=== PATIENT | female | born 1945 | race African-American/Black ===

== ENCOUNTER 2017-10-18 22:20 | Inpatient (IN) | payer MEDICARE, MEDICAID ==
[2017-10-18] MEDS ORDERED: EPINEPHrine 1 MG/ML AMP ONE ×3 (22:49→22:57)
[2017-10-18] MEDS ORDERED: methylPREDNISolone Sod Succ/PF 125 MG/2 ML VIAL ONE (23:01)
[2017-10-18] MEDS ORDERED: Famotidine/PF 20 mg/2ml Vial ONE (23:01)
[2017-10-18] MEDS ORDERED: diphenhydrAMINE 50 MG/ML VIAL ONE (23:01)
[2017-10-18 23:35] LABS: #Eosinphils 0.6 thou/uL (0.0-0.7); #Lymphocytes 3.7 thou/uL (1.20-3.40); #Monocytes 0.8 thou/uL (0.11-0.59); #Neutrophils 4.3 thou/uL (1.40-6.50); %Basophils 0.4 % (0.0-1.0); %Eosinophils 6.6 % (0.0-10.0); %Monocytes 8.4 % (0.0-10.0); %Neutrophils 45.6 % (42.0-75.0); Hemoglobin 14.1 g/dL (12.0-16.0); Mean Corpuscular HGB CONC 31.3 g/dL (32.0-36.0); Mean Corpuscular Hemoglobin 31.8 pg (27.0-31.0); Mean Platelet Volume 7.2 fL (7.4-10.4); Platelet Count 323 thou/uL (130-400); RBC Distribution Width 11.4 % (11.5-14.5); Red Blood Cell (RBC) Count 4.44 mill/uL (4.20-5.40); White Blood Cell (WBC) Count 9.5 thou/uL (4.8-10.8)
[2017-10-18 23:36] LABS: MDiff Complete? YES; PLT Morphology Comment Appears Adequate; Platelet Clumps SLIGHT; RBC Morphology Normal
[2017-10-18 23:44] LABS: ALT (SGPT) 10 U/L (8-55); AST (SGOT) 22 U/L (5-34); Albumin 4.2 g/dL (3.4-4.8); Alkaline Phosphatase 79 U/L (40-150); Anion Gap 16 mmol/L (10-20); BUN (Urea Nitrogen) 10 mg/dL (9.8-20.1); Bilirubin, Total 0.3 mg/dL (0.2-1.2); Calc. Creatinine Clearance 0 mL/min (70-130); Calcium 10.1 mg/dL (7.8-10.44); Carbon Dioxide 25 mmol/L (23-31); Chloride 103 mmol/L (98-107); Estimated GFR-MDRD 85; Globulin 4.4 g/dL (2.4-3.5); Glucose 135 mg/dL (83-110); Potassium 4.8 mmol/L (3.5-5.1); Protein, Total 8.6 g/dL (6.0-8.3); Sodium 139 mmol/L (136-145)
--- NOTE | 2017-10-18 23:53 | RAD ---
PA AND LATERAL VIEWS OF THE CHEST: 10/18/17 HISTORY: Cough. Shortness of breath. FINDINGS/IMPRESSION: Comparison is made with the exam of 11/18/15. The heart size is borderline. The aorta is tortuous. There is mild pulmonary vascular congestion vers us interstitial infiltrates. No lobar consolidation, pneumothoraces or pleural effusions are seen. POS: [facility]
--- NOTE | 2017-10-18 23:54 | RAD ---
SOFT TISSUE NECK TWO VIEWS: 10/18/17 HISTORY: Cough, shortness of breath. FINDINGS/IMPRESSION: The airway is patent. There are degenerative changes in the cervical spine. The prevertebral soft tis sues are unremarkable. POS: [facility]
[2017-10-19] MEDS ORDERED: methylPREDNISolone Sod Succ/PF 125 MG/2 ML VIAL ONE ×2 (06:01→11:55)
--- NOTE | 2017-10-19 06:27 | HP ---
CHIEF COMPLAINT: Shortness of breath started last night and cough. HISTORY OF PRESENT ILLNESS: She is a 72-year-old woman with a history of hypertension. She came in with this above symptom in the ER and she felt like short of breath last night, then feeling her throat is not clearing up and tongue was swollen and tightness, wheezing. In the ER, she was found to have swelling of the uvula, soft palate, tongue, and lip. She was found to have angioedema. In the ER, she had epinephrine, IV steroids, IV FFP. Anesthesia was called, but her airway was patent, so they did not intubate the patient, but the patient was observed, kept in the ICU because of angioedema for close monitoring. When she came into the ER, vital signs, pulse 87, blood pressure 166/79, respiratory rate 19, temperature 98.3. PAST MEDICAL HISTORY: As mentioned, asthma, hypertension, atrial fibrillation. PAST SURGICAL HISTORY: History of . SOCIAL HISTORY: The patient denies alcohol or drug use. No smoking history. FAMILY HISTORY: Noncontributory. MEDICATIONS: Given in the ER, Solu-Medrol 125, Benadryl injection 50 mg IV push , famotidine 20 mg IV, epinephrine 0.3 intramuscular, DuoNeb 3 mL, and 1 unit FFP. REVIEW OF SYSTEMS: Constitutional: Negative for fever, malaise. EYES: No symptoms. ENT: She denies dysphagia. She does have sore throat, voice change. Cardiovascular: No chest pain, no short of breath. Respirations: She has cough and wheezing. Gastrointestinal: No nausea, no vomiting, and no abdominal pain. Skin: No rash. PHYSICAL EXAMINATION: GENERAL: When I examined her, she is an elderly woman lying in the bed, not in distress. Speech is a little bit slurred. Tongue is swollen. VITAL SIGNS: Pulse 80, blood pressure 120/80, respirations 20, temperature 98.4. HEENT: Head is atraumatic, normocephalic. Pupils are round and reactive. ENT shows severe hydrops of uvula obscuring the contour of uvula and soft palate. Tonsil fossa not visualized. Tongue is dilated. Tongue is swollen and lips are swollen. NECK: Supple, no JVD, no thyromegaly. LUNGS: Chest has normal vesicular breath sounds. No added sounds. CARDIOVASCULAR: S1, S2 audible. No S3 or S4. ABDOMEN: Soft, bowel sounds audible, no organomegaly. EXTREMITIES: No pedal edema seen at time. 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 IMAGING: Her EKG shows sinus rhythm at [address] changes. HOME MEDICATIONS: She take medications at home, amlodipine 10 mg daily, aspirin 81 daily, bisoprolol and hydrochlorothiazide 5/6.25 daily, quinapril 10 mg daily. LABORATORY DATA: Her lab shows WBC of 9.5, hemoglobin 14.1, hematocrit 45.1, platelets 322, lymphocytes 3.7. Chemistry: Sodium 139, potassium 4.8, chloride 103, carbon dioxide 25, anion gap 16, BUN 10, creatinine 0.8, glucose 135, calcium 10.1, AST 22, ALT 10, alkaline phosphatase 79. Serum total protein 8.6, albumin 4.2, globulin 4.4. Chest x-ray negative. ASSESSMENT AND PLAN: 1. Angioedema secondary to TIFFANY inhibitor use. We stopped the TIFFANY inhibitor and give Solu-Medrol 125 q.6 h., Benadryl q.6 h. Watch her closely for the airway in the ICU. 2. Hypertension. We can hold her blood pressure medication. Continue aspirin. 3. History of asthma. We will continue DuoNeb nebulizers q.4 h. 4. Deep venous thrombosis prophylaxis. Lovenox. MTDD
[2017-10-19] MEDS ORDERED: Famotidine/PF 20 mg/2ml Vial ONE (09:39)
[2017-10-19] MEDS ORDERED: Enoxaparin Sodium 40 MG/0.4 ML SYRINGE ONE (09:39)
[2017-10-19] MEDS ORDERED: Water For Inject, Bacteriostat 30 ML ONE (11:55)
--- NOTE | 2017-10-19 13:33 | PDOC.EVN ---
Event Note - Event Note Event Note: s: pt is seen today alert and oriented. No other concenrnsnoted, her Tounge swelling is down, able to breath better. O reviewed all her labs and Vitals are stable. A: Angioedema from ACEI, P continue to stop her ACIE and Address the Allergylist COntinue on Current manaegemnt with IV steroids and benedryl Plan to dischagre pt home tomorrow.
[2017-10-19 16:20] VITALS: BMI 49.9
[2017-10-19] MEDS: Enoxaparin Sodium 40 MG/0.4 ML SYRINGE SC SCH (16:26)
[2017-10-19] MEDS: methylPREDNISolone Sod Succ/PF 125 MG/2 ML VIAL IVP SCH ×2 (16:27→17:59)
[2017-10-19] MEDS: Famotidine/PF 20 mg/2ml Vial SLOW IVP SCH ×2 (16:27→20:19)
[2017-10-20] MEDS: methylPREDNISolone Sod Succ/PF 125 MG/2 ML VIAL IVP SCH ×3 (00:07→11:18)
[2017-10-20] MEDS: Enoxaparin Sodium 40 MG/0.4 ML SYRINGE SC SCH (07:58)
[2017-10-20] MEDS: Famotidine/PF 20 mg/2ml Vial SLOW IVP SCH (07:58)
[2017-10-20 08:55] VITALS: BP 154/82; TEMP 97.8
--- NOTE | 2017-10-20 14:24 | DIS ---
DATE OF ADMISSION: 10/19/2017 DATE OF DISCHARGE: 10/20/2017 ADMITTING DIAGNOSIS: Acute angioedema. DISCHARGE DIAGNOSIS: Acute angioedema secondary to TIFFANY inhibitor. SECONDARY DIAGNOSES: 1. Acute hypoxic respiratory failure. 2. Hypertension. 3. History of asthma. HISTORY OF PRESENT ILLNESS: In brief, this is a 72-year-old white female with a known history of hyp ertension who came into the hospital, she felt like short of breath since last night and feeling her throat was itching and the tongue and the lip was swollen. She was noted to have wheezing in the alex st and hypoxia and she was started on nasal cannula initially on BiPAP and then changed to nasal asad lotus. She was given IV Solu-Medrol 125 mg and she has been getting every 8 hours. Patient showed goo d improvement. She was also given IV epinephrine. Patient did not need to be intubated and she was able to breathe on room air, so she was kept in the telemetry floor for close monitoring. Patient sh owed good improvement. The following day, edema of the soft palate was gone and she was able to eat normally without any problem and she did not have any chest pain or shortness of breath. The followi ng day, the patient was started on oral prednisolone to be continued for a tapering dose for at least 9 days. The patient is instructed to avoid TIFFANY inhibitors or angiotensin receptor blockers. The mil conde is on amlodipine 10 mg and her blood pressures are well controlled. She is also on bisoprolol and hydrochlorothiazide which could be continued. The patient is discharged home in stable condition . PHYSICAL EXAMINATION: VITAL SIGNS: Blood pressures are 154/82, heart rate is 99, respiration is 18, saturation 96%. GENERAL: The patient is moderately built and moderately nourished, does not appear in acute distress . CARDIOVASCULAR: S1, S2 normal. No murmurs, rubs or gallops. LUNGS: Bilateral air entry was equal. No wheezing, no crackles. ABDOMEN: Soft, nontender, no guarding, no rebound tenderness. Bowel sounds normal. MUSCULOSKELETAL: No calf tenderness. No pedal edema. No joint tenderness, no joint swelling. SKIN: No cyanosis, no edema, no rash, no pallor. CENTRAL NERVOUS SYSTEM: Cranial nerve examination II-XII intact. No focal deficits were noted in ex tremities. HOME MEDICATIONS: 1. Amlodipine 10 mg p.o. daily. 2. Aspirin 81 mg p.o. daily. 3. Bisoprolol and hydrochlorothiazide one tablet p.o. daily. 4. Prednisolone 10 mg tablet, takes 20 mg p.o. b.i.d. for 3 days and then reduce it to 20 mg p.o. da carlitos for 3 days and then reduce it to 10 mg p.o. daily for 3 days, then can stop. DISCHARGE INSTRUCTIONS: Continue activity as tolerated. Advised to follow up with primary care phys paulette in 1 week. Advised to return to the ER if the patient develops any worsening shortness of adan th and cough and any further lip swelling. I advised the patient to avoid TIFFANY inhibitors and ARB inh ibitors. I spent 35 minutes on this patient on the day of discharge.
== END 2017-10-20 15:14 | disposition home or self-care (01) | DRG 915 ==
LOC: ERS 22:20 → ERHOLD 10-19 00:30 → T4-B 10-19 15:50
PROVIDERS: ADMIT Family Medicine; ATTEND Family Medicine
PROC: 30233K1 Transfusion of Nonautologous Frozen Plasma into Peripheral Vein, Percutaneous Approach (ICD-10-PCS; principal; 2017-10-19)
DX: T78.3XXA Angioneurotic edema, initial encounter (principal); J96.01 Acute respiratory failure with hypoxia; I10 Essential (primary) hypertension; T46.4X5A Adverse effect of angiotensin-converting-enzyme inhibitors, initial encounter; J45.909 Unspecified asthma, uncomplicated
CPT/HCPCS: 36415; 36430; 70360; 71046; 80053; 85025; 86850; 86900; 86901; 93005; 94640; 96361; 96372; 96374; 96375; 96376; A4216; J0171; J1200; J1650; J2930; J7620; P9059; S0028

== ENCOUNTER 2017-11-02 10:03 | Outpatient (CLI) | payer MEDICARE, MEDICAID ==
--- NOTE | 2017-11-02 12:42 | ULT ---
ULTRASOUND RETROPERITONEUM COMPLETE: (RENAL) Date: 11/01/17 HISTORY: Calculus of kidney in 72-year-old female. FINDINGS: Right kidney: 11 x 4.5 x 4.5 cm. Left kidney: 11.5 x 6 x 5 cm. No hydronephrosis. No moderate sized or large solid or cystic renal lesion identified. However, because of body habitus, there is limited visualization of parenchymal detail of the kidneys , especially the left kidney. There is also partial obscuring of the kidneys by shadowing from bowel gas. The two small left renal upper pole cortical probable cystic lesions demonstrate on the CT of 0 11/17/16 are not visible on this ultrasound. Pre-void urinary bladder volume is only 25 mL at the time of this study. Post-void bladder volume is 2 mL. The bladder ho appear diffusely at least mildly thickened. Uterus is enlarged by multiple fibroids. IMPRESSION: 1. No hydronephrosis. 2. Uterus enlarged by multiple leiomyomata (fibroids). 3. Apparent mural thickening of the urinary bladder. LINDA Stuart POS: [facility]
== END 2017-11-02 10:04 | disposition home or self-care (01) ==
LOC: ULT 10:03
PROVIDERS: ATTEND Urology
DX: N39.41 Urge incontinence (principal); R33.9 Retention of urine, unspecified; N28.1 Cyst of kidney, acquired; N85.2 Hypertrophy of uterus
CPT/HCPCS: 76770

== ENCOUNTER 2018-04-11 11:36 | Outpatient (CLI) | payer MEDICARE | END 2018-04-11 11:37 | disposition home or self-care (01) | LOC: BICMAMMO 11:36 | PROVIDERS: ATTEND Family Medicine | DX: Z12.31 Encounter for screening mammogram for malignant neoplasm of breast (principal) | CPT/HCPCS: 77063; 77067 ==

== ENCOUNTER 2018-06-15 09:27 | Outpatient (CLI) | payer MEDICARE, MEDICAID ==
--- NOTE | 2018-06-15 11:24 | RAD ---
CHEST PA AND LATERAL: History: 73-year-old female with history of dyspnea. Comparison: 10-19-17 FINDINGS: Heart size is within normal limits. The bronchovascular markings are slightly increased but no conflu ent pneumonia, overt edema, or pleural effusion. IMPRESSION: No acute intrathoracic disease. Atherosclerosis of the aorta with ectasia. POS: [facility]
== END 2018-06-15 09:28 | disposition home or self-care (01) ==
LOC: RAD 09:27
PROVIDERS: ATTEND Internal Medicine Critical Care Medicine
DX: R06.00 Dyspnea, unspecified (principal); I70.0 Atherosclerosis of aorta; I77.819 Aortic ectasia, unspecified site
CPT/HCPCS: 71046

== ENCOUNTER 2018-11-14 22:24 | Observation (INO) | payer MEDICARE, MEDICAID ==
[2018-11-14 23:12] LABS: #Basophils 0.1 thou/uL (0.0-0.2); #Eosinphils 0.3 thou/uL (0.0-0.7); #Lymphocytes 2.8 thou/uL (1.20-3.40); #Monocytes 0.6 thou/uL (0.11-0.59); #Neutrophils 3.9 thou/uL (1.40-6.50); %Basophils 1.2 % (0.0-1.0); %Eosinophils 3.8 % (0.0-10.0); %Monocytes 7.3 % (0.0-10.0); %Neutrophils 50.7 % (42.0-75.0); Hemoglobin 13.6 g/dL (12.0-16.0); Mean Corpuscular HGB CONC 30.2 g/dL (32.0-36.0); Mean Corpuscular Hemoglobin 31.2 pg (27.0-31.0); Mean Platelet Volume 7.4 fL (7.4-10.4); Platelet Count 281 thou/uL (130-400); RBC Distribution Width 11.8 % (11.5-14.5); Red Blood Cell (RBC) Count 4.35 mill/uL (4.20-5.40); White Blood Cell (WBC) Count 7.6 thou/uL (4.8-10.8)
--- NOTE | 2018-11-14 23:22 | RAD ---
AP VIEW CHEST: 11/14/2018 HISTORY: A 73-year-old with a history of racing heart. COMPARISON: 08/22/2016 FINDINGS: AP view chest demonstrates calcification of the aorta. Mild cardiomegaly is seen. A moderate degree of pulmonary vascular congestion is seen. No evidence of effusions, pneumonia, or pneumothorax is s een. IMPRESSION: Cardiomegaly and pulmonary vascular congestion. POS: [facility]
[2018-11-14 23:32] LABS: ALT (SGPT) Less than 7 U/L (8-55); AST (SGOT) 13 U/L (5-34); Albumin 3.8 g/dL (3.4-4.8); Alkaline Phosphatase 73 U/L (40-150); Anion Gap 14 mmol/L (10-20); BUN (Urea Nitrogen) 8 mg/dL (9.8-20.1); Bilirubin, Total 0.5 mg/dL (0.2-1.2); CK (CPK) 97 U/L (29-168); Calc. Creatinine Clearance 0 mL/min (70-130); Calcium 9.8 mg/dL (7.8-10.44); Carbon Dioxide 28 mmol/L (23-31); Chloride 100 mmol/L (98-107); Estimated GFR-MDRD Greater than 90; Globulin 3.7 g/dL (2.4-3.5); Glucose 101 mg/dL (83-110); Potassium 3.8 mmol/L (3.5-5.1); Protein, Total 7.5 g/dL (6.0-8.3); Sodium 138 mmol/L (136-145)
[2018-11-15] MEDS ORDERED: Enoxaparin Sodium 40 MG/0.4 ML SYRINGE ONE ×2 (01:17→11:19)
[2018-11-15] MEDS ORDERED: Enoxaparin Sodium 100 MG/ML SYRINGE ONE (01:17)
[2018-11-15 02:40] LABS: Troponin I Less than 0.010 ng/mL (< 0.028)
[2018-11-15 05:53] LABS: Troponin I 0.015 ng/mL (< 0.028)
[2018-11-15] MEDS ORDERED: Loratadine 10 MG TAB PO PRN (07:11)
[2018-11-15] MEDS ORDERED: Artificial Tears 18 DROP/0.9 ML EA EYE PRN (07:11)
[2018-11-15] MEDS ORDERED: Bisacodyl 5 MG TAB PO PRN (07:11)
[2018-11-15] MEDS ORDERED: Ondansetron PF 4 MG/2 ML Vial IVP PRN (07:11)
[2018-11-15] MEDS ORDERED: Bisacodyl 10 MG SUPP PR PRN (07:11)
[2018-11-15] MEDS ORDERED: Sodium Chloride 0.65% Nasal 44 ML BOT EA NARE PRN (07:11)
[2018-11-15] MEDS ORDERED: Calcium Carbonate 500 MG ChewTAB PO PRN (07:11)
[2018-11-15] MEDS ORDERED: Loperamide HCl 2 MG CAP PO PRN (07:11)
[2018-11-15] MEDS ORDERED: hydrALAZINE 20 MG/ML VIAL SLOW IVP PRN (07:11)
[2018-11-15] MEDS ORDERED: Diabetic Tussin 200 MG/10 ML UDCUP PO PRN (07:11)
[2018-11-15] MEDS ORDERED: Senokot S 8.6-50 MG TAB PO PRN (07:11)
[2018-11-15] MEDS ORDERED: Eucerin (Mineral Oil/Petrolatum,White) 30 gm Jar TOP PRN (07:11)
[2018-11-15] MEDS ORDERED: Zolpidem Tartrate 5 MG TAB PO PRN (07:11)
[2018-11-15] MEDS ORDERED: Cepastat Lozenges 1 LOZ PO PRN (07:11)
[2018-11-15] MEDS ORDERED: Ondansetron ODT 4 MG TAB PO PRN (07:11)
[2018-11-15] MEDS ORDERED: Nitroglycerin 0.4 MG TAB (25 Tab Bottle) SL PRN (07:11)
[2018-11-15 07:45] LABS: Cardiac Risk 2.7 (Less than 4.5)
[2018-11-15] MEDS ORDERED: Aspirin 325 MG TAB ONE (08:08)
[2018-11-15] MEDS ORDERED: Famotidine/PF 20 mg/2ml Vial ONE (08:08)
[2018-11-15] MEDS ORDERED: Famotidine 20 MG TAB ONE (08:09)
[2018-11-15] MEDS: Aspirin 325 MG TAB PO SCH (08:30)
[2018-11-15] MEDS: Famotidine 20 MG TAB PO SCH ×2 (08:30→20:34)
[2018-11-15] MEDS ORDERED: cloNIDine 0.1 MG TAB PO PRN (10:21)
[2018-11-15] MEDS ORDERED: Furosemide 40 MG/4 ML VIAL SLOW IVP SCH (10:45)
[2018-11-15] MEDS ORDERED: Amlodipine 10 MG TAB PO SCH (10:45)
[2018-11-15] MEDS ORDERED: Furosemide 40 MG/4 ML VIAL ONE (11:19)
[2018-11-15] MEDS ORDERED: Folic Acid 1 MG TAB ONE (11:19)
--- NOTE | 2018-11-15 11:29 | HP ---
PRIMARY CARE PHYSICIAN: Dr. Consuelo Nolasco. REASON FOR ADMISSION: Asthma exacerbation, hypoxia. HISTORY OF PRESENT ILLNESS: A 73-year-old female, who has morbid obesity as well as underlying history of hypertension, who came to emergency room for evaluation of dyspnea. The patient reports that last night when she woke up for restroom and at that time, she was experiencing wheezing and shortness of breath. She was also feeling chest tightness. She was also having associated cough. She was not able to talk in full sentence. Her shortness of breath was getting worse. She was feeling dizzy and palpitation. She denies any lower extremity edema, cough tenderness, or immobilization. She denies any hemoptysis. She denies any pleurisy. She attributes her chest pain and chest tightness related with shortness of breath. This patient in the emergency room coughing and she was having active wheezing. In the emergency room, routine blood test showed slightly elevated D-dimer, but her chest x-ray also showed pulmonary vascular congestion and cardiomegaly. Her BNP was normal. Cardiac enzymes were negative. The patient denies any exertion related chest pain, angina. She denies any recent flu-like illness or any sick exposure or recent travel. The patient attributes that she has asthma and she requires nebulization machine to use at least more than 2 days per week. She had most recently hospitalization in our hospital in October 2017 about a year ago. After that, the patient also required periodic use of steroid, which she got from her primary screener and blender. In the emergency room when she came to hospital at that time, she was relatively hypoxic and she required oxygen. She was actively wheezing. REVIEW OF SYSTEMS: CONSTITUTIONAL: Negative for weight loss or gain, ability to conduct usual activities. SKIN: Negative for rash, itching. EYES: Negative for double vision, pain. ENT/MOUTH: Negative for nose bleeding, neck stiffness, pain, tenderness. CARDIOVASCULAR: Negative for palpitations, dyspnea on exertion, orthopnea. RESPIRATORY: Negative for shortness of breath, wheezing, cough, hemoptysis, fever or night sweats. GASTROINTESTINAL: Negative for poor appetite, abdominal pain, heartburn, nausea, vomiting, constipation, or diarrhea. GENITOURINARY: Negative for urgency, frequency, dysuria, nocturia. MUSCULOSKELETAL: Negative for pain, swelling. NEUROLOGIC/PSYCHIATRIC: Negative for anxiety, depression. ALLERGY/IMMUNOLOGIC: Negative for skin rash, bleeding tendency. Please see my HPI for pertinent positives and negatives. All other review of systems reviewed and negative except as mentioned in the HPI. PAST MEDICAL HISTORY: Hypertension, atrial fibrillation, asthma, morbid obesity, and history of angioedema. PAST SURGICAL HISTORY: . PAST PSYCHIATRIC HISTORY: Reviewed and negative. SOCIAL HISTORY: The patient lives at home with family. No history of tobacco, alcohol, or illicit drug abuse. FAMILY HISTORY: No strong family history of premature coronary artery disease, stroke, or cancer. ALLERGIES: THE PATIENT IS ALLERGIC TO LISINOPRIL, CODEINE, AND ACETAMINOPHEN. CURRENT HOME MEDICATIONS: 1. Amlodipine 10 mg daily. 2. Aspirin 81 mg daily. 3. Bisoprolol with hydrochlorothiazide 5/6.25 mg daily. EMERGENCY ROOM COURSE: The patient has received DuoNeb therapy and Lovenox 1 mg/kg. PHYSICAL EXAMINATION: VITAL SIGNS: On arrival; blood pressure 168/73, pulse 102, respiratory rate 24, temperature 98.6, and saturation 89% on room air. Weight 136 kg. GENERAL: The patient is currently alert, awake, tachycardic, hypertensive, and tachypneic. HEENT: Normocephalic and atraumatic. Eyes; pupils round and reactive to light. Extraocular muscle intact. ENT; oropharynx within normal limits. Moist mucous membranes. No oral lesion. No pharyngeal erythema. No exudate. NECK: Supple. Short neck difficult to assess JVD. No thyromegaly. LUNGS: Bilateral end-expiratory wheezing heard. No rales. Air entry reduced both sides. No accessory muscles of respiration in use. CARDIAC: S1 and S2, regular. Tachycardia. Soft systolic murmur noted parasternally. No gallop. No rub. No point tenderness on chest wall examination. ABDOMEN: Obesity, limiting examination. Bowel sounds present. Nontender. Nondistended. No organomegaly. No mass. No suprapubic tenderness. BACK: Unremarkable. No CVA tenderness. EXTREMITIES: Upper extremities; passive movement of all joints are normal. Lower extremity; bilateral lower extremity edema noted. No calf tenderness. SKIN: No skin rash. HEMATOLOGIC: No lymphadenopathy. PSYCHIATRIC: Normal affect. NEUROLOGIC: Nonfocal examination. SIGNIFICANT LABORATORY DATA: EKG showing junctional rhythm. Chest x-ray showing cardiomegaly, pulmonary vascular congestion. D-dimer 2.14. CBC; WBC 7.6, hemoglobin 13.6, platelet 281. BNP 95.2. Troponin I 0.013 and CK 97. BMP; sodium 138, potassium 3.8, chloride 100, carbon dioxide 28, anion gap 14, BUN 8, creatinine 0.75, glucose 101, calcium 9.8. LFT; protein 7.5, albumin 3.8, alkaline phosphatase 73, AST 13, and ALT less than 7. ASSESSMENT AND PLAN: 1. Acute asthma exacerbation. This patient has acute onset of shortness of breath. She is actively wheezing. She has underlying history of asthma and also because of her morbid obesity, most likely she also has restrictive pulmonary defect. In our hospital system, the patient does not have any previous pulmonary function test done, but she will benefit from PFT either as an outpatient basis. She has elevated D-dimer and that is why asthma trigger will rule out thromboembolic disorder, though probability it is less likely. She has pulmonary vascular congestion on chest x-ray, but BNP is normal. We will also do echocardiography to rule out any diastolic dysfunction. At this point, we will treat her as asthma exacerbation as well as diastolic heart failure. BNP can be normal in morbidly obese people. We will do Lasix 40 mg IV daily, DuoNeb therapy q.4 hourly, Dulera 2 puffs inhalation b.i.d., and Solu-Medrol 40 mg IV q.6 hourly. We will check influenza respiratory virus panel to rule out any viral etiology as a trigger. Serial cardiac enzymes x3 will be done to rule out any cardiac etiology, but less likely. We will monitor today, and we will reassess her tomorrow. 2. Acute hypoxic respiratory failure. The patient's saturation is just slightly lower than normal at 89% on room air. She needs oxygen and that is because of problem #1 with asthma exacerbation, most likely the patient will not need any oxygen upon therapy. 3. Obstructive sleep apnea. The patient has diagnosis of obstructive sleep apnea. The patient can use her home CPAP machine if available. 4. Hypertension, not well controlled. I think because of uncontrolled asthma, we will use clonidine p.r.n. basis. We will continue with amlodipine 10 mg p.o. daily. We will also use hydralazine p.r.n. basis. 5. Morbid obesity. Dietary education given. Weight loss education given. 6. Macrocytosis without anemia. We will give her folic acid and vitamin B12 therapy. 7. Diastolic heart failure, suspected acute on chronic. We will do echocardiography, and we will continue with Lasix 40 mg IV daily. 8. Deep venous thrombosis prophylaxis. We will provide Lovenox 40 mg subcu daily. 9. Gastrointestinal prophylaxis, Pepcid 20 mg p.o. b.i.d. CODE STATUS: The patient is full code. The patient does not have any surrogate decision maker. DISPOSITION PLAN: Based on clinical course, we are expecting the patient's stay in hospital 24 to 48 hours. Plan of care discussed with the patient in detail. Job ID: [id number]
[2018-11-15 14:16] VITALS: BMI 54.8
[2018-11-15] MEDS: methylPREDNISolone Sod Succ 40 MG VIAL IVP SCH ×3 (14:27→23:37)
--- NOTE | 2018-11-15 14:44 | NM ---
NUCLEAR MEDICINE LUNG SCAN: COMPARISON: Chest x-ray done yesterday. HISTORY: Shortness of breath. FINDINGS: This examination was performed using 21.3 mCi Xenon 133 gas in the anterior and posterior projections . 6.6 mCi 99m Technetium-MAA was used. This shows a normal distribution of the radiopharmaceutical. IMPRESSION: Findings compatible with low probability of pulmonary embolus. POS: [facility]
[2018-11-15] MEDS: Mometasone/Formoterol 120 PUFF INHALER INH SCH (18:52)
[2018-11-16] MEDS: methylPREDNISolone Sod Succ 40 MG VIAL IVP SCH (05:49)
[2018-11-16] MEDS: Mometasone/Formoterol 120 PUFF INHALER INH SCH (07:10)
[2018-11-16] MEDS ORDERED: Bisoprolol Fumarate/HCTZ 5 mg/6.25 mg Tablet PO SCH (09:00)
[2018-11-16] MEDS ORDERED: Cyanocobalamin (Vitamin B-12) 1,000 MCG TAB PO SCH (09:00)
[2018-11-16] MEDS ORDERED: Enoxaparin Sodium 40 MG/0.4 ML SYRINGE SC SCH (09:00)
[2018-11-16] MEDS ORDERED: Amlodipine 10 MG TAB PO SCH (09:00)
[2018-11-16] MEDS ORDERED: Folic Acid 1 MG TAB PO SCH (09:00)
[2018-11-16] MEDS ORDERED: Furosemide 40 MG/4 ML VIAL SLOW IVP SCH (09:00)
[2018-11-16] MEDS: Aspirin 325 MG TAB PO SCH (09:26)
[2018-11-16] MEDS: Famotidine 20 MG TAB PO SCH (09:26)
--- NOTE | 2018-11-16 10:34 | PDOC.PN ---
- Subjective Encounter Start Date: 11/16/18 Encounter Start Time: 07:30 -: old records requested/rev Patient seen and examined. No new complaints. No overnight events - Objective Resuscitation Status - Order Detail: 11/15/18 07:07 Resuscitation Status Routine Resuscitation Status: FULL: Full Resuscitation MAR Reviewed: Yes Vital Signs & Weight: Vital Signs (12 hours) Temp Pulse Resp BP Pulse Ox 11/16/18 09:26 94 11/16/18 08:11 89 L 11/16/18 07:33 99 F 94 20 139/66 92 L 11/16/18 07:02 90 L 11/16/18 07:01 94 16 90 L 11/16/18 05:27 98.9 F 84 16 147/69 H 92 L 11/16/18 02:19 85 16 93 L 11/15/18 23:38 98.5 F 89 18 159/58 H 93 L Weight Weight 315 lb 4.8 oz I&O: 11/15/18 11/16/18 11/17/18 06:59 06:59 06:59 Intake Total 670 Output Total 1500 Balance -830 Result Diagrams: 11/14/18 23:04 11/14/18 23:04 EKG Reviewed by me: Yes (nsr) Phys Exam - Physical Examination Constitutional: NAD HEENT: PERRLA, moist MMs, sclera anicteric, oral pharynx no lesions Neck: no JVD, supple Respiratory: no wheezing, no rales, no rhonchi Cardiovascular: RRR, no significant murmur, no rub Gastrointestinal: soft, non-tender, no distention, positive bowel sounds Musculoskeletal: no edema, pulses present Neurological: non-focal, normal sensation, moves all 4 limbs Lymphatic: no nodes Psychiatric: normal affect, A&O x 3 Skin: no rash, normal turgor Dx/Plan (1) Asthma exacerbation Code(s): J45.901 - UNSPECIFIED ASTHMA WITH (ACUTE) EXACERBATION Status: Acute (2) Macrocytosis Code(s): D75.89 - OTHER SPECIFIED DISEASES OF BLOOD AND BLOOD-FORMING ORGANS Status: Chronic (3) Morbid obesity with BMI of 50.0-59.9, adult Code(s): E66.01 - MORBID (SEVERE) OBESITY DUE TO EXCESS CALORIES; Z68.43 - BODY MASS INDEX (BMI) 50-59.9, ADULT Status: Chronic (4) LISA on CPAP Code(s): G47.33 - OBSTRUCTIVE SLEEP APNEA (ADULT) (PEDIATRIC); Z99.89 - DEPENDENCE ON OTHER ENABLING MACHINES AND DEVICES Status: Chronic (5) Hypertension Code(s): I10 - ESSENTIAL (PRIMARY) HYPERTENSION Status: Chronic - Plan cont current plan of care * medication reviewed as below * symptomatic treatment * see discharge kingsley. Review of Systems - Review of Systems ENT: negative: Ear Pain, Ear Discharge, Nose Pain, Nose Discharge, Nose Congestion, Mouth Pain, Mouth Swelling, Throat Pain, Throat Swelling, Other Respiratory: negative: Cough, Dry, Shortness of Breath, Hemoptysis, SOB with Excertion, Pleuritic Pain, Sputum, Wheezing Cardiovascular: negative: chest pain, palpitations, orthopnea, paroxysmal nocturnal dyspnea, edema, light headedness, other Gastrointestinal: negative: Nausea, Vomiting, Abdominal Pain, Diarrhea, Constipation, Melena, Hematochezia, Other Genitourinary: negative: Dysuria, Frequency, Incontinence, Hematuria, Retention , Other Musculoskeletal: negative: Neck Pain, Shoulder Pain, Arm Pain, Back Pain, Hand Pain, Leg Pain, Foot Pain, Other - Medications/Allergies Allergies/Adverse Reactions: Allergies Allergy/AdvReac Type Severity Reaction Status Date / Time acetaminophen Allergy Verified 10/19/17 16:14 [From Tylenol-Codeine #3] codeine Allergy Verified 10/19/17 16:14 [From Tylenol-Codeine #3] lisinopril Allergy Verified 10/19/17 16:14 Medications: Current Medications Albuterol/Ipratropium (Duoneb) 3 ml NEB Q6H PRN PRN Reason: SOB &/or Wheezing Albuterol/Ipratropium (Duoneb) 3 ml NEB [id number] [facility] Last Admin: 11/16/18 07:01 Dose: 3 ml Amlodipine Besylate (Norvasc) 10 mg PO DAILY [facility] Last Admin: 11/16/18 09:26 Dose: 10 mg Artificial Tears (Tears Naturale) 2 drop EA EYE PRN PRN PRN Reason: Dry Eyes Aspirin (Aspirin) 325 mg PO DAILY [facility] Last Admin: 11/16/18 09:26 Dose: 325 mg Bisacodyl (Dulcolax) 10 mg PO DAILYPRN PRN PRN Reason: Constipation Bisacodyl (Dulcolax) 10 mg CO DAILYPRN PRN PRN Reason: Constipation Bisoprolol Fumarate/HCTZ (Ziac 5-6.25) 1 tab PO DAILY [facility] Last Admin: 11/16/18 09:26 Dose: 1 tab Calcium Carbonate (Tums) 1,000 mg PO Q4H PRN PRN Reason: Heartburn or Indigestion Clonidine (Catapres) 0.1 mg PO Q4H PRN PRN Reason: SBP GREATER THAN 160 Cyanocobalamin (Vitamin B-12) 1,000 mcg PO DAILY [facility] Last Admin: 11/16/18 09:26 Dose: 1,000 mcg Enoxaparin Sodium (Lovenox) 40 mg SC 0900 [facility] Last Admin: 11/16/18 09:27 Dose: Not Given Famotidine (Pepcid) 20 mg PO BID [facility] Last Admin: 11/16/18 09:26 Dose: 20 mg Folic Acid (Folvite) 1 mg PO DAILY [facility] Last Admin: 11/16/18 09:27 Dose: 1 mg Furosemide (Lasix) 40 mg SLOW IVP DAILY [facility] Last Admin: 11/16/18 09:27 Dose: 40 mg Guaifenesin (Robitussin Sf) 200 mg PO Q4H PRN PRN Reason: Cough Hydralazine HCl (Apresoline) 10 mg SLOW IVP Q4H PRN PRN Reason: SBP > 180 and HR < 70 Loperamide HCl (Imodium) 2 mg PO PRN PRN PRN Reason: Diarrhea/Loose Stools Loratadine (Claritin) 10 mg PO DAILYPRN PRN PRN Reason: Sinus Symptoms Methylprednisolone Sodium Succinate (Solu-Medrol) 40 mg IVP Q6HR [facility] Last Admin: 11/16/18 05:49 Dose: 40 mg Mineral Oil/White Petrolatum (Eucerin Cream) 0 gm TOP BIDPRN PRN PRN Reason: Dry Skin Mometasone Furoate/Formoterol Fumar (Dulera 200 Mcg/5 Mcg Inhaler) 2 puff INH BID-RT [facility] Last Admin: 11/16/18 07:10 Dose: 2 puff Nitroglycerin (Nitrostat) 0.4 mg SL Q5MIN PRN PRN Reason: Chest Pain Ondansetron HCl (Zofran Odt) 4 mg PO Q6H PRN PRN Reason: Nausea/Vomiting Ondansetron HCl (Zofran) 4 mg IVP Q6H PRN PRN Reason: Nausea/Vomiting Senna/Docusate Sodium (Senokot S) 2 tab PO BIDPRN PRN PRN Reason: Constipation Sodium Chloride (Ware Nasal [place] 0.65%) 0 ml EA NARE QIDPRN PRN PRN Reason: Nasal Congestion Sodium Chloride (Flush - Normal Saline) 10 ml IVF Q12HR [facility] Last Admin: 11/16/18 09:27 Dose: 10 ml Sodium Chloride (Flush - Normal Saline) 10 ml IVF PRN PRN PRN Reason: Saline Flush Throat Lozenges (Cepastat Lozenges) 1 lion PO Q2H PRN PRN Reason: Sore Throat Zolpidem Tartrate (Ambien) 5 mg PO HSPRN PRN PRN Reason: Insomnia
[2018-11-16 11:51] VITALS: BP 132/60; TEMP 98.5
--- NOTE | 2018-11-16 12:16 | DIS ---
DATE OF ADMISSION: 11/15/2018 DATE OF DISCHARGE: 11/16/2018 PRIMARY CARE PHYSICIAN: Consuelo Nolasco MD DISCHARGE DISPOSITION: Home. PRIMARY DISCHARGE DIAGNOSIS: Asthma exacerbation. SECONDARY DISCHARGE DIAGNOSES: Hypertension, morbid obesity, obstructive sleep apnea, macrocytosis, asthma. PRIMARY PROCEDURE/OPERATION: None. RADIOLOGICAL INVESTIGATION: Chest x-ray was unremarkable. Ventilation perfusion scan showed low probability of PE. Echocardiography was normal. SIGNIFICANT LABORATORY DATA: WBC 7.6, hemoglobin 13.6, MCV 103, and platelets 281. D-dimer 2.14. Sodium 138, potassium 3.8, BUN 8, creatinine 0.75. LFT normal. Cardiac enzyme negative. BNP 95, LDL 74. Respiratory virus panel negative. DISCHARGE MEDICATIONS: 1. Prednisone 20 mg b.i.d. for 7 days. 2. Ventolin inhaler two puffs q.6 hourly p.r.n. 3. Singulair 10 mg daily. 4. Dulera two puffs inhalation b.i.d. 5. Bisoprolol with hydrochlorothiazide 5/6.25 one tablet p.o. daily. 6. Aspirin 81 mg daily. 7. Amlodipine 10 mg p.o. daily. CONTRAINDICATION: None. CODE STATUS: Full code. INPATIENT FITNESS AND WELLNESS COORDINATOR: None. ALLERGIES: ACETAMINOPHEN, CODEINE, LISINOPRIL. DISCHARGE PLAN: Posthospital, the patient will follow up with primary care physician in 1 or 2 weeks. HOSPITAL COURSE: A 73-year-old female who was admitted by me yesterday. Please see my HPI for further details. The patient was having wheezing. The patient was having chest tightness, shortness of breath, and cough. She was diagnosed with asthma exacerbation. Her chest x-ray was unremarkable. She had elevated D-dimer and that is why we did V/Q scan which was showing low probability of PE. Echocardiography was unremarkable. This patient was treated with DuoNeb, Solu-Medrol, Dulera with significant improvement. This patient does not have any more wheezing today and she is able to talk in full sentence. Her oxygen saturation is also normal. The patient is seen and examined at bedside today. Please see my progress note from today for further detail. Job ID: [id number]
--- NOTE | 2018-11-19 19:51 | EKG ---
Test Reason : Blood Pressure : / mmHG Vent. Rate : 092 BPM Atrial Rate : 094 BPM P-R Int : 000 ms QRS Dur : 080 ms QT Int : 330 ms P-R-T Axes : 000 025 029 degrees QTc Int : 408 ms Accelerated Junctional rhythm Abnormal ECG Confirmed by DAVID FERRARI DO ([id number]), fashion editor MATTHEW LEON ([id number]) on 11/19/2018 7:50:50 PM Referred By: Confirmed By:DAVID FERRARI DO
== END 2018-11-16 14:43 | disposition home or self-care (01) ==
LOC: ERS 22:24 → ERHOLD 11-15 01:16 → 2SW 11-15 01:21
PROVIDERS: ADMIT Hospitalist; ATTEND Hospitalist
DX: J45.901 Unspecified asthma with (acute) exacerbation (principal); J96.01 Acute respiratory failure with hypoxia; G47.33 Obstructive sleep apnea (adult) (pediatric); D75.89 Other specified diseases of blood and blood-forming organs; I48.91 Unspecified atrial fibrillation; I11.0 Hypertensive heart disease with heart failure; I50.30 Unspecified diastolic (congestive) heart failure; E66.01 Morbid (severe) obesity due to excess calories; Z68.43 Body mass index [BMI] 50.0-59.9, adult; Z79.82 Long term (current) use of aspirin; Z79.899 Other long term (current) drug therapy; Z88.5 Allergy status to narcotic agent; Z88.8 Allergy status to other drugs, medicaments and biological substances; Z99.89 Dependence on other enabling machines and devices
CPT/HCPCS: 71045; 78582; 80053; 80061; 82550; 83880; 84484 ×3; 85025; 85379; 87633; 93005; 93306; 94640 ×6; 94760 ×2; 96372; 96374; 96375; 96376 ×2; 99285; A9540; A9558; G0378 ×2; 36415; 71275; J1650; J1940; J2920; J7620; S0028

== ENCOUNTER 2019-04-02 11:43 | Inpatient (IN) | payer MEDICARE, MEDICAID ==
--- NOTE | 2019-04-02 12:25 | RAD ---
EXAM: CHEST ONE VIEW HISTORY: Altered mental status. Fluid in lower extremities. COMPARISON: 11/14/2018 FINDINGS: Cardiac silhouette is magnified by projection but does appear mildly enlarged. Pulmonary vasculature is also borderline increase. The lungs are clear. The osseous structures are intact. Vascular calcifications are again seen in the thoracic aorta. IMPRESSION: Cardiomegaly with borderline increase in pulmonary vasculature. Correlation for mild CHF is suggested .
[2019-04-02 13:12] LABS: #Basophils 0.1 thou/uL (0.0-0.2); #Eosinphils 0.1 thou/uL (0.0-0.7); #Lymphocytes 1.8 thou/uL (1.20-3.40); #Monocytes 0.8 thou/uL (0.11-0.59); #Neutrophils 4.2 thou/uL (1.40-6.50); %Basophils 1.2 % (0.0-1.0); %Eosinophils 1.7 % (0.0-10.0); %Monocytes 10.9 % (0.0-10.0); %Neutrophils 60.1 % (42.0-75.0); Hemoglobin 12.7 g/dL (12.0-16.0); Mean Corpuscular HGB CONC 30.9 g/dL (32.0-36.0); Mean Corpuscular Hemoglobin 31.1 pg (27.0-31.0); Mean Platelet Volume 7.6 fL (7.4-10.4); Platelet Count 271 thou/uL (130-400); RBC Distribution Width 12.1 % (11.5-14.5); Red Blood Cell (RBC) Count 4.08 mill/uL (4.20-5.40)
--- NOTE | 2019-04-02 13:28 | CT ---
Exam: CT brain PROVIDED CLINICAL HISTORY: Headache COMPARISON: None FINDINGS: The ventricular system is normal in size and morphology. No evidence for intracranial hemorrhage or mass effect. The extracranial soft tissues and osseous structures demonstrate an unremarkable CT appearance. IMPRESSION: No evidence for intracranial hemorrhage or mass effect.
[2019-04-02 13:35] LABS: ALT (SGPT) 9 U/L (8-55); AST (SGOT) 20 U/L (5-34); Albumin 3.7 g/dL (3.4-4.8); Alkaline Phosphatase 68 U/L (40-150); Anion Gap 14 mmol/L (10-20); BUN (Urea Nitrogen) 6 mg/dL (9.8-20.1); Bilirubin, Total 0.7 mg/dL (0.2-1.2); CK (CPK) 187 U/L (29-168); Calc. Creatinine Clearance 0 mL/min (70-130); Calcium 9.5 mg/dL (7.8-10.44); Carbon Dioxide 30 mmol/L (23-31); Chloride 98 mmol/L (98-107); Estimated GFR-MDRD Greater than 90; Globulin 3.7 g/dL (2.4-3.5); Glucose 95 mg/dL (83-110); Potassium 4.1 mmol/L (3.5-5.1); Protein, Total 7.4 g/dL (6.0-8.3); Sodium 138 mmol/L (136-145)
[2019-04-02] MEDS ORDERED: Nitroglycerin 2% Ointment 1 INCH/1 GM Packet ONE (13:46)
[2019-04-02] MEDS ORDERED: Furosemide 100 MG/10 ML VIAL ONE (13:46)
[2019-04-02] MEDS ORDERED: Aspirin Chewable 81 MG TAB ONE (13:46)
[2019-04-02] MEDS ORDERED: Acetaminophen 325 MG TAB PO PRN (15:48)
[2019-04-02] MEDS ORDERED: Bisacodyl 5 MG TAB PO PRN (15:48)
[2019-04-02] MEDS ORDERED: Senokot S 8.6-50 MG TAB PO PRN (15:48)
[2019-04-02] MEDS ORDERED: Ondansetron PF 4 MG/2 ML Vial IVP PRN (15:48)
[2019-04-02 16:54] LABS: Troponin I 0.028 ng/mL (< 0.028)
[2019-04-02] MEDS ORDERED: PROVENTIL INHALER 6.7 G (200 INHALATIONS) INH PRN (18:00)
--- NOTE | 2019-04-02 19:12 | HP ---
PRIMARY CARE PHYSICIAN: Consuelo Nolasco MD PRIMARY CONTACT OFFICER: Dr. Hill at [facility]. PRIMARY GREEN BUILDING MATERIALS DISTRIBUTOR: Dr. Leal. CHIEF COMPLAINT: Shortness of breath on exertion, difficulty lying flat, and swelling in her legs and abdomen. HISTORY OF PRESENTING ILLNESS: Ms. Ford is a 74-year-old obese female with past medical history of obstructive sleep apnea, morbid obesity, as well as asthma, who presented to the emergency room with the above-mentioned complaint. History is mainly obtained by the patient herself, and electronic medical records have been reviewed. Case has been discussed with admitting ER physician. Ms. Ford reports that for the last few days, she has been feeling that she has retained a lot of fluid in her legs and her lower abdomen. Her daughter, who is present with her, reports that she feels that her mother's abdomen is getting really bad. She also fell about 5 days ago and according to the daughter, she has been acting different since then. There has been no chest pain, but the daughter states that the patient is not able to sleep through the night. The patient has history of sleep apnea and uses CPAP at night and also denies any difficulty with her sleep. She does just does not sleep more than 4 to 5 hours at a stretch, but when she sleeps, she is able to sleep throughout those hours. She is compliant with her CPAP. She has no chest pain, cough, fever, or chills. She is compliant with her asthma medications as well. She has no difficulty with urination and has seen Dr. Conrad in the outpatient setting for some urological findings. She was admitted to our facility in November of this year for asthma exacerbation. An echocardiogram was done on 11/15/2018, which was largely unremarkable. In the emergency room today, her chest x-ray was inconclusive as to maybe having borderline increase in pulmonary vasculature and her BNP was 131. Because of the fluid retention, it was thought that she has new-onset of acute CHF and hospitalist was called to admission. PAST MEDICAL HISTORY: 1. Asthma. 2. Morbid obesity. 3. Sleep apnea, on CPAP at home. 4. Chronic atrial fibrillation according to the EMR. 5. History of angioedema. PAST SURGICAL HISTORY: section. PAST PSYCHIATRIC HISTORY: Reviewed and negative. SOCIAL HISTORY: She lives at home with family. No history of drug, tobacco, or alcohol abuse. FAMILY HISTORY: No strong family history of premature coronary artery disease, stroke, or cancer. ALLERGIES: INCLUDE LISINOPRIL, CODEINE, AND ACETAMINOPHEN. CURRENT HOME MEDICATIONS: Not updated as yet, but she takes Dulera as well as Singulair, nebulizers, and inhalers as needed. EMERGENCY ROOM COURSE: The patient has received 80 mg of Lasix in the ER. The patient has received aspirin and nitroglycerin transdermal in the ER as well for blood pressure of 178 systolic. REVIEW OF SYSTEMS: A 14-point review of system is done. It is negative except for those mentioned in the history and physical. LABORATORY AND DIAGNOSTIC DATA: Her CBC is rather unremarkable and within normal limits. Serum chemistries within normal limit. Creatine kinase mildly elevated to 187 with troponin 0.014 with repeat troponin normal at 0.028. BNP 131. Chest x-ray by my review does not show any overt pulmonary vascular congestion. CT scan of the brain does not have any hemorrhage or mass effect. A 12-lead EKG by my review shows normal sinus rhythm without any acute ST or T-wave changes. PHYSICAL EXAMINATION: VITAL SIGNS: Blood pressure 178/68 upon presentation, saturating 92% on room air and 90% with ambulation on room air. GENERAL: No acute distress. Awake, alert, and oriented x3. HEENT: Mucous membrane is moist and pink. No oropharyngeal exudate or erythema. Head is normocephalic, atraumatic. Pupils are equal and reactive to light and accommodation. Extraocular movement intact. NECK: Supple without any lymphadenopathy, JVD, or bruit. CHEST: Evaluation does not reveal any wheezes or any specific rales, but it is difficult to auscultate because of obese body habitus. HEART: Rate and rhythm are regular without any murmurs, rubs, or gallops. ABDOMEN: Morbidly obese without any significant edema. EXTREMITIES: Showed chronic venous stasis changes and some pitting edema. NEUROLOGIC: Nonfocal. SKIN: Free of any rashes or bruises. Feels warm and dry to touch. PSYCHIATRIC: Normal affect. IMPRESSION AND PLAN: 1. Dyspnea. The patient has some fairly elevated BNP and not much of a pulmonary vascular congestion or chest x-ray with a normal echocardiogram earlier this year. Her symptoms are not suggestive of congestive heart failure at this time. I suspect that her symptoms are likely just related to fluid overload without congestive heart failure from chronic venostasis. She also has history of asthma and sleep apnea, making things worse. We will treat her with nebulizers for now and continue with Dulera and fluid removal as tolerated. We will repeat the echocardiogram in case her cardiac function has diminished dramatically over the course of last 4 months. Otherwise, she will benefit from outpatient diuretics on an as-needed basis. If her echo suggest congestive heart failure, we will consider Cardiology evaluation. The patient reports that she has seen Dr. Hill in the outpatient setting and always has been given a clean bill of health as far as her cardiac health is concerned. We will consult her transition of care specialist as well. 2. Fluid retention, likely due to morbid obesity and chronic venostasis. Lasix for now and then as needed. Rule out CHF by checking and transthoracic echocardiogram. 3. History of asthma, appears to be controlled for now. We will continue Dulera and nebulizers as needed and continue Singulair as well. 4. History of hypertension. We will restart her bisoprolol, hydrochlorothiazide, and amlodipine, that she was taking once the dose is confirmed. 5. Code status: Full code discussed with the patient. 6. Sleep apnea. We will order CPAP while in the hospital to be used at night. 7. Morbid obesity. Dietary education and weight loss education are provided. 8. Macrocytosis without anemia. 9. Deep venous thrombosis and gastrointestinal prophylaxis. 10. Disposition: Ms. Ford is currently being admitted to the hospital with fluid overload and rule out CHF causing dyspnea. Estimated length of stay at this time is at least 2 to 3 midnights. We will have OT, PT evaluate her as well. Further management will depend upon her clinical course. Job ID: [id number]
[2019-04-02 19:19] LABS: Troponin I 0.028 ng/mL (< 0.028)
[2019-04-02] MEDS: Famotidine 20 MG TAB PO SCH (21:47)
[2019-04-02] MEDS ORDERED: Famotidine 20 MG TAB ONE (21:50)
[2019-04-03] MEDS: Mometasone/Formoterol 120 PUFF INHALER INH SCH ×3 (00:13→18:55)
[2019-04-03] MEDS: Famotidine 20 MG TAB PO SCH ×3 (04:33→20:40)
[2019-04-03 05:19] LABS: Anion Gap 12 mmol/L (10-20); BUN (Urea Nitrogen) 5 mg/dL (9.8-20.1); Calc. Creatinine Clearance 0 mL/min (70-130); Calcium 8.8 mg/dL (7.8-10.44); Carbon Dioxide 36 mmol/L (23-31); Chloride 97 mmol/L (98-107); Estimated GFR-MDRD Greater than 90; Glucose 87 mg/dL (83-110); Magnesium 1.9 mg/dL (1.6-2.6); Potassium 3.8 mmol/L (3.5-5.1); Sodium 141 mmol/L (136-145)
[2019-04-03 05:24] LABS: #Eosinphils 0.1 thou/uL (0.0-0.7); #Lymphocytes 1.4 thou/uL (1.20-3.40); #Monocytes 0.8 thou/uL (0.11-0.59); #Neutrophils 4.8 thou/uL (1.40-6.50); %Basophils 0.5 % (0.0-1.0); %Eosinophils 2.1 % (0.0-10.0); %Monocytes 11.5 % (0.0-10.0); %Neutrophils 66.9 % (42.0-75.0); Hemoglobin 11.8 g/dL (12.0-16.0); Mean Corpuscular HGB CONC 29.2 g/dL (32.0-36.0); Mean Corpuscular Hemoglobin 30.3 pg (27.0-31.0); Mean Platelet Volume 7.2 fL (7.4-10.4); Platelet Count 238 thou/uL (130-400); RBC Distribution Width 12.1 % (11.5-14.5); RBC Morphology Normal; Red Blood Cell (RBC) Count 3.91 mill/uL (4.20-5.40); White Blood Cell (WBC) Count 7.1 thou/uL (4.8-10.8)
[2019-04-03] MEDS: Furosemide 40 MG/4 ML VIAL SLOW IVP SCH ×2 (05:53→15:06)
[2019-04-03] MEDS: Aspirin Chewable 81 MG TAB PO SCH (08:33)
[2019-04-03] MEDS: Montelukast Sodium 10 mg Tablet PO SCH (08:33)
[2019-04-03] MEDS: Aspirin 81 mg Enteric Coated Tablet PO SCH (08:33)
[2019-04-03] MEDS: Enoxaparin Sodium 40 MG/0.4 ML SYRINGE SC SCH (08:34)
[2019-04-03] MEDS: Amlodipine 10 MG TAB PO SCH (08:34)
[2019-04-03] MEDS: Bisoprolol Fumarate/HCTZ 5 mg/6.25 mg Tablet PO SCH (09:30)
--- NOTE | 2019-04-03 10:17 | CON ---
DATE OF CONSULTATION: HISTORY OF PRESENT ILLNESS: Wil Ford is a morbidly obese 74-year-old female, who sees Dr. Leal, presented with generalized anasarca. This morning, she says she is feeling better. She has apparently some kind of CPAP machine at home, which she uses 10 minutes on a regular basis. She denies any chest pain, chills, or sweats. She is on a monitor bed. She has severe limitation to activity. Weak, uses a walker to get around. She tells me she is not smoking or drinking at this time. PAST MEDICAL HISTORY: COPD, sleep apnea, hypertension, and morbidly obese. HOME MEDICATIONS: Include; 1. Ventolin inhaler. 2. Dulera inhaler. 3. . 4. Calcium. 5. Blood pressure medication. 6. Aspirin. 7. Amlodipine 10. ALLERGIES: LISINOPRIL AND TYLENOL. REVIEW OF SYSTEMS: Otherwise 10-point negative. PHYSICAL EXAMINATION: VITAL SIGNS: Sats are 92.5%, respiratory rate 20, temperature 98, blood pressure 129/64. EXTREMITIES: Trace edema. CHEST: Decreased breath sounds. No wheezing. CARDIAC: Normal S1 and S2. No gallops. ABDOMEN: No masses. LABORATORY DATA: Lytes are normal. White count unremarkable. H and H unremarkable. IMAGING STUDIES: Chest x-ray was otherwise remarkable for looks like cephalization, though her BNP was only 131. IMPRESSION: Acute on chronic respiratory failure, morbid obesity, diastolic dysfunction, and sleep apnea. PLAN: We will restart neb treatments as well as BiPAP, though she has not brought us from home. We will notify, Dr. Leal. Consultation note, 70 minutes, 50% direct patient care. Job ID: [id number]
--- NOTE | 2019-04-03 12:28 | PDOC.PN ---
- Subjective Encounter Start Date: 04/03/19 Encounter Start Time: 09:20 Subjective: awake, not fully oriented. Responds well to verbal questions -: no chest pain or palp - Objective MAR Reviewed: Yes Vital Signs & Weight: Vital Signs (12 hours) Temp Pulse Resp BP BP Pulse Ox 04/03/19 11:04 75 16 100 04/03/19 08:34 99 129/64 04/03/19 08:21 20 04/03/19 08:00 90 L 04/03/19 07:06 85 16 04/03/19 07:00 98.1 F 99 15 129/64 90 L 04/03/19 04:00 92 L 04/03/19 03:02 97.5 F L 102 H 20 109/59 L 95 Weight Weight 337 lb 3.2 oz I&O: 04/02/19 04/03/19 04/04/19 06:59 06:59 06:59 Intake Total 340 Balance 340 Result Diagrams: 04/03/19 04:30 04/03/19 04:30 Phys Exam - Physical Examination HEENT: PERRLA, moist MMs Neck: no JVD, supple Respiratory: no wheezing, no rales Cardiovascular: RRR, no significant murmur Gastrointestinal: soft, non-tender, positive bowel sounds Musculoskeletal: no edema, pulses present Neurological: non-focal, moves all 4 limbs Psychiatric: normal affect Dx/Plan (1) Dyspnea Code(s): R06.00 - DYSPNEA, UNSPECIFIED Status: Acute Qualifiers: Dyspnea type: dyspnea on exertion Qualified Code(s): R06.09 - Other forms of dyspnea Comment: multifactorial (2) Morbid obesity Code(s): E66.01 - MORBID (SEVERE) OBESITY DUE TO EXCESS CALORIES Status: Chronic (3) Obesity hypoventilation syndrome Code(s): E66.2 - MORBID (SEVERE) OBESITY WITH ALVEOLAR HYPOVENTILATION Status : Suspected (4) Afib Code(s): I48.91 - UNSPECIFIED ATRIAL FIBRILLATION Status: Chronic Qualifiers: Atrial fibrillation type: paroxysmal Qualified Code(s): I48.0 - Paroxysmal atrial fibrillation (5) Chronic anemia Code(s): D64.9 - ANEMIA, UNSPECIFIED Status: Chronic (6) Hypertension Code(s): I10 - ESSENTIAL (PRIMARY) HYPERTENSION Status: Chronic Qualifiers: Hypertension type: essential hypertension Qualified Code(s): I10 - Essential (primary) hypertension (7) LISA on CPAP Code(s): G47.33 - OBSTRUCTIVE SLEEP APNEA (ADULT) (PEDIATRIC); Z99.89 - DEPENDENCE ON OTHER ENABLING MACHINES AND DEVICES Status: Chronic - Plan to wear home cpap -: ABG to see for co2 retention, ?obesity hypoventilation syndrome -: continue lasix, nebs, norvasc, asp, ziac, dulera -: is in sinus rhythm now -: to ambulate as tolerated * . Review of Systems - Medications/Allergies Allergies/Adverse Reactions: Allergies Allergy/AdvReac Type Severity Reaction Status Date / Time acetaminophen Allergy Verified 10/19/17 16:14 [From Tylenol-Codeine #3] codeine Allergy Verified 10/19/17 16:14 [From Tylenol-Codeine #3] lisinopril Allergy Verified 10/19/17 16:14 Medications: Current Medications Acetaminophen (Tylenol) 650 mg PO Q4H PRN PRN Reason: Headache/Fever/Mild Pain (1-3) Albuterol Sulfate (Proventil Hfa) 2 puff INH Q6HR PRN PRN Reason: SOB &/or Wheezing Albuterol/Ipratropium (Duoneb) 3 ml NEB [id number] [facility] Last Admin: 04/03/19 11:04 Dose: 3 ml Amlodipine Besylate (Norvasc) 10 mg PO DAILY [facility] Last Admin: 04/03/19 08:34 Dose: 10 mg Aspirin (Ecotrin) 81 mg PO DAILY [facility] Last Admin: 04/03/19 08:33 Dose: 81 mg Aspirin (Aspirin Chewable) 81 mg PO DAILY [facility] Last Admin: 04/03/19 08:33 Dose: 81 mg Bisacodyl (Dulcolax) 10 mg PO DAILYPRN PRN PRN Reason: Constipation Bisoprolol Fumarate/HCTZ (Ziac 5-6.25) 1 tab PO DAILY [facility] Last Admin: 04/03/19 09:30 Dose: 1 tab Enoxaparin Sodium (Lovenox) 40 mg SC 0900 [facility] Last Admin: 04/03/19 08:34 Dose: 40 mg Famotidine (Pepcid) 20 mg PO BID [facility] Last Admin: 04/03/19 08:34 Dose: 20 mg Furosemide (Lasix) 40 mg SLOW IVP 0600,1400 [facility] Last Admin: 04/03/19 05:53 Dose: 40 mg Mometasone Furoate/Formoterol Fumar (Dulera 200 Mcg/5 Mcg Inhaler) 2 puff INH BID-RT [facility] Last Admin: 04/03/19 07:06 Dose: 2 puff Montelukast Sodium (Singulair) 10 mg PO DAILY [facility] Last Admin: 04/03/19 08:33 Dose: 10 mg Ondansetron HCl (Zofran) 4 mg IVP Q6H PRN PRN Reason: Nausea/Vomiting Senna/Docusate Sodium (Senokot S) 2 tab PO BID PRN PRN Reason: Constipation
[2019-04-03 15:02] LABS: Actual Bicarbonate (HCO3a) 43.9 mEq/L (22-28); Analyzer IN Cardio OR; Base Excess (BEa) 15.2 mEq/L (-2.0 to +3.0); Calcium, Ionized 1.15 mmol/L (1.12-1.30); Carboxyhemoglobin (COHb) 1.7 gm% (0.0-3.0); Hemoglobin (Hb) 12.5 g/dL (12.0-16.0); O2 Tension (PaO2) 70.4 mmHg (> 70.0); Potassium - ABG Lab 3.77 mmol/L (3.70-5.30); pH, Arterial 7.37 (7.35-7.45)
[2019-04-03 15:06] LABS: CO2 Tension 76.9 mmHg (35.0-45.0); Puncture Site RR
[2019-04-03 15:07] LABS: ALV-art Gradient 33.115 (0-20)
[2019-04-04] MEDS: Furosemide 40 MG/4 ML VIAL SLOW IVP SCH (05:19)
[2019-04-04 06:39] LABS: BUN (Urea Nitrogen) 7 mg/dL (9.8-20.1); Calc. Creatinine Clearance 175 mL/min (70-130); Estimated GFR-MDRD Greater than 90; Glucose 84 mg/dL (83-110)
[2019-04-04 06:48] LABS: Anion Gap 14 mmol/L (10-20); Carbon Dioxide 35 mmol/L (23-31); Chloride 93 mmol/L (98-107); Potassium 3.7 mmol/L (3.5-5.1); Sodium 138 mmol/L (136-145)
[2019-04-04] MEDS: Mometasone/Formoterol 120 PUFF INHALER INH SCH ×2 (07:57→18:43)
[2019-04-04] MEDS: Enoxaparin Sodium 40 MG/0.4 ML SYRINGE SC SCH (10:40)
[2019-04-04] MEDS: Famotidine 20 MG TAB PO SCH ×2 (10:41→21:30)
[2019-04-04] MEDS: Montelukast Sodium 10 mg Tablet PO SCH (10:41)
[2019-04-04] MEDS: Aspirin 81 mg Enteric Coated Tablet PO SCH (10:41)
[2019-04-04] MEDS: Bisoprolol Fumarate/HCTZ 5 mg/6.25 mg Tablet PO SCH (10:41)
[2019-04-04] MEDS: Amlodipine 10 MG TAB PO SCH (10:41)
[2019-04-04] MEDS: Aspirin Chewable 81 MG TAB PO SCH (10:41)
--- NOTE | 2019-04-04 11:44 | PDOC.PN ---
- Subjective Encounter Start Date: 04/04/19 Encounter Start Time: 10:45 Subjective: lethargic but responds to verbal stimuli -: counselled to amb in hallway and be out of bed - Objective MAR Reviewed: Yes Vital Signs & Weight: Vital Signs (12 hours) Temp Pulse Pulse Pulse Resp BP BP 04/04/19 10:56 81 20 04/04/19 10:41 82 04/04/19 09:42 75 82 109/53 L 122/56 L 04/04/19 08:00 98.6 F 82 18 04/04/19 04:00 99.5 F 87 18 04/03/19 23:58 99.8 F H 85 20 BP Pulse Ox Pulse Ox Pulse Ox 04/04/19 10:56 04/04/19 10:41 04/04/19 09:42 95 95 04/04/19 08:00 117/58 L 95 04/04/19 04:00 114/56 L 92 L 04/03/19 23:58 112/53 L 98 Weight Weight 326 lb 4 oz I&O: 04/03/19 04/04/19 04/05/19 06:59 06:59 06:59 Intake Total 1015 Output Total 3000 Balance -1984 Result Diagrams: 04/03/19 04:30 04/04/19 06:05 Phys Exam - Physical Examination HEENT: PERRLA, moist MMs Neck: no JVD, supple Respiratory: no wheezing, no rales Cardiovascular: RRR, no significant murmur Gastrointestinal: soft, non-tender, positive bowel sounds Musculoskeletal: no edema, pulses present Neurological: non-focal, moves all 4 limbs Dx/Plan (1) Dyspnea Code(s): R06.00 - DYSPNEA, UNSPECIFIED Status: Acute Qualifiers: Dyspnea type: dyspnea on exertion Qualified Code(s): R06.09 - Other forms of dyspnea Comment: multifactorial (2) Morbid obesity Code(s): E66.01 - MORBID (SEVERE) OBESITY DUE TO EXCESS CALORIES Status: Chronic (3) Obesity hypoventilation syndrome Code(s): E66.2 - MORBID (SEVERE) OBESITY WITH ALVEOLAR HYPOVENTILATION Status : Suspected (4) Afib Code(s): I48.91 - UNSPECIFIED ATRIAL FIBRILLATION Status: Chronic Qualifiers: Atrial fibrillation type: paroxysmal Qualified Code(s): I48.0 - Paroxysmal atrial fibrillation (5) Chronic anemia Code(s): D64.9 - ANEMIA, UNSPECIFIED Status: Chronic (6) Hypertension Code(s): I10 - ESSENTIAL (PRIMARY) HYPERTENSION Status: Chronic Qualifiers: Hypertension type: essential hypertension Qualified Code(s): I10 - Essential (primary) hypertension (7) LISA on CPAP Code(s): G47.33 - OBSTRUCTIVE SLEEP APNEA (ADULT) (PEDIATRIC); Z99.89 - DEPENDENCE ON OTHER ENABLING MACHINES AND DEVICES Status: Chronic - Plan is on asp, norvasc, ziac, dulera, nebs, will dc lasix -: will likely need bipap for lisa with hypovent syndrome/vent for outpt use -: echo shows normal ef and elevated rvsp 52 -: has life threatening obesity, is 74 yrs old -: await pulm opinion * . Review of Systems - Medications/Allergies Allergies/Adverse Reactions: Allergies Allergy/AdvReac Type Severity Reaction Status Date / Time acetaminophen Allergy Verified 10/19/17 16:14 [From Tylenol-Codeine #3] codeine Allergy Verified 10/19/17 16:14 [From Tylenol-Codeine #3] lisinopril Allergy Verified 10/19/17 16:14 Medications: Current Medications Acetaminophen (Tylenol) 650 mg PO Q4H PRN PRN Reason: Headache/Fever/Mild Pain (1-3) Albuterol Sulfate (Proventil Hfa) 2 puff INH Q6HR PRN PRN Reason: SOB &/or Wheezing Albuterol/Ipratropium (Duoneb) 3 ml NEB [id number] [facility] Last Admin: 04/04/19 10:56 Dose: 3 ml Amlodipine Besylate (Norvasc) 10 mg PO DAILY [facility] Last Admin: 04/04/19 10:41 Dose: 10 mg Aspirin (Ecotrin) 81 mg PO DAILY [facility] Last Admin: 04/04/19 10:41 Dose: 81 mg Aspirin (Aspirin Chewable) 81 mg PO DAILY [facility] Last Admin: 04/04/19 10:41 Dose: 81 mg Bisacodyl (Dulcolax) 10 mg PO DAILYPRN PRN PRN Reason: Constipation Bisoprolol Fumarate/HCTZ (Ziac 5-6.25) 1 tab PO DAILY [facility] Last Admin: 04/04/19 10:41 Dose: 1 tab Enoxaparin Sodium (Lovenox) 40 mg SC 0900 [facility] Last Admin: 04/04/19 10:40 Dose: 40 mg Famotidine (Pepcid) 20 mg PO BID [facility] Last Admin: 04/04/19 10:41 Dose: 20 mg Furosemide (Lasix) 40 mg SLOW IVP 0600,1400 [facility] Last Admin: 04/04/19 05:19 Dose: 40 mg Mometasone Furoate/Formoterol Fumar (Dulera 200 Mcg/5 Mcg Inhaler) 2 puff INH BID-RT [facility] Last Admin: 04/04/19 07:57 Dose: 2 puff Montelukast Sodium (Singulair) 10 mg PO DAILY [facility] Last Admin: 04/04/19 10:41 Dose: 10 mg Ondansetron HCl (Zofran) 4 mg IVP Q6H PRN PRN Reason: Nausea/Vomiting Senna/Docusate Sodium (Senokot S) 2 tab PO BID PRN PRN Reason: Constipation
--- NOTE | 2019-04-04 14:07 | PRG ---
DATE OF SERVICE: 04/04/2019 SUBJECTIVE: Fernando Ford's records have been reviewed. She says she is gaining weight and retaining fluid for several weeks prior to admission. She says she feels much better at this point. Intake and outputs, negative 1995. Her family says that she drinks water continuously throughout the day. I have again reminded her that she needs to cut back her water intake if her legs are starting to swell and if she is starting to retain fluid. OBJECTIVE: VITAL SIGNS: She is afebrile, heart rate 75, respiratory rate is 18, oximetry is 98% on 2 L, blood pressure 137/65. LUNGS: Clear. HEART: Regular rhythm. ABDOMEN: Soft and nontender. IMPRESSION: 1. Obesity hypoventilation syndrome. 2. Diastolic dysfunction with fluid retention associated with that. 3. Morbid obesity. 4. Pulmonary edema on admission, now clinically improved. 5. Anemia with an increased mean corpuscular volume. We will continue to follow the other physicians caring for her. Job ID: [id number]
[2019-04-05 06:31] LABS: BUN (Urea Nitrogen) 7 mg/dL (9.8-20.1); Calc. Creatinine Clearance 181 mL/min (70-130); Calcium 8.9 mg/dL (7.8-10.44); Estimated GFR-MDRD Greater than 90; Glucose 80 mg/dL (83-110)
[2019-04-05 06:40] LABS: Anion Gap 13 mmol/L (10-20); Carbon Dioxide 37 mmol/L (23-31); Chloride 92 mmol/L (98-107); Potassium 3.7 mmol/L (3.5-5.1); Sodium 138 mmol/L (136-145)
[2019-04-05] MEDS: Mometasone/Formoterol 120 PUFF INHALER INH SCH ×2 (07:30→18:10)
[2019-04-05] MEDS: Montelukast Sodium 10 mg Tablet PO SCH (09:19)
[2019-04-05] MEDS: Bisoprolol Fumarate/HCTZ 5 mg/6.25 mg Tablet PO SCH (09:19)
[2019-04-05] MEDS: Amlodipine 10 MG TAB PO SCH (09:19)
[2019-04-05] MEDS: Famotidine 20 MG TAB PO SCH ×2 (09:19→20:30)
[2019-04-05] MEDS: Enoxaparin Sodium 40 MG/0.4 ML SYRINGE SC SCH (09:19)
[2019-04-05] MEDS: Aspirin Chewable 81 MG TAB PO SCH (09:20)
--- NOTE | 2019-04-05 12:01 | PDOC.PN ---
- Subjective Encounter Start Date: 04/05/19 Encounter Start Time: 09:20 Subjective: is ambulating in hallway with rolling walker and PT -: feels better -: no chest pain or palp - Objective MAR Reviewed: Yes Vital Signs & Weight: Vital Signs (12 hours) Temp Pulse Resp BP Pulse Ox 04/05/19 10:46 74 16 92 L 04/05/19 09:19 72 04/05/19 07:56 97.8 F 72 18 127/61 95 04/05/19 07:55 94 L 04/05/19 07:33 74 16 96 04/05/19 07:30 74 16 96 04/05/19 04:00 98.7 F 76 16 129/61 96 Weight Weight 317 lb 2 oz I&O: 04/04/19 04/05/19 04/06/19 06:59 06:59 06:59 Intake Total 1015 860 Output Total 3000 1280 Balance -1985 -420 Result Diagrams: 04/03/19 04:30 04/05/19 05:33 Phys Exam - Physical Examination HEENT: PERRLA, moist MMs Neck: no JVD, supple Respiratory: no wheezing, no rales Cardiovascular: RRR, no significant murmur Gastrointestinal: soft, non-tender, positive bowel sounds Musculoskeletal: pulses present, edema present Neurological: non-focal, moves all 4 limbs Dx/Plan (1) Dyspnea Code(s): R06.00 - DYSPNEA, UNSPECIFIED Status: Acute Qualifiers: Dyspnea type: dyspnea on exertion Qualified Code(s): R06.09 - Other forms of dyspnea Comment: multifactorial (2) Morbid obesity Code(s): E66.01 - MORBID (SEVERE) OBESITY DUE TO EXCESS CALORIES Status: Chronic (3) Obesity hypoventilation syndrome Code(s): E66.2 - MORBID (SEVERE) OBESITY WITH ALVEOLAR HYPOVENTILATION Status : Suspected (4) Afib Code(s): I48.91 - UNSPECIFIED ATRIAL FIBRILLATION Status: Chronic Qualifiers: Atrial fibrillation type: paroxysmal Qualified Code(s): I48.0 - Paroxysmal atrial fibrillation (5) Chronic anemia Code(s): D64.9 - ANEMIA, UNSPECIFIED Status: Chronic (6) Hypertension Code(s): I10 - ESSENTIAL (PRIMARY) HYPERTENSION Status: Chronic Qualifiers: Hypertension type: essential hypertension Qualified Code(s): I10 - Essential (primary) hypertension (7) LISA on CPAP Code(s): G47.33 - OBSTRUCTIVE SLEEP APNEA (ADULT) (PEDIATRIC); Z99.89 - DEPENDENCE ON OTHER ENABLING MACHINES AND DEVICES Status: Chronic - Plan hemostable -: transfer pt to med floor -: cpap at night, might require bipap, await pulm adv -: continue asp, norvasc, ziac, nebs, dulera -: off lasix due to elevated hco3 * . Review of Systems - Medications/Allergies Allergies/Adverse Reactions: Allergies Allergy/AdvReac Type Severity Reaction Status Date / Time acetaminophen Allergy Verified 10/19/17 16:14 [From Tylenol-Codeine #3] codeine Allergy Verified 10/19/17 16:14 [From Tylenol-Codeine #3] lisinopril Allergy Verified 10/19/17 16:14 Medications: Current Medications Acetaminophen (Tylenol) 650 mg PO Q4H PRN PRN Reason: Headache/Fever/Mild Pain (1-3) Albuterol Sulfate (Proventil Hfa) 2 puff INH Q6HR PRN PRN Reason: SOB &/or Wheezing Albuterol/Ipratropium (Duoneb) 3 ml NEB [id number] SCH Last Admin: 04/05/19 10:46 Dose: 3 ml Amlodipine Besylate (Norvasc) 10 mg PO DAILY [facility] Last Admin: 04/05/19 09:19 Dose: 10 mg Aspirin (Aspirin Chewable) 81 mg PO DAILY [facility] Last Admin: 04/05/19 09:20 Dose: 81 mg Bisacodyl (Dulcolax) 10 mg PO DAILYPRN PRN PRN Reason: Constipation Bisoprolol Fumarate/HCTZ (Ziac 5-6.25) 1 tab PO DAILY [facility] Last Admin: 04/05/19 09:19 Dose: 1 tab Enoxaparin Sodium (Lovenox) 40 mg SC 0900 [facility] Last Admin: 04/05/19 09:19 Dose: 40 mg Famotidine (Pepcid) 20 mg PO BID [facility] Last Admin: 04/05/19 09:19 Dose: 20 mg Mometasone Furoate/Formoterol Fumar (Dulera 200 Mcg/5 Mcg Inhaler) 2 puff INH BID-RT [facility] Last Admin: 04/05/19 07:30 Dose: 2 puff Montelukast Sodium (Singulair) 10 mg PO DAILY [facility] Last Admin: 04/05/19 09:19 Dose: 10 mg Ondansetron HCl (Zofran) 4 mg IVP Q6H PRN PRN Reason: Nausea/Vomiting Senna/Docusate Sodium (Senokot S) 2 tab PO BID PRN PRN Reason: Constipation
--- NOTE | 2019-04-05 15:18 | PRG ---
DATE OF SERVICE: 04/05/2019 SUBJECTIVE: Ms. Ford had no new complaints. She was complaining about the lunch that had been delivered, but the cafeteria had already sent up another meal. OBJECTIVE: VITAL SIGNS: Heart rate 73, respiratory rate 16, oximetry 96% on 2 L, blood pressure 131/66. LUNGS: Clear today. HEART: Regular rhythm. ABDOMEN: Soft. LABORATORY DATA: Sodium 138, potassium 3.7, chloride 92, bicarb 37, BUN 7, and creatinine 0.62. IMPRESSION: 1. Obesity hypoventilation syndrome. 2. Diastolic dysfunction. 3. Life-threatening obesity. 4. Pulmonary edema on admission, now improved. 5. Anemia with an elevated mean corpuscular volume. She seems stable now, that she has been transferred to a medical bed. She would benefit from an outpatient sleep study. From what I can tell, she never has kept her recommendation for followup in our office. Job ID: [id number]
[2019-04-05] MEDS ORDERED: Fleet Enema 133 ML BOT FS SCH (15:45)
[2019-04-06] MEDS: Mometasone/Formoterol 120 PUFF INHALER INH SCH ×2 (06:38→19:07)
[2019-04-06 07:07] LABS: Anion Gap 11 mmol/L (10-20); BUN (Urea Nitrogen) 7 mg/dL (9.8-20.1); Calc. Creatinine Clearance 169 mL/min (70-130); Calcium 9.7 mg/dL (7.8-10.44); Carbon Dioxide 37 mmol/L (23-31); Chloride 93 mmol/L (98-107); Estimated GFR-MDRD Greater than 90; Glucose 82 mg/dL (83-110); Potassium 4.2 mmol/L (3.5-5.1); Sodium 137 mmol/L (136-145)
[2019-04-06] MEDS: Montelukast Sodium 10 mg Tablet PO SCH (08:33)
[2019-04-06] MEDS: Aspirin Chewable 81 MG TAB PO SCH (08:35)
[2019-04-06] MEDS: Famotidine 20 MG TAB PO SCH ×2 (08:35→19:51)
[2019-04-06] MEDS: Amlodipine 10 MG TAB PO SCH (08:43)
[2019-04-06] MEDS: Bisoprolol Fumarate/HCTZ 5 mg/6.25 mg Tablet PO SCH (08:44)
[2019-04-06] MEDS: Enoxaparin Sodium 40 MG/0.4 ML SYRINGE SC SCH (08:45)
[2019-04-06] MEDS: AcetaZOLAMIDE 250 MG TAB PO SCH ×2 (12:48→13:48)
--- NOTE | 2019-04-06 13:48 | PDOC.PN ---
- Subjective Encounter Start Date: 04/06/19 Encounter Start Time: 13:46 Ms. Ford was seen today in follow-up of acute on chronic respiratory failure. She says she feels better. She does not have any new complaints. - Objective MAR Reviewed: Yes Vital Signs & Weight: Vital Signs (12 hours) Temp Pulse Resp BP BP BP Pulse Ox 04/06/19 12:00 98.7 F 78 18 126/68 98 04/06/19 10:19 77 16 96 04/06/19 08:43 92 105/65 04/06/19 08:00 99.0 F 84 20 115/76 95 04/06/19 06:45 91 L 04/06/19 06:44 80 16 91 L 04/06/19 06:38 80 16 91 L 04/06/19 04:00 98.7 F 89 20 108/66 94 L Weight Weight 320 lb 9.6 oz I&O: 04/05/19 04/06/19 04/07/19 06:59 06:59 06:59 Intake Total 860 Output Total 1280 Balance -420 Result Diagrams: 04/03/19 04:30 04/06/19 05:46 Phys Exam - Physical Examination HEENT: PERRLA Respiratory: no wheezing, no rales, no rhonchi, clear to auscultation bilateral Cardiovascular: RRR, no significant murmur, no rub Gastrointestinal: soft, non-tender, no distention, positive bowel sounds Musculoskeletal: pulses present, edema present Dx/Plan (1) Acute and chronic respiratory failure Code(s): J96.20 - ACUTE AND CHR RESP FAILURE, UNSP W HYPOXIA OR HYPERCAPNIA Status: Acute Qualifiers: Respiratory failure complication: hypercapnia Qualified Code(s): J96.22 - Acute and chronic respiratory failure with hypercapnia (2) Chronic anemia Code(s): D64.9 - ANEMIA, UNSPECIFIED Status: Chronic (3) Morbid obesity Code(s): E66.01 - MORBID (SEVERE) OBESITY DUE TO EXCESS CALORIES Status: Chronic (4) Obesity hypoventilation syndrome Code(s): E66.2 - MORBID (SEVERE) OBESITY WITH ALVEOLAR HYPOVENTILATION Status : Suspected (5) Hypertension Code(s): I10 - ESSENTIAL (PRIMARY) HYPERTENSION Status: Chronic Qualifiers: Hypertension type: essential hypertension Qualified Code(s): I10 - Essential (primary) hypertension - Plan * Acute on chronic respiratory failure- improved- continue current treatment * Obesity Hypoventilation syndrome- continue CPAP- she tells me she uses a CPAP at home. Her last sleep study she believes was around 2012. I told her she needs another study, but she does not believe me, and says " all she needs to do is use the one she has". * HTN- blood pressure has been a little on the low side- she tells me she normally takes a half of Amlodipine at home * Will have her ambulate and see what her oxygen saturations are * Will add a few days of Diamox for the elevated CO2 level * I suspect she probably needs BiPAp if she can be convinced to do another sleep study * .
--- NOTE | 2019-04-06 16:14 | PRG ---
DATE OF SERVICE: 04/06/2019 SUBJECTIVE: Ms. Ford is afebrile. OBJECTIVE: VITAL SIGNS: Heart rates in the 80s, respiratory rate 17, oximetry is 91 to 96. LUNGS: Clear. HEART: Regular rhythm. S1 and S2 are normal. ABDOMEN: Soft and nontender. EXTREMITIES: Without edema. LABORATORY DATA: White count 7.1 on the 24th. No CBC done since the 24th. Hemoglobin 11.8. Sodium 137, potassium 4.2, chloride 93, bicarb 37, BUN 7, and creatinine 0.67. ASSESSMENT AND PLAN: I inquired about sleep apnea again. She tells me today that she does have CPAP at home and she wears it usually. I have explained to her that she needs to wear it all the time, and is here to monitor and download the compliance data. However, I again discussed her fluid restriction, whether in paying attention to her lower extremity edema and cut back on her fluids if she starts to retain fluid or gain weight. I will be happy to see her in the office in 4 to 6 weeks after discharge. Job ID: [id number]
[2019-04-07 05:40] LABS: Anion Gap 9 mmol/L (10-20); BUN (Urea Nitrogen) 7 mg/dL (9.8-20.1); Calc. Creatinine Clearance 176 mL/min (70-130); Carbon Dioxide 32 mmol/L (23-31); Chloride 99 mmol/L (98-107); Estimated GFR-MDRD Greater than 90; Glucose 85 mg/dL (83-110); Potassium 4.1 mmol/L (3.5-5.1); Sodium 136 mmol/L (136-145)
[2019-04-07] MEDS: Mometasone/Formoterol 120 PUFF INHALER INH SCH (06:31)
[2019-04-07] MEDS: Aspirin Chewable 81 MG TAB PO SCH (08:31)
[2019-04-07] MEDS: Montelukast Sodium 10 mg Tablet PO SCH (08:31)
[2019-04-07] MEDS: AcetaZOLAMIDE 250 MG TAB PO SCH (08:31)
[2019-04-07] MEDS: Famotidine 20 MG TAB PO SCH (08:31)
[2019-04-07] MEDS: Enoxaparin Sodium 40 MG/0.4 ML SYRINGE SC SCH (08:31)
[2019-04-07] MEDS ORDERED: Amlodipine 5 MG TAB PO SCH (09:00)
--- NOTE | 2019-04-07 09:42 | EKG ---
Test Reason : Blood Pressure : / mmHG Vent. Rate : 078 BPM Atrial Rate : 078 BPM P-R Int : 160 ms QRS Dur : 084 ms QT Int : 384 ms P-R-T Axes : 085 026 033 degrees QTc Int : 437 ms Sinus rhythm with Premature atrial complexes Low voltage QRS Cannot rule out Anterior infarct , age undetermined Abnormal ECG Confirmed by LIANET KWOK, FRED ([id number]), web content editor JACKIE LANCASTER ([id number]) on 04/07/2019 9:41:44 AM Referred By: Confirmed By:FRED MARTINI MD
[2019-04-07 12:03] VITALS: BP 144/62; TEMP 98.7
--- NOTE | 2019-04-07 15:42 | PDOC.PN ---
- Subjective Encounter Start Date: 04/07/19 Encounter Start Time: 15:41 Ms. Ford was seen today in fol of respiratory failure. She says she feels fine, back to her baseline. - Objective MAR Reviewed: Yes Vital Signs & Weight: Vital Signs (12 hours) Temp Pulse Resp BP BP BP Pulse Ox 04/07/19 14:27 83 16 98 04/07/19 12:00 98.7 F 86 20 144/62 H 90 L 04/07/19 10:21 88 16 90 L 04/07/19 08:32 89 101/58 L 04/07/19 08:00 99.4 F 89 22 H 101/58 L 94 L 04/07/19 06:34 95 04/07/19 06:33 80 16 95 04/07/19 06:31 80 16 95 04/07/19 04:00 99.3 F 89 18 156/72 H 93 L Weight Weight 324 lb I&O: 04/06/19 04/07/19 04/08/19 06:59 06:59 06:59 Intake Total 360 Balance 360 Result Diagrams: 04/03/19 04:30 04/07/19 04:51 Phys Exam - Physical Examination HEENT: PERRLA Respiratory: no wheezing, no rales, no rhonchi, clear to auscultation bilateral Cardiovascular: RRR, no significant murmur, no rub Gastrointestinal: soft, non-tender, no distention, positive bowel sounds Musculoskeletal: no edema, pulses present Dx/Plan (1) Acute and chronic respiratory failure Code(s): J96.20 - ACUTE AND CHR RESP FAILURE, UNSP W HYPOXIA OR HYPERCAPNIA Status: Acute Qualifiers: Respiratory failure complication: hypercapnia Qualified Code(s): J96.22 - Acute and chronic respiratory failure with hypercapnia (2) Chronic anemia Code(s): D64.9 - ANEMIA, UNSPECIFIED Status: Chronic (3) Morbid obesity Code(s): E66.01 - MORBID (SEVERE) OBESITY DUE TO EXCESS CALORIES Status: Chronic (4) Obesity hypoventilation syndrome Code(s): E66.2 - MORBID (SEVERE) OBESITY WITH ALVEOLAR HYPOVENTILATION Status : Suspected (5) Hypertension Code(s): I10 - ESSENTIAL (PRIMARY) HYPERTENSION Status: Chronic Qualifiers: Hypertension type: essential hypertension Qualified Code(s): I10 - Essential (primary) hypertension - Plan * Acute on chronic respiratory failure- improved * HTN- blood pressure is stable * LISA- will need new outpatient sleep study * Stable for discharge home..
--- NOTE | 2019-04-08 06:23 | DIS ---
DATE OF ADMISSION: 04/02/2019 DATE OF DISCHARGE: 04/07/2019 PRIMARY CARE PHYSICIAN: Consuelo Nolasco MD. DISCHARGE DISPOSITION: Home. PRIMARY DISCHARGE DIAGNOSES: 1. Acute on chronic respiratory failure with hypercapnia. 2. Obstructive sleep apnea. 3. History of asthma. 4. Hypertension. 5. Morbid obesity. The patient has a BMI of 55.6. She is 5 feet 4 inches, 324 pounds. DISCHARGE MEDICATIONS: Include; 1. Ventolin inhaler 2 puffs q.6 as needed. 2. Dulera 200/5 two puffs twice a day. 3. Amlodipine 5 mg daily. 4. Vitamin D3 one tablet daily. 5. Megestrol 40 mg daily. 6. Tums 500 mg q.i.d. as needed. 7. Ziac or bisoprolol and hydrochlorothiazide 10/6.25 one tablet daily. 8. Aspirin 81 mg a day. PROCEDURES DONE DURING THE ADMISSION: The patient had a CT scan of the brain showing no evidence of any intracranial hemorrhage or mass effect. The patient also had an echocardiogram in which the ejection fraction was estimated at 60% to 65%. There was normal diastolic function and elevated right ventricular systolic pressure at 52 mmHg. CODE STATUS: Full code. ALLERGIES: ACETAMINOPHEN, CODEINE, AND LISINOPRIL. HOSPITAL COURSE: Ms. Ford is a pleasant, 74-year-old female who was admitted to the hospital after having difficulty breathing especially when lying flat. She also noted increased swelling in her legs and abdomen. She was found to have primarily decompensation of sleep apnea. She was started on BiPAP and tolerated this well. She was able to be transitioned out of the IMCU and on to the regular floor. The patient has not followed up in quite some time in order to have an another sleep study ordered. She says her last sleep study was in 2012, it is most likely that she may require BiPAP at this time. She was initially a bit resistant to the need to get an another sleep study, but after counseling her some more, she does understand the need for repeat sleep study and possible readjustment in her settings. After she was stabilized and able to be weaned off supplemental oxygen, she was able to be discharged home and have close outpatient followup. She plans to see Dr. Nolasco on this coming Wednesday and then also Dr. Leal as she was instructed. Job ID: [id number]
== END 2019-04-07 18:13 | disposition home or self-care (01) | DRG 189 ==
LOC: ERS 11:43 → ERHOLD 15:29 → 2NO 23:46 → T4-A 04-05 17:46
PROVIDERS: ADMIT Internal Medicine; ATTEND Internal Medicine
PROC: 5A09457 Assistance with Respiratory Ventilation, 24-96 Consecutive Hours, Continuous Positive Airway Pressure (ICD-10-PCS; principal; 2019-04-02)
DX: J96.22 Acute and chronic respiratory failure with hypercapnia (principal); E66.2 Morbid (severe) obesity with alveolar hypoventilation; Z68.43 Body mass index [BMI] 50.0-59.9, adult; J45.909 Unspecified asthma, uncomplicated; I48.2 Chronic atrial fibrillation; D75.89 Other specified diseases of blood and blood-forming organs; I10 Essential (primary) hypertension; I48.0 Paroxysmal atrial fibrillation; Z99.89 Dependence on other enabling machines and devices; Z88.8 Allergy status to other drugs, medicaments and biological substances; Z88.5 Allergy status to narcotic agent
CPT/HCPCS: 36415; 70450; 71045; 80048; 80053; 82550; 82805; 83735; 83880; 84443; 84484; 85025; 93005; 93306; 94640; 94660; 94760; 96374; J1650; J1940; J2405; J7620

== ENCOUNTER 2019-05-10 10:04 | Outpatient (CLI) | payer MEDICARE, MEDICAID ==
--- NOTE | 2019-05-10 11:15 | MMO ---
Bilateral MAMMO Bilat Screen DDI+NOY. CLINICAL HISTORY: Patient is 74 years old and is seen for screening. The patient has no family history of breast cancer. The patient has no personal history of cancer. VIEWS: The views performed were: bilateral craniocaudal; bilateral craniocaudal with tomosynthesis; bilateral mediolateral oblique; and bilateral mediolateral oblique with tomosynthesis. FILMS COMPARED: The present examination has been compared to prior imaging studies performed at [facility] on 03/05/2015, 03/12/2016, 03/17/2017 and 04/11/2018. MAMMOGRAM FINDINGS: The breasts are almost entirely fat. There is a focal asymmetry seen in the upper-outer region of the left breast. In the right breast, there are no suspicious masses, calcifications or areas of architectural distortion. IMPRESSION: FOCAL ASYMMETRY IN THE LEFT BREAST REQUIRES ADDITIONAL EVALUATION. RECOMMEND DIAGNOSTIC MAMMOGRAM. ULTRASOUND MAY ALSO PROVE USEFUL AT RECALL. THE RESULTS OF THIS EXAM WERE SENT TO THE PATIENT. ACR BI-RADS Category 0 - Incomplete: Need additional imaging evaluation. [facility] will notify the patient of the need for additional imaging services. MAMMOGRAPHY NOTE: 1. A negative mammogram report should not delay a biopsy if a dominant of clinically suspicious mass is present. 2. Approximately 10% to 15% of breast cancers are not detected by mammography. 3. Adenosis and dense breasts may obscure an underlying neoplasm. Reported by: GERALD GONSALEZ MD Electonically Signed: [id number]
== END 2019-05-10 10:05 | disposition home or self-care (01) ==
LOC: BICMAMMO 10:04
PROVIDERS: ATTEND Family Medicine
DX: Z12.31 Encounter for screening mammogram for malignant neoplasm of breast (principal); N64.89 Other specified disorders of breast
CPT/HCPCS: 77063; 77067

== ENCOUNTER 2019-05-19 12:39 | Emergency (ER) | payer MEDICARE, MEDICAID ==
[2019-05-19] MEDS ORDERED: Ketorolac Tromethamine 30 MG/ML VIAL ONE (13:20)
== END 2019-05-19 13:34 | disposition home or self-care (01) ==
LOC: ERS 12:39
DX: S46.912A Strain of unspecified muscle, fascia and tendon at shoulder and upper arm level, left arm, initial encounter (principal); I10 Essential (primary) hypertension; J45.909 Unspecified asthma, uncomplicated; E66.9 Obesity, unspecified; Z79.899 Other long term (current) drug therapy; X50.9XXA Other and unspecified overexertion or strenuous movements or postures, initial encounter
CPT/HCPCS: 96372; 99283; J1885

== ENCOUNTER 2019-05-25 09:21 | Outpatient (CLI) | payer MEDICARE, MEDICAID ==
--- NOTE | 2019-05-25 09:52 | RAD ---
Exam: CHEST TWO VIEWS: History: Dyspnea COMPARISON: 06/15/2018, 04/02/2019 FINDINGS: Atherosclerosis of the aortic knob. Normal cardiac silhouette. Pulmonary vessels are prominent. Costo phrenic angles are clear. Patchy interstitial opacities may be due to edema or infiltrate. No pneumothorax or osseous abnormalities. IMPRESSION: 1. Atherosclerosis 2. Pulmonary vascular prominence. 3. Patchy interstitial opacities are presumed to be due to edema or infiltrate. Transcribed Date/Time: 05/25/2019 10:12 AM
== END 2019-05-25 09:22 | disposition home or self-care (01) ==
LOC: RAD 09:21
PROVIDERS: ATTEND Internal Medicine Critical Care Medicine
DX: R06.00 Dyspnea, unspecified (principal); I70.0 Atherosclerosis of aorta
CPT/HCPCS: 71046

== ENCOUNTER 2019-05-26 14:23 | Outpatient (CLI) | payer MEDICARE, MEDICAID ==
--- NOTE | 2019-05-26 16:03 | ULT ---
LEFT BREAST DIAGNOSTIC ULTRASOUND: 05/26/19 INDICATION: Follow-up left breast mass. FINDINGS: Within the left breast 1 o'clock position, 12 cm from the nipple there is a 6 mm lymph node correspon ding to the mammographic abnormality. IMPRESSION: BIRADS 2: Benign Finding(s) Routine annual screening mammography (for women over age 40). The patient was detailed the findings of the evaluation prior to leaving the breast center. POS: OFF
== END 2019-05-26 14:24 | disposition home or self-care (01) ==
LOC: BICMAMMO 14:23
PROVIDERS: ATTEND Family Medicine
DX: R92.2 Inconclusive mammogram (principal)

== ENCOUNTER 2019-10-29 08:48 | Inpatient (IN) | payer MEDICARE, MEDICAID ==
[2019-10-29] MEDS ORDERED: Albuterol Sulfate 2.5 mg/3 ml Neb ONE (09:11)
[2019-10-29] MEDS ORDERED: methylPREDNISolone Sod Succ/PF 125 MG/2 ML VIAL ONE (09:13)
--- NOTE | 2019-10-29 09:34 | RAD ---
EXAM: XR Chest 1 View Portable PROVIDED CLINICAL HISTORY: Dyspnea COMPARISON: 04/02/2019 FINDINGS: Cardiac silhouette appears enlarged. Prominence of the pulmonary vasculature and pulmonary interstiti um. No focal consolidation, pleural fluid or pneumothorax apparent. Atherosclerosis. IMPRESSION: Cardiomegaly and findings suggesting congestive failure. Follow-up is recommended.
[2019-10-29 09:39] LABS: #Eosinphils 0.2 thou/uL (0.0-0.7); #Lymphocytes 0.9 thou/uL (1.20-3.40); #Monocytes 0.7 thou/uL (0.11-0.59); #Neutrophils 5.6 thou/uL (1.40-6.50); %Basophils 0.5 % (0.0-1.0); %Eosinophils 2.4 % (0.0-10.0); %Lymphocytes 11.7 % (21.0-51.0); %Neutrophils 76.4 % (42.0-75.0); Hemoglobin 13.6 g/dL (12.0-16.0); Mean Corpuscular HGB CONC 29.8 g/dL (32.0-36.0); Mean Corpuscular Hemoglobin 31.1 pg (27.0-31.0); Mean Platelet Volume 8.3 fL (7.4-10.4); Platelet Count 281 thou/uL (130-400); RBC Distribution Width 11.9 % (11.5-14.5); Red Blood Cell (RBC) Count 4.39 mill/uL (4.20-5.40); White Blood Cell (WBC) Count 7.4 thou/uL (4.8-10.8)
[2019-10-29 09:40] LABS: Large Platelets SLIGHT; MDiff Complete? YES; Macrocytosis SLIGHT = 6-15 cells (100X) (0-5/hpf); Polychromasia SLIGHT = 2-3 cells (100X) (0-2/hpf)
[2019-10-29 09:41] LABS: ALT (SGPT) 8 U/L (8-55); AST (SGOT) 16 U/L (5-34); Alkaline Phosphatase 70 U/L (40-110); Anion Gap 13 mmol/L (10-20); BUN (Urea Nitrogen) 9 mg/dL (9.8-20.1); Bilirubin, Total 0.7 mg/dL (0.2-1.2); Calc. Creatinine Clearance 0 mL/min (70-130); Calcium 8.9 mg/dL (7.8-10.44); Carbon Dioxide 29 mmol/L (23-31); Chloride 100 mmol/L (98-107); Estimated GFR-MDRD Greater than 90; Globulin 3.5 g/dL (2.4-3.5); Glucose 106 mg/dL (83-110); Potassium 4.3 mmol/L (3.5-5.1); Protein, Total 7.5 g/dL (6.0-8.3); Sodium 138 mmol/L (136-145)
[2019-10-29] MEDS ORDERED: Furosemide 40 MG/4 ML VIAL ONE (09:43)
[2019-10-29] MEDS ORDERED: Nitroglycerin 2% Ointment 1 INCH/1 GM Packet ONE (09:43)
[2019-10-29] MEDS ORDERED: cefTRIAXone\\ROCEPHIN 2 GM VIAL ONE (09:59)
[2019-10-29] MEDS ORDERED: Azithromycin 500 MG VIAL ONE (09:59)
[2019-10-29] MEDS ORDERED: Sodium Chloride 0.9% 100 ML ONE (10:00)
[2019-10-29 10:47] LABS: Bilirubin Negative (Negative); Blood, Urine Negative (Negative); Clarity Clear (Clear); Glucose, Urine (Dipstick) Normal (Negative); Leukocyte Negative Leu/uL (Negative); Nitrite Negative (Negative); Protein, Urine (Dipstick) Negative (Neg-Trace); Urobilinogen Normal mg/dL (Less than 2)
[2019-10-29 11:04] LABS: Actual Bicarbonate (HCO3a) 30.4 mEq/L (22-28); Analyzer IN Cardio ER; Base Excess (BEa) 1.4 mEq/L (-2.0 to +3.0); Calcium, Ionized 1.18 mmol/L (1.12-1.30); Carboxyhemoglobin (COHb) 1.5 gm% (0.0-3.0); Hemoglobin (Hb) 14.5 g/dL (12.0-16.0); pH, Arterial 7.27 (7.35-7.45)
[2019-10-29 11:13] LABS: CO2 Tension 68.5 mmHg (35.0-45.0); O2 Tension (PaO2) 58.1 mmHg (> 70.0)
[2019-10-29 11:14] LABS: ALV-art Gradient 84.435 (0-20); Puncture Site RRA
[2019-10-29] MEDS ORDERED: Ondansetron ODT 4 MG TAB SL PRN (13:57)
[2019-10-29] MEDS ORDERED: Ondansetron PF 4 MG/2 ML Vial IVP PRN (13:57)
--- NOTE | 2019-10-29 15:55 | PDOC.HHP ---
Hospitalist HPI - History of Present Illness shortness of breath History of Present Illness: This is a 74 year old female with past medical history of hypertension, obesity , asthma, who presented with shortness of breath for the past few days. The patient states it was worst on exertion. She was not able to ambulate very far without getting short of breath but usually she is able to. She does not use her albuterol very often. She denies orthopnea, PND. She states she had some leg swelling and was taking medication to remove fluid from her legs but does not know the name of it. She reports a mild productive cough over the past few days. She denies fevers, chills, runny nose, sore throat, sick contacts, recent long distance travel. ED Course: The patient had a BP of 212/112 in the ER. Temp was 99.4. The patient had saturation of 90% on 4L nasal cannula per ER staff but was still tachypneic. ABG done showed pH 7.27, CO2 of 68 so she was placed on BIPAP. EKG showed normal sinus rhythm. Patient was noted to e diffusely wheezing, was given duoneb , solumedrol, albuterol, nitro , ceftriaxone, azithromycin and 80 mg IV lasix due to chest X ray report stating pulmonary venous congestion. The patient had normal WBC, normal troponin. She was admitted to [facility] for further eval. Hospitalist ROS - Review of Systems Constitutional: denies: fever, chills Eyes: denies: vision change ENT: denies: ear discharge Respiratory: reports: cough. denies: pleuritic pain Cardiovascular: denies: chest pain, palpitations, orthopnea, paroxysmal noc. dyspnea, light headedness Gastrointestinal: denies: nausea, vomiting, abdominal pain, diarrhea, constipation Genitourinary: denies: dysuria, frequency, incontinence Musculoskeletal: denies: neck pain, shoulder pain, arm pain Skin: denies: rash, lesions, ferny Neurological: denies: weakness, numbness, incoordination, other Hospitalist History - Past Medical History Cardiac: reports: HTN Pulmonary: reports: asthma - Past Surgical History Other Surgical History: D and C - Family History Other Family History: No heart disease in family - Social History Smoking Status: Former smoker Alcohol: reports: None Drugs: reports: none Hospitalist Results - Labs Result Diagrams: 10/29/19 09:04 10/29/19 09:04 Lab results: WBC 7.4 thou/uL (4.8-10.8) 10/29/19 09:04 Hgb 13.6 g/dL (12.0-16.0) 10/29/19 09:04 Hct 45.8 % (36.0-47.0) 10/29/19 09:04 MCV 104.0 fL (78.0-98.0) H 10/29/19 09:04 Plt Count 281 thou/uL (130-400) 10/29/19 09:04 Neutrophils % 76.4 % (42.0-75.0) H 10/29/19 09:04 ABG pH 7.27 (7.35-7.45) L 10/29/19 11:00 ABG pCO2 68.5 mmHg (35.0-45.0) H* 10/29/19 11:00 ABG pO2 58.1 mmHg (> 70.0) L* 10/29/19 11:00 Sodium 138 mmol/L (136-145) 10/29/19 09:04 Potassium 4.3 mmol/L (3.5-5.1) 10/29/19 09:04 Chloride 100 mmol/L (98-107) 10/29/19 09:04 Carbon Dioxide 29 mmol/L (23-31) 10/29/19 09:04 BUN 9 mg/dL (9.8-20.1) L 10/29/19 09:04 Creatinine 0.70 mg/dL (0.6-1.1) 10/29/19 09:04 Glucose 106 mg/dL (83-110) 10/29/19 09:04 Calcium 8.9 mg/dL (7.8-10.44) 10/29/19 09:04 Total Bilirubin 0.7 mg/dL (0.2-1.2) 10/29/19 09:04 AST 16 U/L (5-34) 10/29/19 09:04 ALT 8 U/L (8-55) 10/29/19 09:04 Alkaline Phosphatase 70 U/L (40-110) 10/29/19 09:04 Troponin I 0.025 ng/mL (< 0.028) 10/29/19 09:04 B-Natriuretic Peptide 114.1 pg/mL (0-100) H 10/29/19 09:04 Serum Total Protein 7.5 g/dL (6.0-8.3) 10/29/19 09:04 Albumin 4.0 g/dL (3.4-4.8) 10/29/19 09:04 Urine Ketones Negative mg/dL (Negative) 10/29/19 10:30 Urine Blood Negative (Negative) 10/29/19 10:30 Urine Nitrite Negative (Negative) 10/29/19 10:30 Ur Leukocyte Esterase Negative David/uL (Negative) 10/29/19 10:30 - EKG Interpretation EKG: normal sinus rhythm Hospitalist H&P A/P - Plan Plan: Chest Xray: pulmonary venous congestion, cardiomegaly This is a 74 year old female with past medical history of asthma, hypertension, LISA who presented to the ER with worsening shortness of breath, admitted for respiratory failure/asthma exacerbation #Acute hypoxic/hypercapneic respiratory failure from asthma exacerbation #LISA - PH 7.27, CO2 68, currently on BIPAP, respiratory rate of 30. Will continue for now and repeat ABG when resp rate improves - continue standing duonebs, albuterol prn. Prednisone 40 mg in am x 5 days, pulmicort bid, dulera - chest x ray showing cardiomegaly, mild pulmonary congestion. S/p 80 mg IV lasix, BNP not that high. Trend troponin x 3. Will repeat ECHO, last one showed EF 60-65% with elevated RV systolic pressure - s/p ceftriaxone and azithromycin in the ER, will continue azithromycin for now, but hold off on ceftriaxone since no evidence of pneumonia currently #Hypertension - IV hydralazine prn for SBP > 180 #GERD - will do IV famotidine Code status: full code DVT prophylaxis: lovenox
[2019-10-29] MEDS ORDERED: Albuterol Sulfate 1.25 MG/3 ML NEB NEB PRN (16:06)
[2019-10-29] MEDS ORDERED: FLU VACC TS2019-20(65YR UP)/PF 180 MCG/0.5 ML SYRINGE IM ONE (18:00)
[2019-10-29] MEDS ORDERED: Ketorolac Tromethamine 15 MG/ML VIAL IVP PRN (18:28)
[2019-10-29] MEDS: Budesonide 0.5 MG/2 ML NEB INH SCH (18:51)
[2019-10-29] MEDS: Mometasone/Formoterol 120 PUFF INHALER INH SCH (18:54)
[2019-10-29] MEDS: Famotidine/PF 20 mg/2ml Vial SLOW IVP SCH (21:47)
[2019-10-30] MEDS ORDERED: Furosemide 40 MG/4 ML VIAL SLOW IVP SCH (02:30)
[2019-10-30] MEDS: Budesonide 0.5 MG/2 ML NEB INH SCH ×2 (07:12→19:14)
[2019-10-30] MEDS: Mometasone/Formoterol 120 PUFF INHALER INH SCH ×2 (07:15→19:18)
--- NOTE | 2019-10-30 07:18 | PDOC.PULCN ---
Pulmonology Consult: HPI - Date of Consult Date: 10/30/19 Time: 06:30 - Consult Details Reason for Consult: Acute hypoxic respiratory failure - History of Present Illness HPI: SUNI TRAVIS is a 74 year-old F with dHF, asthma who came in for dyspnea. Required Bipap due to worsening respiratory status. Has severe asthma in which I am unsure compliance since patient is not able to state nor is family present in room. There was concern for heart failure on admission and so was given lasix as well .Overnight she required use of Bipap and this morning is somnolent on exam. She is not moving air well and so decision was made to intubate due to worsening respiratory acidemia on repeat ABG. Pulmonology Consult: ROS - Review of Systems ROS unobtainable: due to mental status Pulmonology Consult: H Past Medical History: Asthma, LISA, HTN - Social History Smoking Status: Never smoker Alcohol Use: pt denies any use Drug Use History: pt denies any use Living Situation: with family/parents Pulmonology Consult: Meds - Medications Medications: Current Medications Albuterol Sulfate (Albuterol Sulfate) 1.25 mg NEB Q2H PRN PRN Reason: Wheezing Last Admin: 10/29/19 18:53 Dose: 1.25 mg Albuterol/Ipratropium (Duoneb) 3 ml EZPAP Q4H PRN PRN Reason: SOB &/or Wheezing Last Admin: 10/30/19 07:11 Dose: 3 ml Aspirin (Aspirin Chewable) 81 mg PO DAILY KELSEA Budesonide (Pulmicort Neb Solution) 0.5 mg INH BID-RT KELSEA Last Admin: 10/30/19 07:12 Dose: 0.5 mg Enoxaparin Sodium (Lovenox) 40 mg SC 0900 KELSEA Famotidine (Pepcid) 20 mg SLOW IVP BID KELSEA Last Admin: 10/29/19 21:47 Dose: 20 mg Hydralazine HCl (Apresoline) 10 mg SLOW IVP Q4H PRN PRN Reason: SBP Greater Than 180 Azithromycin 250 mg/ Sodium (Chloride) 500 mls @ 250 mls/hr IVPB Q24HR KELSEA Ketorolac Tromethamine (Toradol) 15 mg IVP Q6H PRN PRN Reason: Fever > 101 Stop: 11/03/19 18:29 Mometasone Furoate/Formoterol Fumar (Dulera 200 Mcg/5 Mcg Inhaler) 2 puff INH BID-RT KELSEA Last Admin: 10/29/19 18:54 Dose: 2 puff Prednisone (Prednisone) 40 mg PO QAM-WM KELESA - Allergies Allergies/Adverse Reactions: Allergies Allergy/AdvReac Type Severity Reaction Status Date / Time acetaminophen Allergy Verified 10/19/17 16:14 [From Tylenol-Codeine #3] codeine Allergy Verified 10/19/17 16:14 [From Tylenol-Codeine #3] lisinopril Allergy Verified 10/19/17 16:14 Pulmonology Consult: PE - Physical Exam Deviation from normal: somnolent on exam Cardiovascular: RRR, no significant murmur Respiratory: decreased breath sounds, prolonged expiratory phase Gastrointestinal: soft, non-tender Musculoskeletal: edema present Neurological: non-focal, moves all 4 limbs Pulmonology Consult: Results - Labs Result Diagrams: 10/29/19 09:04 10/29/19 09:04 - ABG Interpretation ABG Results: ABG pH 7.27 (7.35-7.45) L 10/29/19 11:00 ABG pCO2 68.5 mmHg (35.0-45.0) H* 10/29/19 11:00 ABG O2 Sat Calc/Fabián 87.3 % (94.0-98.0) L 10/29/19 11:00 ABG Base Excess 1.4 mEq/L (-2.0 to +3.0) 10/29/19 11:00 - Radiology Interpretation Chest x-ray Status: image reviewed by me, report reviewed by me Additional comments: pulmonary congestion Pulmonology Consult: A/P - Problem (1) Acute and chronic respiratory failure Current Visit: No Code(s): J96.20 - ACUTE AND CHR RESP FAILURE, UNSP W HYPOXIA OR HYPERCAPNIA Status: Acute Qualifiers: Respiratory failure complication: hypercapnia Qualified Code(s): J96.22 - Acute and chronic respiratory failure with hypercapnia (2) Asthma exacerbation Current Visit: No Code(s): J45.901 - UNSPECIFIED ASTHMA WITH (ACUTE) EXACERBATION Status: Acute (3) Chronic anemia Current Visit: No Code(s): D64.9 - ANEMIA, UNSPECIFIED Status: Chronic (4) Hypertension Current Visit: No Code(s): I10 - ESSENTIAL (PRIMARY) HYPERTENSION Status: Chronic Qualifiers: Hypertension type: essential hypertension Qualified Code(s): I10 - Essential (primary) hypertension (5) Morbid obesity Current Visit: No Code(s): E66.01 - MORBID (SEVERE) OBESITY DUE TO EXCESS CALORIES Status: Chronic (6) LISA on CPAP Current Visit: No Code(s): G47.33 - OBSTRUCTIVE SLEEP APNEA (ADULT) (PEDIATRIC ); Z99.89 - DEPENDENCE ON OTHER ENABLING MACHINES AND DEVICES Status: Chronic - Time Time: 50% of the time was spent in coordination of care (as documented) at patient's floor/unit and/or counseling patient. Time with Patient: greater than 50 minutes - Plan Plan: ] 74 yo F with asthma here for acute hypoxic hypercapneic respiratory failure 2/2 asthma exacerbation. 1. Acute on chronic respiratory failure requiring non-invasive mechanical ventilation: Likely secondary to asthma exacerbation vs. new onset heart failure vs. LISA decompensation. s/p 80mg IV lasix, with good diuresing and echo pending. Continue bronchodilator and antibiotic treatment. Will increase steroid dose. Will discuss intubating due to worsening respiratory acidemia 2. Morbid obesity 3. Asthma: See above 4. HTN: Continue curremnt mgmt 5. LISA: See above
[2019-10-30 07:54] LABS: Actual Bicarbonate (HCO3a) 45.8 mEq/L (22-28); Base Excess (BEa) 11.4 mEq/L (-2.0 to +3.0); Carboxyhemoglobin (COHb) 1.3 gm% (0.0-3.0); Hemoglobin (Hb) 13.8 g/dL (12.0-16.0); O2 Tension (PaO2) 66.6 mmHg (> 70.0)
[2019-10-30 07:58] LABS: CO2 Tension 133.8 mmHg (35.0-45.0); Puncture Site RRA; pH, Arterial 7.15 (7.35-7.45)
[2019-10-30] MEDS ORDERED: predniSONE 20 MG TAB PO SCH (08:00)
[2019-10-30] MEDS ORDERED: Rocuronium Bromide 10 MG/ML (10ML VIAL) ONE ×2 (08:25→08:27)
[2019-10-30] MEDS ORDERED: CCU Electrolyte Replacement 1 EACH FS ONE (08:45)
[2019-10-30] MEDS ORDERED: Ventilator Sedation Protocol 1 EACH FS ONE (08:45)
[2019-10-30] MEDS ORDERED: Azithromycin 250 MG in Sodium Chloride 0.9% 500 ML IVPB SCH (09:00)
[2019-10-30 09:01] LABS: Base Excess (BEa) 7.5 mEq/L (-2.0 to +3.0); Calcium, Ionized 1.16 mmol/L (1.12-1.30); Carboxyhemoglobin (COHb) 1.4 gm% (0.0-3.0); Hemoglobin (Hb) 13.7 g/dL (12.0-16.0); O2 Tension (PaO2) 94.4 mmHg (> 70.0); Potassium - ABG Lab 4.42 mmol/L (3.70-5.30)
[2019-10-30] MEDS ORDERED: Potassium Phosphate 12 MMOL in Sodium Chloride 0.9% 250 ML 250 ML IV PRN (09:01)
[2019-10-30] MEDS ORDERED: Potassium Chloride 40 MEQ in Sodium Chloride 0.9% 250 ML 250 ML IVPB PRN (09:01)
[2019-10-30] MEDS ORDERED: Potassium Chloride 40 MEQ in Premix Bag 1 BAG IVPB PRN (09:01)
[2019-10-30] MEDS ORDERED: PHOS-NAK 1 PKT PACK PO PRN ×2 (09:01)
[2019-10-30] MEDS ORDERED: Potassium Phosphate 9 MMOL in Sodium Chloride 0.9% 100 ML IVPB PRN (09:01)
[2019-10-30] MEDS ORDERED: Potassium Chloride 20 MEQ TAB PO PRN (09:01)
[2019-10-30] MEDS ORDERED: Magnesium 2 GM/50 ML 2 GM in Premix Bag 1 BAG IVPB PRN (09:01)
[2019-10-30] MEDS ORDERED: Magnesium Oxide 400 MG TAB PO PRN ×2 (09:01)
[2019-10-30] MEDS ORDERED: CCU ELECTROLYTE REPLACEMENT PROTOCOL FS PRN (09:01)
[2019-10-30] MEDS ORDERED: Potassium Phosphate 15 MMOL in Sodium Chloride 0.9% 250 ML 250 ML IV PRN (09:01)
[2019-10-30 09:03] LABS: CO2 Tension 77.8 mmHg (35.0-45.0); Puncture Site RRA
[2019-10-30] MEDS ORDERED: fentaNYL Citrate/PF 2,000 MCG in Sodium Chloride 0.9% 60 ML IV SCH (09:05)
[2019-10-30] MEDS ORDERED: Fentanyl BOLUS 250 ML IVPB PRN (09:05)
[2019-10-30] MEDS ORDERED: Propofol BOLUS 1,000 MG/100 ML VIAL IV PRN (09:05)
[2019-10-30] MEDS ORDERED: DISCONTINUE PREVIOUS NARCOTIC PAIN MEDICATIONS AND BENZODIAZEPINES FS SCH (09:05)
--- NOTE | 2019-10-30 09:25 | CON ---
DATE OF CONSULTATION: 10/30/2019 This encompasses 45 minutes critical care time. HISTORY OF PRESENT ILLNESS: This is a 74-year-old, who was admitted to the IMCU yesterday on BiPAP with respiratory failure, thought related to pulmonary edema. She was kept on BiPAP overnight. She was noted to have severely worsened pCO2 this morning, was demonstrating increased lethargy. I elected to bring her down to the CCU and intubate her for worsening respiratory insufficiency. I intubated her with a GlideScope using 40 mg of etomidate for sedation. She is intubated on first attempt with a 7.5 endotracheal tube to 23 cm at the lip. PAST MEDICAL HISTORY: 1. Asthma. 2. Mild LISA by previous sleep study. 3. Hypertension. PAST SURGICAL HISTORY: D and C. FAMILY MEDICAL HISTORY: Unremarkable. SOCIAL HISTORY: Apparently, never smoker. Does not consume alcohol. Does not use illicit drugs. MEDICATIONS: Prior to admission; 1. Vitamin D3 complete tablet one daily. 2. Dulera 200/5 two puffs twice daily. 3. Megace 40 mg daily. 4. Calcium carbonate 500 mg q.i.d. 5. Bisoprolol and hydrochlorothiazide 10/6.25 one daily. 6. Aspirin 81 mg daily. 7. Amlodipine 5 mg daily. 8. Ventolin two puffs every 6 hours as needed. REVIEW OF SYSTEMS: Cannot be obtained. She is currently on mechanical ventilation. ALLERGIES: ACETAMINOPHEN, CODEINE, LISINOPRIL. PHYSICAL EXAMINATION: VITAL SIGNS: Pulse 99, blood pressure 143/97, O2 saturations 99% on mechanical ventilation, respiratory rate 14. She is now sedated on mechanical ventilation. HEENT: She has poor dentition. NECK: No adenopathy or JVD. LUNGS: She has very poor air movement with tight end expiratory wheezing. CARDIOVASCULAR: S1 and S2. Slightly tachycardic. ABDOMEN: Morbidly obese, soft, nontender. EXTREMITIES: No clubbing, cyanosis, or edema. LABORATORY DATA: ABG; pH 7.15, pCO2 of 134, PO2 of 66 prior to intubation. White blood cell count 7.4, hematocrit 45.8, and platelet count 281. Sodium 138, potassium 4.3, chloride 100, CO2 of 29, BUN 9, creatinine 0.7, and glucose 106. BNP 114. IMAGING STUDIES: Her x-ray showed really no significant findings. ASSESSMENT: Status asthmaticus with worsening respiratory failure despite treatment with steroids and nebulization treatments. PLAN: The patient was brought to the CCU and intubated orally. She will be placed on mechanical ventilation. Her blood gas will be monitored closely. I will increase her steroid dose, increase her nebulization frequency, continue the Zithromax, and use deep sedation paralytics to facilitate compliance mechanical ventilation. I would guess she would be intubated for [address] 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 I will turn over her care to him tomorrow. Job ID: [id number]
--- NOTE | 2019-10-30 09:45 | RAD ---
CHEST 1 VIEW: Date: 10/30/2019 HISTORY: Dyspnea. Intubated. COMPARISON: 10/29/2019. FINDINGS: Cardiac silhouette is magnified and enlarged. Pulmonary vasculature remains slightly engorged. Mediastinum is midline. Tip of an endotracheal catheter overlies the thoracic inlet. Nasogastric tube descends to the abdomen. No lobar consolidation or evidence of pneumothorax. monitoring and evaluation advisor leads overlie the chest. IMPRESSION: 1. Endotracheal catheter is in good radiographic position. 2. Pulmonary vascular congestion with cardiomegaly. 3. Atherosclerosis. POS: [facility]
[2019-10-30] MEDS: Sodium Chloride 0.45% 1,000 ML IV SCH ×2 (09:53→22:22)
[2019-10-30] MEDS: Enoxaparin Sodium 40 MG/0.4 ML SYRINGE SC SCH (09:56)
[2019-10-30] MEDS: Aspirin Chewable 81 MG TAB PO SCH (09:56)
[2019-10-30] MEDS: Famotidine/PF 20 mg/2ml Vial SLOW IVP SCH ×2 (09:56→20:36)
[2019-10-30] MEDS: Vecuronium 10 MG VIAL IVP PRN ×4 (10:46→22:41)
[2019-10-30] MEDS: Lorazepam 2 MG/ML VIAL SLOW IVP PRN ×3 (10:46→23:35)
[2019-10-30] MEDS: Azithromycin 250 MG in Sodium Chloride 0.9% 250 ML 250 ML IVPB SCH (11:00)
[2019-10-30] MEDS: hydrALAZINE 20 MG/ML VIAL SLOW IVP PRN (13:20)
--- NOTE | 2019-10-30 16:03 | PDOC.HOSPP ---
- Subjective Encounter Date: 10/30/19 Encounter Time: 16:01 Subjective: Overnight, patient became increasingly lethargic. BLood gas worsened to pH 7.15. She was given additional 40 mg IV lasix and was intubated this morning. Repeat ABG showed pH 7.3. - Objective Vital Signs & Weight: Vital Signs (12 hours) Temp Pulse Resp BP Pulse Ox 10/30/19 15:35 88 154/77 H 10/30/19 15:34 90 12 94 L 10/30/19 13:32 85 23 H 132/94 H 92 L 10/30/19 13:20 86 190/100 H 10/30/19 10:43 81 143/97 H 10/30/19 10:35 84 12 93 L 10/30/19 09:00 100 10/30/19 08:45 12 10/30/19 08:35 83 141/91 H 10/30/19 07:38 98.2 F 10/30/19 07:13 95 24 H 95 10/30/19 07:11 101 H 24 H 95 Weight Admit Weight 307 lb Weight 301 lb 4 oz Most Recent Monitor Data Heart Rate from ECG 85 NIBP 154/77 NIBP BP-Mean 102 Respiration from ECG 19 SpO2 100 I&O: 10/29/19 10/30/19 10/31/19 06:59 06:59 06:59 Intake Total 40 Output Total 2200 Balance -2160 Result Diagrams: 10/29/19 09:04 10/29/19 09:04 Hospitalist ROS - Review of Systems Constitutional: denies: fever, chills Respiratory: denies: cough, dry Cardiovascular: denies: chest pain, palpitations - Medication Medications: Active Medications Generic Name Dose Route Start Last Admin Trade Name Freq PRN Reason Stop Dose Admin Albuterol/Ipratropium 3 ml 10/30/19 10:00 10/30/19 15:34 Duoneb NEB 3 ml [id number] KELSEA Administration Aspirin 81 mg 10/30/19 09:00 10/30/19 09:56 Aspirin Chewable PO 81 mg DAILY KELSEA Administration Budesonide 0.5 mg 10/29/19 18:30 10/30/19 07:12 Pulmicort Neb Solution INH 0.5 mg BID-RT KELSEA Administration Enoxaparin Sodium 40 mg 10/30/19 09:00 10/30/19 09:56 Lovenox SC 40 mg 0900 KELSEA Administration Famotidine 20 mg 10/29/19 21:00 10/30/19 09:56 Pepcid SLOW IVP 20 mg BID KELSEA Administration Hydralazine HCl 10 mg 10/29/19 16:12 10/30/19 13:20 Apresoline SLOW IVP 10 mg Q4H PRN Administration SBP Greater Than 180 Sodium Chloride 1,000 mls @ 75 mls/hr 10/30/19 08:45 10/30/19 09:53 1/2 Normal Saline IV 1,000 mls .[id number] KELSEA Administration Azithromycin 250 mg/ Sodium 250 mls @ 125 mls/hr 10/30/19 11:00 10/30/19 11: 00 Chloride IVPB 250 mls 1100 KELSEA Administration Lorazepam 2 mg 10/30/19 09:05 10/30/19 13:27 Ativan SLOW IVP 11/29/19 09:05 2 mg Q1H PRN Administration Breakthrough agitation Mometasone Furoate/Formoterol Fumar 2 puff 10/29/19 18:30 10/30/19 07:15 Dulera 200 Mcg/5 Mcg Inhaler INH Not Given BID-RT KELSEA Vecuronium [place] 10 mg 10/30/19 08:45 10/30/19 13:42 Norcuron IVP 10 mg Q30MIN PRN Administration Agitation - Exam General - other findings: intubated and sedated Eye: PERRL, anicteric sclera ENT: normocephalic atraumatic, no oropharyngeal lesions, dry oral mucosa Neck: supple, symmetric, no JVD Heart: RRR, no murmur, no gallops Respiratory: rales (bilaterally) Gastrointestinal: soft Gastrointestinal - other findings: mildly distended Extremities: no cyanosis, 1+ LE edema Skin: normal turgor, no lesions, no rashes Hosp A/P - Plan Chest X ray 10/30: pulmonary vascular congestion with cardiomegaly This is a 74 year old female with past medical history of asthma, hypertension, LISA who presented to the ER with worsening shortness of breath, admitted for respiratory failure/asthma exacerbation #Acute hypoxic/hypercapneic respiratory failure from asthma exacerbation vs heart failure #LISA - patient intubated overnight. Received 80 mg IV lasix plus 40 mg this morning. Repeat chest X ray shows pulmonary vascular congestion. Will increase IV lasix to 40 mg bid - continue standing duonebs, albuterol prn. Started IV steroids q6 hours - troponin negative times three. ECHO is pending - continue IV azithromycin - pulmonology is following #Hypertension - IV hydralazine prn for SBP > 180 #GERD - continue IV famotidine
[2019-10-30] MEDS: Propofol 1,000 MG/100 ML VIAL IV PRN ×2 (16:12→22:06)
[2019-10-30 16:42] LABS: Hemoglobin 13.6 g/dL (12.0-16.0); Mean Corpuscular HGB CONC 31.3 g/dL (32.0-36.0); Mean Corpuscular Hemoglobin 33.1 pg (27.0-31.0); Mean Platelet Volume 7.6 fL (7.4-10.4); Platelet Count 215 thou/uL (130-400); RBC Distribution Width 11.8 % (11.5-14.5); White Blood Cell (WBC) Count 6.1 thou/uL (4.8-10.8)
[2019-10-30 16:56] LABS: Anion Gap 14 mmol/L (10-20); BUN (Urea Nitrogen) 13 mg/dL (9.8-20.1); Calc. Creatinine Clearance 166 mL/min (70-130); Calcium 8.7 mg/dL (7.8-10.44); Carbon Dioxide 32 mmol/L (23-31); Chloride 97 mmol/L (98-107); Estimated GFR-MDRD Greater than 90; Glucose 105 mg/dL (83-110); Potassium 4.2 mmol/L (3.5-5.1); Sodium 139 mmol/L (136-145)
[2019-10-30] MEDS: Montelukast Sodium 10 mg Tablet PER TUBE SCH (20:36)
[2019-10-30] MEDS: Diltiazem 125 MG in Sodium Chloride 0.9% 100 ML IVPB SCH (20:51)
[2019-10-31] MEDS: Propofol 1,000 MG/100 ML VIAL IV PRN ×5 (02:57→21:57)
[2019-10-31] MEDS: Lorazepam 2 MG/ML VIAL SLOW IVP PRN ×6 (03:03→18:20)
[2019-10-31] MEDS: Vecuronium 10 MG VIAL IVP PRN ×7 (04:54→21:16)
[2019-10-31] MEDS: Diltiazem 125 MG in Sodium Chloride 0.9% 100 ML IVPB SCH ×2 (05:01→23:13)
[2019-10-31 05:55] LABS: #Lymphocytes 0.7 thou/uL (1.20-3.40); #Monocytes 0.6 thou/uL (0.11-0.59); #Neutrophils 3.7 thou/uL (1.40-6.50); %Basophils 0.2 % (0.0-1.0); %Eosinophils 0.2 % (0.0-10.0); %Lymphocytes 14.5 % (21.0-51.0); %Neutrophils 73.1 % (42.0-75.0); Hemoglobin 12.6 g/dL (12.0-16.0); Mean Corpuscular HGB CONC 30.6 g/dL (32.0-36.0); Mean Corpuscular Hemoglobin 32.1 pg (27.0-31.0); Mean Platelet Volume 7.8 fL (7.4-10.4); Platelet Count 217 thou/uL (130-400); RBC Distribution Width 11.8 % (11.5-14.5); Red Blood Cell (RBC) Count 3.94 mill/uL (4.20-5.40)
[2019-10-31 06:10] LABS: Anion Gap 12 mmol/L (10-20); BUN (Urea Nitrogen) 13 mg/dL (9.8-20.1); Calc. Creatinine Clearance 168 mL/min (70-130); Calcium 8.6 mg/dL (7.8-10.44); Carbon Dioxide 34 mmol/L (23-31); Chloride 96 mmol/L (98-107); Estimated GFR-MDRD Greater than 90; Glucose 101 mg/dL (83-110); Potassium 3.6 mmol/L (3.5-5.1); Sodium 138 mmol/L (136-145)
[2019-10-31] MEDS: Budesonide 0.5 MG/2 ML NEB INH SCH ×2 (07:09→18:25)
[2019-10-31] MEDS: Mometasone/Formoterol 120 PUFF INHALER INH SCH ×2 (07:09→22:19)
[2019-10-31 07:18] LABS: Actual Bicarbonate (HCO3a) 35.9 mEq/L (22-28); Base Excess (BEa) 10.6 mEq/L (-2.0 to +3.0); CO2 Tension 50.2 mmHg (35.0-45.0); Calcium, Ionized 1.14 mmol/L (1.12-1.30); Carboxyhemoglobin (COHb) 1.4 gm% (0.0-3.0); Hemoglobin (Hb) 13.1 g/dL (12.0-16.0); O2 Tension (PaO2) 87.9 mmHg (> 70.0); pH, Arterial 7.47 (7.35-7.45)
[2019-10-31 07:28] LABS: Puncture Site RRA
[2019-10-31] MEDS ORDERED: Sterile Water 10 ML ONE ×2 (07:51→12:35)
[2019-10-31] MEDS: Famotidine/PF 20 mg/2ml Vial SLOW IVP SCH ×2 (08:21→20:14)
[2019-10-31] MEDS: Aspirin Chewable 81 MG TAB PO SCH (08:22)
[2019-10-31] MEDS: Enoxaparin Sodium 40 MG/0.4 ML SYRINGE SC SCH (08:22)
[2019-10-31] MEDS: methylPREDNISolone Sod Succ/PF 125 MG/2 ML VIAL IVP SCH ×3 (08:23→20:15)
--- NOTE | 2019-10-31 08:54 | RAD ---
PORTABLE AP CHEST XRAY: HISTORY: Pneumonia. Followup evaluation. COMPARISON: 10/30/2019. FINDINGS: Endotracheal tube and nasogastric tube remain in place. The cardiac silhouette is magnified by proje ction but does appear enlarged. Again noted is mild pulmonary vascular congestion similar to prior e xam. No consolidation or pleural fluid is identified. There has been no significant interval change when compared to the prior exam. IMPRESSION: 1. Cardiomegaly and pulmonary vascular congestion. 2. Endotracheal tube and nasogastric tube stable in position. POS: OFF
[2019-10-31] MEDS: Azithromycin 250 MG in Sodium Chloride 0.9% 250 ML 250 ML IVPB SCH (09:45)
[2019-10-31] MEDS ORDERED: Furosemide 40 MG/4 ML VIAL SLOW IVP SCH (10:00)
[2019-10-31] MEDS ORDERED: Azithromycin 250 MG in Sodium Chloride 0.9% 250 ML 250 ML IVPB SCH (13:00)
--- NOTE | 2019-10-31 13:27 | PDOC.HOSPP ---
- Subjective Encounter Date: 10/31/19 Encounter Time: 11:45 Subjective: The patient is still intubated. HR in the 120's in afib. On cardizem drip. NO weaning done today. - Objective Vital Signs & Weight: Vital Signs (12 hours) Temp Pulse Resp BP Pulse Ox 10/31/19 12:44 124 H 133/75 10/31/19 12:43 111 H 12 99 10/31/19 10:27 82 145/76 H 10/31/19 10:26 86 12 99 10/31/19 07:11 103 H 120/61 10/31/19 07:08 98 12 99 10/31/19 06:00 12 10/31/19 04:00 12 10/31/19 03:51 103 H 107/65 10/31/19 03:00 98.4 F 10/31/19 02:00 12 Weight Admit Weight 307 lb Weight 308 lb 3.3 oz Most Recent Monitor Data Heart Rate from ECG 108 NIBP 121/70 NIBP BP-Mean 87 Respiration from ECG 14 SpO2 100 I&O: 10/30/19 10/31/19 11/01/19 06:59 06:59 06:59 Intake Total 40 956 Output Total 2200 540 Balance -2160 416 Result Diagrams: 10/31/19 05:33 10/31/19 05:33 Hospitalist ROS - Review of Systems ROS unobtainable: due to endotracheal tube - Medication Medications: Active Medications Generic Name Dose Route Start Last Admin Trade Name Freq PRN Reason Stop Dose Admin Albuterol/Ipratropium 3 ml 10/30/19 10:00 10/31/19 12:43 Duoneb NEB 3 ml [id number] KELSEA Administration Aspirin 81 mg 10/30/19 09:00 10/31/19 08:22 Aspirin Chewable PO 81 mg DAILY KELSEA Administration Budesonide 0.5 mg 10/29/19 18:30 10/31/19 07:09 Pulmicort Neb Solution INH 0.5 mg BID-RT KELSEA Administration Enoxaparin Sodium 40 mg 10/30/19 09:00 10/31/19 08:22 Lovenox SC 40 mg 0900 KELSEA Administration Famotidine 40 mg 10/30/19 21:00 10/31/19 08:21 Pepcid SLOW IVP 40 mg BID KELSEA Administration Hydralazine HCl 10 mg 10/29/19 16:12 10/30/19 13:20 Apresoline SLOW IVP 10 mg Q4H PRN Administration SBP Greater Than 180 Sodium Chloride 1,000 mls @ 75 mls/hr 10/30/19 08:45 10/30/19 22:22 1/2 Normal Saline IV 1,000 mls .[id number] KELSEA Administration Azithromycin 250 mg/ Sodium 250 mls @ 125 mls/hr 10/30/19 11:00 10/31/19 09: 45 Chloride IVPB 250 mls 1100 KELSEA Administration Diltiazem HCl 125 mg/ Sodium 125 mls @ 0 mls/hr 10/30/19 21:00 10/31/19 05:01 Chloride IVPB 125 mls INF KELSEA Administration Protocol Titrate Lorazepam 2 mg 10/30/19 09:05 10/31/19 12:40 Ativan SLOW IVP 11/29/19 09:05 2 mg Q1H PRN Administration Breakthrough agitation Methylprednisolone Sodium Succinate 60 mg 10/31/19 09:00 10/31/19 08:23 Solu-Medrol IVP 60 mg 0300,0900,1500,2100 KELSEA Administration Mometasone Furoate/Formoterol Fumar 2 puff 10/29/19 18:30 10/31/19 07:09 Dulera 200 Mcg/5 Mcg Inhaler INH 2 puff BID-RT KELSEA Administration Montelukast Sodium 10 mg 10/30/19 21:00 10/30/19 20:36 Singulair PER TUBE 10 mg QPM KELSEA Administration Propofol 1,000 mg 10/30/19 09:05 10/31/19 09:44 Diprivan IV 11/29/19 09:05 1,000 mg INF PRN Administration TO ACHIEVE GOAL RASS Protocol Vecuronium [place] 10 mg 10/30/19 08:45 10/31/19 12:41 Norcuron IVP 10 mg Q30MIN PRN Administration Agitation - Exam General Appearance: NAD, awake alert General - other findings: intubated ENT: normocephalic atraumatic, no oropharyngeal lesions Heart: RRR, no murmur, no gallops, no rubs Respiratory: rales Respiratory - other findings: bilaterally Gastrointestinal: soft, non-tender, non-distended, normal bowel sounds Extremities: 1+ LE edema Skin: normal turgor, no lesions, no rashes Hosp A/P - Plan Chest X ray 10/30: pulmonary vascular congestion with cardiomegaly Chest X ray 10/31: cardiomegaly and pulmonary congestoin This is a 74 year old female with past medical history of asthma, hypertension, LISA who presented to the ER with worsening shortness of breath, admitted for respiratory failure/asthma exacerbation #Acute hypoxic/hypercapneic respiratory failure from asthma exacerbation vs heart failure vs pneumonia #LISA - patient intubated overnight. Received 80 mg IV lasix plus 40 mg this morning. Repeat chest X ray shows pulmonary vascular congestion 10/31 - will give another IV lasix [address] chest to evaluate pneumonia - continue IV azithromycin. Will add IV zosyn for possible HAP - continue standing duonebs, albuterol prn. Started IV steroids q6 hours - troponin negative times three. ECHO is pending #Hypertension - IV hydralazine prn for SBP > 180 #GERD - continue IV famotidine
[2019-10-31] MEDS: Sodium Chloride 0.45% 1,000 ML IV SCH ×2 (13:57→14:12)
[2019-10-31] MEDS: Piperacillin/Tazobactam 3.375 GM in Sodium Chloride 0.9% 100 ML IVPB SCH ×2 (14:07→20:14)
[2019-10-31] MEDS ORDERED: Digoxin 0.5 MG/2 ML AMP SLOW IVP SCH (15:00)
--- NOTE | 2019-10-31 15:37 | PRG ---
DATE OF SERVICE: 10/31/2019 SUBJECTIVE: Ms. Ford still has about a 7-second exhale time. She is sedated and paralyzed. Heart rate is fluctuating between 111 and up to intermittently with most part is just over 100. She remains in atrial fibrillation. Since she is still in atrial fibrillation, we will consult Cardiology in the morning. OBJECTIVE: VITAL SIGNS: Blood pressure 133/75, respiratory rate is per mechanical ventilation. Permissive hypercapnia is being used to some degree to facilitate ventilation, given a long exhale time. LUNGS: Remarkable for tight wheezes. HEART: Regular rhythm. ABDOMEN: Soft. EXTREMITIES: Asymmetry. She is sedated. LABORATORY DATA: PH today 7.47, pCO2 of 50, pO2 of 87. Sodium 138, potassium 3.6, chloride 96, bicarb 34, BUN 13, creatinine 0.65. LABORATORY DATA: White count 5, hemoglobin 12.6, platelets 217,000. IMPRESSION: 1. Status asthmaticus with respiratory failure. 2. Possible sleep apnea. We will continue with aggressive respiratory care. I noticed that the CT scan of her chest has been ordered. I do not feel that it is safe to take her downstairs at this point, given her prolonged expiratory phase as well as her size. _ suspicion for anything that we might find on CT that would change our current management is extremely low. CT scan will be put on hold for now. Because of her size, chest x-ray is under penetrated. Her diaphragms are sharp. She is hazy more on the right than on the left, but this also may be artifact, given her size. We will continue to follow. Critical care time is 35 minutes. Job ID: [id number] MTDD
[2019-10-31] MEDS: Morphine 2 MG/ML SYRINGE SLOW IVP PRN ×2 (16:20→18:20)
[2019-10-31] MEDS ORDERED: Acetaminophen 650 MG Suppository PR PRN (18:41)
[2019-10-31] MEDS ORDERED: Acetaminophen 650 MG/20.3 ML UDCUP PO PRN (18:43)
[2019-10-31] MEDS: Montelukast Sodium 10 mg Tablet PER TUBE SCH (20:14)
[2019-11-01] MEDS: Propofol 1,000 MG/100 ML VIAL IV PRN ×6 (01:26→21:45)
[2019-11-01] MEDS: Piperacillin/Tazobactam 3.375 GM in Sodium Chloride 0.9% 100 ML IVPB SCH ×4 (01:26→20:03)
[2019-11-01] MEDS: methylPREDNISolone Sod Succ/PF 125 MG/2 ML VIAL IVP SCH ×4 (02:12→20:04)
[2019-11-01] MEDS: Vecuronium 10 MG VIAL IVP PRN (04:17)
[2019-11-01] MEDS: Diltiazem 125 MG in Sodium Chloride 0.9% 100 ML IVPB SCH ×2 (04:53→18:30)
[2019-11-01 06:01] LABS: Anion Gap 9 mmol/L (10-20); BUN (Urea Nitrogen) 16 mg/dL (9.8-20.1); Calc. Creatinine Clearance 156 mL/min (70-130); Calcium 8.2 mg/dL (7.8-10.44); Carbon Dioxide 36 mmol/L (23-31); Chloride 96 mmol/L (98-107); Estimated GFR-MDRD Greater than 90; Glucose 176 mg/dL (83-110); Potassium 3.6 mmol/L (3.5-5.1); Sodium 137 mmol/L (136-145)
[2019-11-01 06:39] LABS: #Lymphocytes 0.4 thou/uL (1.20-3.40); #Monocytes 0.1 thou/uL (0.11-0.59); #Neutrophils 2.9 thou/uL (1.40-6.50); %Eosinophils 0.1 % (0.0-10.0); %Lymphocytes 12.5 % (21.0-51.0); %Neutrophils 83.4 % (42.0-75.0); Hemoglobin 12.7 g/dL (12.0-16.0); Hypochromia SLIGHT = 6-15 cells (100X) (0-5/hpf); MDiff Complete? YES; Mean Corpuscular HGB CONC 29.7 g/dL (32.0-36.0); Mean Platelet Volume 7.7 fL (7.4-10.4); Platelet Count 214 thou/uL (130-400); Platelet Morphology Comment Appears Adequate; RBC Distribution Width 11.7 % (11.5-14.5); Red Blood Cell (RBC) Count 4.09 mill/uL (4.20-5.40); White Blood Cell (WBC) Count 3.5 thou/uL (4.8-10.8)
[2019-11-01] MEDS: Budesonide 0.5 MG/2 ML NEB INH SCH ×2 (06:58→18:23)
[2019-11-01 07:07] LABS: Actual Bicarbonate (HCO3a) 37.1 mEq/L (22-28); CO2 Tension 55.3 mmHg (35.0-45.0); Calcium, Ionized 1.14 mmol/L (1.12-1.30); Carboxyhemoglobin (COHb) 1.2 gm% (0.0-3.0); Hemoglobin (Hb) 13.3 g/dL (12.0-16.0); O2 Tension (PaO2) 82.5 mmHg (> 70.0); Potassium - ABG Lab 3.48 mmol/L (3.70-5.30); pH, Arterial 7.45 (7.35-7.45)
[2019-11-01 07:14] LABS: ALV-art Gradient 112.185 (0-20); Puncture Site RRA
[2019-11-01] MEDS: Mometasone/Formoterol 120 PUFF INHALER INH SCH ×2 (07:31→18:23)
[2019-11-01] MEDS: Aspirin Chewable 81 MG TAB PO SCH (09:14)
[2019-11-01] MEDS: Famotidine/PF 20 mg/2ml Vial SLOW IVP SCH ×2 (09:14→20:04)
--- NOTE | 2019-11-01 09:14 | RAD ---
PORTABLE CHEST: HISTORY: Pneumonia. CCU followup. On ventilator. COMPARISON: 10/31/2019 FINDINGS: ET tube and NG tube unchanged. Mild vascular engorgement. Hazy infiltrate in the right mid and lower lung. No significant effusion. No significant interval change. POS: [facility]
[2019-11-01] MEDS: Enoxaparin Sodium 40 MG/0.4 ML SYRINGE SC SCH (09:15)
[2019-11-01] MEDS: Morphine 2 MG/ML SYRINGE SLOW IVP PRN (10:25)
[2019-11-01] MEDS: Lorazepam 2 MG/ML VIAL SLOW IVP PRN (10:25)
[2019-11-01] MEDS: Sodium Chloride 0.45% 1,000 ML IV SCH (10:55)
[2019-11-01] MEDS: Azithromycin 250 MG in Sodium Chloride 0.9% 250 ML 250 ML IVPB SCH (11:05)
--- NOTE | 2019-11-01 12:25 | PDOC.HOSPP ---
- Subjective Encounter Date: 11/01/19 Encounter Time: 10:00 Subjective: The patient is intubated. SHe is not responsive. She was still in atrial fibrilltaion on cardizem drip, was loaded with digoxin overnight. Her heart rate is better controlled in the 80's - Objective Vital Signs & Weight: Vital Signs (12 hours) Temp Pulse Resp BP Pulse Ox 11/01/19 10:36 72 154/98 H 11/01/19 10:35 77 12 99 11/01/19 08:00 99.3 F 12 11/01/19 06:58 75 134/60 11/01/19 06:54 67 12 99 11/01/19 06:00 12 11/01/19 04:06 78 135/64 11/01/19 04:00 12 11/01/19 03:00 98.4 F 11/01/19 02:00 12 11/01/19 00:37 69 138/66 Weight Admit Weight 307 lb Weight 309 lb 11.991 oz Most Recent Monitor Data Heart Rate from ECG 80 NIBP 147/79 NIBP BP-Mean 101 Respiration from ECG 23 SpO2 100 I&O: 10/31/19 11/01/19 11/02/19 06:59 06:59 06:59 Intake Total 956 3542 85 Output Total 540 3250 540 Balance 416 292 -455 Result Diagrams: 11/01/19 05:21 11/01/19 05:21 Hospitalist ROS - Review of Systems ROS unobtainable: due to endotracheal tube - Medication Medications: Active Medications Generic Name Dose Route Start Last Admin Trade Name Freq PRN Reason Stop Dose Admin Albuterol/Ipratropium 3 ml 10/30/19 10:00 11/01/19 10:35 Duoneb NEB 3 ml [id number] KELSEA Administration Aspirin 81 mg 10/30/19 09:00 11/01/19 09:14 Aspirin Chewable PO 81 mg DAILY KELSEA Administration Budesonide 0.5 mg 10/29/19 18:30 11/01/19 06:58 Pulmicort Neb Solution INH 0.5 mg BID-RT KELSEA Administration Enoxaparin Sodium 40 mg 10/30/19 09:00 11/01/19 09:15 Lovenox SC 40 mg 0900 KELSEA Administration Famotidine 40 mg 10/30/19 21:00 11/01/19 09:14 Pepcid SLOW IVP 40 mg BID KELSEA Administration Hydralazine HCl 10 mg 10/29/19 16:12 10/30/19 13:20 Apresoline SLOW IVP 10 mg Q4H PRN Administration SBP Greater Than 180 Sodium Chloride 1,000 mls @ 75 mls/hr 10/30/19 08:45 11/01/19 10:55 1/2 Normal Saline IV 1,000 mls .[id number] KELSEA Administration Diltiazem HCl 125 mg/ Sodium 125 mls @ 0 mls/hr 10/30/19 21:00 11/01/19 04:53 Chloride IVPB 125 mls INF KELSEA Administration Protocol Titrate Piperacillin Sod/Tazobactam 100 mls @ 200 mls/hr 10/31/19 14:00 11/01/19 09: 13 Sod 3.375 gm/ Sodium Chloride IVPB 100 mls 0200,0800,1400,2000 KELSEA Administration Azithromycin 250 mg/ Sodium 250 mls @ 250 mls/hr 11/01/19 11:00 11/01/19 11: 05 Chloride IVPB 250 mls 1100 KELSEA Administration Lorazepam 2 mg 10/30/19 09:05 11/01/19 10:25 Ativan SLOW IVP 11/29/19 09:05 2 mg Q1H PRN Administration Breakthrough agitation Methylprednisolone Sodium Succinate 60 mg 10/31/19 09:00 11/01/19 09:15 Solu-Medrol IVP 60 mg 0300,0900,1500,2100 KELSEA Administration Mometasone Furoate/Formoterol Fumar 2 puff 10/29/19 18:30 11/01/19 07:31 Dulera 200 Mcg/5 Mcg Inhaler INH 2 puff BID-RT KELSEA Administration Montelukast Sodium 10 mg 10/30/19 21:00 10/31/19 20:14 Singulair PER TUBE 10 mg QPM KELSEA Administration Morphine Sulfate 2 mg 10/30/19 09:05 11/01/19 10:25 Morphine SLOW IVP 11/29/19 09:05 2 mg Q1H PRN Administration BREAKTHROUGH PAIN/Agitation Propofol 1,000 mg 10/30/19 09:05 11/01/19 09:13 Diprivan IV 11/29/19 09:05 1,000 mg INF PRN Administration TO ACHIEVE GOAL RASS Protocol Vecuronium [place] 10 mg 10/30/19 08:45 11/01/19 04:17 Norcuron IVP 10 mg Q30MIN PRN Administration Agitation - Exam General Appearance: NAD General - other findings: intubated Eye: PERRL, anicteric sclera ENT: normocephalic atraumatic, no oropharyngeal lesions Neck: supple, symmetric, no JVD, no thyromegaly Heart: RRR, no murmur, no gallops, no rubs Respiratory - other findings: bilateral rales Gastrointestinal: soft, non-tender, non-distended Extremities: no cyanosis, no clubbing, 1+ LE edema, 2+ LE edema Hosp A/P - Plan Chest X ray 10/30: pulmonary vascular congestion with cardiomegaly Chest X ray 10/31: cardiomegaly and pulmonary congestoin Chest X ray 11/01: no significant effusion. Hazy infiltrate right mid lung ECHO 10/31: EF 60-65%, mild MR, mild to moderate TR, elevated RSVP at 45, mild pulmonic regurg This is a 74 year old female with past medical history of asthma, hypertension, LISA who presented to the ER with worsening shortness of breath, admitted for respiratory failure/asthma exacerbation #Acute hypoxic/hypercapneic respiratory failure from asthma exacerbation vs heart failure vs pneumonia #LISA - patient intubated overnight. Received IV lasix 40 mg initially for pulmonary edema - repeat chest X ray 11/01 showing no significant effusion, right mid lung infiltrate - continue IV zosyn and azithromycin for pneumonia. On IV steroids 60 mg IV q6 for asthma exacerbatoin - trop negative times three. ECHO shows EF 60-65%, mild to moderate TR, elevated RSVP - #Atrial fibrillation - was on cardizem drip and continued to be in afib. Loaded with digoxin overnight, rate controlled - cardiology consult is pending #Hypertension - IV hydralazine prn for SBP > 180 #GERD - continue IV famotidine Dispo: ventilator weaning per critical care Code status: full code
[2019-11-01] MEDS ORDERED: Digoxin 0.5 MG/2 ML AMP SLOW IVP SCH (15:30)
--- NOTE | 2019-11-01 19:34 | PRG ---
DATE OF SERVICE: 11/01/2019 SUBJECTIVE: Ms. Ford'wilma exhale time is much shorter. OBJECTIVE: VITAL SIGNS: Heart rate is 80, blood pressure is 137/66, respiratory rate is in the 20s. Intake and output are positive 292. LUNGS: Remarkable for end-expiratory wheezes. HEART: Regular rhythm. S1, S2 are normal. ABDOMEN: Soft and nontender. EXTREMITIES: Without clubbing, cyanosis, or edema. NEURO: Not assessable because she is sedated. LABORATORY DATA: White count 3.5, hemoglobin 12.7, platelets 214. Electrolytes are unremarkable. Bicarb 36, BUN 16, creatinine 0.7. PH 7.45, pCO2 of 55, and pO2 of 82. IMPRESSION: 1. Status asthmaticus with respiratory failure. 2. Obesity. 3. ? obesity hypoventilation. PLAN: Slow weaning. She appears to be improving. She had an 8-second exhale time 2 days ago. She has clearly dramatically improved. We will continue supportive care. Hopefully, 1 to 2 days, we can consider weaning and extubation. CRITICAL CARE TIME: 30 minutes. Job ID: [id number] MTDD
[2019-11-01] MEDS: Enoxaparin Sodium 100 MG/ML SYRINGE SC SCH (20:03)
[2019-11-01] MEDS: Montelukast Sodium 10 mg Tablet PER TUBE SCH (20:05)
[2019-11-02] MEDS: Propofol 1,000 MG/100 ML VIAL IV PRN ×6 (01:14→22:05)
[2019-11-02] MEDS: Sodium Chloride 0.45% 1,000 ML IV SCH ×3 (01:14→15:00)
[2019-11-02] MEDS: Piperacillin/Tazobactam 3.375 GM in Sodium Chloride 0.9% 100 ML IVPB SCH ×4 (01:15→20:15)
[2019-11-02] MEDS ORDERED: Propofol 1,000 MG/100 ML VIAL IV ONE (01:41)
[2019-11-02] MEDS: methylPREDNISolone Sod Succ/PF 125 MG/2 ML VIAL IVP SCH ×4 (03:17→20:17)
[2019-11-02 06:31] LABS: #Lymphocytes 0.5 thou/uL (1.20-3.40); #Monocytes 0.3 thou/uL (0.11-0.59); #Neutrophils 3.9 thou/uL (1.40-6.50); %Eosinophils 0.2 % (0.0-10.0); %Lymphocytes 9.8 % (21.0-51.0); %Monocytes 5.5 % (0.0-10.0); %Neutrophils 84.5 % (42.0-75.0); Hemoglobin 13.8 g/dL (12.0-16.0); Mean Corpuscular HGB CONC 30.8 g/dL (32.0-36.0); Mean Corpuscular Hemoglobin 32.2 pg (27.0-31.0); Mean Platelet Volume 7.8 fL (7.4-10.4); Platelet Count 213 thou/uL (130-400); RBC Distribution Width 11.7 % (11.5-14.5); Red Blood Cell (RBC) Count 4.28 mill/uL (4.20-5.40); White Blood Cell (WBC) Count 4.7 thou/uL (4.8-10.8)
[2019-11-02 07:05] LABS: Anion Gap 10 mmol/L (10-20); BUN (Urea Nitrogen) 15 mg/dL (9.8-20.1); Calc. Creatinine Clearance 172 mL/min (70-130); Calcium 8.3 mg/dL (7.8-10.44); Carbon Dioxide 37 mmol/L (23-31); Chloride 97 mmol/L (98-107); Estimated GFR-MDRD Greater than 90; Glucose 161 mg/dL (83-110); Potassium 3.7 mmol/L (3.5-5.1); Sodium 140 mmol/L (136-145)
[2019-11-02] MEDS: Mometasone/Formoterol 120 PUFF INHALER INH SCH ×2 (07:24→18:29)
[2019-11-02] MEDS: Budesonide 0.5 MG/2 ML NEB INH SCH ×2 (07:24→18:30)
[2019-11-02 07:40] LABS: Actual Bicarbonate (HCO3a) 38.4 mEq/L (22-28); Base Excess (BEa) 11.9 mEq/L (-2.0 to +3.0); CO2 Tension 56.9 mmHg (35.0-45.0); Calcium, Ionized 1.16 mmol/L (1.12-1.30); Carboxyhemoglobin (COHb) 0.7 gm% (0.0-3.0); Hemoglobin (Hb) 14.2 g/dL (12.0-16.0); O2 Tension (PaO2) 69.6 mmHg (> 70.0); Potassium - ABG Lab 3.67 mmol/L (3.70-5.30); pH, Arterial 7.45 (7.35-7.45)
[2019-11-02 07:42] LABS: ALV-art Gradient 123.085 (0-20); Puncture Site LRA
--- NOTE | 2019-11-02 07:54 | CON ---
DATE OF CONSULTATION: 11/01/2019 REASON FOR CONSULTATION: Atrial fibrillation. HISTORY OF PRESENT ILLNESS: Ms. Ford is a 74-year-old woman with respiratory failure and also developed atrial fibrillation. The patient is intubated and ventilated, unable to give me any history. Therefore, the history comes from the chart and also a granddaughter is at the bedside. The granddaughter says as far as she knows, the patient has not had heart problems. The patient has had reactive airway disease. The patient is currently intubated and ventilated and sedated. MEDICATIONS: 1. She is on intravenous Cardizem. 2. She received a dose of intravenous digoxin. 3. She is on low-dose enoxaparin. 4. She did receive a dose of digoxin 0.5 mg IV yesterday. REVIEW OF SYSTEMS: Not obtainable. FAMILY HISTORY: Not obtainable, intubated on the ventilator. PHYSICAL EXAMINATION: GENERAL: On examination, this is a 74-year-old woman with morbid obesity, 5 feet 4 inches, 309 pounds, BMI is over 50. She is intubated and sedated. VITAL SIGNS: Blood pressure 136/73, pulse 72 and irregular. LUNGS: Some expiratory wheezing. CARDIAC: Irregularly irregular. ABDOMEN: Obese, nontender. EXTREMITIES: No clubbing or cyanosis. There is no significant edema. SKIN: Warm and dry. EKG reveals atrial fibrillation with controlled rate. PERTINENT LABORATORY DATA: Hemoglobin is 12.7, creatinine is 0.7. BNP is 114. Chest x-ray on the , which is today, revealed mild vascular engorgement, hazy infiltrate in the right mid lower lung. ASSESSMENT: 1. Respiratory failure. 2. Morbid obesity. 3. Atrial fibrillation, new onset. She is in sinus rhythm on admission. PLAN: 1. I am going to continue intravenous Cardizem. 2. We will continue intravenous diltiazem at a low dose. 3. Increase anticoagulation. We will follow with you. Job ID: [id number]
[2019-11-02] MEDS ORDERED: Furosemide 40 MG/4 ML VIAL SLOW IVP SCH (08:15)
[2019-11-02] MEDS ORDERED: Potassium Chloride 20 MEQ TAB PO SCH (08:15)
[2019-11-02] MEDS: Aspirin Chewable 81 MG TAB PO SCH (08:25)
[2019-11-02] MEDS: Famotidine/PF 20 mg/2ml Vial SLOW IVP SCH ×2 (08:26→20:17)
[2019-11-02] MEDS: Enoxaparin Sodium 100 MG/ML SYRINGE SC SCH ×2 (08:26→20:17)
[2019-11-02] MEDS: Digoxin 0.5 MG/2 ML AMP SLOW IVP SCH (08:26)
--- NOTE | 2019-11-02 08:40 | RAD ---
PORTABLE CHEST: HISTORY: Pneumonia and CCU followup. COMPARISON: 11/01/2019. FINDINGS/IMPRESSION: ET tube and NG Tube are unchanged. Mild cardiomegaly again noted. There is vascular congestion. Green zy alveolar opacity overlies both lungs which could represent edema or infiltrate. Small effusions a re not excluded. No significant change from yesterday. POS: [facility]
--- NOTE | 2019-11-02 09:16 | PRG ---
DATE OF SERVICE: 11/02/2019 SUBJECTIVE: Ms. Ford remains intubated and sedated. OBJECTIVE: VITAL SIGNS: Her blood pressure 150/70 and pulse is 70 and it is irregular. LUNGS: Clear. CARDIAC: Irregularly irregular. ABDOMEN: Obese and nontender. EXTREMITIES: Reduced edema. ASSESSMENT: 1. Atrial fibrillation, persistent. 2. Respiratory failure. 3. Hypertension. PLAN: 1. Give her a dose of Lasix and potassium. 2. She is on diltiazem and Cardizem. 3. She is on Lovenox. Job ID: [id number]
[2019-11-02] MEDS: Azithromycin 250 MG in Sodium Chloride 0.9% 250 ML 250 ML IVPB SCH (11:34)
[2019-11-02] MEDS: hydrALAZINE 20 MG/ML VIAL SLOW IVP PRN (13:37)
--- NOTE | 2019-11-02 18:22 | PDOC.HOSPP ---
- Subjective Encounter Date: 11/02/19 Encounter Time: 14:00 Subjective: The patient is still intubated. She had chest X ray showing pulmonary congestion again. IV lasix given this am, patient had 3000 urine output. She is back on cardizem drip, heart rate 115. - Objective Vital Signs & Weight: Vital Signs (12 hours) Temp Pulse Pulse Pulse Resp BP BP 11/02/19 16:00 98.4 F 12 11/02/19 15:39 84 11/02/19 14:00 12 11/02/19 13:37 64 11/02/19 12:55 64 11/02/19 11:58 12 11/02/19 11:05 77 79 154/69 H 121/69 11/02/19 11:00 98.6 F 11/02/19 10:49 69 11/02/19 10:00 12 11/02/19 08:26 74 11/02/19 08:00 12 11/02/19 07:43 74 11/02/19 07:00 98.7 F Pulse Ox Pulse Ox Pulse Ox 11/02/19 16:00 11/02/19 15:39 11/02/19 14:00 11/02/19 13:37 11/02/19 12:55 11/02/19 11:58 11/02/19 11:05 92 L 91 L 11/02/19 11:00 11/02/19 10:49 11/02/19 10:00 11/02/19 08:26 11/02/19 08:00 100 11/02/19 07:43 11/02/19 07:00 Weight Admit Weight 307 lb Weight 315 lb 11.231 oz Most Recent Monitor Data Heart Rate from ECG 94 NIBP 136/68 NIBP BP-Mean 90 Respiration from ECG 27 SpO2 93 I&O: 11/01/19 11/02/19 11/03/19 06:59 06:59 06:59 Intake Total 3542 4112 80 Output Total 3250 2380 4470 Balance 292 4595 -9190 Result Diagrams: 11/02/19 06:20 11/02/19 06:20 Hospitalist ROS - Review of Systems ROS unobtainable: due to endotracheal tube - Medication Medications: Active Medications Generic Name Dose Route Start Last Admin Trade Name Freq PRN Reason Stop Dose Admin Albuterol/Ipratropium 3 ml 10/30/19 10:00 11/02/19 15:38 Duoneb NEB 3 ml [id number] KELSEA Administration Aspirin 81 mg 10/30/19 09:00 11/02/19 08:25 Aspirin Chewable PO 81 mg DAILY KELSEA Administration Budesonide 0.5 mg 10/29/19 18:30 11/02/19 07:24 Pulmicort Neb Solution INH 0.5 mg BID-RT KELSEA Administration Digoxin 0.125 mg 11/02/19 09:00 11/02/19 08:26 Lanoxin SLOW IVP 0.125 mg DAILY KELSEA Administration Enoxaparin Sodium 100 mg 11/01/19 21:00 11/02/19 08:26 Lovenox SC 100 mg 0900,2100 KELSEA Administration Famotidine 40 mg 10/30/19 21:00 11/02/19 08:26 Pepcid SLOW IVP 40 mg BID KELSEA Administration Hydralazine HCl 10 mg 10/29/19 16:12 11/02/19 13:37 Apresoline SLOW IVP 10 mg Q4H PRN Administration SBP Greater Than 180 Sodium Chloride 1,000 mls @ 75 mls/hr 10/30/19 08:45 11/02/19 15:00 1/2 Normal Saline IV Not Given .[id number] KELSEA Piperacillin Sod/Tazobactam 100 mls @ 200 mls/hr 10/31/19 14:00 11/02/19 13: 37 Sod 3.375 gm/ Sodium Chloride IVPB 100 mls 0200,0800,1400,2000 KELSEA Administration Azithromycin 250 mg/ Sodium 250 mls @ 250 mls/hr 11/01/19 11:00 11/02/19 11: 34 Chloride IVPB 250 mls 1100 KELSEA Administration Lorazepam 2 mg 10/30/19 09:05 11/01/19 10:25 Ativan SLOW IVP 11/29/19 09:05 2 mg Q1H PRN Administration Breakthrough agitation Methylprednisolone Sodium Succinate 60 mg 10/31/19 09:00 11/02/19 14:18 Solu-Medrol IVP 60 mg 0300,0900,1500,2100 KELSEA Administration Mometasone Furoate/Formoterol Fumar 2 puff 10/29/19 18:30 11/02/19 07:24 Dulera 200 Mcg/5 Mcg Inhaler INH 2 puff BID-RT KELSEA Administration Montelukast Sodium 10 mg 10/30/19 21:00 11/01/19 20:05 Singulair PER TUBE 10 mg QPM KELSEA Administration Morphine Sulfate 2 mg 10/30/19 09:05 11/01/19 10:25 Morphine SLOW IVP 11/29/19 09:05 2 mg Q1H PRN Administration BREAKTHROUGH PAIN/Agitation Propofol 1,000 mg 10/30/19 09:05 11/02/19 17:00 Diprivan IV 11/29/19 09:05 1,000 mg INF PRN Administration TO ACHIEVE GOAL RASS Protocol Vecuronium [place] 10 mg 10/30/19 08:45 11/01/19 04:17 Norcuron IVP 10 mg Q30MIN PRN Administration Agitation - Exam General Appearance: NAD General - other findings: intubated, sedated Eye: anicteric sclera ENT: normocephalic atraumatic, no oropharyngeal lesions Neck: no JVD Heart: RRR, no murmur, no gallops, no rubs Respiratory: rales Gastrointestinal: soft, non-tender, non-distended, normal bowel sounds Extremities: no cyanosis, no clubbing, no edema Skin: normal turgor, no lesions, no rashes Neurological: cranial nerve grossly intact Hosp A/P - Plan Chest X ray 10/30: pulmonary vascular congestion with cardiomegaly Chest X ray 10/31: cardiomegaly and pulmonary congestoin Chest X ray 11/01: no significant effusion. Hazy infiltrate right mid lung ECHO 10/31: EF 60-65%, mild MR, mild to moderate TR, elevated RSVP at 45, mild pulmonic regurg This is a 74 year old female with past medical history of asthma, hypertension, LISA who presented to the ER with worsening shortness of breath, admitted for respiratory failure/asthma exacerbation #Acute hypoxic/hypercapneic respiratory failure from asthma exacerbation vs heart failure vs pneumonia #LISA - patient intubated. Received IV lasix 40 mg initially, repeat chest X ray showing no significant effusion, right mid lung infiltrate. Repeat chest X ray 11/02 showing pulmonary venous congestion - continue IV zosyn and azithromycin for pneumonia. On IV steroids 60 mg IV q6 for asthma exacerbation. Given additional IV lasix today. Repeat x ray tomorrow - trop negative times three. ECHO shows EF 60-65%, mild to moderate TR, elevated RSVP #Atrial fibrillation - was on cardizem drip and continued to be in afib. Loaded with digoxin overnight, now on IV daily - cardiology consult is following. - ECHO shows EF 60-65, mild to moderate TR #Hypertension - IV hydralazine prn for SBP > 180 #GERD - continue IV famotidine Dispo: ventilator weaning per critical care Code status: full code
[2019-11-02] MEDS: Montelukast Sodium 10 mg Tablet PER TUBE SCH (20:18)
--- NOTE | 2019-11-02 21:21 | PRG ---
DATE OF SERVICE: 11/02/2019 SUBJECTIVE: Ms. Ford looks better, expiratory time shorter. PHYSICAL EXAMINATION: VITAL SIGNS: She is afebrile, respiratory rate is 20, oximetry is in the low 90s, blood pressure 164/71, heart rate is 100. LUNGS: Remarkable for distant wheezes. HEART: Regular rhythm, S1 and S2 distant. ABDOMEN: Soft and nontender. EXTREMITIES: Without asymmetry. NEURO: She is sedated for ventilation for neuro exam. LABORATORY DATA: White count 4.7, hemoglobin 13.7, platelets 213. Sodium 140, potassium 3.7, chloride 97, bicarb 37, BUN 15, and creatinine 0.65. Blood gas; pH of 7.45, CO2 56, PO2 69. Chest x-ray shows hazy bilaterally. I suspect this is a small effusions. IMPRESSION: Respiratory failure secondary to status asthmaticus, is dramatically improved. We will slowly begin the weaning process. She does have left ventricular hypertrophy and diastolic dysfunction. This may account for pleural effusion. She has also been in a positive fluid balance every day except today. We will continue to follow. I met with family, updated them and answered all their questions. CRITICAL CARE TIME: 30 minutes. Job ID: [id number]
[2019-11-03] MEDS: Propofol 1,000 MG/100 ML VIAL IV PRN ×6 (02:00→21:04)
[2019-11-03] MEDS: Piperacillin/Tazobactam 3.375 GM in Sodium Chloride 0.9% 100 ML IVPB SCH ×4 (02:00→20:08)
[2019-11-03] MEDS: Diltiazem 125 MG in Sodium Chloride 0.9% 100 ML IVPB SCH ×2 (02:03→16:01)
[2019-11-03] MEDS: methylPREDNISolone Sod Succ/PF 125 MG/2 ML VIAL IVP SCH ×4 (03:38→20:31)
[2019-11-03 04:18] LABS: #Lymphocytes 0.5 thou/uL (1.20-3.40); #Monocytes 0.3 thou/uL (0.11-0.59); #Neutrophils 3.8 thou/uL (1.40-6.50); %Basophils 0.1 % (0.0-1.0); %Eosinophils 0.1 % (0.0-10.0); %Lymphocytes 11.4 % (21.0-51.0); %Neutrophils 81.4 % (42.0-75.0); Hemoglobin 13.4 g/dL (12.0-16.0); Mean Corpuscular HGB CONC 30.5 g/dL (32.0-36.0); Mean Corpuscular Hemoglobin 31.6 pg (27.0-31.0); Platelet Count 204 thou/uL (130-400); RBC Distribution Width 11.7 % (11.5-14.5); Red Blood Cell (RBC) Count 4.22 mill/uL (4.20-5.40); White Blood Cell (WBC) Count 4.7 thou/uL (4.8-10.8)
[2019-11-03 04:43] LABS: BUN (Urea Nitrogen) 20 mg/dL (9.8-20.1); Calc. Creatinine Clearance 169 mL/min (70-130); Calcium 8.2 mg/dL (7.8-10.44); Estimated GFR-MDRD Greater than 90; Glucose 165 mg/dL (83-110)
[2019-11-03 04:52] LABS: Anion Gap 11 mmol/L (10-20); Carbon Dioxide 38 mmol/L (23-31); Chloride 97 mmol/L (98-107); Potassium 3.8 mmol/L (3.5-5.1); Sodium 142 mmol/L (136-145)
[2019-11-03] MEDS: Budesonide 0.5 MG/2 ML NEB INH SCH ×2 (07:23→18:28)
[2019-11-03] MEDS: Mometasone/Formoterol 120 PUFF INHALER INH SCH ×2 (07:23→18:28)
[2019-11-03] MEDS: Sodium Chloride 0.45% 1,000 ML IV SCH (07:29)
[2019-11-03 08:02] LABS: Actual Bicarbonate (HCO3a) 37.5 mEq/L (22-28); Base Excess (BEa) 10.2 mEq/L (-2.0 to +3.0); Calcium, Ionized 1.16 mmol/L (1.12-1.30); Carboxyhemoglobin (COHb) 0.8 gm% (0.0-3.0); Hemoglobin (Hb) 14.7 g/dL (12.0-16.0); O2 Tension (PaO2) 66.4 mmHg (> 70.0)
[2019-11-03 08:09] LABS: CO2 Tension 61.7 mmHg (35.0-45.0); Puncture Site LRA
[2019-11-03 08:10] LABS: ALV-art Gradient 120.285 (0-20)
[2019-11-03] MEDS: Digoxin 0.5 MG/2 ML AMP SLOW IVP SCH (08:44)
[2019-11-03] MEDS: Enoxaparin Sodium 100 MG/ML SYRINGE SC SCH ×2 (08:44→20:31)
[2019-11-03] MEDS: Aspirin Chewable 81 MG TAB PO SCH (08:44)
[2019-11-03] MEDS: Famotidine/PF 20 mg/2ml Vial SLOW IVP SCH ×2 (08:44→20:31)
--- NOTE | 2019-11-03 09:13 | RAD ---
CHEST 1 VIEW: HISTORY: Followup pneumonia. COMPARISON: 11/02/2019. FINDINGS: Life support tubes in place. Bilateral vascular congestion. Poor inspiration. Scattered interstiti al and alveolar opacity changes bilaterally. Appearance is slightly improved from 11/02. POS: [facility]
[2019-11-03] MEDS ORDERED: Sodium Chloride 0.45% 1,000 ML IV SCH (09:44)
--- NOTE | 2019-11-03 10:02 | PRG ---
DATE OF SERVICE: 11/03/2019 SUBJECTIVE: Ms. Ford is clinically improving. She is still sedated for ventilation. Ventilatory support was turned down again today. OBJECTIVE: VITAL SIGNS: Heart rate in the 70s, respiratory rates in the teens, oximetry is in mid 90s, blood pressure 145/81. Intake and outputs -1615. LUNGS: Remarkable only for end-expiratory wheezes. HEART: Regular rhythm. ABDOMEN: Soft. Her expiratory phase is probably back to normal. She still has bibasilar infiltrative changes. Her echocardiogram did not show decreased ejection fraction, but did show evidence of diastolic dysfunction. LABORATORY DATA: White count 4.7, hemoglobin 13.4, platelets 204,000. Sodium 142, potassium 3.8, chloride 97, bicarb 38, BUN 20, creatinine 0.66. Blood gas; pH of 7.4, CO2 of 61, PO2 66. Ventilatory rate was turned down to 8 today. We will continue to make slow decrease in ventilatory support. Once her blood pressure and kidney function tolerates, she probably needs to be kept in a neutral or negative fluid balance. Now that her asthma is improved, her obesity will definitely slow down our ability to wean her from mechanical ventilation. Her daughter was at the bedside yesterday and tell me she absolutely refuses to wear CPAP for sleep apnea. When we do get to a point where we can extubate her, she will likely need to go straight to CPAP or BiPAP. CRITICAL CARE TIME: 30 minutes. Job ID: [id number]
[2019-11-03] MEDS: Azithromycin 250 MG in Sodium Chloride 0.9% 250 ML 250 ML IVPB SCH (10:29)
--- NOTE | 2019-11-03 14:03 | PRG ---
DATE OF SERVICE: 11/03/2019 SUBJECTIVE: Ms. Ford remains intubated and sedated. REVIEW OF SYSTEMS: Not obtainable. OBJECTIVE: VITAL SIGNS: Her blood pressure is 117/66, pulse is 80 to 100, it is atrial fibrillation. LUNGS: Clear. CARDIAC: Irregularly irregular. ABDOMEN: Soft and nontender. EXTREMITIES: There is no edema. ASSESSMENT: 1. Atrial fibrillation, persistent. 2. Respiratory failure. PLAN: 1. She is on low-dose intravenous digoxin. 2. She is on intravenous Cardizem. 3. She is on enoxaparin. PLAN: Continue current medical regimen. Dr. Cesar is available this weekend if needed. For now this strategy, we rate control and anticoagulation. Job ID: [id number]
[2019-11-03] MEDS ORDERED: Furosemide 40 MG/4 ML VIAL SLOW IVP SCH (16:00)
--- NOTE | 2019-11-03 16:02 | PDOC.HOSPP ---
- Subjective Encounter Date: 11/03/19 Encounter Time: 16:00 Subjective: The patient is still intubated and sedated. RR decreased to 8 on ventilator. Still on cardizem drip and digoxin She had BM today. Tube feeds are in place. - Objective Vital Signs & Weight: Vital Signs (12 hours) Temp Pulse Pulse Pulse Resp BP BP 11/03/19 15:39 93 154/58 H 11/03/19 14:00 20 11/03/19 13:35 97 83 128/65 11/03/19 13:03 91 11/03/19 12:00 98.4 F 21 H 11/03/19 11:01 84 11/03/19 10:00 15 11/03/19 08:44 77 11/03/19 08:00 15 11/03/19 07:24 77 11/03/19 07:00 98.7 F 11/03/19 06:00 12 BP Pulse Ox Pulse Ox Pulse Ox 11/03/19 15:39 11/03/19 14:00 11/03/19 13:35 140/65 95 95 11/03/19 13:03 11/03/19 12:00 11/03/19 11:01 11/03/19 10:00 11/03/19 08:44 11/03/19 08:00 95 11/03/19 07:24 11/03/19 07:00 11/03/19 06:00 Weight Admit Weight 307 lb Weight 316 lb 2.286 oz Most Recent Monitor Data Heart Rate from ECG 96 NIBP 163/95 NIBP BP-Mean 117 Respiration from ECG 33 SpO2 90 I&O: 11/02/19 11/03/19 11/04/19 06:59 06:59 06:59 Intake Total 4112 3445 100 Output Total 2380 5060 385 Balance 1732 -1615 -285 Result Diagrams: 11/03/19 03:30 11/03/19 03:30 Hospitalist ROS - Review of Systems ROS unobtainable: due to endotracheal tube - Medication Medications: Active Medications Generic Name Dose Route Start Last Admin Trade Name Freq PRN Reason Stop Dose Admin Albuterol/Ipratropium 3 ml 10/30/19 10:00 11/03/19 15:38 Duoneb NEB 3 ml [id number] KELSEA Administration Aspirin 81 mg 10/30/19 09:00 11/03/19 08:44 Aspirin Chewable PO 81 mg DAILY KELSEA Administration Budesonide 0.5 mg 10/29/19 18:30 11/03/19 07:23 Pulmicort Neb Solution INH 0.5 mg BID-RT KELSEA Administration Digoxin 0.125 mg 11/02/19 09:00 11/03/19 08:44 Lanoxin SLOW IVP 0.125 mg DAILY KELSEA Administration Enoxaparin Sodium 100 mg 11/01/19 21:00 11/03/19 08:44 Lovenox SC 100 mg 0900,2100 KELSEA Administration Famotidine 40 mg 10/30/19 21:00 11/03/19 08:44 Pepcid SLOW IVP 40 mg BID KELSEA Administration Hydralazine HCl 10 mg 10/29/19 16:12 11/02/19 13:37 Apresoline SLOW IVP 10 mg Q4H PRN Administration SBP Greater Than 180 Piperacillin Sod/Tazobactam 100 mls @ 200 mls/hr 10/31/19 14:00 11/03/19 13: 49 Sod 3.375 gm/ Sodium Chloride IVPB 100 mls 0200,0800,1400,2000 KELSEA Administration Azithromycin 250 mg/ Sodium 250 mls @ 250 mls/hr 11/01/19 11:00 11/03/19 10: 29 Chloride IVPB 250 mls 1100 KELSEA Administration Diltiazem HCl 125 mg/ Sodium 125 mls @ 8 mls/hr 11/02/19 08:13 11/03/19 02:03 Chloride IVPB 125 mls INF KELSEA Administration Protocol Lorazepam 2 mg 10/30/19 09:05 11/01/19 10:25 Ativan SLOW IVP 11/29/19 09:05 2 mg Q1H PRN Administration Breakthrough agitation Methylprednisolone Sodium Succinate 60 mg 10/31/19 09:00 11/03/19 13:49 Solu-Medrol IVP 60 mg 0300,0900,1500,2100 KELSEA Administration Mometasone Furoate/Formoterol Fumar 2 puff 10/29/19 18:30 11/03/19 07:23 Dulera 200 Mcg/5 Mcg Inhaler INH 2 puff BID-RT KELSEA Administration Montelukast Sodium 10 mg 10/30/19 21:00 11/02/19 20:18 Singulair PER TUBE 10 mg QPM KELSEA Administration Morphine Sulfate 2 mg 10/30/19 09:05 11/01/19 10:25 Morphine SLOW IVP 11/29/19 09:05 2 mg Q1H PRN Administration BREAKTHROUGH PAIN/Agitation Propofol 1,000 mg 10/30/19 09:05 11/03/19 13:49 Diprivan IV 11/29/19 09:05 1,000 mg INF PRN Administration TO ACHIEVE GOAL RASS Protocol Vecuronium [place] 10 mg 10/30/19 08:45 11/01/19 04:17 Norcuron IVP 10 mg Q30MIN PRN Administration Agitation - Exam General Appearance: NAD, awake alert General - other findings: winces to sternal rub. Eye: PERRL, anicteric sclera ENT: normocephalic atraumatic, no oropharyngeal lesions Neck: no JVD Heart: RRR, no murmur, no gallops, no rubs Respiratory - other findings: bilateral crackles Gastrointestinal: soft, non-tender, non-distended Extremities: no edema Hosp A/P - Plan Chest X ray 10/30: pulmonary vascular congestion with cardiomegaly Chest X ray 10/31: cardiomegaly and pulmonary congestoin Chest X ray 11/01: no significant effusion. Hazy infiltrate right mid lung Chest Xray 11/02: pulmonary edema Chest Xray 11/03: pulm congestion ECHO 10/31: EF 60-65%, mild MR, mild to moderate TR, elevated RSVP at 45, mild pulmonic regurg This is a 74 year old female with past medical history of asthma, hypertension, LISA who presented to the ER with worsening shortness of breath, admitted for respiratory failure/asthma exacerbation #Acute hypoxic/hypercapneic respiratory failure from asthma exacerbation vs heart failure vs pneumonia #LISA - patient intubated. Received IV lasix 40 mg initially, repeat chest X ray showing no significant effusion, right mid lung infiltrate. Started IV zosyn 10/31 and azithromycin 11/01. Repeat chest X ray 11/02 showing pulmonary venous congestion, got additional 40 mg IV lasix. - X ray 11/03 showing pulmonary edema, will give 40 mg IV lasix. Switch to 20 mg IV lasix tomorrow - On IV steroids 60 mg IV q6 for asthma exacerbation. Ventilator setting weaned to RR 8 - trop negative times three. ECHO shows EF 60-65%, mild to moderate TR, elevated RSVP #Atrial fibrillation - on cardizem drip and IV digoxin - cardiology consult is following. - ECHO shows EF 60-65, mild to moderate TR #Hypertension - IV hydralazine prn for SBP > 180 #GERD - continue IV famotidine Dispo: ventilator weaning per critical care Code status: full code
[2019-11-03] MEDS: Montelukast Sodium 10 mg Tablet PER TUBE SCH (20:31)
[2019-11-04] MEDS: Piperacillin/Tazobactam 3.375 GM in Sodium Chloride 0.9% 100 ML IVPB SCH ×4 (02:15→19:39)
[2019-11-04] MEDS: Propofol 1,000 MG/100 ML VIAL IV PRN ×2 (02:15→05:43)
[2019-11-04] MEDS: methylPREDNISolone Sod Succ/PF 125 MG/2 ML VIAL IVP SCH ×4 (03:16→20:29)
[2019-11-04 05:10] LABS: BUN (Urea Nitrogen) 24 mg/dL (9.8-20.1); Calc. Creatinine Clearance 160 mL/min (70-130); Calcium 8.7 mg/dL (7.8-10.44); Estimated GFR-MDRD Greater than 90; Glucose 165 mg/dL (83-110)
[2019-11-04 05:19] LABS: Anion Gap 15 mmol/L (10-20); Carbon Dioxide 38 mmol/L (23-31); Chloride 94 mmol/L (98-107); Potassium 3.4 mmol/L (3.5-5.1); Sodium 144 mmol/L (136-145)
[2019-11-04] MEDS: Diltiazem 125 MG in Sodium Chloride 0.9% 100 ML IVPB SCH ×2 (05:22→19:43)
[2019-11-04 05:34] LABS: Band 4 % (5-11); Elliptocytes SLIGHT = 2-5 cells (100X) (0-1/hpf); Hemoglobin 14.7 g/dL (12.0-16.0); Lymphocytes 10 % (21-51); MDiff Complete? YES; Macrocytosis SLIGHT = 6-15 cells (100X) (0-5/hpf); Mean Corpuscular HGB CONC 30.9 g/dL (32.0-36.0); Mean Corpuscular Hemoglobin 32.2 pg (27.0-31.0); Mean Platelet Volume 8.6 fL (7.4-10.4); Monocytes 9 % (0-10); Neutrophil 77 % (42-75); Platelet Count 213 thou/uL (130-400); Platelet Morphology Comment Appears Adequate; RBC Distribution Width 11.7 % (11.5-14.5); Red Blood Cell (RBC) Count 4.57 mill/uL (4.20-5.40); White Blood Cell (WBC) Count 5.7 thou/uL (4.8-10.8)
[2019-11-04] MEDS: Budesonide 0.5 MG/2 ML NEB INH SCH ×2 (07:00→19:33)
[2019-11-04] MEDS: Mometasone/Formoterol 120 PUFF INHALER INH SCH ×2 (07:00→19:39)
[2019-11-04 07:07] LABS: Base Excess (BEa) 15.1 mEq/L (-2.0 to +3.0); CO2 Tension 54.3 mmHg (35.0-45.0); Calcium, Ionized 1.14 mmol/L (1.12-1.30); Carboxyhemoglobin (COHb) 0.9 gm% (0.0-3.0); Hemoglobin (Hb) 14.6 g/dL (12.0-16.0); O2 Tension (PaO2) 76.6 mmHg (> 70.0); Potassium - ABG Lab 4.06 mmol/L (3.70-5.30)
[2019-11-04 07:09] LABS: Puncture Site LRA
[2019-11-04 07:10] LABS: ALV-art Gradient 119.335 (0-20)
--- NOTE | 2019-11-04 08:05 | RAD ---
EXAM: Single view of the chest HISTORY: Ventilated patient with respiratory failure COMPARISON: 11/03/2019 FINDINGS: Single view of the chest shows an enlarged but stable cardiomediastinal silhouette. The li naga and tubes are unchanged in position. There is no evidence of consolidation, mass, or pleural effusion. The bones are unremarkable. IMPRESSION: Stable exam
[2019-11-04] MEDS ORDERED: Furosemide 20 MG/2 ML VIAL SLOW IVP SCH (09:00)
--- NOTE | 2019-11-04 09:17 | PRG ---
DATE OF SERVICE: 11/04/2019 TIME SPENT: This is 35 minutes of critical care time. SUBJECTIVE: The patient remains intubated on mechanical ventilation. She is deeply sedated and I cannot get her to follow commands. OBJECTIVE: VITAL SIGNS: Temperature is 99.4 with a T-max of 100.3, pulse is 97, and blood pressure 166/105. A 24-hour intake 3092, output 3155. HEENT: Unremarkable. NECK: No adenopathy or JVD. LUNGS: Poor air movement without active wheezing. CARDIAC: S1 and S2. Regular. ABDOMEN: Soft, obese, nontender, and nondistended. EXTREMITIES: No edema. LABORATORY DATA: ABG; pH of 7.5, pCO2 of 54, pO2 of 76, that is on SIMV rate 8, tidal volume 450, PEEP 5, pressure support 14, and FiO2 of 37%. White blood cell count 5.7, hematocrit 47.6, and platelet count 213. Sodium 144, potassium 3.4, chloride 94, CO2 of 38, BUN 24, creatinine 0.7, and glucose 165. IMAGING DATA: Chest x-ray shows no acute changes except for perhaps more prominent infiltrate on the right side. ASSESSMENT: 1. Acute respiratory failure, requiring mechanical ventilation. 2. Status asthmaticus, improved. 3. Morbid obesity. 4. Atrial fibrillation, persistent, currently on Cardizem drip. PLAN: 1. I will see if we can get the nurse to lessen her sedation to see if we can make some progress toward weaning the patient. 2. She will continue the azithromycin and piperacillin. 3. Change nebs to every 4 hours. 4. Discontinue paralytics. 5. The patient is being anticoagulated because of atrial fibrillation. 6. She began to develop a contraction alkalosis, so I will change her furosemide to Diamox. Job ID: [id number]
[2019-11-04] MEDS: Aspirin Chewable 81 MG TAB PO SCH (09:29)
[2019-11-04] MEDS: Digoxin 0.5 MG/2 ML AMP SLOW IVP SCH (09:29)
[2019-11-04] MEDS: Potassium Chloride 20 MEQ TAB PO SCH (09:29)
[2019-11-04] MEDS: Famotidine/PF 20 mg/2ml Vial SLOW IVP SCH ×2 (09:30→20:31)
[2019-11-04] MEDS: Enoxaparin Sodium 100 MG/ML SYRINGE SC SCH ×2 (09:31→20:31)
--- NOTE | 2019-11-04 12:37 | PDOC.HOSPP ---
- Subjective Encounter Date: 11/04/19 Encounter Time: 12:35 Subjective: Ms. Ford was seen today in follow-up of respiratory failure. She is currently intubated. The sedation has been reduced. She does not follow commands for me. - Objective Vital Signs & Weight: Vital Signs (12 hours) Temp Pulse Resp BP Pulse Ox 11/04/19 11:08 75 146/76 H 11/04/19 09:29 88 11/04/19 07:08 88 11/04/19 06:00 14 11/04/19 04:00 99.4 F 16 11/04/19 03:03 136 H 15 95 11/04/19 02:00 18 Weight Admit Weight 307 lb Weight 312 lb 2.793 oz Most Recent Monitor Data Heart Rate from ECG 97 NIBP 166/105 NIBP BP-Mean 125 Respiration from ECG 14 SpO2 95 I&O: 11/03/19 11/04/19 11/05/19 06:59 06:59 06:59 Intake Total 3445 3092 Output Total 5093 3294 Balance -1615 -63 Result Diagrams: 11/04/19 03:40 11/04/19 03:40 Hospitalist ROS - Medication Medications: Active Medications Generic Name Dose Route Start Last Admin Trade Name Freq PRN Reason Stop Dose Admin Albuterol/Ipratropium 3 ml 11/04/19 10:30 11/04/19 11:08 Duoneb NEB 3 ml [id number] KELSEA Administration Aspirin 81 mg 10/30/19 09:00 11/04/19 09:29 Aspirin Chewable PO 81 mg DAILY KELSEA Administration Budesonide 0.5 mg 10/29/19 18:30 11/04/19 07:00 Pulmicort Neb Solution INH 0.5 mg BID-RT KELSEA Administration Digoxin 0.125 mg 11/02/19 09:00 11/04/19 09:29 Lanoxin SLOW IVP 0.125 mg DAILY KELSEA Administration Enoxaparin Sodium 100 mg 11/01/19 21:00 11/04/19 09:31 Lovenox SC 100 mg 09,2099 KELSEA Administration Famotidine 40 mg 10/30/19 21:00 11/04/19 09:30 Pepcid SLOW IVP 40 mg BID KELSEA Administration Hydralazine HCl 10 mg 10/29/19 16:12 11/02/19 13:37 Apresoline SLOW IVP 10 mg Q4H PRN Administration SBP Greater Than 180 Piperacillin Sod/Tazobactam 100 mls @ 200 mls/hr 10/31/19 14:00 11/04/19 09: 27 Sod 3.375 gm/ Sodium Chloride IVPB 100 mls 0200,0800,1400,2000 KELSEA Administration Azithromycin 250 mg/ Sodium 250 mls @ 250 mls/hr 11/01/19 11:00 11/03/19 10: 29 Chloride IVPB 250 mls 1100 KELSEA Administration Diltiazem HCl 125 mg/ Sodium 125 mls @ 8 mls/hr 11/02/19 08:13 11/04/19 05:22 Chloride IVPB 125 mls INF KELSEA Administration Protocol Lorazepam 2 mg 10/30/19 09:05 11/01/19 10:25 Ativan SLOW IVP 11/29/19 09:05 2 mg Q1H PRN Administration Breakthrough agitation Methylprednisolone Sodium Succinate 60 mg 10/31/19 09:00 11/04/19 09:31 Solu-Medrol IVP 60 mg 0300,0900,1500,2100 KELSEA Administration Mometasone Furoate/Formoterol Fumar 2 puff 10/29/19 18:30 11/04/19 07:00 Dulera 200 Mcg/5 Mcg Inhaler INH 2 puff BID-RT KELSEA Administration Montelukast Sodium 10 mg 10/30/19 21:00 11/03/19 20:31 Singulair PER TUBE 10 mg QPM KELSEA Administration Morphine Sulfate 2 mg 10/30/19 09:05 11/01/19 10:25 Morphine SLOW IVP 11/29/19 09:05 2 mg Q1H PRN Administration BREAKTHROUGH PAIN/Agitation Potassium Chloride 40 meq 10/30/19 09:01 11/04/19 05:43 Klor-Con PER TUBE 40 meq ASDIR PRN Administration FOR SERUM K+ 2.5-3.5 Potassium Chloride 20 meq 11/04/19 08:00 11/04/19 09:29 K-Dur PO 20 meq QAM-WM KELSEA Administration Propofol 1,000 mg 10/30/19 09:05 11/04/19 05:43 Diprivan IV 11/29/19 09:05 1,000 mg INF PRN Administration TO ACHIEVE GOAL RASS Protocol - Exam Eye: PERRL Heart: RRR, no murmur, no gallops, no rubs, normal peripheral pulses Respiratory: CTAB (+ coarse breath sounds bilaterally) Gastrointestinal: soft, non-tender, normal bowel sounds Extremities: no cyanosis Hosp A/P (1) Acute and chronic respiratory failure Code(s): J96.20 - ACUTE AND CHR RESP FAILURE, UNSP W HYPOXIA OR HYPERCAPNIA Status: Acute Qualifiers: Respiratory failure complication: hypercapnia Qualified Code(s): J96.22 - Acute and chronic respiratory failure with hypercapnia (2) Asthma exacerbation Code(s): J45.901 - UNSPECIFIED ASTHMA WITH (ACUTE) EXACERBATION Status: Acute (3) Afib Code(s): I48.91 - UNSPECIFIED ATRIAL FIBRILLATION Status: Chronic Qualifiers: Atrial fibrillation type: paroxysmal Qualified Code(s): I48.0 - Paroxysmal atrial fibrillation (4) Hypertension Code(s): I10 - ESSENTIAL (PRIMARY) HYPERTENSION Status: Chronic Qualifiers: Hypertension type: essential hypertension Qualified Code(s): I10 - Essential (primary) hypertension (5) Morbid obesity with BMI of 50.0-59.9, adult Code(s): E66.01 - MORBID (SEVERE) OBESITY DUE TO EXCESS CALORIES; Z68.43 - BODY MASS INDEX (BMI) 50.0-59.9, ADULT Status: Chronic - Plan * Acute on chronic respiratory failure due to asthma exacerbation * Continue to wean the ventilator as tolerated * Continue Duonebs, Antibiotics, and steroids * Will add Florastor * Atrial fibrillation- her heart rate is controlled on the Cardizem drip * Continue Lovenox for CVA Prevention *
[2019-11-04] MEDS: Azithromycin 250 MG in Sodium Chloride 0.9% 250 ML 250 ML IVPB SCH (14:28)
[2019-11-04] MEDS: Montelukast Sodium 10 mg Tablet PER TUBE SCH (20:30)
[2019-11-04] MEDS: acetaZOLAMIDE Sodium 500 mg Vial IVP SCH (20:30)
[2019-11-05] MEDS: Piperacillin/Tazobactam 3.375 GM in Sodium Chloride 0.9% 100 ML IVPB SCH ×4 (03:21→20:20)
[2019-11-05] MEDS: methylPREDNISolone Sod Succ/PF 125 MG/2 ML VIAL IVP SCH ×2 (03:22→08:40)
[2019-11-05 04:44] LABS: Band 5 % (5-11); Crenated RBC SLIGHT = 1-5 cells (100X) (None Seen); Hemoglobin 13.4 g/dL (12.0-16.0); Hypochromia SLIGHT = 6-15 cells (100X) (0-5/hpf); Lymphocytes 13 % (21-51); MDiff Complete? YES; Macrocytosis SLIGHT = 6-15 cells (100X) (0-5/hpf); Mean Corpuscular HGB CONC 31.4 g/dL (32.0-36.0); Mean Corpuscular Hemoglobin 32.8 pg (27.0-31.0); Mean Platelet Volume 8.2 fL (7.4-10.4); Monocytes 6 % (0-10); Neutrophil 76 % (42-75); Platelet Count 202 thou/uL (130-400); Platelet Morphology Comment Appears Adequate; RBC Distribution Width 11.6 % (11.5-14.5); Red Blood Cell (RBC) Count 4.08 mill/uL (4.20-5.40); White Blood Cell (WBC) Count 5.9 thou/uL (4.8-10.8)
[2019-11-05 04:52] LABS: Anion Gap 13 mmol/L (10-20); BUN (Urea Nitrogen) 27 mg/dL (9.8-20.1); Calc. Creatinine Clearance 151 mL/min (70-130); Calcium 8.2 mg/dL (7.8-10.44); Carbon Dioxide 33 mmol/L (23-31); Chloride 99 mmol/L (98-107); Estimated GFR-MDRD Greater than 90; Glucose 190 mg/dL (83-110); Potassium 4.1 mmol/L (3.5-5.1); Sodium 141 mmol/L (136-145)
[2019-11-05] MEDS: Budesonide 0.5 MG/2 ML NEB INH SCH ×2 (07:11→19:07)
[2019-11-05] MEDS: Mometasone/Formoterol 120 PUFF INHALER INH SCH ×2 (07:18→19:07)
[2019-11-05 07:20] LABS: Actual Bicarbonate (HCO3a) 38.6 mEq/L (22-28); Base Excess (BEa) 12.9 mEq/L (-2.0 to +3.0); CO2 Tension 52.8 mmHg (35.0-45.0); Calcium, Ionized 1.17 mmol/L (1.12-1.30); Carboxyhemoglobin (COHb) 1.1 gm% (0.0-3.0); Hemoglobin (Hb) 14.6 g/dL (12.0-16.0); O2 Tension (PaO2) 67.5 mmHg (> 70.0); Potassium - ABG Lab 3.33 mmol/L (3.70-5.30); pH, Arterial 7.48 (7.35-7.45)
[2019-11-05 07:21] LABS: Puncture Site RRA
--- NOTE | 2019-11-05 07:57 | RAD ---
EXAM: Single view of the chest HISTORY: Pneumonia COMPARISON: 11/04/2019 FINDINGS: Single view of the chest shows an enlarged but stable cardiomediastinal silhouette. The en dotracheal tube and NG tube are unchanged in position. There is no evidence of consolidation, mass, or pleural effusion. Degenerative changes are seen in the spine. IMPRESSION: Stable exam
[2019-11-05] MEDS: Enoxaparin Sodium 100 MG/ML SYRINGE SC SCH ×2 (08:39→20:19)
[2019-11-05] MEDS: acetaZOLAMIDE Sodium 500 mg Vial IVP SCH ×2 (08:39→20:19)
[2019-11-05] MEDS: Potassium Chloride 20 MEQ TAB PO SCH (08:39)
[2019-11-05] MEDS: Aspirin Chewable 81 MG TAB PO SCH (08:40)
[2019-11-05] MEDS: Famotidine/PF 20 mg/2ml Vial SLOW IVP SCH ×2 (08:40→20:20)
[2019-11-05] MEDS: Digoxin 0.5 MG/2 ML AMP SLOW IVP SCH (08:40)
[2019-11-05] MEDS: Saccharomyces boulardii 250 MG CAP PER TUBE SCH (08:41)
--- NOTE | 2019-11-05 08:49 | PDOC.HOSPP ---
- Subjective Encounter Date: 11/05/19 Encounter Time: 08:47 Subjective: Ms. Ford was seen today in follow-up of respiratory failure with hypoxemia. She is a bit more alert, she will open her eyes, but does not follow commands. - Objective Vital Signs & Weight: Vital Signs (12 hours) Temp Pulse Resp BP 11/05/19 08:40 83 11/05/19 07:16 83 11/05/19 06:00 21 H 11/05/19 04:00 99.9 F H 17 11/05/19 03:51 69 11/05/19 02:00 17 11/05/19 00:00 100.4 F H 16 11/04/19 23:30 83 134/53 L 11/04/19 22:00 15 Weight Admit Weight 307 lb Weight 308 lb 3.3 oz Most Recent Monitor Data Heart Rate from ECG 75 NIBP 137/65 NIBP BP-Mean 89 Respiration from ECG 18 SpO2 94 I&O: 11/04/19 11/05/19 11/06/19 06:59 06:59 06:59 Intake Total 3092 1247 Output Total 3151 2205 Balance -63 -958 Result Diagrams: 11/05/19 04:20 11/05/19 03:30 Hospitalist ROS - Medication Medications: Active Medications Generic Name Dose Route Start Last Admin Trade Name Kamq PRN Reason Stop Dose Admin Acetazolamide Sodium 250 mg 11/04/19 21:00 11/05/19 08:39 Diamox IVP 250 mg BID KELSEA Administration Albuterol/Ipratropium 3 ml 11/04/19 10:30 11/05/19 07:11 Duoneb NEB 3 ml [id number] KELSEA Administration Aspirin 81 mg 10/30/19 09:00 11/05/19 08:40 Aspirin Chewable PO 81 mg DAILY KELSEA Administration Budesonide 0.5 mg 10/29/19 18:30 11/05/19 07:11 Pulmicort Neb Solution INH 0.5 mg BID-RT KELSEA Administration Digoxin 0.125 mg 11/02/19 09:00 11/05/19 08:40 Lanoxin SLOW IVP 0.125 mg DAILY KELSEA Administration Enoxaparin Sodium 100 mg 11/01/19 21:00 11/05/19 08:39 Lovenox SC 100 mg 09,2099 KELSEA Administration Famotidine 40 mg 10/30/19 21:00 11/05/19 08:40 Pepcid SLOW IVP 40 mg BID KELSEA Administration Hydralazine HCl 10 mg 10/29/19 16:12 11/02/19 13:37 Apresoline SLOW IVP 10 mg Q4H PRN Administration SBP Greater Than 180 Piperacillin Sod/Tazobactam 100 mls @ 200 mls/hr 10/31/19 14:00 11/05/19 08: 35 Sod 3.375 gm/ Sodium Chloride IVPB 100 mls 0200,0800,1400,2000 KELSEA Administration Azithromycin 250 mg/ Sodium 250 mls @ 250 mls/hr 11/01/19 11:00 11/04/19 14: 28 Chloride IVPB 250 mls 1100 KELSEA Administration Diltiazem HCl 125 mg/ Sodium 125 mls @ 8 mls/hr 11/02/19 08:13 11/04/19 19:43 Chloride IVPB 125 mls INF KELSEA Administration Protocol Lorazepam 2 mg 10/30/19 09:05 11/01/19 10:25 Ativan SLOW IVP 11/29/19 09:05 2 mg Q1H PRN Administration Breakthrough agitation Methylprednisolone Sodium Succinate 60 mg 10/31/19 09:00 11/05/19 08:40 Solu-Medrol IVP 60 mg 0300,0900,1500,2100 KELSEA Administration Mometasone Furoate/Formoterol Fumar 2 puff 10/29/19 18:30 11/05/19 07:18 Dulera 200 Mcg/5 Mcg Inhaler INH 2 puff BID-RT KELSEA Administration Montelukast Sodium 10 mg 10/30/19 21:00 11/04/19 20:30 Singulair PER TUBE 10 mg QPM KELSEA Administration Morphine Sulfate 2 mg 10/30/19 09:05 11/01/19 10:25 Morphine SLOW IVP 11/29/19 09:05 2 mg Q1H PRN Administration BREAKTHROUGH PAIN/Agitation Potassium Chloride 40 meq 10/30/19 09:01 11/04/19 05:43 Klor-Con PER TUBE 40 meq ASDIR PRN Administration FOR SERUM K+ 2.5-3.5 Potassium Chloride 20 meq 11/04/19 08:00 11/05/19 08:39 K-Dur PO 20 meq QAM-WM KELSEA Administration Propofol 1,000 mg 10/30/19 09:05 11/04/19 05:43 Diprivan IV 11/29/19 09:05 1,000 mg INF PRN Administration TO ACHIEVE GOAL RASS Protocol Saccharomyces Beckadii 250 mg 11/05/19 09:00 11/05/19 08:41 Florastor PER TUBE 250 mg DAILY KELSEA Administration - Exam Eye: PERRL Heart: RRR, no murmur, normal peripheral pulses, murmur present, II/IV Respiratory: CTAB (with the exception of coarse breath sounds and some scattered wheezing) Gastrointestinal: soft, non-tender, non-distended, normal bowel sounds, no palpable masses, no hepatomegaly Extremities: no cyanosis, no clubbing, 1+ LE edema (trace pedal edema in both lower extremities) Hosp A/P (1) Acute and chronic respiratory failure Code(s): J96.20 - ACUTE AND CHR RESP FAILURE, UNSP W HYPOXIA OR HYPERCAPNIA Status: Acute Qualifiers: Respiratory failure complication: hypercapnia Qualified Code(s): J96.22 - Acute and chronic respiratory failure with hypercapnia (2) Asthma exacerbation Code(s): J45.901 - UNSPECIFIED ASTHMA WITH (ACUTE) EXACERBATION Status: Acute (3) Afib Code(s): I48.91 - UNSPECIFIED ATRIAL FIBRILLATION Status: Chronic Qualifiers: Atrial fibrillation type: paroxysmal Qualified Code(s): I48.0 - Paroxysmal atrial fibrillation (4) Hypertension Code(s): I10 - ESSENTIAL (PRIMARY) HYPERTENSION Status: Chronic Qualifiers: Hypertension type: essential hypertension Qualified Code(s): I10 - Essential (primary) hypertension (5) Morbid obesity with BMI of 50.0-59.9, adult Code(s): E66.01 - MORBID (SEVERE) OBESITY DUE TO EXCESS CALORIES; Z68.43 - BODY MASS INDEX (BMI) 50.0-59.9, ADULT Status: Chronic - Plan * Acute on chronic respiratory failure due to asthma exacerbation * Continue slow wean of the ventilator as tolerated * Continue Duonebs, Antibiotics, and steroids * Atrial fibrillation- heart rate is controlled * Continue Lovenox for CVA Prevention
[2019-11-05] MEDS ORDERED: methylPREDNISolone Sod Succ/PF 125 MG/2 ML VIAL IVP SCH (10:34)
[2019-11-05] MEDS ORDERED: Famotidine/PF 20 mg/2ml Vial SLOW IVP SCH ×2 (10:34→10:45)
[2019-11-05] MEDS ORDERED: methylPREDNISolone Sod Succ 40 MG VIAL IVP SCH (10:45)
--- NOTE | 2019-11-05 11:18 | PRG ---
DATE OF SERVICE: 11/05/2019 30 minutes of critical time. SUBJECTIVE: The patient remains intubated on mechanical ventilation. There have been no changes in her condition. Sedation was taken off yesterday and left off. She will open her eyes. 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 OBJECTIVE: VITAL SIGNS: Temperature is 98.8, pulse 91, blood pressure 123/64, O2 saturation 94%. HEENT: Unremarkable. NECK: No JVD. LUNGS: Fairly clear without wheezing. CARDIAC: S1, S2. Regular. ABDOMEN: Soft. EXTREMITIES: No edema. LABORATORY DATA: Sodium 141, potassium 4.1, BUN 27, creatinine 0.7, bicarb 33 down from 38. PH 7.48, pCO2 of 52, pO2 of 67, SIMV rate 8, tidal volume 450, PEEP 5, pressure support 14, and FiO2 of 24%. White blood cell count 5.9, hematocrit 42.7, and platelet count 202. Chest x-ray shows no acute changes. ASSESSMENT: 1. Acute respiratory failure requiring mechanical ventilation. 2. Status asthmaticus, improved. 3. Morbid obesity. 4. Atrial fibrillation. 5. Critical illness myopathy. PLAN: We will try to leave the sedation off indefinitely. I have decreased her steroid dose. She is no longer on paralytics. She is continuing antibiotics. Azithromycin can probably be stopped tomorrow. She is on diltiazem for rate control of her atrial fibrillation. She is on acetazolamide for diuretic purposes and to correct contraction alkalosis. Job ID: [id number]
[2019-11-05] MEDS: Azithromycin 250 MG in Sodium Chloride 0.9% 250 ML 250 ML IVPB SCH (11:49)
[2019-11-05] MEDS: methylPREDNISolone Sod Succ 40 MG VIAL IVP SCH ×2 (15:08→20:20)
[2019-11-05] MEDS: Montelukast Sodium 10 mg Tablet PER TUBE SCH (20:20)
[2019-11-06] MEDS: Piperacillin/Tazobactam 3.375 GM in Sodium Chloride 0.9% 100 ML IVPB SCH ×5 (01:13→20:10)
[2019-11-06] MEDS: methylPREDNISolone Sod Succ 40 MG VIAL IVP SCH ×5 (04:05→20:12)
[2019-11-06 04:59] LABS: Anion Gap 10 mmol/L (10-20); BUN (Urea Nitrogen) 27 mg/dL (9.8-20.1); Calc. Creatinine Clearance 158 mL/min (70-130); Calcium 8.7 mg/dL (7.8-10.44); Carbon Dioxide 33 mmol/L (23-31); Chloride 100 mmol/L (98-107); Estimated GFR-MDRD Greater than 90; Glucose 181 mg/dL (83-110); Potassium 3.7 mmol/L (3.5-5.1); Sodium 139 mmol/L (136-145)
[2019-11-06 05:02] LABS: Band 1 % (5-11); Lymphocytes 17 % (21-51); MDiff Complete? YES; Mean Corpuscular HGB CONC 30.1 g/dL (32.0-36.0); Mean Corpuscular Hemoglobin 31.2 pg (27.0-31.0); Mean Platelet Volume 8.8 fL (7.4-10.4); Monocytes 9 % (0-10); Neutrophil 73 % (42-75); Platelet Count 209 thou/uL (130-400); Platelet Morphology Comment Appears Adequate; RBC Distribution Width 11.5 % (11.5-14.5); Red Blood Cell (RBC) Count 4.48 mill/uL (4.20-5.40); White Blood Cell (WBC) Count 8.1 thou/uL (4.8-10.8)
[2019-11-06] MEDS: Budesonide 0.5 MG/2 ML NEB INH SCH ×2 (06:59→18:25)
[2019-11-06] MEDS: Mometasone/Formoterol 120 PUFF INHALER INH SCH ×2 (06:59→18:27)
[2019-11-06 07:37] LABS: Actual Bicarbonate (HCO3a) 27.9 mEq/L (22-28); Base Excess (BEa) 3.6 mEq/L (-2.0 to +3.0); pH, Arterial 7.45 (7.35-7.45)
[2019-11-06 07:38] LABS: Analyzer IN Cardio OR; Calcium, Ionized 1.22 mmol/L (1.12-1.30); Carboxyhemoglobin (COHb) 18.8 gm% (0.0-3.0); Hemoglobin (Hb) 13.9 g/dL (12.0-16.0); Potassium - ABG Lab 3.48 mmol/L (3.70-5.30); Puncture Site RRA
[2019-11-06] MEDS: Potassium Chloride 20 MEQ TAB PO SCH ×2 (08:00→11:08)
--- NOTE | 2019-11-06 08:41 | RAD ---
EXAM: Single view of the chest HISTORY: Pneumonia. Ventilated patient with respiratory failure COMPARISON: 11/05/2019 FINDINGS: Single view of the chest shows a normal sized cardiomediastinal silhouette. The lines and tubes are unchanged in position. Multifocal airspace opacities are seen scattered throughout the lungs which are greater in the right lower lobe. The bones are unremarkable. IMPRESSION: Multifocal pneumonia
[2019-11-06] MEDS: Digoxin 0.5 MG/2 ML AMP SLOW IVP SCH ×2 (09:00→11:09)
[2019-11-06] MEDS: Enoxaparin Sodium 100 MG/ML SYRINGE SC SCH ×3 (09:00→20:11)
[2019-11-06] MEDS: Aspirin Chewable 81 MG TAB PO SCH ×2 (09:00→11:08)
[2019-11-06] MEDS: Saccharomyces boulardii 250 MG CAP PER TUBE SCH ×2 (09:00→11:07)
[2019-11-06] MEDS: Famotidine/PF 20 mg/2ml Vial SLOW IVP SCH ×3 (09:00→20:11)
[2019-11-06] MEDS: acetaZOLAMIDE Sodium 500 mg Vial IVP SCH ×3 (09:00→20:10)
[2019-11-06] MEDS: Azithromycin 250 MG in Sodium Chloride 0.9% 250 ML 250 ML IVPB SCH ×2 (11:00→13:04)
--- NOTE | 2019-11-06 12:24 | PDOC.HOSPP ---
- Subjective Encounter Date: 11/06/19 Encounter Time: 12:23 Subjective: Ms. Ford was seen today in follow-up of Asthma exacerbation and respiratory failure. She is intubated, but will respond, and squeeze your hand. - Objective Vital Signs & Weight: Vital Signs (12 hours) Temp Pulse Resp BP Pulse Ox 11/06/19 11:09 96 11/06/19 10:21 76 133/58 L 11/06/19 10:20 74 14 96 11/06/19 09:00 76 11/06/19 06:59 88 124/51 L 11/06/19 06:57 79 19 96 11/06/19 06:00 18 11/06/19 04:00 99.3 F 15 11/06/19 03:00 99.3 F 11/06/19 02:57 76 11/06/19 02:00 17 Weight Admit Weight 307 lb Weight 307 lb 12.245 oz Most Recent Monitor Data Heart Rate from ECG 81 NIBP 121/61 NIBP BP-Mean 81 Respiration from ECG 16 SpO2 95 I&O: 11/05/19 11/06/19 11/07/19 06:59 06:59 06:59 Intake Total 1247 1573 Output Total 2205 1625 Balance -958 -52 Result Diagrams: 11/06/19 04:00 11/06/19 04:00 Hospitalist ROS - Medication Medications: Active Medications Generic Name Dose Route Start Last Admin Trade Name Freq PRN Reason Stop Dose Admin Acetazolamide Sodium 250 mg 11/04/19 21:00 11/06/19 11:09 Diamox IVP 250 mg BID KELSEA Administration Albuterol/Ipratropium 3 ml 11/04/19 10:30 11/06/19 10:20 Duoneb NEB 3 ml [id number] KELSEA Administration Aspirin 81 mg 10/30/19 09:00 11/06/19 11:08 Aspirin Chewable PO 81 mg DAILY KELSEA Administration Budesonide 0.5 mg 10/29/19 18:30 11/06/19 06:59 Pulmicort Neb Solution INH 0.5 mg BID-RT KELSEA Administration Digoxin 0.125 mg 11/02/19 09:00 11/06/19 11:09 Lanoxin SLOW IVP 0.125 mg DAILY KELSEA Administration Enoxaparin Sodium 100 mg 11/01/19 21:00 11/06/19 11:20 Lovenox SC 100 mg 0900,2100 KELSEA Administration Famotidine 20 mg 11/05/19 21:00 11/06/19 11:08 Pepcid SLOW IVP 20 mg BID KELSEA Administration Hydralazine HCl 10 mg 10/29/19 16:12 11/02/19 13:37 Apresoline SLOW IVP 10 mg Q4H PRN Administration SBP Greater Than 180 Piperacillin Sod/Tazobactam 100 mls @ 200 mls/hr 10/31/19 14:00 11/06/19 11: 00 Sod 3.375 gm/ Sodium Chloride IVPB 100 mls 0200,0800,1400,2000 KELSEA Administration Azithromycin 250 mg/ Sodium 250 mls @ 250 mls/hr 11/01/19 11:00 11/05/19 11: 49 Chloride IVPB 250 mls 1100 KELSEA Administration Diltiazem HCl 125 mg/ Sodium 125 mls @ 8 mls/hr 11/02/19 08:13 11/04/19 19:43 Chloride IVPB 125 mls INF KELSEA Administration Protocol Lorazepam 2 mg 10/30/19 09:05 11/01/19 10:25 Ativan SLOW IVP 11/29/19 09:05 2 mg Q1H PRN Administration Breakthrough agitation Methylprednisolone Sodium Succinate 20 mg 11/05/19 15:00 11/06/19 11:24 Solu-Medrol IVP 20 mg 0300,0900,1500,2100 KELSEA Administration Mometasone Furoate/Formoterol Fumar 2 puff 10/29/19 18:30 11/06/19 06:59 Dulera 200 Mcg/5 Mcg Inhaler INH 2 puff BID-RT KELSEA Administration Montelukast Sodium 10 mg 10/30/19 21:00 11/05/19 20:20 Singulair PER TUBE 10 mg QPM KELSEA Administration Morphine Sulfate 2 mg 10/30/19 09:05 11/01/19 10:25 Morphine SLOW IVP 11/29/19 09:05 2 mg Q1H PRN Administration BREAKTHROUGH PAIN/Agitation Potassium Chloride 40 meq 10/30/19 09:01 11/04/19 05:43 Klor-Con PER TUBE 40 meq ASDIR PRN Administration FOR SERUM K+ 2.5-3.5 Potassium Chloride 20 meq 11/04/19 08:00 11/06/19 11:08 K-Dur PO 20 meq QAM-WM KELSEA Administration Propofol 1,000 mg 10/30/19 09:05 11/04/19 05:43 Diprivan IV 11/29/19 09:05 1,000 mg INF PRN Administration TO ACHIEVE GOAL RASS Protocol Saccharomyces Beckadii 250 mg 11/05/19 09:00 11/06/19 11:07 Florastor PER TUBE 250 mg DAILY KELSEA Administration Sodium Chloride 10 ml 11/05/19 21:00 11/06/19 09:00 Flush - Normal Saline IVF Not Given Q12HR KELSEA - Exam Eye: PERRL Heart: no murmur, no gallops, no rubs, irregular Respiratory: CTAB, no wheezes, no rales, no ronchi, normal chest expansion, no tachypnea, normal percussion Gastrointestinal: soft, non-tender, non-distended, normal bowel sounds, no palpable masses, no hepatomegaly, no splenomegaly Extremities: no cyanosis, no clubbing, no edema Hosp A/P (1) Acute and chronic respiratory failure Code(s): J96.20 - ACUTE AND CHR RESP FAILURE, UNSP W HYPOXIA OR HYPERCAPNIA Status: Acute Qualifiers: Respiratory failure complication: hypercapnia Qualified Code(s): J96.22 - Acute and chronic respiratory failure with hypercapnia (2) Asthma exacerbation Code(s): J45.901 - UNSPECIFIED ASTHMA WITH (ACUTE) EXACERBATION Status: Acute (3) Afib Code(s): I48.91 - UNSPECIFIED ATRIAL FIBRILLATION Status: Chronic Qualifiers: Atrial fibrillation type: paroxysmal Qualified Code(s): I48.0 - Paroxysmal atrial fibrillation (4) Hypertension Code(s): I10 - ESSENTIAL (PRIMARY) HYPERTENSION Status: Chronic Qualifiers: Hypertension type: essential hypertension Qualified Code(s): I10 - Essential (primary) hypertension (5) Morbid obesity with BMI of 50.0-59.9, adult Code(s): E66.01 - MORBID (SEVERE) OBESITY DUE TO EXCESS CALORIES; Z68.43 - BODY MASS INDEX (BMI) 50.0-59.9, ADULT Status: Chronic - Plan * Acute on chronic respiratory failure due to asthma exacerbation * Continue slow wean of the ventilator as tolerated- discussed with Dr. Leal- She will need a tracheostomy * Continue Duonebs, Antibiotics, and steroids * Atrial fibrillation- heart rate is controlled * Continue Lovenox for CVA Prevention
--- NOTE | 2019-11-06 15:31 | PRG ---
DATE OF SERVICE: 11/06/2019 SUBJECTIVE: Ms. Ford is weak. She is not sedated. She will arouse and weakly follow commands. OBJECTIVE: VITAL SIGNS: Heart rate 80, blood pressure 120/60, respiratory rate in the 20s, oximetry is in the high 90s. LUNGS: Clear anteriorly. HEART: Regular rhythm. ABDOMEN: Soft. LABORATORY DATA: White count 8.1, hemoglobin 14.0, platelets 209,000. Sodium 139, potassium 3.7, chloride 100, bicarb 33, BUN 27, creatinine 0.69. PH 7.45, pCO2 of 41, pO2 of 86. IMPRESSION: 1. Respiratory failure. 2. Critical illness myopathy. 3. Obesity. 4. Severe status asthmaticus as for the most part, resolved. I do not feel she will successfully wean without a tracheostomy unless there is a dramatic improvement in her strength, which I doubt there will be given her pre-existing deconditioning. I have recommended a tracheostomy. I do not feel she needs a percutaneous endoscopic gastrostomy. I have consulted General Surgery. Job ID: [id number]
--- NOTE | 2019-11-06 18:35 | EKG ---
Test Reason : STAT Blood Pressure : / mmHG Vent. Rate : 144 BPM Atrial Rate : 163 BPM P-R Int : 000 ms QRS Dur : 084 ms QT Int : 258 ms P-R-T Axes : 000 075 -58 degrees QTc Int : 399 ms Atrial fibrillation with rapid ventricular response Nonspecific ST and T wave abnormality Abnormal ECG When compared with ECG of 29-OCT-2019 09:02, (Unconfirmed) Atrial fibrillation has replaced Sinus rhythm Vent. rate has increased BY [address] now depressed in Inferior leads T wave inversion now evident in Inferior leads Nonspecific T wave abnormality now evident in Lateral leads Confirmed by DR. Shawna PARKINSON MD ([id number]) on 11/06/2019 6:34:55 PM Referred By: LEXUS Confirmed By:DR. Shawna PARKINSON MD
[2019-11-06] MEDS: Montelukast Sodium 10 mg Tablet PER TUBE SCH (20:11)
[2019-11-06] MEDS: Diltiazem 125 MG in Sodium Chloride 0.9% 100 ML IVPB SCH (20:31)
--- NOTE | 2019-11-06 20:55 | CON ---
DATE OF CONSULTATION: HISTORY OF PRESENT ILLNESS: Wil Ford is a 74-year-old black female, respiratory failure, on a ventilator, morbidly obese, 5 feet 4 inches, 307 pounds, 53 BMI. I have been asked to see her regarding placement of tracheostomy. She had been seen by Dr. Bonilla. Admitted by the hospitalist. HOME MEDICATIONS: Include; 1. Vitamin D3. 2. Dulera. 3. Megestrol acetate. 4. Calcium. 5. Tums. 6. Bisoprolol. 7. Aspirin. 8. Amlodipine. 9. Ventolin inhaler. PAST MEDICAL HISTORY: The patient has a history of asthma, hypertension. PAST SURGICAL HISTORY: Noncontributory. SOCIAL HISTORY: Tobacco use in the past. Alcohol, none per record. PHYSICAL EXAMINATION: GENERAL: The patient is on the ventilator. She is sedated, 5 feet 4 inches, 307 pounds, more than 50 BMI, heart rate 80, blood pressure 128/60, respiratory rate 15. HEAD, EARS, EYES, NOSE AND THROAT: Unremarkable. LUNGS: Clear to auscultation. CARDIAC: Regular rate and rhythm without murmur or gallop. ABDOMEN: Soft, nontender, obese. No scars. ASSESSMENT: Respiratory failure. PLAN: Placement of tracheostomy in the morning. Hold tube feedings after midnight tonight. Job ID: [id number]
[2019-11-07] MEDS: methylPREDNISolone Sod Succ 40 MG VIAL IVP SCH ×4 (03:18→20:15)
[2019-11-07] MEDS: Piperacillin/Tazobactam 3.375 GM in Sodium Chloride 0.9% 100 ML IVPB SCH ×4 (03:18→20:14)
[2019-11-07] MEDS ORDERED: Fentanyl 100 MCG/2 ML VIAL ONE (06:38)
[2019-11-07] MEDS ORDERED: Midazolam HCl 2 mg/2 ml Vial ONE (06:38)
[2019-11-07] MEDS ORDERED: Ketamine 50 MG/ML (10ML VIAL) ONE ×2 (06:39)
[2019-11-07] MEDS ORDERED: Lidocaine 1% w/Epinephrine 1:100K 20 ML VIAL ONE (06:41)
[2019-11-07] MEDS ORDERED: Bupivacaine PF 0.5% 30 ML VIAL ONE (06:41)
[2019-11-07 07:43] LABS: Hemoglobin 13.9 g/dL (12.0-16.0); Mean Corpuscular HGB CONC 31.1 g/dL (32.0-36.0); Mean Corpuscular Hemoglobin 32.1 pg (27.0-31.0); Mean Platelet Volume 8.6 fL (7.4-10.4); Platelet Count 205 thou/uL (130-400); RBC Distribution Width 11.4 % (11.5-14.5); Red Blood Cell (RBC) Count 4.33 mill/uL (4.20-5.40); White Blood Cell (WBC) Count 8.3 thou/uL (4.8-10.8)
[2019-11-07 07:54] LABS: Anion Gap 11 mmol/L (10-20); BUN (Urea Nitrogen) 25 mg/dL (9.8-20.1); Calc. Creatinine Clearance 169 mL/min (70-130); Calcium 8.5 mg/dL (7.8-10.44); Carbon Dioxide 28 mmol/L (23-31); Chloride 103 mmol/L (98-107); Estimated GFR-MDRD Greater than 90; Glucose 171 mg/dL (83-110); Potassium 3.7 mmol/L (3.5-5.1); Sodium 138 mmol/L (136-145)
--- NOTE | 2019-11-07 08:00 | RAD ---
Chest AP view INDICATION: Intubation COMPARISON: November 06, 2019 FINDINGS: Lungs:There is some improvement in the central edema pattern when compared to the prior exam Cardiac silhouette:Cardiomegaly persists. Pulmonary vasculature:Moderate pulmonary vascular congestion is present, slightly less pronounced kiera n on the prior exam Pleural spaces:Small bilateral pleural effusions persist. No pneumothorax is demonstrated. Upper abdomen:No abnormality seen. Osseous structures: No acute osseous abnormality. Additional findings:ET tube and gastric catheter unchanged. IMPRESSION: Improvement in the perihilar opacities and pulmonary vascular engorgement suggests improv ing CHF or volume overload.
[2019-11-07 08:12] LABS: Lymphocytes 11 % (21-51); MDiff Complete? YES; Monocytes 9 % (0-10); Neutrophil 80 % (42-75); RBC Morphology Normal
[2019-11-07] MEDS: Budesonide 0.5 MG/2 ML NEB INH SCH ×2 (08:14→18:24)
[2019-11-07] MEDS: Mometasone/Formoterol 120 PUFF INHALER INH SCH ×2 (09:06→18:59)
[2019-11-07] MEDS: Potassium Chloride 20 MEQ TAB PO SCH (09:06)
[2019-11-07] MEDS: Aspirin Chewable 81 MG TAB PO SCH (09:07)
[2019-11-07] MEDS: Saccharomyces boulardii 250 MG CAP PER TUBE SCH (09:08)
[2019-11-07] MEDS: Enoxaparin Sodium 100 MG/ML SYRINGE SC SCH ×2 (09:18→20:57)
[2019-11-07] MEDS: Digoxin 0.5 MG/2 ML AMP SLOW IVP SCH (09:23)
[2019-11-07] MEDS: acetaZOLAMIDE Sodium 500 mg Vial IVP SCH ×2 (09:23→20:15)
[2019-11-07] MEDS: Famotidine/PF 20 mg/2ml Vial SLOW IVP SCH ×2 (09:25→20:14)
--- NOTE | 2019-11-07 09:33 | OP ---
DATE OF PROCEDURE: 11/07/2019 PREOPERATIVE DIAGNOSES: 1. Respiratory failure. 2. Asthma. 3. Morbid obesity. POSTOPERATIVE DIAGNOSES: 1. Respiratory failure. 2. Asthma. 3. Morbid obesity. PROCEDURE PERFORMED: #8 Shiley low-pressure cuffed tracheostomy. ANESTHESIA: General, local with 0.5% Marcaine 30 mL and 1% Xylocaine with epinephrine 20 mL. DESCRIPTION OF PROCEDURE: The patient was taken to the operating room, where under general anesthesia, neck and chest prepared with ChloraPrep and draped in routine fashion. Local anesthetic was infiltrated in the skin and subcutaneous tissue about the operative site. Incision made above the manubrium, carried down to skin and platysma, identifying the strap muscles, reflecting laterally, dividing the isthmus of the thyroid with the cautery, placing strap sutures of 3-0 Prolene on either side of the trachea below the cricoid, and below the cricoid, anterior window of the trachea excised over 3 cartilaginous rings using an 11 blade and Blank scissors. Good hemostasis noted. Endotracheal tube removed. The #8 Shiley low-pressure cuffed placed under direct visualization of the trachea, cuff inflated, connected to the ventilator. Incisions closed with 3-0 Prolene on either side of the cuff and tracheostomy appliance secured to the neck with 3-0 Prolene sutures. Sterile dressings applied. The patient tolerated the procedure well. Job ID: [id number]
[2019-11-07] MEDS: Propofol 1,000 MG/100 ML VIAL IV PRN (09:39)
--- NOTE | 2019-11-07 10:09 | PDOC.HOSPP ---
- Subjective Encounter Date: 11/07/19 Encounter Time: 10:09 Subjective: Ms. Ford was seen today in follow-up of asthma exacerbation. She had a tracheostomy today, and DHT has been placed. - Objective Vital Signs & Weight: Vital Signs (12 hours) Temp Pulse Resp BP Pulse Ox 11/07/19 09:23 75 11/07/19 09:00 98.2 F 11/07/19 08:15 75 125/68 11/07/19 08:14 76 19 98 11/07/19 08:00 98.2 F 18 11/07/19 07:00 98.7 F 11/07/19 06:00 19 11/07/19 04:00 98.4 F 15 11/07/19 02:12 76 11/07/19 02:11 76 19 97 11/07/19 02:00 20 11/07/19 00:00 19 11/06/19 22:54 79 11/06/19 22:53 80 17 95 Weight Admit Weight 307 lb Weight 306 lb 7.08 oz Most Recent Monitor Data Heart Rate from ECG 80 NIBP 179/96 NIBP BP-Mean 123 Respiration from ECG 17 SpO2 97 I&O: 11/06/19 11/07/19 11/08/19 06:59 06:59 06:59 Intake Total 1573 1822.2 Output Total 1625 1616 45 Balance -52 206.2 -45 Result Diagrams: 11/07/19 06:53 11/07/19 06:53 Hospitalist ROS - Medication Medications: Active Medications Generic Name Dose Route Start Last Admin Trade Name Freq PRN Reason Stop Dose Admin Acetazolamide Sodium 250 mg 11/04/19 21:00 11/07/19 09:23 Diamox IVP 250 mg BID KELSEA Administration Albuterol/Ipratropium 3 ml 11/04/19 10:30 11/07/19 08:14 Duoneb NEB 3 ml [id number] KELSEA Administration Aspirin 81 mg 10/30/19 09:00 11/07/19 09:07 Aspirin Chewable PO Not Given DAILY KELSEA Budesonide 0.5 mg 10/29/19 18:30 11/07/19 08:14 Pulmicort Neb Solution INH 0.5 mg BID-RT KELSEA Administration Digoxin 0.125 mg 11/02/19 09:00 11/07/19 09:23 Lanoxin SLOW IVP 0.125 mg DAILY KELSEA Administration Enoxaparin Sodium 100 mg 11/01/19 21:00 11/07/19 09:18 Lovenox SC 100 mg 0900,2100 KELSEA Administration Famotidine 20 mg 11/05/19 21:00 11/07/19 09:25 Pepcid SLOW IVP 20 mg BID KELSEA Administration Hydralazine HCl 10 mg 10/29/19 16:12 11/02/19 13:37 Apresoline SLOW IVP 10 mg Q4H PRN Administration SBP Greater Than 180 Piperacillin Sod/Tazobactam 100 mls @ 200 mls/hr 10/31/19 14:00 11/07/19 09: 19 Sod 3.375 gm/ Sodium Chloride IVPB 100 mls 0200,0800,1400,2000 KELSEA Administration Azithromycin 250 mg/ Sodium 250 mls @ 250 mls/hr 11/01/19 11:00 11/06/19 13: 04 Chloride IVPB 250 mls 1100 KELSEA Administration Diltiazem HCl 125 mg/ Sodium 125 mls @ 8 mls/hr 11/02/19 08:13 11/06/19 20:31 Chloride IVPB 125 mls INF KELSEA Administration Protocol Lorazepam 2 mg 10/30/19 09:05 11/01/19 10:25 Ativan SLOW IVP 11/29/19 09:05 2 mg Q1H PRN Administration Breakthrough agitation Methylprednisolone Sodium Succinate 20 mg 11/05/19 15:00 11/07/19 09:19 Solu-Medrol IVP 20 mg 0300,0900,1500,2100 KELSEA Administration Mometasone Furoate/Formoterol Fumar 2 puff 10/29/19 18:30 11/07/19 09:06 Dulera 200 Mcg/5 Mcg Inhaler INH Not Given BID-RT KELSEA Montelukast Sodium 10 mg 10/30/19 21:00 11/06/19 20:11 Singulair PER TUBE 10 mg QPM KELSEA Administration Morphine Sulfate 2 mg 10/30/19 09:05 11/01/19 10:25 Morphine SLOW IVP 11/29/19 09:05 2 mg Q1H PRN Administration BREAKTHROUGH PAIN/Agitation Potassium Chloride 40 meq 10/30/19 09:01 11/04/19 05:43 Klor-Con PER TUBE 40 meq ASDIR PRN Administration FOR SERUM K+ 2.5-3.5 Potassium Chloride 20 meq 11/04/19 08:00 11/07/19 09:06 K-Dur PO Not Given QAM-WM KELSEA Propofol 1,000 mg 10/30/19 09:05 11/07/19 09:39 Diprivan IV 11/29/19 09:05 1,000 mg INF PRN Administration TO ACHIEVE GOAL RASS Protocol Saccharomyces Boulardii 250 mg 11/05/19 09:00 11/07/19 09:08 Florastor PER TUBE Not Given DAILY KELSEA Sodium Chloride 10 ml 11/05/19 21:00 11/07/19 09:25 Flush - Normal Saline IVF 10 ml Q12HR KELSEA Administration - Exam Eye: PERRL Heart: RRR, no murmur, no gallops, no rubs, normal peripheral pulses Respiratory: CTAB (with the exception of a faint wheeze bilaterally) Gastrointestinal: soft, non-tender, non-distended, normal bowel sounds Extremities: no cyanosis, no clubbing, 1+ LE edema Hosp A/P (1) Acute and chronic respiratory failure Code(s): J96.20 - ACUTE AND CHR RESP FAILURE, UNSP W HYPOXIA OR HYPERCAPNIA Status: Acute Qualifiers: Respiratory failure complication: hypercapnia Qualified Code(s): J96.22 - Acute and chronic respiratory failure with hypercapnia (2) Asthma exacerbation Code(s): J45.901 - UNSPECIFIED ASTHMA WITH (ACUTE) EXACERBATION Status: Acute (3) Afib Code(s): I48.91 - UNSPECIFIED ATRIAL FIBRILLATION Status: Chronic Qualifiers: Atrial fibrillation type: paroxysmal Qualified Code(s): I48.0 - Paroxysmal atrial fibrillation (4) Hypertension Code(s): I10 - ESSENTIAL (PRIMARY) HYPERTENSION Status: Chronic Qualifiers: Hypertension type: essential hypertension Qualified Code(s): I10 - Essential (primary) hypertension (5) Morbid obesity with BMI of 50.0-59.9, adult Code(s): E66.01 - MORBID (SEVERE) OBESITY DUE TO EXCESS CALORIES; Z68.43 - BODY MASS INDEX (BMI) 50.0-59.9, ADULT Status: Chronic - Plan * Acute on chronic respiratory failure due to asthma exacerbation- she is s/p tracheostomy placement * Continue slow wean from ventilator * Continue Duonebs, Antibiotics, and steroids * Atrial fibrillation- heart rate is stable * Continue Lovenox for CVA Prevention
[2019-11-07] MEDS: Azithromycin 250 MG in Sodium Chloride 0.9% 250 ML 250 ML IVPB SCH (10:24)
[2019-11-07] MEDS: Metoclopramide HCl 10 MG/2 ML VIAL IVP SCH ×2 (11:02→16:36)
--- NOTE | 2019-11-07 11:22 | PRG ---
DATE OF SERVICE: 11/07/2019 SUBJECTIVE: Ms. Ford remains intubated and sedated. OBJECTIVE: VITAL SIGNS: Her heart rate is controlled, it is in the 80s, it is atrial fibrillation. LUNGS: Clear. CARDIAC: Irregularly irregular. ABDOMEN: Soft, nontender. EXTREMITIES: No edema. ASSESSMENT: Atrial fibrillation, persistent; rate control; anticoagulated. PLAN: Continue current for now. Ultimately, consider cardioversion once her respiratory status is improved. For now, rate control and anticoagulation will be the goal. Job ID: [id number]
--- NOTE | 2019-11-07 11:34 | RAD ---
KAREY: Date: 11/07/2019 COMPARISON: None. HISTORY: Dobbhoff tube placement. FINDINGS: There is a Dobbhoff tube present, distal tip curling in the mid abdomen, the tip directed slightly ce phalad and to the left. The tubing is likely curling within the gastric body. IMPRESSION: Dobbhoff tube as above. POS: [facility]
[2019-11-07] MEDS ORDERED: Dexamethasone 20 MG/5 ML VIAL ONE (12:03)
[2019-11-07] MEDS ORDERED: Ondansetron PF 4 MG/2 ML Vial ONE (12:03)
[2019-11-07] MEDS ORDERED: PROPOFOL 200 MG/20 ML VIAL ONE (12:03)
[2019-11-07] MEDS ORDERED: Rocuronium Bromide 10 MG/ML (10ML VIAL) ONE (12:03)
[2019-11-07] MEDS: Morphine 2 MG/ML SYRINGE SLOW IVP PRN ×2 (13:17→20:44)
[2019-11-07] MEDS: hydrALAZINE 20 MG/ML VIAL SLOW IVP PRN ×2 (13:18→20:43)
--- NOTE | 2019-11-07 16:34 | RAD ---
EXAM: Single view of the abdomen HISTORY: Dobbhoff placement COMPARISON: 11/07/2019 FINDINGS: Single view of the abdomen shows a nonspecific, nonobstructive bowel gas pattern. A Dobbhof f tube is again seen curled in the stomach. The bones are unremarkable. IMPRESSION: Dobbhoff tube located in the stomach.
[2019-11-07] MEDS: Diltiazem 125 MG in Sodium Chloride 0.9% 100 ML IVPB SCH (16:36)
--- NOTE | 2019-11-07 17:43 | PRG ---
DATE OF SERVICE: 11/07/2019 SUBJECTIVE: Ms. Ford is stable. She is in no distress. OBJECTIVE: VITAL SIGNS: She is afebrile. Respiratory rates in the teens, blood pressure 163/80, heart rate in the 90s. GENERAL: She is slow to awaken from anesthesia today, but will awaken and weakly move to commands. LUNGS: Clear. HEART: Regular rhythm. ABDOMEN: Soft. EXTREMITIES: Without asymmetry. LABORATORY DATA: White count 8.3, hemoglobin 13.9, platelets 205. Sodium 138, potassium 3.7, chloride 103, bicarb 28, BUN 25, creatinine 0.64. IMPRESSION: Respiratory failure, triggered by status asthmaticus, slowly improving. Hopefully, we will have her on a trach collar tomorrow, now that she has tracheostomy. The biggest factor that she is facing now is her weakness. Job ID: [id number]
[2019-11-07] MEDS: Montelukast Sodium 10 mg Tablet PER TUBE SCH (20:19)
[2019-11-08] MEDS: Piperacillin/Tazobactam 3.375 GM in Sodium Chloride 0.9% 100 ML IVPB SCH ×4 (01:05→20:24)
[2019-11-08] MEDS: Metoclopramide HCl 10 MG/2 ML VIAL IVP SCH ×3 (01:08→18:24)
[2019-11-08] MEDS: hydrALAZINE 20 MG/ML VIAL SLOW IVP PRN (01:48)
[2019-11-08] MEDS: methylPREDNISolone Sod Succ 40 MG VIAL IVP SCH ×4 (02:42→20:25)
[2019-11-08 05:03] LABS: #Lymphocytes 0.8 thou/uL (1.20-3.40); #Neutrophils 8.7 thou/uL (1.40-6.50); %Basophils 0.2 % (0.0-1.0); %Eosinophils 0.2 % (0.0-10.0); %Lymphocytes 7.8 % (21.0-51.0); %Monocytes 9.5 % (0.0-10.0); %Neutrophils 82.4 % (42.0-75.0); Hemoglobin 14.2 g/dL (12.0-16.0); Mean Corpuscular HGB CONC 30.8 g/dL (32.0-36.0); Mean Corpuscular Hemoglobin 31.8 pg (27.0-31.0); Mean Platelet Volume 8.9 fL (7.4-10.4); Platelet Count 200 thou/uL (130-400); RBC Distribution Width 11.6 % (11.5-14.5); Red Blood Cell (RBC) Count 4.45 mill/uL (4.20-5.40); White Blood Cell (WBC) Count 10.5 thou/uL (4.8-10.8)
[2019-11-08 05:27] LABS: Anion Gap 11 mmol/L (10-20); BUN (Urea Nitrogen) 23 mg/dL (9.8-20.1); Calc. Creatinine Clearance 159 mL/min (70-130); Calcium 8.6 mg/dL (7.8-10.44); Carbon Dioxide 29 mmol/L (23-31); Chloride 105 mmol/L (98-107); Estimated GFR-MDRD Greater than 90; Glucose 166 mg/dL (83-110); Sodium 141 mmol/L (136-145)
[2019-11-08] MEDS: Budesonide 0.5 MG/2 ML NEB INH SCH ×2 (06:50→18:16)
[2019-11-08] MEDS: Mometasone/Formoterol 120 PUFF INHALER INH SCH ×2 (06:50→18:17)
[2019-11-08 06:52] LABS: Base Excess (BEa) 1.9 mEq/L (-2.0 to +3.0); CO2 Tension 44.1 mmHg (35.0-45.0); Calcium, Ionized 1.21 mmol/L (1.12-1.30); Hemoglobin (Hb) 14.4 g/dL (12.0-16.0); Potassium - ABG Lab 3.84 mmol/L (3.70-5.30); pH, Arterial 7.41 (7.35-7.45)
[2019-11-08 07:28] LABS: ALV-art Gradient 132.685 (0-20); Puncture Site RRA
--- NOTE | 2019-11-08 08:20 | RAD ---
CHEST 1 VIEW: INDICATION: Daily CCU examination. COMPARISON: Prior exam dated 11/07/2019. FINDINGS: Since the comparison examination there has been interval placement of a tracheostomy tube and Dobbhof f feeding tube. Cardiomegaly, pulmonary vascular congestion, and central edema pattern persist. IMPRESSION: 1. Interval placement of tracheostomy tube and Dobbhoff feeding tube. 2. Persistent cardiomegaly, pulmonary vascular congestion, and central edema. POS: [facility]
--- NOTE | 2019-11-08 08:49 | RAD ---
EXAM: Single view of the abdomen HISTORY: Dobbhoff tube placement COMPARISON: 11/07/2019 FINDINGS: Single view of the abdomen shows a nonspecific, nonobstructive bowel gas pattern. No suspi cious calcifications are seen. A Dobbhoff tube is again seen in the stomach. IMPRESSION: Dobbhoff tube located in the stomach.
[2019-11-08] MEDS: Potassium Chloride 20 MEQ TAB PO SCH (09:14)
[2019-11-08] MEDS: acetaZOLAMIDE Sodium 500 mg Vial IVP SCH ×2 (09:15→20:25)
[2019-11-08] MEDS: Digoxin 0.5 MG/2 ML AMP SLOW IVP SCH (09:15)
[2019-11-08] MEDS: Aspirin Chewable 81 MG TAB PO SCH (09:15)
[2019-11-08] MEDS: Famotidine/PF 20 mg/2ml Vial SLOW IVP SCH ×2 (09:24→20:25)
[2019-11-08] MEDS: Saccharomyces boulardii 250 MG CAP PER TUBE SCH (09:27)
[2019-11-08] MEDS: Enoxaparin Sodium 100 MG/ML SYRINGE SC SCH ×2 (09:33→20:25)
--- NOTE | 2019-11-08 09:58 | PRG ---
DATE OF SERVICE: 11/08/2019 SUBJECTIVE: Ms. Ford is extubated. She is much more awake. No chest pain or pressure. OBJECTIVE: VITAL SIGNS: Her blood pressure 150/60, pulse is 80 to 100s and it is sinus with frequent PACs and some episodes of SVT. ABDOMEN: Obese and nontender. EXTREMITIES: No edema. ASSESSMENT: 1. Atrial fibrillation, now it is paroxysmal. 2. Respiratory failure, improving. PLAN: She is still on intravenous diltiazem and digoxin along with anticoagulant. Job ID: [id number]
[2019-11-08] MEDS: Azithromycin 250 MG in Sodium Chloride 0.9% 250 ML 250 ML IVPB SCH (11:49)
--- NOTE | 2019-11-08 12:00 | PDOC.HOSPP ---
- Subjective Encounter Date: 11/08/19 Encounter Time: 11:58 Subjective: Ms. Ford was seen today in follow-up of asthma exacerbation. She is sitting up in a Neuro-chair. She is more alert and responsive. - Objective Vital Signs & Weight: Vital Signs (12 hours) Temp Pulse Resp BP Pulse Ox 11/08/19 10:31 92 24 H 97 11/08/19 09:15 84 11/08/19 08:00 97 11/08/19 07:30 96 11/08/19 07:00 97.9 F 11/08/19 06:45 84 107/79 11/08/19 06:41 84 14 99 11/08/19 06:00 15 11/08/19 04:00 98.4 F 14 11/08/19 02:00 12 11/08/19 01:49 76 11/08/19 01:48 76 180/104 H 11/08/19 01:47 75 13 99 11/08/19 00:00 98.3 F 11 L Weight Admit Weight 307 lb Weight 306 lb 3.553 oz Most Recent Monitor Data Heart Rate from ECG 83 NIBP 158/70 NIBP BP-Mean 99 Respiration from ECG 20 SpO2 97 I&O: 11/07/19 11/08/19 11/09/19 06:59 06:59 06:59 Intake Total 1822.2 1026.9 100 Output Total 1616 1095 185 Balance 206.2 -68.1 -85 Result Diagrams: 11/08/19 04:00 11/08/19 03:30 Hospitalist ROS - Medication Medications: Active Medications Generic Name Dose Route Start Last Admin Trade Name Jaya PRN Reason Stop Dose Admin Acetazolamide Sodium 250 mg 11/04/19 21:00 11/08/19 09:15 Diamox IVP 250 mg BID KELSEA Administration Albuterol/Ipratropium 3 ml 11/04/19 10:30 11/08/19 10:31 Duoneb NEB 3 ml [id number] KELSEA Administration Aspirin 81 mg 10/30/19 09:00 11/08/19 09:15 Aspirin Chewable PO Not Given DAILY KELSEA Budesonide 0.5 mg 10/29/19 18:30 11/08/19 06:50 Pulmicort Neb Solution INH 0.5 mg BID-RT KELSEA Administration Digoxin 0.125 mg 11/02/19 09:00 11/08/19 09:15 Lanoxin SLOW IVP 0.125 mg DAILY KELSEA Administration Enoxaparin Sodium 100 mg 11/01/19 21:00 11/08/19 09:33 Lovenox SC 100 mg 0900,2100 KELSEA Administration Famotidine 20 mg 11/05/19 21:00 11/08/19 09:24 Pepcid SLOW IVP 20 mg BID KELSEA Administration Hydralazine HCl 10 mg 10/29/19 16:12 11/08/19 01:48 Apresoline SLOW IVP 10 mg Q4H PRN Administration SBP Greater Than 180 Piperacillin Sod/Tazobactam 100 mls @ 200 mls/hr 10/31/19 14:00 11/08/19 09: 13 Sod 3.375 gm/ Sodium Chloride IVPB 100 mls 0200,0800,1400,2000 KELSEA Administration Azithromycin 250 mg/ Sodium 250 mls @ 250 mls/hr 11/01/19 11:00 11/08/19 11: 49 Chloride IVPB 250 mls 1100 KELSEA Administration Diltiazem HCl 125 mg/ Sodium 125 mls @ 8 mls/hr 11/02/19 08:13 11/07/19 16:36 Chloride IVPB 125 mls INF KELSEA Administration Protocol Lorazepam 2 mg 10/30/19 09:05 11/01/19 10:25 Ativan SLOW IVP 11/29/19 09:05 2 mg Q1H PRN Administration Breakthrough agitation Methylprednisolone Sodium Succinate 20 mg 11/05/19 15:00 11/08/19 09:24 Solu-Medrol IVP 20 mg 0300,0900,1500,2100 KELSEA Administration Metoclopramide HCl 10 mg 11/07/19 10:00 11/08/19 11:30 Reglan IVP 10 mg 0200,1000,1800 KELSEA Administration Mometasone Furoate/Formoterol Fumar 2 puff 10/29/19 18:30 11/08/19 06:50 Dulera 200 Mcg/5 Mcg Inhaler INH 2 puff BID-RT KELSEA Administration Montelukast Sodium 10 mg 10/30/19 21:00 11/07/19 20:19 Singulair PER TUBE Not Given QPM [facility] Morphine Sulfate 2 mg 10/30/19 09:05 11/07/19 20:44 Morphine SLOW IVP 11/29/19 09:05 2 mg Q1H PRN Administration BREAKTHROUGH PAIN/Agitation Potassium Chloride 40 meq 10/30/19 09:01 11/04/19 05:43 Klor-Con PER TUBE 40 meq ASDIR PRN Administration FOR SERUM K+ 2.5-3.5 Potassium Chloride 20 meq 11/04/19 08:00 11/08/19 09:14 K-Dur PO Not Given QAM-WM KELSEA Propofol 1,000 mg 10/30/19 09:05 11/07/19 09:39 Diprivan IV 11/29/19 09:05 1,000 mg INF PRN Administration TO ACHIEVE GOAL RASS Protocol Saccharomyces Boulardii 250 mg 11/05/19 09:00 11/08/19 09:27 Florastor PER TUBE Not Given DAILY KELSEA Sodium Chloride 10 ml 11/05/19 21:00 11/08/19 09:27 Flush - Normal Saline IVF 10 ml Q12HR KELSEA Administration - Exam Eye: PERRL Respiratory: CTAB (+ coarse breath sounds, no wheezing) Gastrointestinal: soft, non-tender, non-distended, normal bowel sounds, no palpable masses Extremities: 1+ LE edema Hosp A/P (1) Acute and chronic respiratory failure Code(s): J96.20 - ACUTE AND CHR RESP FAILURE, UNSP W HYPOXIA OR HYPERCAPNIA Status: Acute Qualifiers: Respiratory failure complication: hypercapnia Qualified Code(s): J96.22 - Acute and chronic respiratory failure with hypercapnia (2) Asthma exacerbation Code(s): J45.901 - UNSPECIFIED ASTHMA WITH (ACUTE) EXACERBATION Status: Acute (3) Afib Code(s): I48.91 - UNSPECIFIED ATRIAL FIBRILLATION Status: Chronic Qualifiers: Atrial fibrillation type: paroxysmal Qualified Code(s): I48.0 - Paroxysmal atrial fibrillation (4) Hypertension Code(s): I10 - ESSENTIAL (PRIMARY) HYPERTENSION Status: Chronic Qualifiers: Hypertension type: essential hypertension Qualified Code(s): I10 - Essential (primary) hypertension (5) Morbid obesity with BMI of 50.0-59.9, adult Code(s): E66.01 - MORBID (SEVERE) OBESITY DUE TO EXCESS CALORIES; Z68.43 - BODY MASS INDEX (BMI) 50.0-59.9, ADULT Status: Chronic - Plan * Acute on chronic respiratory failure due to asthma exacerbation- she is s/p tracheostomy placement * She continues to wean from the ventilator * Continue Duonebs, Antibiotics, and steroids * Atrial fibrillation- heart rate is stable on the cardizem drip * Continue Lovenox for CVA Prevention * 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
--- NOTE | 2019-11-08 18:18 | PRG ---
DATE OF SERVICE: 11/08/2019 Wil Ford is doing well. Her tracheostomy is stable. There is no bleeding complication. She has been weaned from the ventilator. At this point, I will see her as needed. Please call if I can be of any other assistance. Job ID: [id number]
[2019-11-08] MEDS ORDERED: Pancrelipase DR 12000 1 CAP FS PRN (19:21)
[2019-11-08] MEDS ORDERED: Sodium Bicarbonate Tab 325 MG TAB PER TUBE PRN (19:21)
--- NOTE | 2019-11-08 20:03 | PRG ---
DATE OF SERVICE: 11/08/2019 SUBJECTIVE: Wil Ford remains weak. She can barely lift her arms off the bed. She will awaken and nod. She nods that she is comfortable. She is on trach collar today. OBJECTIVE: VITAL SIGNS: Heart rate is in the 90 and blood pressure 169/73, respiratory rate is in the 20s. LUNGS: Clear. HEART: Regular rhythm. ABDOMEN: Soft. EXTREMITIES: Without asymmetry or edema. LABORATORY DATA: White count 10.5, hemoglobin 14.2, and platelets 200,000. Electrolytes are normal. BUN 23, creatinine 0.6. IMPRESSION: Respiratory failure secondary to severe status asthmaticus. Doing well post-tracheostomy. Hopefully, she will gradually improve to a point where she can swallow. She has a Dobbhoff tube in now. Next week we may need to consider evaluation for long-term acute care hospital as discussed this with the daughter. Job ID: [id number]
[2019-11-08] MEDS: Montelukast Sodium 10 mg Tablet PER TUBE SCH (20:26)
[2019-11-08] MEDS: Morphine 2 MG/ML SYRINGE SLOW IVP PRN (23:38)
[2019-11-09] MEDS: Piperacillin/Tazobactam 3.375 GM in Sodium Chloride 0.9% 100 ML IVPB SCH ×4 (01:00→20:28)
[2019-11-09] MEDS: Metoclopramide HCl 10 MG/2 ML VIAL IVP SCH ×3 (01:00→17:40)
[2019-11-09] MEDS: methylPREDNISolone Sod Succ 40 MG VIAL IVP SCH ×3 (03:09→15:00)
[2019-11-09] MEDS: Diltiazem 125 MG in Sodium Chloride 0.9% 100 ML IVPB SCH (03:09)
[2019-11-09 05:36] LABS: Anion Gap 9 mmol/L (10-20); BUN (Urea Nitrogen) 20 mg/dL (9.8-20.1); Calc. Creatinine Clearance 155 mL/min (70-130); Calcium 8.7 mg/dL (7.8-10.44); Carbon Dioxide 28 mmol/L (23-31); Chloride 109 mmol/L (98-107); Estimated GFR-MDRD Greater than 90; Glucose 140 mg/dL (83-110); Sodium 142 mmol/L (136-145)
[2019-11-09 05:47] LABS: Hemoglobin 14.2 g/dL (12.0-16.0); Lymphocytes 2 % (21-51); MDiff Complete? YES; Macrocytosis SLIGHT = 6-15 cells (100X) (0-5/hpf); Mean Corpuscular HGB CONC 31.3 g/dL (32.0-36.0); Mean Corpuscular Hemoglobin 32.8 pg (27.0-31.0); Mean Platelet Volume 8.6 fL (7.4-10.4); Monocytes 6 % (0-10); Neutrophil 92 % (42-75); Platelet Count 198 thou/uL (130-400); Platelet Morphology Comment Appears Adequate; RBC Distribution Width 11.7 % (11.5-14.5); Red Blood Cell (RBC) Count 4.34 mill/uL (4.20-5.40); White Blood Cell (WBC) Count 12.2 thou/uL (4.8-10.8)
[2019-11-09] MEDS: Budesonide 0.5 MG/2 ML NEB INH SCH ×2 (07:20→19:07)
[2019-11-09] MEDS: Mometasone/Formoterol 120 PUFF INHALER INH SCH ×2 (07:50→19:17)
[2019-11-09] MEDS: Famotidine/PF 20 mg/2ml Vial SLOW IVP SCH (07:56)
[2019-11-09] MEDS: Potassium Chloride 20 MEQ TAB PO SCH (07:56)
[2019-11-09] MEDS: Saccharomyces boulardii 250 MG CAP PER TUBE SCH (07:57)
[2019-11-09] MEDS: Aspirin Chewable 81 MG TAB PO SCH (07:57)
--- NOTE | 2019-11-09 08:36 | RAD ---
Chest AP view INDICATION: Intubation COMPARISON: November 08, 2019 FINDINGS: Lungs:The lungs are clear Cardiac silhouette:There is moderate cardiomegaly and pulmonary vascular congestion Pulmonary vasculature: Worsening moderate pulmonary vascular congestion Pleural spaces:Small bilateral pleural effusions Upper abdomen:Dobbhoff feeding tube is unchanged. Osseous structures: No acute osseous abnormality. Additional findings:Tracheostomy tube is stable. IMPRESSION: Worsening mild CHF
[2019-11-09] MEDS: acetaZOLAMIDE Sodium 500 mg Vial IVP SCH ×2 (09:15→20:29)
[2019-11-09] MEDS: Enoxaparin Sodium 100 MG/ML SYRINGE SC SCH (09:15)
[2019-11-09] MEDS: Digoxin 0.5 MG/2 ML AMP SLOW IVP SCH (09:49)
--- NOTE | 2019-11-09 12:04 | PDOC.HOSPP ---
- Subjective Encounter Date: 11/09/19 Encounter Time: 12:02 Subjective: Ms. Ford was seen today in follow-up of Asthma exacerbation. She is stable on trach collar. No new complaints. - Objective Vital Signs & Weight: Vital Signs (12 hours) Temp Pulse Resp Pulse Ox 11/09/19 11:19 72 16 95 11/09/19 09:49 75 11/09/19 08:00 98.2 F 11/09/19 07:20 71 16 96 11/09/19 06:00 14 11/09/19 04:00 99.4 F 16 11/09/19 02:00 16 11/09/19 01:52 72 11/09/19 01:51 77 14 94 L 11/09/19 00:24 14 Weight Admit Weight 307 lb Weight 304 lb 7.334 oz Most Recent Monitor Data Heart Rate from ECG 82 NIBP 162/82 NIBP BP-Mean 108 Respiration from ECG 17 SpO2 95 I&O: 11/08/19 11/09/19 11/10/19 06:59 06:59 06:59 Intake Total 1026.9 1038.3 Output Total 1095 1210 250 Balance -68.1 -171.7 -250 Result Diagrams: 11/09/19 04:56 11/09/19 04:56 Hospitalist ROS - Medication Medications: Active Medications Generic Name Dose Route Start Last Admin Trade Name Freq PRN Reason Stop Dose Admin Acetazolamide Sodium 250 mg 11/04/19 21:00 11/09/19 09:15 Diamox IVP 250 mg BID KELSEA Administration Albuterol/Ipratropium 3 ml 11/04/19 10:30 11/09/19 11:19 Duoneb NEB 3 ml [id number] KLESEA Administration Lipase/Protease/Amylase 1 cap 11/08/19 19:21 11/08/19 19:50 Rachele Jiménez [id number] FS 1 cap .PER PROTOCOL PRN Administration TUBE OCCLUSION PROTOCOL Aspirin 81 mg 10/30/19 09:00 11/09/19 07:57 Aspirin Chewable PO Not Given DAILY KELSEA Budesonide 0.5 mg 10/29/19 18:30 11/09/19 07:20 Pulmicort Neb Solution INH 0.5 mg BID-RT KELSEA Administration Digoxin 0.125 mg 11/02/19 09:00 11/09/19 09:49 Lanoxin SLOW IVP 0.125 mg DAILY KELSEA Administration Enoxaparin Sodium 100 mg 11/01/19 21:00 11/09/19 09:15 Lovenox SC 100 mg 0900,2100 KELSEA Administration Hydralazine HCl 10 mg 10/29/19 16:12 11/08/19 01:48 Apresoline SLOW IVP 10 mg Q4H PRN Administration SBP Greater Than 180 Piperacillin Sod/Tazobactam 100 mls @ 200 mls/hr 10/31/19 14:00 11/09/19 07: 53 Sod 3.375 gm/ Sodium Chloride IVPB 100 mls 0200,0800,1400,2000 KELSEA Administration Diltiazem HCl 125 mg/ Sodium 125 mls @ 8 mls/hr 11/02/19 08:13 11/09/19 03:09 Chloride IVPB 125 mls INF KELSEA Administration Protocol Methylprednisolone Sodium Succinate 20 mg 11/05/19 15:00 11/09/19 07:54 Solu-Medrol IVP 20 mg 0300,0900,1500,2100 KELSEA Administration Metoclopramide HCl 10 mg 11/07/19 10:00 11/09/19 09:52 Reglan IVP 10 mg 0200,1000,1800 KELSEA Administration Mometasone Furoate/Formoterol Fumar 2 puff 10/29/19 18:30 11/09/19 07:50 Dulera 200 Mcg/5 Mcg Inhaler INH 2 puff BID-RT KELSEA Administration Montelukast Sodium 10 mg 10/30/19 21:00 11/08/19 20:26 Singulair PER TUBE Not Given QPM KELSEA Potassium Chloride 40 meq 10/30/19 09:01 11/04/19 05:43 Klor-Con PER TUBE 40 meq ASDIR PRN Administration FOR SERUM K+ 2.5-3.5 Potassium Chloride 20 meq 11/04/19 08:00 11/09/19 07:56 K-Dur PO Not Given QAM-WM [facility] Propofol 1,000 mg 10/30/19 09:05 11/07/19 09:39 Diprivan IV 11/29/19 09:05 1,000 mg INF PRN Administration TO ACHIEVE GOAL RASS Protocol Saccharomyces Boulardii 250 mg 11/05/19 09:00 11/09/19 07:57 Florastor PER TUBE Not Given DAILY KELSEA Sodium Bicarbonate 650 mg 11/08/19 19:21 11/08/19 19:50 Bicarbonate, Sodium PER TUBE 650 mg .PER PROTOCOL PRN Administration ENTERAL TUBE OCCLUSION Sodium Chloride 10 ml 11/05/19 21:00 11/09/19 07:57 Flush - Normal Saline IVF 10 ml Q12HR KELSEA Administration - Exam Eye: PERRL Heart: RRR, no murmur, no gallops, no rubs, normal peripheral pulses Respiratory: CTAB (+ coarse breath sounds, an occasional wheeze) Gastrointestinal: soft, non-tender, non-distended, normal bowel sounds, no hepatomegaly, no splenomegaly Hosp A/P (1) Acute and chronic respiratory failure Code(s): J96.20 - ACUTE AND CHR RESP FAILURE, UNSP W HYPOXIA OR HYPERCAPNIA Status: Acute Qualifiers: Respiratory failure complication: hypercapnia Qualified Code(s): J96.22 - Acute and chronic respiratory failure with hypercapnia (2) Asthma exacerbation Code(s): J45.901 - UNSPECIFIED ASTHMA WITH (ACUTE) EXACERBATION Status: Acute (3) Afib Code(s): I48.91 - UNSPECIFIED ATRIAL FIBRILLATION Status: Chronic Qualifiers: Atrial fibrillation type: paroxysmal Qualified Code(s): I48.0 - Paroxysmal atrial fibrillation (4) Hypertension Code(s): I10 - ESSENTIAL (PRIMARY) HYPERTENSION Status: Chronic Qualifiers: Hypertension type: essential hypertension Qualified Code(s): I10 - Essential (primary) hypertension (5) Morbid obesity with BMI of 50.0-59.9, adult Code(s): E66.01 - MORBID (SEVERE) OBESITY DUE TO EXCESS CALORIES; Z68.43 - BODY MASS INDEX (BMI) 50.0-59.9, ADULT Status: Chronic - Plan * Acute on chronic respiratory failure due to asthma exacerbation- she is s/p tracheostomy placement * Continue to wean off the ventilator as per PCCM * Continue Duonebs, Antibiotics, and steroids * Atrial fibrillation- heart rate is stable * Continue Lovenox for CVA Prevention * Severe muscle deconditioning- continue PT/OT
[2019-11-09] MEDS: hydrALAZINE 20 MG/ML VIAL SLOW IVP PRN ×2 (13:51→22:22)
[2019-11-09] MEDS ORDERED: Bacteriostatic Water 30 ML VIAL FS PRN (16:23)
--- NOTE | 2019-11-09 16:29 | PRG ---
DATE OF SERVICE: 11/09/2019 SUBJECTIVE: Ms. Ford is afebrile. She is awake and follows commands. She is weak, but her strength is a tiny bit better than yesterday. OBJECTIVE: VITAL SIGNS: Heart rate is in 80s, respiratory rates in the teens to low 20s, oximetry is 99% on trach collar. Blood pressures been elevated in the 180 to 190 range today. LUNGS: Clear. HEART: Regular rhythm. ABDOMEN: Soft. EXTREMITIES: Without asymmetry. LABORATORY DATA: White count 12.2, hemoglobin 14.2, platelets 198. Electrolytes are unremarkable. IMPRESSION: 1. Status asthmaticus. For the most part, resolved. 2. Status post mechanical ventilation for severe asthma, now with tracheostomy on a trach collar. 3. Hypertension. This needs better control. This trend continues. We will cut her steroids back to q.12 hours. We will continue to keep her in the ICU. Perhaps next week, she might be a candidate to go to a long-term care facility. I met with family today and answered all their questions. ADDENDUM: Ms. Ford has had significant bleeding around her tracheostomy, so I have recommended we cut her Lovenox to just prophylactic dose Lovenox in the morning. Job ID: [id number]
[2019-11-09] MEDS: Famotidine 20 MG TAB PER TUBE SCH (20:02)
[2019-11-09] MEDS: Montelukast Sodium 10 mg Tablet PER TUBE SCH (20:03)
[2019-11-10] MEDS: Piperacillin/Tazobactam 3.375 GM in Sodium Chloride 0.9% 100 ML IVPB SCH ×4 (02:28→20:51)
[2019-11-10] MEDS: Metoclopramide HCl 10 MG/2 ML VIAL IVP SCH ×3 (02:29→18:57)
[2019-11-10] MEDS: methylPREDNISolone Sod Succ 40 MG VIAL IVP SCH ×2 (02:29→14:40)
[2019-11-10 04:58] LABS: Anion Gap 10 mmol/L (10-20); BUN (Urea Nitrogen) 20 mg/dL (9.8-20.1); Calc. Creatinine Clearance 161 mL/min (70-130); Calcium 8.6 mg/dL (7.8-10.44); Carbon Dioxide 29 mmol/L (23-31); Chloride 111 mmol/L (98-107); Estimated GFR-MDRD Greater than 90; Glucose 141 mg/dL (83-110); Potassium 3.7 mmol/L (3.5-5.1); Sodium 146 mmol/L (136-145)
[2019-11-10 05:04] LABS: Band 2 % (5-11); Hemoglobin 13.3 g/dL (12.0-16.0); Lymphocytes 5 % (21-51); MDiff Complete? YES; Mean Corpuscular HGB CONC 30.3 g/dL (32.0-36.0); Mean Corpuscular Hemoglobin 31.5 pg (27.0-31.0); Mean Platelet Volume 8.8 fL (7.4-10.4); Monocytes 9 % (0-10); Neutrophil 84 % (42-75); Platelet Count 189 thou/uL (130-400); RBC Distribution Width 11.6 % (11.5-14.5); Red Blood Cell (RBC) Count 4.23 mill/uL (4.20-5.40)
[2019-11-10] MEDS: Diltiazem 125 MG in Sodium Chloride 0.9% 100 ML IVPB SCH (06:41)
[2019-11-10] MEDS: Budesonide 0.5 MG/2 ML NEB INH SCH ×2 (07:13→19:02)
[2019-11-10] MEDS: Mometasone/Formoterol 120 PUFF INHALER INH SCH ×2 (07:13→19:03)
[2019-11-10] MEDS: acetaZOLAMIDE Sodium 500 mg Vial IVP SCH ×2 (07:23→20:51)
[2019-11-10] MEDS: Digoxin 0.5 MG/2 ML AMP SLOW IVP SCH (07:27)
[2019-11-10] MEDS: Potassium Chloride 20 MEQ TAB PO SCH (07:31)
[2019-11-10] MEDS: Saccharomyces boulardii 250 MG CAP PER TUBE SCH (07:32)
[2019-11-10] MEDS: Aspirin Chewable 81 MG TAB PO SCH (07:32)
[2019-11-10] MEDS: Famotidine 20 MG TAB PER TUBE SCH ×2 (07:32→20:54)
--- NOTE | 2019-11-10 07:50 | RAD ---
Portable frontal chest radiograph: 11/10/2019 COMPARISON: 11/09/2019 HISTORY: Ventilated patient FINDINGS: Stable tracheostomy tube. Interval removal of Dobbhoff feeding tube. Nonspecific persistent streaky perihilar opacity on the right. Stable prominence of the cardiac silhouette. Dense opacity in the left base suggests nonspecific left lower lobe consolidation/collapse and or soft tissue atten uation associated with body habitus and cardiac prominence. IMPRESSION: Stable chest radiograph aside from interval removal of Dobbhoff tube.
[2019-11-10] MEDS ORDERED: Enoxaparin Sodium 40 MG/0.4 ML SYRINGE SC SCH ×3 (09:00→10:00)
[2019-11-10] MEDS ORDERED: Carvedilol 6.25 MG TAB PO SCH ×2 (09:20→10:00)
--- NOTE | 2019-11-10 09:53 | PRG ---
DATE OF SERVICE: 11/10/2019 SUBJECTIVE: Ms. Ford is sitting up in the neuro chair. She is resting. No chest pain or pressure. OBJECTIVE: VITAL SIGNS: Her blood pressure is 180/80 and pulse 90. LUNGS: Clear. CARDIAC: Normal S1 and normal S2 with frequent premature atrial contractions. ABDOMEN: Soft and nontender. EXTREMITIES: There is no edema. ASSESSMENT: 1. Atrial fibrillation, now resolved sinus with frequent PACs. 2. Normal renal function. Her potassium is slightly low at 3.7. 3. Hypertension. PLAN: 1. We will give carvedilol. 2. Continue anticoagulation. At this point, probably change to Eliquis. She does not appear that she is likely to go to the operating room for any procedures. ADDENDUM: I was informed by the nurse this morning that Ms. Ford has actually been coughing up some blood. Therefore, we have to reduce the anticoagulation. The Eliquis will be canceled. Put her back on Lovenox 40 mg. Job ID: [id number]
--- NOTE | 2019-11-10 11:44 | PRG ---
DATE OF SERVICE: 11/10/2019 SUBJECTIVE: Ms. Ford is still weak. She is not having respiratory distress. She is clearing her secretions adequately. OBJECTIVE: VITAL SIGNS: Heart rate in the 80s oximetry is 98, respiratory rate 21, blood pressure is 174/67, earlier 157/70 at 11. LUNGS: Clear. HEART: Regular rhythm. ABDOMEN: Soft. IMPRESSION: 1. Status asthmaticus leading to intubation. 2. 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 3. Life-threatening obesity. 4. History of sleep apnea with history of not wearing her CPAP. PLAN: Continue supportive care. LTAC evaluation next week. Job ID: [id number]
--- NOTE | 2019-11-10 12:42 | PDOC.HOSPP ---
- Subjective Encounter Date: 11/10/19 Encounter Time: 12:39 Subjective: Ms. Ford was seen today in follow-up of respiratory failure due to Asthma. She is sitting up in a Neuro-chair. She is more responsive. She was able to be on T-collar the entire night. - Objective Vital Signs & Weight: Vital Signs (12 hours) Temp Pulse Resp BP Pulse Ox 11/10/19 11:33 186/62 H 11/10/19 11:00 98.6 F 11/10/19 10:27 86 21 H 98 11/10/19 07:27 94 11/10/19 07:11 94 24 H 98 11/10/19 07:00 99.0 F 11/10/19 04:00 98.2 F 11/10/19 02:31 99 20 100 11/10/19 01:00 98 F Weight Admit Weight 307 lb Weight 305 lb 12.498 oz Most Recent Monitor Data Heart Rate from ECG 104 NIBP 177/72 NIBP BP-Mean 107 Respiration from ECG 22 SpO2 98 I&O: 11/09/19 11/10/19 11/11/19 06:59 06:59 06:59 Intake Total 1038.3 738.9 Output Total 1210 1590 425 Balance -171.7 -851.1 -425 Result Diagrams: 11/10/19 04:10 11/10/19 04:10 Hospitalist ROS - Medication Medications: Active Medications Generic Name Dose Route Start Last Admin Trade Name Freq PRN Reason Stop Dose Admin Acetazolamide Sodium 250 mg 11/04/19 21:00 11/10/19 07:23 Diamox IVP 250 mg BID KELSEA Administration Albuterol/Ipratropium 3 ml 11/04/19 10:30 11/10/19 10:27 Duoneb NEB 3 ml [id number] KELSEA Administration Lipase/Protease/Amylase 1 cap 11/08/19 19:21 11/08/19 19:50 Rachele Jiménez [id number] FS 1 cap .PER PROTOCOL PRN Administration TUBE OCCLUSION PROTOCOL Aspirin 81 mg 10/30/19 09:00 11/10/19 07:32 Aspirin Chewable PO Not Given DAILY KELSEA Budesonide 0.5 mg 10/29/19 18:30 11/10/19 07:13 Pulmicort Neb Solution INH 0.5 mg BID-RT KELSEA Administration Digoxin 0.125 mg 11/02/19 09:00 11/10/19 07:27 Lanoxin SLOW IVP 0.125 mg DAILY KELSEA Administration Famotidine 20 mg 11/09/19 21:00 11/10/19 07:32 Pepcid PER TUBE Not Given BID KELSEA Hydralazine HCl 10 mg 10/29/19 16:12 11/09/19 22:22 Apresoline SLOW IVP 10 mg Q4H PRN Administration SBP Greater Than 180 Piperacillin Sod/Tazobactam 100 mls @ 200 mls/hr 10/31/19 14:00 11/10/19 07: 27 Sod 3.375 gm/ Sodium Chloride IVPB 100 mls 0200,0800,1400,2000 KELSEA Administration Methylprednisolone Sodium Succinate 20 mg 11/10/19 03:00 11/10/19 02:29 Solu-Medrol IVP 20 mg 0300,1500 KELSEA Administration Metoclopramide HCl 10 mg 11/07/19 10:00 11/10/19 11:32 Reglan IVP 10 mg 0200,1000,1800 KELSEA Administration Mometasone Furoate/Formoterol Fumar 2 puff 10/29/19 18:30 11/10/19 07:13 Dulera 200 Mcg/5 Mcg Inhaler INH 2 puff BID-RT KELSEA Administration Montelukast Sodium 10 mg 10/30/19 21:00 11/09/19 20:03 Singulair PER TUBE Not Given QPM KELSEA Potassium Chloride 40 meq 10/30/19 09:01 11/04/19 05:43 Klor-Con PER TUBE 40 meq ASDIR PRN Administration FOR SERUM K+ 2.5-3.5 Potassium Chloride 20 meq 11/04/19 08:00 11/10/19 07:31 K-Dur PO Not Given QAM-WM [facility] Propofol 1,000 mg 10/30/19 09:05 11/07/19 09:39 Diprivan IV 11/29/19 09:05 1,000 mg INF PRN Administration TO ACHIEVE GOAL RASS Protocol Saccharomyces Boulardii 250 mg 11/05/19 09:00 11/10/19 07:32 Florastor PER TUBE Not Given DAILY [facility] Sodium Bicarbonate 650 mg 11/08/19 19:21 11/08/19 19:50 Bicarbonate, Sodium PER TUBE 650 mg .PER PROTOCOL PRN Administration ENTERAL TUBE OCCLUSION Sodium Chloride 10 ml 11/05/19 21:00 11/10/19 07:27 Flush - Normal Saline IVF 10 ml Q12HR KELSEA Administration - Exam Eye: PERRL Heart: RRR, no murmur, no gallops, no rubs, normal peripheral pulses Respiratory: CTAB Gastrointestinal: soft, non-tender, non-distended, normal bowel sounds, no palpable masses, no hepatomegaly Extremities: no cyanosis Hosp A/P (1) Acute and chronic respiratory failure Code(s): J96.20 - ACUTE AND CHR RESP FAILURE, UNSP W HYPOXIA OR HYPERCAPNIA Status: Acute Qualifiers: Respiratory failure complication: hypercapnia Qualified Code(s): J96.22 - Acute and chronic respiratory failure with hypercapnia (2) Asthma exacerbation Code(s): J45.901 - UNSPECIFIED ASTHMA WITH (ACUTE) EXACERBATION Status: Acute (3) Afib Code(s): I48.91 - UNSPECIFIED ATRIAL FIBRILLATION Status: Chronic Qualifiers: Atrial fibrillation type: paroxysmal Qualified Code(s): I48.0 - Paroxysmal atrial fibrillation (4) Hypertension Code(s): I10 - ESSENTIAL (PRIMARY) HYPERTENSION Status: Chronic Qualifiers: Hypertension type: essential hypertension Qualified Code(s): I10 - Essential (primary) hypertension (5) Morbid obesity with BMI of 50.0-59.9, adult Code(s): E66.01 - MORBID (SEVERE) OBESITY DUE TO EXCESS CALORIES; Z68.43 - BODY MASS INDEX (BMI) 50.0-59.9, ADULT Status: Chronic - Plan * Acute on chronic respiratory failure due to asthma exacerbation- she is s/p tracheostomy placement * She is weaning from the vent * Continue Duonebs, Antibiotics, and steroids * Atrial fibrillation- heart rate is stable - on Cardizem * replace Dubhoff for nutritional support * Lovenox was decreased due to bleeding around the trach * Severe muscle deconditioning- continue PT/OT
[2019-11-10] MEDS: Carvedilol 6.25 MG TAB PO SCH (18:57)
[2019-11-10] MEDS: Montelukast Sodium 10 mg Tablet PER TUBE SCH (20:54)
[2019-11-10] MEDS ORDERED: Apixaban 5 MG TAB PO SCH (21:00)
[2019-11-11] MEDS: Metoclopramide HCl 10 MG/2 ML VIAL IVP SCH ×3 (02:42→18:39)
[2019-11-11] MEDS: methylPREDNISolone Sod Succ 40 MG VIAL IVP SCH (02:45)
[2019-11-11] MEDS: Diltiazem 125 MG in Sodium Chloride 0.9% 100 ML IVPB SCH (03:27)
[2019-11-11 04:48] LABS: Anion Gap 12 mmol/L (10-20); BUN (Urea Nitrogen) 19 mg/dL (9.8-20.1); Calc. Creatinine Clearance 190 mL/min (70-130); Calcium 8.5 mg/dL (7.8-10.44); Carbon Dioxide 26 mmol/L (23-31); Chloride 113 mmol/L (98-107); Estimated GFR-MDRD Greater than 90; Glucose 119 mg/dL (83-110); Potassium 3.6 mmol/L (3.5-5.1); Sodium 147 mmol/L (136-145)
[2019-11-11 06:14] LABS: Band 2 % (5-11); Hemoglobin 12.8 g/dL (12.0-16.0); Lymphocytes 10 % (21-51); MDiff Complete? YES; Macrocytosis SLIGHT = 6-15 cells (100X) (0-5/hpf); Mean Corpuscular HGB CONC 31.2 g/dL (32.0-36.0); Mean Corpuscular Hemoglobin 32.4 pg (27.0-31.0); Monocytes 9 % (0-10); Neutrophil 79 % (42-75); Platelet Count 187 thou/uL (130-400); Platelet Morphology Comment Appears Adequate; RBC Distribution Width 11.9 % (11.5-14.5); Red Blood Cell (RBC) Count 3.94 mill/uL (4.20-5.40); White Blood Cell (WBC) Count 10.9 thou/uL (4.8-10.8)
[2019-11-11] MEDS: Budesonide 0.5 MG/2 ML NEB INH SCH ×2 (07:12→18:53)
[2019-11-11] MEDS: Mometasone/Formoterol 120 PUFF INHALER INH SCH (07:17)
[2019-11-11] MEDS ORDERED: Piperacillin/Tazobactam 3.375 GM in Sodium Chloride 0.9% 100 ML IVPB SCH (08:00)
[2019-11-11] MEDS: Enoxaparin Sodium 40 MG/0.4 ML SYRINGE SC SCH (08:28)
[2019-11-11] MEDS: acetaZOLAMIDE Sodium 500 mg Vial IVP SCH (08:28)
[2019-11-11] MEDS: Digoxin 0.5 MG/2 ML AMP SLOW IVP SCH (08:29)
[2019-11-11] MEDS: Aspirin Chewable 81 MG TAB PO SCH (08:30)
[2019-11-11] MEDS: Famotidine 20 MG TAB PER TUBE SCH ×2 (08:30→21:33)
[2019-11-11] MEDS: Potassium Chloride 20 MEQ TAB PO SCH (08:30)
[2019-11-11] MEDS: Carvedilol 6.25 MG TAB PO SCH ×2 (08:30→18:39)
[2019-11-11] MEDS: Saccharomyces boulardii 250 MG CAP PER TUBE SCH (08:30)
--- NOTE | 2019-11-11 08:37 | RAD ---
PORTABLE CHEST ONE VIEW: HISTORY: Pneumonia. Followup. COMPARISON: 11/10/2019 FINDINGS: Cardiomegaly with bilateral vascular congestion and increased interstitial and alveolar opacity abebe es bilaterally with more density in the left lower lobe, evidence for some left lower lobe pneumonia and possible atelectasis with some left pleural effusion. Tracheostomy tube in place. IMPRESSION: Stable chest, unchanged from prior study, probably slightly worse than on 11/08/2019. Continue short-term followup. POS: TASHI
--- NOTE | 2019-11-11 11:50 | PRG ---
DATE OF SERVICE: 11/11/2019 SERVICE: Pulmonary Medicine. INTERVAL HISTORY: The patient is doing okay from a respiratory standpoint. She is breathing comfortably on T-collar. She is up in the neuro chair. She remains extraordinarily weak. Outside of that, there has been no interval change to her condition. PHYSICAL EXAMINATION: VITAL SIGNS: Afebrile, pulse 87, blood pressure 179/68, respirations 19, saturation 100%, currently on T-collar with 5 L bleed in. HEENT: Normocephalic and atraumatic. Sclerae white. Conjunctivae pink. Oral mucosa is moist without lesions. LUNGS: Excellent air entry. No prolonged expiratory phase is present. No dependent crackles are noted. HEART: Normal rate. Regular. ABDOMEN: Soft, nontender, and nondistended. Bowel sounds are positive. MUSCULOSKELETAL: No cyanosis or clubbing. There is trace pitting in the bilateral lower extremities, though there is evidence of significant reduction in leg swelling. : Dias catheter in place. LABORATORY DATA: WBC downtrending to 10.9, hemoglobin 12.8, and platelets 187,000. Neutrophil count is downtrending. PH 7.41, pCO2 of 44, pO2 of 76. Sodium 147 and gently up trending. Basic metabolic profile is otherwise unremarkable. Urinalysis is negative. Influenza A and B are unremarkable. IMAGING: Chest x-ray demonstrates cardiomegaly with bilateral vascular congestion. This is stable compared to prior. Interstitial edema is present. Tracheostomy tube remains in good position. The right hemidiaphragm is elevated relative to the left. ASSESSMENT: 1. Acute hypoxic respiratory failure. 2. Status asthmaticus, resolving. 3. Obstructive sleep apnea, status post tracheostomy. 4. Critical care weakness/myopathy. DISCUSSION AND PLAN: The patient is getting a little salty. We will introduce D5 water at 75 mL/h. Hopefully, she will continue to auto diurese through time. Urine output has been fantastic. She pulled her Dobbhoff feeding tube out. If we can place a PEG tube shortly, I think it would be reasonable to not replace that device for the time being. We will continue our mobilization efforts, but at this point, she is put together in a way that she is likely stable for transition to an LTAC facility at the beginning of next week. Case Management consultation is underway. Job ID: [id number]
[2019-11-11] MEDS: Dextrose 5% in Water 1,000 ML IV SCH (12:23)
[2019-11-11] MEDS ORDERED: Labetalol HCl 100 MG/20 ML VIAL ONE (15:40)
[2019-11-11] MEDS ORDERED: Labetalol HCl 100 MG/20 ML VIAL IVPB PRN (15:45)
--- NOTE | 2019-11-11 20:35 | PDOC.HOSPP ---
- Subjective Encounter Date: 11/11/19 Encounter Time: 16:00 Subjective: The patient is doing better. She is on trach collar. Has difficulty answering questions but nods her head yes occasionally. She does have a cough - Objective Vital Signs & Weight: Vital Signs (12 hours) Temp Pulse Resp BP Pulse Ox 11/11/19 18:53 99 11/11/19 18:52 99 11/11/19 18:39 192/69 H 11/11/19 15:47 80 192/69 H 11/11/19 12:52 80 27 H 95 11/11/19 12:00 98.9 F Weight Admit Weight 307 lb Weight 301 lb 9.478 oz Most Recent Monitor Data Heart Rate from ECG 77 NIBP 137/57 NIBP BP-Mean 83 Respiration from ECG 22 SpO2 100 I&O: 11/10/19 11/11/19 11/12/19 06:59 06:59 06:59 Intake Total 738.9 663.8 830 Output Total 1590 1465 640 Balance -851.1 -801.2 190 Result Diagrams: 11/11/19 03:40 11/11/19 03:40 Hospitalist ROS - Review of Systems Constitutional: denies: fever, chills Cardiovascular: denies: chest pain - Medication Medications: Active Medications Generic Name Dose Route Start Last Admin Trade Name Freq PRN Reason Stop Dose Admin Albuterol/Ipratropium 3 ml 11/11/19 13:00 11/11/19 18:52 Duoneb NEB 3 ml [id number] KELSEA Administration Lipase/Protease/Amylase 1 cap 11/08/19 19:21 11/08/19 19:50 Rachele Jiménez [id number] FS 1 cap .PER PROTOCOL PRN Administration TUBE OCCLUSION PROTOCOL Aspirin 81 mg 10/30/19 09:00 11/11/19 08:30 Aspirin Chewable PO Not Given DAILY KELSEA Budesonide 0.5 mg 10/29/19 18:30 11/11/19 18:53 Pulmicort Neb Solution INH 0.5 mg BID-RT KELSEA Administration Carvedilol 12.5 mg 11/10/19 17:00 11/11/19 18:39 Coreg PO Not Given BID-WM KELSEA Digoxin 0.125 mg 11/02/19 09:00 11/11/19 08:29 Lanoxin SLOW IVP 0.125 mg DAILY KELSEA Administration Enoxaparin Sodium 40 mg 11/11/19 09:00 11/11/19 08:28 Lovenox SC 40 mg 0900 KELSEA Administration Famotidine 20 mg 11/09/19 21:00 11/11/19 08:30 Pepcid PER TUBE Not Given BID KELSEA Hydralazine HCl 10 mg 10/29/19 16:12 11/09/19 22:22 Apresoline SLOW IVP 10 mg Q4H PRN Administration SBP Greater Than 180 Diltiazem HCl 125 mg/ Sodium 125 mls @ 4 mls/hr 11/10/19 09:21 11/11/19 03:27 Chloride IVPB 125 mls INF KELSEA Administration Protocol Dextrose/Water 1,000 mls @ 75 mls/hr 11/11/19 11:30 11/11/19 12:23 D5w IV 1,000 mls .[id number] KELSEA Administration Labetalol HCl 20 mg 11/11/19 15:45 11/11/19 15:47 Normodyne IVPB 20 mg Q30MIN PRN Administration SBP>180 Metoclopramide HCl 10 mg 11/07/19 10:00 11/11/19 18:39 Reglan IVP Not Given 0200,1000,1800 KELSEA Montelukast Sodium 10 mg 10/30/19 21:00 11/10/19 20:54 Singulair PER TUBE Not Given QPM KELSEA Potassium Chloride 40 meq 10/30/19 09:01 11/04/19 05:43 Klor-Con PER TUBE 40 meq ASDIR PRN Administration FOR SERUM K+ 2.5-3.5 Potassium Chloride 20 meq 11/04/19 08:00 11/11/19 08:30 K-Dur PO Not Given QAM-WM [facility] Saccharomyces Boulardii 250 mg 11/05/19 09:00 11/11/19 08:30 Florastor PER TUBE Not Given DAILY KELSEA Sodium Bicarbonate 650 mg 11/08/19 19:21 11/08/19 19:50 Bicarbonate, Sodium PER TUBE 650 mg .PER PROTOCOL PRN Administration ENTERAL TUBE OCCLUSION Sodium Chloride 10 ml 11/05/19 21:00 11/11/19 08:31 Flush - Normal Saline IVF 10 ml Q12HR KELSEA Administration Sterile Water 1 ml 11/09/19 16:23 11/11/19 02:45 Bacteriostatic Water FS 1 ml PRN PRN Administration RECONSTITUTION - Exam General Appearance: NAD, awake alert Eye: PERRL, anicteric sclera ENT: normocephalic atraumatic, no oropharyngeal lesions Neck: supple, symmetric, no JVD, no thyromegaly Heart: RRR, no murmur, no gallops, no rubs Respiratory: CTAB, no wheezes, no rales, no ronchi Gastrointestinal: soft, non-tender, non-distended, normal bowel sounds Extremities: no edema Hosp A/P - Plan Chest X ray 10/30: pulmonary vascular congestion with cardiomegaly Chest X ray 10/31: cardiomegaly and pulmonary congestoin Chest X ray 11/01: no significant effusion. Hazy infiltrate right mid lung Chest Xray 11/02: pulmonary edema Chest Xray 11/03: pulm congestion Chest x ray 11/11: cardiomegaly with bilateral vascular congestion. LLL pneumonia. ECHO 10/31: EF 60-65%, mild MR, mild to moderate TR, elevated RSVP at 45, mild pulmonic regurg This is a 74 year old female with past medical history of asthma, hypertension, LISA who presented to the ER with worsening shortness of breath, admitted for respiratory failure/asthma exacerbation #Acute hypoxic/hypercapneic respiratory failure from asthma exacerbation vs heart failure vs pneumonia #LISA - patient was intubated and due to prolonged intubation eventually underwent trach placement - she received IV lasix for pulmonary edema, then diamox IV bid from 11/04 to 11/11. Chest X ray today showing pulmonary edema vs LLL pneumonia - s/p zosyn 10/31 to 11/10 - on IV steroids from 11/05 to 11/10 - continue pulmicort and mometasone/formeterol - pulm following - trop negative times three. ECHO shows EF 60-65%, mild to moderate TR, elevated RSVP Acute encephalopathy - improving, likely ICU delirium Hypernatremia - was started on D5W - will eventually need PEG #Atrial fibrillation - on cardizem drip and IV digoxin - cardiology consult is following. - ECHO shows EF 60-65, mild to moderate TR #Hypertension - IV hydralazine prn for SBP > 180 #GERD - continue IV famotidine Dispo: ventilator weaning per critical care Code status: full code
[2019-11-11] MEDS: Montelukast Sodium 10 mg Tablet PER TUBE SCH (21:33)
[2019-11-12] MEDS: Diltiazem 125 MG in Sodium Chloride 0.9% 100 ML IVPB SCH (00:45)
[2019-11-12] MEDS: Dextrose 5% in Water 1,000 ML IV SCH ×3 (00:45→14:46)
[2019-11-12] MEDS: Metoclopramide HCl 10 MG/2 ML VIAL IVP SCH ×3 (01:47→17:30)
[2019-11-12 05:10] LABS: Phosphorus 2.1 mg/dL (2.3-4.7)
[2019-11-12 05:12] LABS: Anion Gap 8 mmol/L (10-20); BUN (Urea Nitrogen) 15 mg/dL (9.8-20.1); Calc. Creatinine Clearance 197 mL/min (70-130); Calcium 8.2 mg/dL (7.8-10.44); Carbon Dioxide 29 mmol/L (23-31); Chloride 110 mmol/L (98-107); Estimated GFR-MDRD Greater than 90; Glucose 125 mg/dL (83-110); Magnesium 2.2 mg/dL (1.6-2.6); Potassium 3.4 mmol/L (3.5-5.1); Sodium 144 mmol/L (136-145)
[2019-11-12] MEDS: Budesonide 0.5 MG/2 ML NEB INH SCH ×2 (06:27→18:31)
[2019-11-12] MEDS: Saccharomyces boulardii 250 MG CAP PER TUBE SCH (08:16)
[2019-11-12] MEDS: Potassium Chloride 20 MEQ TAB PO SCH (08:17)
[2019-11-12] MEDS: Carvedilol 6.25 MG TAB PO SCH ×2 (08:17→15:02)
[2019-11-12] MEDS: Aspirin Chewable 81 MG TAB PO SCH (08:17)
[2019-11-12] MEDS: Digoxin 0.5 MG/2 ML AMP SLOW IVP SCH (08:18)
[2019-11-12] MEDS: Enoxaparin Sodium 40 MG/0.4 ML SYRINGE SC SCH (08:18)
[2019-11-12] MEDS: Famotidine 20 MG TAB PER TUBE SCH ×2 (08:19→20:04)
[2019-11-12] MEDS ORDERED: Potassium Chloride 40 MEQ in Sodium Chloride 0.9% 250 ML 250 ML IVPB SCH (14:45)
[2019-11-12] MEDS ORDERED: Potassium Phosphate 30 MMOL in Sodium Chloride 0.9% 250 ML 250 ML IVPB SCH (14:45)
[2019-11-12] MEDS ORDERED: Potassium Chloride 40 MEQ in Premix Bag 1 BAG IVPB SCH (14:45)
--- NOTE | 2019-11-12 14:52 | PRG ---
DATE OF SERVICE: 11/12/2019 SERVICE: Pulmonary Medicine. INTERVAL HISTORY: The patient is doing really well from respiratory standpoint. Breathing comfortably. There has been no complaints of chest discomfort, nausea, or vomiting. Oxygen requirements are improving. She is responding very nicely to the Lasix. PHYSICAL EXAMINATION: VITAL SIGNS: Afebrile, pulse 98, blood pressure 158/62, respirations 25, saturations 100%, currently on T-collar with 26% FiO2. GENERAL: The patient is awake and alert, in no apparent distress. LUNGS: Decent air entry. No prolonged expiratory phase or wheezing is appreciated. Dependent crackles are improving. HEART: Normal rate, regular. ABDOMEN: Soft, nontender, nondistended. Bowel sounds are positive. MUSCULOSKELETAL: No cyanosis or clubbing. There is persistent 1 to 2+ edema at the sacrum, but the lower extremity edema has improved. LABORATORY DATA: Sodium 144 and downtrending, potassium 3.4. Basic metabolic profile is otherwise unremarkable. Phosphorus 2.1. Magnesium 2.2. Urinalysis is negative. Influenza A and B are negative. ASSESSMENT: 1. Acute hypoxic respiratory failure, improving. 2. Status asthmaticus, resolving. 3. Obstructive sleep apnea, status post tracheostomy. 4. Critical Care weakness/myopathy. DISCUSSION AND PLAN: We will continue our free water. I will continue to diurese through time. Potassium and phosphorus will be replaced today. She will be in line for PEG tube shortly. Once the PEG tube is in place, she will be a good candidate for transition to an LTAC facility. We will continue working on her strengthening and conditioning. Job ID: [id number]
--- NOTE | 2019-11-12 18:08 | PDOC.HOSPP ---
- Subjective Encounter Date: 11/12/19 Encounter Time: 17:00 Subjective: The patieint is sitting up. She is having abundant secretions from her trach. IV fluids decreased. She is not able to talk much. NG tube removed, plan for PEG placement this week Unable to be weaned off cardizem drip since NPO. Heart rate around 103. Currently at 5/hour - Objective Vital Signs & Weight: Vital Signs (12 hours) Temp Pulse Resp BP Pulse Ox 11/12/19 15:51 98.7 F 11/12/19 15:02 192/69 H 11/12/19 12:44 96 26 H 100 11/12/19 12:00 98.8 F 11/12/19 08:18 83 11/12/19 08:17 192/69 H 11/12/19 07:18 98 11/12/19 07:00 98.9 F 11/12/19 06:27 83 20 100 Weight Admit Weight 307 lb Weight 298 lb 4.8 oz Most Recent Monitor Data Heart Rate from ECG 88 NIBP 137/52 NIBP BP-Mean 80 Respiration from ECG 25 SpO2 99 I&O: 11/11/19 11/12/19 11/13/19 06:59 06:59 06:59 Intake Total 663.8 1710 1033 Output Total 1465 1400 1965 Balance -801.2 310 -932 Result Diagrams: 11/11/19 03:40 11/12/19 04:10 Hospitalist ROS - Medication Medications: Active Medications Generic Name Dose Route Start Last Admin Trade Name Freq PRN Reason Stop Dose Admin Albuterol/Ipratropium 3 ml 11/11/19 13:00 11/12/19 12:44 Duoneb NEB 3 ml [id number] KELSEA Administration Lipase/Protease/Amylase 1 cap 11/08/19 19:21 11/08/19 19:50 Rachele Jiménez [id number] FS 1 cap .PER PROTOCOL PRN Administration TUBE OCCLUSION PROTOCOL Aspirin 81 mg 10/30/19 09:00 11/12/19 08:17 Aspirin Chewable PO Not Given DAILY KELSEA Budesonide 0.5 mg 10/29/19 18:30 11/12/19 06:27 Pulmicort Neb Solution INH 0.5 mg BID-RT KELSEA Administration Carvedilol 12.5 mg 11/10/19 17:00 11/12/19 15:02 Coreg PO Not Given BID-WM KELSEA Digoxin 0.125 mg 11/02/19 09:00 11/12/19 08:18 Lanoxin SLOW IVP 0.125 mg DAILY KELSEA Administration Enoxaparin Sodium 40 mg 11/11/19 09:00 11/12/19 08:18 Lovenox SC Not Given 0900 KELSEA Famotidine 20 mg 11/09/19 21:00 11/12/19 08:19 Pepcid PER TUBE Not Given BID KELSEA Hydralazine HCl 10 mg 10/29/19 16:12 11/09/19 22:22 Apresoline SLOW IVP 10 mg Q4H PRN Administration SBP Greater Than 180 Diltiazem HCl 125 mg/ Sodium 125 mls @ 4 mls/hr 11/10/19 09:21 11/12/19 00:45 Chloride IVPB 125 mls INF KELSEA Administration Protocol Dextrose/Water 1,000 mls @ 50 mls/hr 11/12/19 14:33 11/12/19 14:46 D5w IV 1,000 mls .Q20H KELSEA Administration Labetalol HCl 20 mg 11/11/19 15:45 11/11/19 15:47 Normodyne IVPB 20 mg Q30MIN PRN Administration SBP>180 Metoclopramide HCl 10 mg 11/07/19 10:00 11/12/19 17:30 Reglan IVP 10 mg 0200,1000,1800 KELSEA Administration Montelukast Sodium 10 mg 10/30/19 21:00 11/11/19 21:33 Singulair PER TUBE Not Given QPM KELSEA Potassium Chloride 40 meq 10/30/19 09:01 11/04/19 05:43 Klor-Con PER TUBE 40 meq ASDIR PRN Administration FOR SERUM K+ 2.5-3.5 Potassium Chloride 20 meq 11/04/19 08:00 11/12/19 08:17 K-Dur PO Not Given QAM-WM [facility] Saccharomyces Boulardii 250 mg 11/05/19 09:00 11/12/19 08:16 Florastor PER TUBE 250 mg DAILY KELSEA Administration Sodium Bicarbonate 650 mg 11/08/19 19:21 11/08/19 19:50 Bicarbonate, Sodium PER TUBE 650 mg .PER PROTOCOL PRN Administration ENTERAL TUBE OCCLUSION Sodium Chloride 10 ml 11/05/19 21:00 11/12/19 08:19 Flush - Normal Saline IVF 10 ml Q12HR KELSEA Administration Sterile Water 1 ml 11/09/19 16:23 11/11/19 02:45 Bacteriostatic Water FS 1 ml PRN PRN Administration RECONSTITUTION Hosp A/P - Plan Chest X ray 10/30: pulmonary vascular congestion with cardiomegaly Chest X ray 10/31: cardiomegaly and pulmonary congestoin Chest X ray 11/01: no significant effusion. Hazy infiltrate right mid lung Chest Xray 11/02: pulmonary edema Chest Xray 11/03: pulm congestion Chest x ray 11/11: cardiomegaly with bilateral vascular congestion. LLL pneumonia. ECHO 10/31: EF 60-65%, mild MR, mild to moderate TR, elevated RSVP at 45, mild pulmonic regurg This is a 74 year old female with past medical history of asthma, hypertension, LISA who presented to the ER with worsening shortness of breath, admitted for respiratory failure/asthma exacerbation #Acute hypoxic/hypercapneic respiratory failure from asthma exacerbation vs heart failure vs pneumonia #LISA #Malnutrition - patient was intubated and due to prolonged intubation eventually underwent trach placement - she received IV lasix for pulmonary edema, then diamox IV bid from 11/04 to 11/11. Chest X ray today showing pulmonary edema vs LLL pneumonia - s/p zosyn 10/31 to 11/10 - on IV steroids from 11/05 to 11/10 - continue pulmicort and mometasone/formeterol - NG tube removed. Patient needs consult for PEG placement - trop negative times three. ECHO shows EF 60-65%, mild to moderate TR, elevated RSVP #Atrial fibrillation - on cardizem drip and IV digoxin. Unable to weaned off since patient can't take po - cardiology consult is following. - ECHO shows EF 60-65, mild to moderate TR Acute encephalopathy - improving, likely ICU delirium Hypernatremia - resolved - continue D5W Hypokalemia - potassium 3.4, will replace #Hypertension - IV hydralazine prn for SBP > 180 #GERD - continue IV famotidine Dispo: ventilator weaning per critical care Code status: full code
[2019-11-12] MEDS: Montelukast Sodium 10 mg Tablet PER TUBE SCH (20:04)
[2019-11-13] MEDS: Metoclopramide HCl 10 MG/2 ML VIAL IVP SCH ×3 (02:18→18:05)
[2019-11-13] MEDS: Diltiazem 125 MG in Sodium Chloride 0.9% 100 ML IVPB SCH (03:44)
[2019-11-13 04:38] LABS: Phosphorus 2.1 mg/dL (2.3-4.7)
[2019-11-13 04:42] LABS: Anion Gap 11 mmol/L (10-20); BUN (Urea Nitrogen) 9 mg/dL (9.8-20.1); Calc. Creatinine Clearance 203 mL/min (70-130); Calcium 8.6 mg/dL (7.8-10.44); Carbon Dioxide 26 mmol/L (23-31); Chloride 106 mmol/L (98-107); Estimated GFR-MDRD Greater than 90; Glucose 103 mg/dL (83-110); Potassium 3.9 mmol/L (3.5-5.1); Sodium 139 mmol/L (136-145)
[2019-11-13] MEDS: Budesonide 0.5 MG/2 ML NEB INH SCH ×2 (06:52→19:41)
[2019-11-13] MEDS: Potassium Chloride 20 MEQ TAB PO SCH (08:23)
[2019-11-13] MEDS: Carvedilol 6.25 MG TAB PO SCH ×2 (08:23→17:00)
[2019-11-13] MEDS: Saccharomyces boulardii 250 MG CAP PER TUBE SCH (08:24)
[2019-11-13] MEDS: Famotidine 20 MG TAB PER TUBE SCH ×2 (08:24→20:57)
[2019-11-13] MEDS: Aspirin Chewable 81 MG TAB PO SCH (08:24)
[2019-11-13] MEDS: Digoxin 0.5 MG/2 ML AMP SLOW IVP SCH (08:37)
[2019-11-13] MEDS: Enoxaparin Sodium 40 MG/0.4 ML SYRINGE SC SCH (08:37)
[2019-11-13] MEDS: Dextrose 5% in Water 1,000 ML IV SCH (10:56)
--- NOTE | 2019-11-13 16:13 | PRG ---
DATE OF SERVICE: 11/13/2019 SUBJECTIVE: Wil Ford is stable. Unfortunately, she is just not awake enough consistently to reliably swallow or even re-evaluate it. Attempts at placing an NG tube were unsuccessful. No one has been able to place a Dobbhoff. She is tentatively on the schedule for PEG placement tomorrow. She is sitting up in a chair in no distress. OBJECTIVE: VITAL SIGNS: Have been stable. LUNGS: Clear. HEART: Regular rhythm. ABDOMEN: Soft. LABORATORY DATA: White count on Wednesday was normal at 10.9, hemoglobin is 12.8, platelets 187. Electrolytes today are normal. BUN 9, creatinine 0.5. IMPRESSION: 1. Status asthmaticus leading to respiratory failure, intubation, and eventually a trach. 2. Obesity. 3. Critical illness myopathy. 4. Atrial fibrillation back in sinus rhythm. 5. History of hypertension. 6. Hemoptysis via tracheostomy incision, so she is on prophylactic dose anticoagulants to a full dose for now. Job ID: [id number]
--- NOTE | 2019-11-13 17:55 | PDOC.HOSPP ---
- Subjective Encounter Date: 11/13/19 Encounter Time: 16:00 Subjective: THe patient is doing okay today. She has no complaints. She is actually smiling today. She has difficulty speaking. - Objective Vital Signs & Weight: Vital Signs (12 hours) Temp Pulse Pulse Pulse Resp BP BP 11/13/19 15:00 98.7 F 11/13/19 12:09 94 24 H 11/13/19 11:00 98.6 F 11/13/19 10:30 108 H 104 H 176/97 H 11/13/19 08:37 98 11/13/19 08:23 192/69 H 11/13/19 08:00 11/13/19 07:00 98.7 F 11/13/19 06:52 98 28 H 11/13/19 06:51 98 28 H BP Pulse Ox Pulse Ox Pulse Ox 11/13/19 15:00 11/13/19 12:09 99 11/13/19 11:00 11/13/19 10:30 157/73 H 100 100 11/13/19 08:37 11/13/19 08:23 11/13/19 08:00 98 11/13/19 07:00 11/13/19 06:52 100 11/13/19 06:51 100 Weight Admit Weight 307 lb Weight 296 lb 14.4 oz Most Recent Monitor Data Heart Rate from ECG 90 NIBP 148/67 NIBP BP-Mean 94 Respiration from ECG 25 SpO2 100 I&O: 11/12/19 11/13/19 11/14/19 06:59 06:59 06:59 Intake Total 1710 1741.8 Output Total 1400 3440 1300 Balance 310 -1698.2 -1300 Result Diagrams: 11/11/19 03:40 11/13/19 04:02 Hospitalist ROS - Medication Medications: Active Medications Generic Name Dose Route Start Last Admin Trade Name Freq PRN Reason Stop Dose Admin Albuterol/Ipratropium 3 ml 11/11/19 13:00 11/13/19 12:09 Duoneb NEB 3 ml [id number] KELSEA Administration Lipase/Protease/Amylase 1 cap 11/08/19 19:21 11/08/19 19:50 Cremigel Jiménez [id number] FS 1 cap .PER PROTOCOL PRN Administration TUBE OCCLUSION PROTOCOL Aspirin 81 mg 10/30/19 09:00 11/13/19 08:24 Aspirin Chewable PO Not Given DAILY KELSEA Budesonide 0.5 mg 10/29/19 18:30 11/13/19 06:52 Pulmicort Neb Solution INH 0.5 mg BID-RT KELSEA Administration Carvedilol 12.5 mg 11/10/19 17:00 11/13/19 08:23 Coreg PO Not Given BID-WM [facility] Digoxin 0.125 mg 11/02/19 09:00 11/13/19 08:37 Lanoxin SLOW IVP 0.125 mg DAILY KELSEA Administration Enoxaparin Sodium 40 mg 11/11/19 09:00 11/13/19 08:37 Lovenox SC 40 mg 0900 KELSEA Administration Famotidine 20 mg 11/09/19 21:00 11/13/19 08:24 Pepcid PER TUBE Not Given BID [facility] Hydralazine HCl 10 mg 10/29/19 16:12 11/09/19 22:22 Apresoline SLOW IVP 10 mg Q4H PRN Administration SBP Greater Than 180 Diltiazem HCl 125 mg/ Sodium 125 mls @ 4 mls/hr 11/10/19 09:21 11/13/19 03:44 Chloride IVPB 125 mls INF KELSEA Administration Protocol Dextrose/Water 1,000 mls @ 50 mls/hr 11/12/19 14:33 11/13/19 10:56 D5w IV Not Given .Q20H [facility] Labetalol HCl 20 mg 11/11/19 15:45 11/11/19 15:47 Normodyne IVPB 20 mg Q30MIN PRN Administration SBP>180 Metoclopramide HCl 10 mg 11/07/19 10:00 11/13/19 10:56 Reglan IVP Not Given 0200,1000,1800 [facility] Montelukast Sodium 10 mg 10/30/19 21:00 11/12/19 20:04 Singulair PER TUBE Not Given QPM [facility] Potassium Chloride 40 meq 10/30/19 09:01 11/04/19 05:43 Klor-Con PER TUBE 40 meq ASDIR PRN Administration FOR SERUM K+ 2.5-3.5 Potassium Chloride 20 meq 11/04/19 08:00 11/13/19 08:23 K-Dur PO Not Given QAM-WM [facility] Saccharomyces Boulardii 250 mg 11/05/19 09:00 11/13/19 08:24 Florastor PER TUBE Not Given DAILY KELSEA Sodium Bicarbonate 650 mg 11/08/19 19:21 11/08/19 19:50 Bicarbonate, Sodium PER TUBE 650 mg .PER PROTOCOL PRN Administration ENTERAL TUBE OCCLUSION Sodium Chloride 10 ml 11/05/19 21:00 11/13/19 08:37 Flush - Normal Saline IVF 10 ml Q12HR KELSEA Administration Sterile Water 1 ml 11/09/19 16:23 11/11/19 02:45 Bacteriostatic Water FS 1 ml PRN PRN Administration RECONSTITUTION - Exam General Appearance: NAD, awake alert Eye: PERRL, anicteric sclera ENT: normocephalic atraumatic, no oropharyngeal lesions Neck: supple, symmetric, no JVD Neck - other findings: trach in place with some bleeding noted Heart: RRR, no murmur, no gallops, no rubs Respiratory: CTAB, no wheezes, no rales, no ronchi Respiratory - other findings: mild rales Gastrointestinal: soft, non-tender, non-distended, normal bowel sounds Extremities: no cyanosis, no clubbing, no edema Skin: normal turgor, no lesions, no rashes Hosp A/P - Plan Chest X ray 10/30: pulmonary vascular congestion with cardiomegaly Chest X ray 10/31: cardiomegaly and pulmonary congestoin Chest X ray 11/01: no significant effusion. Hazy infiltrate right mid lung Chest Xray 11/02: pulmonary edema Chest Xray 11/03: pulm congestion Chest x ray 11/11: cardiomegaly with bilateral vascular congestion. LLL pneumonia. ECHO 10/31: EF 60-65%, mild MR, mild to moderate TR, elevated RSVP at 45, mild pulmonic regurg This is a 74 year old female with past medical history of asthma, hypertension, LISA who presented to the ER with worsening shortness of breath, admitted for respiratory failure/asthma exacerbation #Acute hypoxic/hypercapneic respiratory failure from asthma exacerbation vs heart failure vs pneumonia #LISA #Malnutrition - patient was intubated and due to prolonged intubation eventually underwent trach placement - she received IV lasix for pulmonary edema, then diamox IV bid from 11/04 to 11/11. Trop negative times three. ECHO shows EF 60-65%, mild to moderate TR, elevated RSVP - Chest X ray 11/11 showed LLL pneumonia. SHe is s/p zosyn 10/31 to 11/10 - on IV steroids from 11/05 to 11/10 - continue pulmicort and mometasone/formeterol - consult placed for PEG tube for tomorrow #Atrial fibrillation - on cardizem drip and IV digoxin. Unable to weaned off since patient can't take po - cardiology is following. - ECHO shows EF 60-65, mild to moderate TR Acute encephalopathy - resolving Hypernatremia - resolved #Hypertension - IV hydralazine prn for SBP > 180 #GERD - continue IV famotidine Dispo: possible PEG placement tomorrow Code status: full code
[2019-11-13] MEDS: Montelukast Sodium 10 mg Tablet PER TUBE SCH (20:57)
[2019-11-14] MEDS: Metoclopramide HCl 10 MG/2 ML VIAL IVP SCH ×3 (02:37→18:25)
[2019-11-14 04:29] LABS: Hemoglobin 13.1 g/dL (12.0-16.0); Mean Corpuscular HGB CONC 31.3 g/dL (32.0-36.0); Mean Corpuscular Hemoglobin 31.8 pg (27.0-31.0); Mean Platelet Volume 8.4 fL (7.4-10.4); Platelet Count 147 thou/uL (130-400); RBC Distribution Width 11.5 % (11.5-14.5); Red Blood Cell (RBC) Count 4.12 mill/uL (4.20-5.40); White Blood Cell (WBC) Count 9.6 thou/uL (4.8-10.8)
[2019-11-14 04:53] LABS: Anion Gap 11 mmol/L (10-20); BUN (Urea Nitrogen) 7 mg/dL (9.8-20.1); Calc. Creatinine Clearance 206 mL/min (70-130); Calcium 8.5 mg/dL (7.8-10.44); Carbon Dioxide 30 mmol/L (23-31); Chloride 101 mmol/L (98-107); Estimated GFR-MDRD Greater than 90; Glucose 103 mg/dL (83-110); Potassium 3.9 mmol/L (3.5-5.1); Sodium 138 mmol/L (136-145)
[2019-11-14 04:54] LABS: Phosphorus 2.3 mg/dL (2.3-4.7)
[2019-11-14] MEDS: Diltiazem 125 MG in Sodium Chloride 0.9% 100 ML IVPB SCH (06:29)
[2019-11-14] MEDS: Budesonide 0.5 MG/2 ML NEB INH SCH ×2 (07:37→19:07)
--- NOTE | 2019-11-14 09:20 | PRG ---
DATE OF SERVICE: 11/14/2019 SUBJECTIVE: Ms. Ford is doing well. Still in the ICU, A10. I have been asked to see regarding her failed swallow study. She needs a PEG tube. Family is agreeable. Consent signed. OBJECTIVE: VITAL SIGNS: Temperature 99 degrees, blood pressure 136/59. LABORATORY DATA: White count 9, hemoglobin 13. ASSESSMENT: Dysphagia, unable to swallow. PLAN: PEG tube, status post tracheostomy. Job ID: [id number]
[2019-11-14] MEDS: Digoxin 0.5 MG/2 ML AMP SLOW IVP SCH (09:31)
[2019-11-14] MEDS ORDERED: PROPOFOL 200 MG/20 ML VIAL ONE (13:37)
[2019-11-14] MEDS ORDERED: Fentanyl 100 MCG/2 ML VIAL ONE (14:02)
[2019-11-14] MEDS ORDERED: Midazolam HCl 2 mg/2 ml Vial ONE (14:02)
[2019-11-14] MEDS ORDERED: PROPOFOL 20 ML ONE (14:02)
[2019-11-14] MEDS ORDERED: CEFAZOLIN 2 GM in Premix Bag 1 BAG IVPB SCH (14:30)
[2019-11-14] MEDS: Carvedilol 6.25 MG TAB PO SCH ×2 (15:31→21:57)
[2019-11-14] MEDS: Saccharomyces boulardii 250 MG CAP PER TUBE SCH (15:34)
[2019-11-14] MEDS: Potassium Chloride 20 MEQ TAB PO SCH (15:34)
[2019-11-14] MEDS: Aspirin Chewable 81 MG TAB PO SCH (15:35)
[2019-11-14] MEDS: Famotidine 20 MG TAB PER TUBE SCH ×2 (15:35→21:56)
[2019-11-14] MEDS: Enoxaparin Sodium 40 MG/0.4 ML SYRINGE SC SCH (15:35)
[2019-11-14] MEDS: Dextrose 5% in Water 1,000 ML IV SCH (15:37)
--- NOTE | 2019-11-14 18:09 | PDOC.HOSPP ---
- Subjective Encounter Date: 11/14/19 Encounter Time: 15:00 Subjective: The patient is s/p PEG today. She has difficulty voicing her complaints. Has minor blood being suctioned out of her trach. - Objective Vital Signs & Weight: Vital Signs (12 hours) Temp Pulse Resp BP Pulse Ox 11/14/19 15:31 169/87 H 11/14/19 15:30 100 18 99 11/14/19 13:00 98.7 F 11/14/19 09:31 80 11/14/19 08:00 99.0 F 100 11/14/19 07:37 99 11/14/19 07:35 107 H 17 99 Weight Admit Weight 307 lb Weight 195 lb 1.6 oz Most Recent Monitor Data Heart Rate from ECG 70 NIBP 146/73 NIBP BP-Mean 97 Respiration from ECG 22 SpO2 98 I&O: 11/13/19 11/14/19 11/15/19 06:59 06:59 06:59 Intake Total 1741.8 1286.5 Output Total 3440 2015 575 [facility]1698.2 -728.5 -575 Result Diagrams: 11/14/19 04:10 11/14/19 04:10 Hospitalist ROS - Review of Systems Constitutional: denies: fever, chills Respiratory: denies: dry, pleuritic pain - Medication Medications: Active Medications Generic Name Dose Route Start Last Admin Trade Name Freq PRN Reason Stop Dose Admin Albuterol/Ipratropium 3 ml 11/11/19 13:00 11/14/19 15:30 Duoneb NEB 3 ml [id number] KELSEA Administration Lipase/Protease/Amylase 1 cap 11/08/19 19:21 11/08/19 19:50 Rachele Jiménez [id number] FS 1 cap .PER PROTOCOL PRN Administration TUBE OCCLUSION PROTOCOL Aspirin 81 mg 10/30/19 09:00 11/14/19 15:35 Aspirin Chewable PO 81 mg DAILY KELSEA Administration Budesonide 0.5 mg 10/29/19 18:30 11/14/19 07:37 Pulmicort Neb Solution INH 0.5 mg BID-RT KELSEA Administration Carvedilol 12.5 mg 11/10/19 17:00 11/14/19 15:31 Coreg PO 12.5 mg BID-WM KELSEA Administration Digoxin 0.125 mg 11/02/19 09:00 11/14/19 09:31 Lanoxin SLOW IVP 0.125 mg DAILY KELSEA Administration Enoxaparin Sodium 40 mg 11/11/19 09:00 11/14/19 15:35 Lovenox SC Not Given 0900 KELSEA Famotidine 20 mg 11/09/19 21:00 11/14/19 15:35 Pepcid PER TUBE Not Given BID KELSEA Hydralazine HCl 10 mg 10/29/19 16:12 11/09/19 22:22 Apresoline SLOW IVP 10 mg Q4H PRN Administration SBP Greater Than 180 Diltiazem HCl 125 mg/ Sodium 125 mls @ 4 mls/hr 11/10/19 09:21 11/14/19 06:29 Chloride IVPB 125 mls INF KELSEA Administration Protocol Dextrose/Water 1,000 mls @ 50 mls/hr 11/12/19 14:33 11/14/19 15:37 D5w IV 1,000 mls .Q20H KELSEA Administration Labetalol HCl 20 mg 11/11/19 15:45 11/11/19 15:47 Normodyne IVPB 20 mg Q30MIN PRN Administration SBP>180 Metoclopramide HCl 10 mg 11/07/19 10:00 11/14/19 10:00 Reglan IVP 10 mg 0200,1000,1800 KELSEA Administration Montelukast Sodium 10 mg 10/30/19 21:00 11/13/19 20:57 Singulair PER TUBE Not Given QPM KELSEA Potassium Chloride 40 meq 10/30/19 09:01 11/04/19 05:43 Klor-Con PER TUBE 40 meq ASDIR PRN Administration FOR SERUM K+ 2.5-3.5 Potassium Chloride 20 meq 11/04/19 08:00 11/14/19 15:34 K-Dur PO 20 meq QAM-WM KELSEA Administration Saccharomyces Boulardii 250 mg 11/05/19 09:00 11/14/19 15:34 Florastor PER TUBE 250 mg DAILY KELSEA Administration Sodium Bicarbonate 650 mg 11/08/19 19:21 11/08/19 19:50 Bicarbonate, Sodium PER TUBE 650 mg .PER PROTOCOL PRN Administration ENTERAL TUBE OCCLUSION Sodium Chloride 10 ml 11/05/19 21:00 11/13/19 20:58 Flush - Normal Saline IVF Not Given Q12HR KELSEA Sterile Water 1 ml 11/09/19 16:23 11/11/19 02:45 Bacteriostatic Water FS 1 ml PRN PRN Administration RECONSTITUTION - Exam General Appearance: NAD, awake alert Eye: PERRL, anicteric sclera ENT: normocephalic atraumatic, no oropharyngeal lesions Neck: supple, symmetric, no JVD, no thyromegaly Heart: RRR, no murmur, no gallops, no rubs Respiratory: CTAB, no wheezes, no rales, no ronchi Gastrointestinal: soft, non-tender, non-distended, normal bowel sounds Extremities: no cyanosis, no clubbing, no edema, 1+ LE edema Skin: normal turgor, no lesions, no rashes Neurological: cranial nerve grossly intact, normal sensation to touch, no focal deficits, no new deficit Musculoskeletal: normal tone, normal strength, no muscle wasting Psychiatric: normal affect, normal behavior, A&O x 3 Hosp A/P - Plan Chest X ray 10/30: pulmonary vascular congestion with cardiomegaly Chest X ray 10/31: cardiomegaly and pulmonary congestoin Chest X ray 11/01: no significant effusion. Hazy infiltrate right mid lung Chest Xray 11/02: pulmonary edema Chest Xray 11/03: pulm congestion Chest x ray 11/11: cardiomegaly with bilateral vascular congestion. LLL pneumonia. ECHO 10/31: EF 60-65%, mild MR, mild to moderate TR, elevated RSVP at 45, mild pulmonic regurg This is a 74 year old female with past medical history of asthma, hypertension, LISA who presented to the ER with worsening shortness of breath, admitted for respiratory failure/asthma exacerbation #Acute hypoxic/hypercapneic respiratory failure from asthma exacerbation vs heart failure vs pneumonia #LISA #Malnutrition - patient was intubated and due to prolonged intubation eventually underwent trach placement - she received IV lasix for pulmonary edema, then diamox IV bid from 11/04 to 11/11. Trop negative times three. ECHO shows EF 60-65%, mild to moderate TR, elevated RSVP - Chest X ray 11/11 showed LLL pneumonia. SHe received zosyn 10/31 to 11/10 - s/p IV steroids from 11/05 to 11/10 - continue pulmicort and mometasone/formeterol -PEG placed today, will start tube feeds tonight #Atrial fibrillation - on cardizem drip and IV digoxin. Can transition to po when start tube feeds - ECHO shows EF 60-65, mild to moderate TR #Hypertension - IV hydralazine prn for SBP > 180 #GERD - continue IV famotidine Dispo: will place case management consult for SNF Code status: full code
--- NOTE | 2019-11-14 20:21 | PRG ---
DATE OF SERVICE: 11/14/2019 SUBJECTIVE: Ms. Ford is clinically unchanged. She is stable off mechanical ventilation. She is so weak she cannot hit the call button. OBJECTIVE: VITAL SIGNS: Heart rate is in the 70s, blood pressure 159/79, respiratory rate 20. NECK: She still has some oozing around her trach site. LUNGS: Clear. HEART: Regular rhythm. ABDOMEN: Soft. LABORATORY DATA: White count 9.6, hemoglobin 13.1, platelets 147. Electrolytes are normal. BUN 7, creatinine 0.51. IMPRESSION: 1. Status asthmaticus. 2. Sleep apnea. 3. Obesity. 4. Status post trach. 5. Inability to swallow because of her weakness. She is tentatively on schedule for percutaneous endoscopic gastrostomy. PLAN: Next step would be evaluation for long-term acute care. Job ID: [id number]
[2019-11-14] MEDS: Montelukast Sodium 10 mg Tablet PER TUBE SCH (21:57)
[2019-11-15] MEDS: Dextrose 5% in Water 1,000 ML IV SCH ×2 (02:16→23:30)
[2019-11-15] MEDS: Metoclopramide HCl 10 MG/2 ML VIAL IVP SCH ×3 (02:16→16:46)
[2019-11-15 05:28] LABS: Anion Gap 10 mmol/L (10-20); BUN (Urea Nitrogen) 7 mg/dL (9.8-20.1); Calc. Creatinine Clearance 138 mL/min (70-130); Calcium 8.3 mg/dL (7.8-10.44); Carbon Dioxide 28 mmol/L (23-31); Chloride 100 mmol/L (98-107); Estimated GFR-MDRD Greater than 90; Glucose 106 mg/dL (83-110); Potassium 3.8 mmol/L (3.5-5.1); Sodium 134 mmol/L (136-145)
[2019-11-15 05:32] LABS: Phosphorus 1.6 mg/dL (2.3-4.7)
[2019-11-15] MEDS: Budesonide 0.5 MG/2 ML NEB INH SCH ×2 (06:57→18:42)
[2019-11-15] MEDS: Enoxaparin Sodium 40 MG/0.4 ML SYRINGE SC SCH (08:26)
[2019-11-15] MEDS: Saccharomyces boulardii 250 MG CAP PER TUBE SCH (08:27)
[2019-11-15] MEDS: Famotidine 20 MG TAB PER TUBE SCH ×2 (08:27→19:37)
[2019-11-15] MEDS: Potassium Chloride 20 MEQ TAB PO SCH (08:27)
[2019-11-15] MEDS: Digoxin 0.5 MG/2 ML AMP SLOW IVP SCH (08:28)
[2019-11-15] MEDS: Carvedilol 6.25 MG TAB PO SCH ×2 (08:28→16:46)
[2019-11-15] MEDS: Aspirin Chewable 81 MG TAB PO SCH (08:28)
--- NOTE | 2019-11-15 09:46 | OP ---
DATE OF PROCEDURE: 11/14/2019 PREOPERATIVE DIAGNOSES: 1. Morbid obesity. 2. Respiratory failure. 3. Dysphagia. 4. Poor nutrition. POSTOPERATIVE DIAGNOSES: 1. Morbid obesity. 2. Respiratory failure. 3. Dysphagia. 4. Poor nutrition. PROCEDURE: Percutaneous endoscopic gastrostomy tube. ANESTHESIA: IV sedation, local 1% Xylocaine with epinephrine. PROCEDURE: With the patient at the bedside in the room in ICU. Once under sedation, endoscope was placed per os under direct visualization. Using air insufflation, passed through the esophagus, stomach insufflated, noting a good indentation in the left subxiphoid and the area was prepared with ChloraPrep, anesthetized with local anesthetic. A stab incision was made and Trocar catheter introduced percutaneously, visualized endoscopically within the gastric lumen. Wire introduced, grasped with a snare which had been placed through the endoscope. Once the wire was grasped, endoscope and wire were removed, the wire brought out through the mouth, connected to the feeding device. Feeding device was then lubricated and pulled back down the mouth, esophagus, and stomach fixating against the abdominal wall with a fixation device after placing sterile antibiotic ointment. Mastisol, bumper, and silk tape applied, tailored to length and a feeding tube apparatus applied. Patient tolerated the procedure well. Job ID: [id number]
--- NOTE | 2019-11-15 11:04 | OP ---
DATE OF PROCEDURE: 11/14/2019 PREOPERATIVE DIAGNOSES: Respiratory failure, status post tracheostomy, morbid obesity, dysphagia, unable to pass a swallow study. POSTOPERATIVE DIAGNOSES: Respiratory failure, status post tracheostomy, morbid obesity, dysphagia, unable to pass a swallow study. PROCEDURE PERFORMED: Percutaneous endoscopic gastrostomy tube. ANESTHESIA: Intravenous sedation and local with 1% Xylocaine with epinephrine local. DESCRIPTION OF PROCEDURE: With the patient at bedside in the ICU under IV sedation, endoscope was placed per os under direct visualization, passed out the esophagus and stomach insufflated with air, and abdomen was prepared with ChloraPrep and local anesthetic was infiltrated in the skin and subcutaneous tissue. Stab incision was made in the left subxiphoid and trocar catheter was introduced percutaneously, visualized endoscopically within the gastric lumen, grasping the wire introduced through this trocar using a snare to grasp it and endoscope and snare and wire brought out of the mouth and wire connected to the feeding tube, which was lubricated and brought back down the esophagus and snugged against the gastric mucosa, fixated the abdominal wall with a fixation device and too tired in length and connected to the feeding device. The patient tolerated the procedure well. Job ID: [id number]
--- NOTE | 2019-11-15 12:24 | PRG ---
DATE OF SERVICE: 11/15/2019 SUBJECTIVE: Wil Ford starting to stand with physical therapy surprisingly. She has no complaints today. OBJECTIVE: VITAL SIGNS: She is afebrile, heart rate in the 60s, blood pressure 131/59, respiratory rate in the 20s, oximetry is in the high 80s to low 90s on her trach collar. LUNGS: Clear. HEART: Regular rhythm. ABDOMEN: Soft. EXTREMITIES: Without asymmetry. LABORATORY DATA: Sodium 134, potassium 3.8, chloride 100, bicarb 28, BUN 17, and creatinine 0.5. IMPRESSION: 1. Acute respiratory failure secondary to status asthmaticus. 2. Status asthmaticus. 3. Sleep apnea. 4. Obesity. 5. Critical illness myopathy. 6. Status post PEG placement. We are unable to tube feed her as we could not get a tube in. She appears to be stable. Long-term acute care is probably the next step. Family consents to this. Job ID: [id number]
--- NOTE | 2019-11-15 17:21 | PDOC.HOSPP ---
- Subjective Encounter Date: 11/15/19 Encounter Time: 09:00 Subjective: The patient got her PEG tube yesterday. There is plan to start bolus tube feeding today. She wants to get out of bed and sit on the edge of the bed Plan to wean off cardizem drip today. Digoxin was held per nurse due to low heart rate - Objective Vital Signs & Weight: Vital Signs (12 hours) Temp Pulse Pulse Pulse Resp BP BP 11/15/19 16:46 146/76 H 11/15/19 13:48 11/15/19 13:45 66 24 H 11/15/19 12:56 98.3 F 11/15/19 10:45 77 66 135/67 11/15/19 08:28 67 146/76 H 11/15/19 07:19 11/15/19 07:00 98.8 F 11/15/19 06:57 11/15/19 06:56 67 21 H BP Pulse Ox Pulse Ox Pulse Ox 11/15/19 16:46 11/15/19 13:48 96 11/15/19 13:45 96 11/15/19 12:56 11/15/19 10:45 110/52 L 95 100 11/15/19 08:28 11/15/19 07:19 100 11/15/19 07:00 11/15/19 06:57 99 11/15/19 06:56 99 Weight Admit Weight 307 lb Weight 289 lb 0.416 oz Most Recent Monitor Data Heart Rate from ECG 73 NIBP 147/69 NIBP BP-Mean 95 Respiration from ECG 24 SpO2 94 I&O: 11/14/19 11/15/19 11/16/19 06:59 06:59 06:59 Intake Total 1286.5 1323.3 660 Output Total 2014 990 2300 Balance -728.5 398.3 -1640 Result Diagrams: 11/14/19 04:10 11/15/19 04:49 Hospitalist ROS - Medication Medications: Active Medications Generic Name Dose Route Start Last Admin Trade Name Freq PRN Reason Stop Dose Admin Albuterol/Ipratropium 3 ml 11/11/19 13:00 11/15/19 13:45 Duoneb NEB 3 ml [id number] KELSEA Administration Lipase/Protease/Amylase 1 cap 11/08/19 19:21 11/08/19 19:50 Cremigel Jiménez [id number] FS 1 cap .PER PROTOCOL PRN Administration TUBE OCCLUSION PROTOCOL Aspirin 81 mg 10/30/19 09:00 11/15/19 08:28 Aspirin Chewable PO 81 mg DAILY KELSEA Administration Budesonide 0.5 mg 10/29/19 18:30 11/15/19 06:57 Pulmicort Neb Solution INH 0.5 mg BID-RT KELSEA Administration Carvedilol 12.5 mg 11/10/19 17:00 11/15/19 16:46 Coreg PO 12.5 mg BID-WM KELSEA Administration Digoxin 0.125 mg 11/02/19 09:00 11/15/19 08:28 Lanoxin SLOW IVP Not Given DAILY KELSEA Enoxaparin Sodium 40 mg 11/11/19 09:00 11/15/19 08:26 Lovenox SC 40 mg 0900 KELSEA Administration Famotidine 20 mg 11/09/19 21:00 11/15/19 08:27 Pepcid PER TUBE 20 mg BID KELSEA Administration Hydralazine HCl 10 mg 10/29/19 16:12 11/09/19 22:22 Apresoline SLOW IVP 10 mg Q4H PRN Administration SBP Greater Than 180 Diltiazem HCl 125 mg/ Sodium 125 mls @ 4 mls/hr 11/10/19 09:21 11/14/19 06:29 Chloride IVPB 125 mls INF KELSEA Administration Protocol Dextrose/Water 1,000 mls @ 50 mls/hr 11/12/19 14:33 11/15/19 02:16 D5w IV 1,000 mls .Q20H KELSEA Administration Labetalol HCl 20 mg 11/11/19 15:45 11/11/19 15:47 Normodyne IVPB 20 mg Q30MIN PRN Administration SBP>180 Metoclopramide HCl 10 mg 11/07/19 10:00 11/15/19 16:46 Reglan IVP 10 mg 0200,1000,1800 KELSEA Administration Miscellaneous Medication 1 pkt 10/30/19 09:01 11/15/19 05:47 Phos-Nak PO 1 pkt TIDPRN PRN Administration FOR PHOS LEVEL 1.0 - 1.8 Montelukast Sodium 10 mg 10/30/19 21:00 11/14/19 21:57 Singulair PER TUBE 10 mg QPM KELSEA Administration Potassium Chloride 40 meq 10/30/19 09:01 11/04/19 05:43 Klor-Con PER TUBE 40 meq ASDIR PRN Administration FOR SERUM K+ 2.5-3.5 Potassium Chloride 20 meq 11/04/19 08:00 11/15/19 08:27 K-Dur PO 20 meq QAM-WM KELSEA Administration Saccharomyces Boulardii 250 mg 11/05/19 09:00 11/15/19 08:27 Florastor PER TUBE 250 mg DAILY KELSEA Administration Sodium Bicarbonate 650 mg 11/08/19 19:21 11/08/19 19:50 Bicarbonate, Sodium PER TUBE 650 mg .PER PROTOCOL PRN Administration ENTERAL TUBE OCCLUSION Sodium Chloride 10 ml 11/05/19 21:00 11/15/19 08:28 Flush - Normal Saline IVF 10 ml Q12HR KELSEA Administration Sterile Water 1 ml 11/09/19 16:23 11/11/19 02:45 Bacteriostatic Water FS 1 ml PRN PRN Administration RECONSTITUTION - Exam General Appearance: NAD, awake alert Eye: PERRL, anicteric sclera ENT: normocephalic atraumatic, no oropharyngeal lesions Neck: supple, no JVD Heart: RRR, no murmur, no gallops, no rubs Respiratory: CTAB, no wheezes, no rales, no ronchi Gastrointestinal: soft Gastrointestinal - other findings: PEG tube in place Extremities: no cyanosis, no clubbing, no edema Skin: normal turgor, no lesions, no rashes Neurological: cranial nerve grossly intact, normal sensation to touch, no focal deficits, no new deficit Musculoskeletal: normal tone, normal strength, no muscle wasting Psychiatric: normal affect, normal behavior, A&O x 3, oriented to person Hosp A/P - Plan Chest X ray 10/30: pulmonary vascular congestion with cardiomegaly Chest X ray 10/31: cardiomegaly and pulmonary congestoin Chest X ray 11/01: no significant effusion. Hazy infiltrate right mid lung Chest Xray 11/02: pulmonary edema Chest Xray 11/03: pulm congestion Chest x ray 11/11: cardiomegaly with bilateral vascular congestion. LLL pneumonia. ECHO 10/31: EF 60-65%, mild MR, mild to moderate TR, elevated RSVP at 45, mild pulmonic regurg This is a 74 year old female with past medical history of asthma, hypertension, LISA who presented to the ER with worsening shortness of breath, admitted for respiratory failure/asthma exacerbation #Acute hypoxic/hypercapneic respiratory failure from asthma exacerbation vs heart failure vs pneumonia #LISA #Malnutrition - patient was intubated and due to prolonged intubation eventually underwent trach placement - she received IV lasix for pulmonary edema, then diamox IV bid from 11/04 to 11/11. Trop negative times three. ECHO shows EF 60-65%, mild to moderate TR, elevated RSVP - Chest X ray 11/11 showed LLL pneumonia. SHe received zosyn 10/31 to 11/10 - s/p IV steroids from 11/05 to 11/10 - continue pulmicort and mometasone/formeterol -start tube feeds tonight per dietary recommendations #Atrial fibrillation - on cardizem drip and IV digoxin. Try to wean off cardizem drip. Transition to oral digoxin. Continue coreg - ECHO shows EF 60-65, mild to moderate TR #Hypertension - IV hydralazine prn for SBP > 180 #GERD - continue IV famotidine Dispo: will place case management consult for SNF Code status: full code
[2019-11-15] MEDS: Montelukast Sodium 10 mg Tablet PER TUBE SCH (19:38)
--- NOTE | 2019-11-15 19:45 | PRG ---
DATE OF SERVICE: 11/15/2019 Wil Ford is doing well today. She is tolerating tube feeds. Abdomen is soft and nontender. She responds my voice and nods appropriately. Heart rate is 75, respiratory rate 14, blood pressure 136/67. The patient is doing well after PEG tube placement. Continue bolus feedings for 2 weeks until the PEG tube site matures. Then can switch to continuous feedings. If necessary, we would protect the tube from dislodgement with bolus tube feedings and abdominal binder. At this point, I will see as needed. Please call if necessary. Job ID: [id number]
[2019-11-16] MEDS: Metoclopramide HCl 10 MG/2 ML VIAL IVP SCH ×3 (02:59→16:54)
[2019-11-16 05:15] LABS: Anion Gap 10 mmol/L (10-20); BUN (Urea Nitrogen) 7 mg/dL (9.8-20.1); Calc. Creatinine Clearance 204 mL/min (70-130); Calcium 8.5 mg/dL (7.8-10.44); Carbon Dioxide 30 mmol/L (23-31); Chloride 102 mmol/L (98-107); Estimated GFR-MDRD Greater than 90; Glucose 143 mg/dL (83-110); Potassium 3.7 mmol/L (3.5-5.1); Sodium 138 mmol/L (136-145)
[2019-11-16 07:33] LABS: Phosphorus 2.9 mg/dL (2.3-4.7)
[2019-11-16] MEDS: Budesonide 0.5 MG/2 ML NEB INH SCH ×2 (07:40→19:01)
[2019-11-16] MEDS: Saccharomyces boulardii 250 MG CAP PER TUBE SCH (09:15)
[2019-11-16] MEDS: Enoxaparin Sodium 40 MG/0.4 ML SYRINGE SC SCH (09:15)
[2019-11-16] MEDS: Famotidine 20 MG TAB PER TUBE SCH ×2 (09:15→20:31)
[2019-11-16] MEDS: Potassium Chloride 20 MEQ TAB PO SCH (09:15)
[2019-11-16] MEDS: Carvedilol 6.25 MG TAB PO SCH ×2 (09:16→16:54)
[2019-11-16] MEDS: Aspirin Chewable 81 MG TAB PO SCH (09:16)
[2019-11-16] MEDS: Digoxin 0.125 MG TAB PO SCH (09:16)
--- NOTE | 2019-11-16 14:48 | PRG ---
DATE OF SERVICE: 11/16/2019 SUBJECTIVE: Wil Ford is in no distress. Her strength is starting to improve rapidly. OBJECTIVE: VITAL SIGNS: Heart rate is in the 70s, respiratory rate is in the 20s, oximetry is 99, and blood pressure 101/62. LUNGS: Clear. HEART: Regular rhythm. ABDOMEN: Soft. LABORATORY DATA: White count 9.6, hemoglobin 13.1, and platelets 147. Sodium 138, potassium 3.7, chloride 102, bicarb 30, BUN 7, and creatinine 0.5. IMPRESSION: 1. Asthma exacerbation. 2. Critical illness myopathy. 3. Trach. 4. Percutaneous endoscopic gastrostomy. 5. Obesity. 6. Deconditioning. PLAN: I met with family and answered all their questions. They are happy she is making progress. Job ID: [id number]
--- NOTE | 2019-11-16 16:29 | PDOC.HOSPP ---
- Subjective Encounter Date: 11/16/19 Encounter Time: 12:00 Subjective: The patient is laying in bed, appears to have some discomfort near PEG tube, but no other complaints. She denies shortness of breath or cough. She reports being very fatigued. She hasn't gotten out of bed yet. - Objective Vital Signs & Weight: Vital Signs (12 hours) Temp Pulse Resp BP Pulse Ox 11/16/19 13:22 71 22 H 99 11/16/19 12:00 99 F 11/16/19 09:16 74 105/51 L 11/16/19 08:00 99.1 F 93 L 11/16/19 07:39 88 22 H 96 11/16/19 05:26 99.4 F Weight Admit Weight 307 lb Weight 281 lb 12.012 oz Most Recent Monitor Data Heart Rate from ECG 63 NIBP 100/47 NIBP BP-Mean 64 Respiration from ECG 24 SpO2 95 I&O: 11/15/19 11/16/19 11/17/19 06:59 06:59 06:59 Intake Total 1323.3 1969 240 Output Total 925 3325 Balance 398.3 -1356 240 Result Diagrams: 11/14/19 04:10 11/16/19 04:30 Hospitalist ROS - Medication Medications: Active Medications Generic Name Dose Route Start Last Admin Trade Name Freq PRN Reason Stop Dose Admin Albuterol/Ipratropium 3 ml 11/11/19 13:00 11/16/19 13:22 Duoneb NEB 3 ml [id number] KELSEA Administration Lipase/Protease/Amylase 1 cap 11/08/19 19:21 11/08/19 19:50 Rachele Jiménez [id number] FS 1 cap .PER PROTOCOL PRN Administration TUBE OCCLUSION PROTOCOL Aspirin 81 mg 10/30/19 09:00 11/16/19 09:16 Aspirin Chewable PO 81 mg DAILY KELSEA Administration Budesonide 0.5 mg 10/29/19 18:30 11/16/19 07:40 Pulmicort Neb Solution INH 0.5 mg BID-RT KELSEA Administration Carvedilol 12.5 mg 11/10/19 17:00 11/16/19 09:16 Coreg PO 12.5 mg BID-WM KELSEA Administration Digoxin 0.125 mg 11/16/19 09:00 11/16/19 09:16 Lanoxin PO 0.125 mg DAILY KELSEA Administration Enoxaparin Sodium 40 mg 11/11/19 09:00 11/16/19 09:15 Lovenox SC 40 mg 0900 KELSEA Administration Famotidine 20 mg 11/09/19 21:00 11/16/19 09:15 Pepcid PER TUBE 20 mg BID KELSEA Administration Hydralazine HCl 10 mg 10/29/19 16:12 11/09/19 22:22 Apresoline SLOW IVP 10 mg Q4H PRN Administration SBP Greater Than 180 Diltiazem HCl 125 mg/ Sodium 125 mls @ 4 mls/hr 11/10/19 09:21 11/14/19 06:29 Chloride IVPB 125 mls INF KELSEA Administration Protocol Dextrose/Water 1,000 mls @ 50 mls/hr 11/12/19 14:33 11/15/19 23:30 D5w IV 1,000 mls .Q20H KELSEA Administration Labetalol HCl 20 mg 11/11/19 15:45 11/11/19 15:47 Normodyne IVPB 20 mg Q30MIN PRN Administration SBP>180 Metoclopramide HCl 10 mg 11/07/19 10:00 11/16/19 09:16 Reglan IVP 10 mg 0200,1000,1800 KELSEA Administration Miscellaneous Medication 1 pkt 10/30/19 09:01 11/15/19 05:47 Phos-Nak PO 1 pkt TIDPRN PRN Administration FOR PHOS LEVEL 1.0 - 1.8 Montelukast Sodium 10 mg 10/30/19 21:00 11/15/19 19:38 Singulair PER TUBE 10 mg QPM KELSEA Administration Potassium Chloride 40 meq 10/30/19 09:01 11/04/19 05:43 Klor-Con PER TUBE 40 meq ASDIR PRN Administration FOR SERUM K+ 2.5-3.5 Potassium Chloride 20 meq 11/04/19 08:00 11/16/19 09:15 K-Dur PO 20 meq QAM-WM KELSEA Administration Saccharomyces Boulardii 250 mg 11/05/19 09:00 11/16/19 09:15 Florastor PER TUBE 250 mg DAILY KELSEA Administration Sodium Bicarbonate 650 mg 11/08/19 19:21 11/08/19 19:50 Bicarbonate, Sodium PER TUBE 650 mg .PER PROTOCOL PRN Administration ENTERAL TUBE OCCLUSION Sodium Chloride 10 ml 11/05/19 21:00 11/16/19 09:16 Flush - Normal Saline IVF 10 ml Q12HR KELSEA Administration Sterile Water 1 ml 11/09/19 16:23 11/11/19 02:45 Bacteriostatic Water FS 1 ml PRN PRN Administration RECONSTITUTION - Exam General Appearance: NAD, awake alert Eye: PERRL, anicteric sclera ENT: normocephalic atraumatic, no oropharyngeal lesions Neck: supple, symmetric, no JVD Heart: RRR, no murmur, no gallops, no rubs Respiratory: CTAB, no wheezes, no rales, no ronchi Gastrointestinal: soft, non-tender, non-distended, normal bowel sounds Extremities: no cyanosis, no clubbing, no edema Skin: normal turgor, no lesions, no rashes Neurological: cranial nerve grossly intact, normal sensation to touch, no focal deficits, no new deficit Musculoskeletal: normal tone, normal strength, no muscle wasting Psychiatric: normal affect, normal behavior, A&O x 3, oriented to person Hosp A/P - Plan Chest X ray 10/30: pulmonary vascular congestion with cardiomegaly Chest X ray 10/31: cardiomegaly and pulmonary congestoin Chest X ray 11/01: no significant effusion. Hazy infiltrate right mid lung Chest Xray 11/02: pulmonary edema Chest Xray 11/03: pulm congestion Chest x ray 11/11: cardiomegaly with bilateral vascular congestion. LLL pneumonia. ECHO 10/31: EF 60-65%, mild MR, mild to moderate TR, elevated RSVP at 45, mild pulmonic regurg This is a 74 year old female with past medical history of asthma, hypertension, LISA who presented to the ER with worsening shortness of breath, admitted for respiratory failure/asthma exacerbation #Acute hypoxic/hypercapneic respiratory failure from asthma exacerbation vs heart failure vs pneumonia - s/p trach placement #LISA - patient was intubated and due to prolonged intubation eventually underwent trach placement - she received IV lasix for pulmonary edema, then diamox IV bid from 11/04 to 11/11. Trop negative times three. ECHO shows EF 60-65%, mild to moderate TR, elevated RSVP - Chest X ray 11/11 showed LLL pneumonia. SHe received zosyn 10/31 to 11/10 - s/p IV steroids from 11/05 to 11/10 - continue pulmicort and mometasone/formeterol - she will need to go to rehab, and needs SNF placement - she is working on getting out of bed and getting into the chair #Malnutrition -start tube feeds #Atrial fibrillation - weaned off cardizem drip - continue oral digoxin and coreg - ECHO shows EF 60-65, mild to moderate TR #Hypertension - IV hydralazine prn for SBP > 180 #GERD - continue IV famotidine Dispo: could probably transfer to telemetry Code status: full code
[2019-11-16] MEDS: Dextrose 5% in Water 1,000 ML IV SCH (20:08)
[2019-11-16] MEDS: Montelukast Sodium 10 mg Tablet PER TUBE SCH (20:31)
[2019-11-17] MEDS: Metoclopramide HCl 10 MG/2 ML VIAL IVP SCH ×3 (02:55→19:17)
[2019-11-17 03:50] LABS: Hemoglobin 12.2 g/dL (12.0-16.0); Mean Corpuscular HGB CONC 31.3 g/dL (32.0-36.0); Mean Corpuscular Hemoglobin 31.9 pg (27.0-31.0); Mean Platelet Volume 9.4 fL (7.4-10.4); Platelet Count 113 thou/uL (130-400); RBC Distribution Width 11.6 % (11.5-14.5); Red Blood Cell (RBC) Count 3.84 mill/uL (4.20-5.40); White Blood Cell (WBC) Count 11.3 thou/uL (4.8-10.8)
[2019-11-17 04:04] LABS: Phosphorus 3.1 mg/dL (2.3-4.7)
[2019-11-17] MEDS: Budesonide 0.5 MG/2 ML NEB INH SCH ×2 (07:30→19:15)
--- NOTE | 2019-11-17 08:43 | PRG ---
DATE OF SERVICE: 11/17/2019 SUBJECTIVE: Ms. Frod is resting comfortably. Her heart rate in the 90s with atrial fibrillation. OBJECTIVE: VITAL SIGNS: Blood pressure 108/51, pulse as mentioned. LUNGS: Few expiratory wheezing. CARDIAC: Irregularly irregular. ABDOMEN: Obese, nontender. EXTREMITIES: No edema. ASSESSMENT: 1. Atrial fibrillation, paroxysmal, now appears to be persistent, rate controlled. 2. Status post tracheostomy and PEG tube. PLAN: 1. She is on oral digoxin. 2. She is on oral carvedilol. 3. Previously when we tried to anticoagulate her, she coughed up some pink frothy sputum, therefore, we will slowly increase anticoagulation to Lovenox 40 q.12. 4. When she goes home, we should have her on full anticoagulation for stroke prevention. One of my partners will be available this weekend if needed. Job ID: [id number]
[2019-11-17] MEDS: Carvedilol 6.25 MG TAB PO SCH ×2 (09:53→15:49)
[2019-11-17] MEDS: Digoxin 0.125 MG TAB PO SCH (09:53)
[2019-11-17] MEDS: Enoxaparin Sodium 40 MG/0.4 ML SYRINGE SC SCH ×2 (09:53→20:20)
[2019-11-17] MEDS: Potassium Chloride 20 MEQ TAB PO SCH (09:53)
[2019-11-17] MEDS: Aspirin Chewable 81 MG TAB PO SCH (09:53)
[2019-11-17] MEDS: Saccharomyces boulardii 250 MG CAP PER TUBE SCH (09:54)
[2019-11-17] MEDS: Famotidine 20 MG TAB PER TUBE SCH ×2 (09:54→20:20)
--- NOTE | 2019-11-17 11:06 | PRG ---
DATE OF SERVICE: 11/17/2019 SUBJECTIVE: Wil Ford is doing well. She has no complaints. She tells me she stood yesterday. OBJECTIVE: VITAL SIGNS: She is afebrile. Heart rate is in the 90s and blood pressure 105/51. LUNGS: Clear. HEART: Regular rhythm. ABDOMEN: Soft. EXTREMITIES: Unchanged. LABORATORY DATA: White count 11.3, hemoglobin 12.2, platelets 113. Electrolytes are normal. BUN 7 and creatinine 0.5. IMPRESSION: 1. Respiratory failure associated with severe asthma exacerbation. 2. Obesity. 3. Deconditioning. 4. Sleep apnea. 5. Status post tracheostomy. 6. Status post percutaneous endoscopic gastrostomy. 7. Atrial fibrillation with controlled rate at this time. 8. History this admission of having to hold full-dose anticoagulation because bleeding around tracheostomy site. I agree with Dr. Trevino reasonable to slowly increase anticoagulation. Job ID: [id number]
[2019-11-17] MEDS: Dextrose 5% in Water 1,000 ML IV SCH (15:48)
--- NOTE | 2019-11-17 18:27 | PDOC.HOSPP ---
- Subjective Encounter Date: 11/17/19 Encounter Time: 18:25 Subjective: The patient is doing okay with no abdominal pain. She is tolerating her tube feeds. The patient did have a heart rate in the 130's this morning that showed aflutter and afib. This spontaneously resolved with HR in the 70s' She was denied at LTAC yesterday, needs peer to peer evaluation - Objective Vital Signs & Weight: Vital Signs (12 hours) Temp Pulse Resp BP Pulse Ox 11/17/19 15:49 105/51 L 11/17/19 15:45 99.6 F 11/17/19 13:03 82 29 H 97 11/17/19 11:49 98.9 F 11/17/19 09:53 95 105/51 L 11/17/19 08:00 100 11/17/19 07:33 98.8 F 11/17/19 07:32 100 11/17/19 07:30 95 26 H 100 11/17/19 07:29 95 26 H 100 11/17/19 07:00 99.0 F Weight Admit Weight 307 lb Weight 296 lb 8 oz Most Recent Monitor Data Heart Rate from ECG 84 NIBP 95/52 NIBP BP-Mean 66 Respiration from ECG 28 SpO2 100 I&O: 11/16/19 11/17/19 11/18/19 06:59 06:59 06:59 Intake Total 1969 1930 Output Total 3325 920 Balance -1356 1010 Result Diagrams: 11/17/19 03:25 11/16/19 04:30 Hospitalist ROS - Medication Medications: Active Medications Generic Name Dose Route Start Last Admin Trade Name Kamq PRN Reason Stop Dose Admin Albuterol/Ipratropium 3 ml 11/11/19 13:00 11/17/19 13:03 Duoneb NEB 3 ml [id number] KELSEA Administration Lipase/Protease/Amylase 1 cap 11/08/19 19:21 11/08/19 19:50 Rachele Jiménez [id number] FS 1 cap .PER PROTOCOL PRN Administration TUBE OCCLUSION PROTOCOL Aspirin 81 mg 10/30/19 09:00 11/17/19 09:53 Aspirin Chewable PO 81 mg DAILY KELSEA Administration Budesonide 0.5 mg 10/29/19 18:30 11/17/19 07:30 Pulmicort Neb Solution INH 0.5 mg BID-RT KELSEA Administration Carvedilol 12.5 mg 11/10/19 17:00 11/17/19 15:49 Coreg PO Not Given BID-WM KELSEA Digoxin 0.125 mg 11/16/19 09:00 11/17/19 09:53 Lanoxin PO 0.125 mg DAILY KELSEA Administration Enoxaparin Sodium 40 mg 11/17/19 09:00 11/17/19 09:53 Lovenox SC 40 mg 0900,2100 KELSEA Administration Famotidine 20 mg 11/09/19 21:00 11/17/19 09:54 Pepcid PER TUBE 20 mg BID KELSEA Administration Hydralazine HCl 10 mg 10/29/19 16:12 11/09/19 22:22 Apresoline SLOW IVP 10 mg Q4H PRN Administration SBP Greater Than 180 Diltiazem HCl 125 mg/ Sodium 125 mls @ 4 mls/hr 11/10/19 09:21 11/14/19 06:29 Chloride IVPB 125 mls INF KELSEA Administration Protocol Dextrose/Water 1,000 mls @ 50 mls/hr 11/12/19 14:33 11/17/19 15:48 D5w IV 1,000 mls .Q20H KELSEA Administration Labetalol HCl 20 mg 11/11/19 15:45 11/11/19 15:47 Normodyne IVPB 20 mg Q30MIN PRN Administration SBP>180 Metoclopramide HCl 10 mg 11/07/19 10:00 11/17/19 09:54 Reglan IVP 10 mg 0200,1000,1800 KELSEA Administration Miscellaneous Medication 1 pkt 10/30/19 09:01 11/15/19 05:47 Phos-Nak PO 1 pkt TIDPRN PRN Administration FOR PHOS LEVEL 1.0 - 1.8 Montelukast Sodium 10 mg 10/30/19 21:00 11/16/19 20:31 Singulair PER TUBE 10 mg QPM KELSEA Administration Potassium Chloride 40 meq 10/30/19 09:01 11/04/19 05:43 Klor-Con PER TUBE 40 meq ASDIR PRN Administration FOR SERUM K+ 2.5-3.5 Potassium Chloride 20 meq 11/04/19 08:00 11/17/19 09:53 K-Dur PO 20 meq QAM-WM KELSEA Administration Saccharomyces Boulardii 250 mg 11/05/19 09:00 11/17/19 09:54 Florastor PER TUBE 250 mg DAILY KELSEA Administration Sodium Bicarbonate 650 mg 11/08/19 19:21 11/08/19 19:50 Bicarbonate, Sodium PER TUBE 650 mg .PER PROTOCOL PRN Administration ENTERAL TUBE OCCLUSION Sodium Chloride 10 ml 11/05/19 21:00 11/17/19 09:54 Flush - Normal Saline IVF 10 ml Q12HR KELSEA Administration Sodium Chloride 10 ml 11/05/19 10:38 11/17/19 02:56 Flush - Normal Saline IVF 10 ml PRN PRN Administration Saline Flush Sterile Water 1 ml 11/09/19 16:23 11/11/19 02:45 Bacteriostatic Water FS 1 ml PRN PRN Administration RECONSTITUTION - Exam General Appearance: NAD, awake alert Eye: PERRL, anicteric sclera ENT: normocephalic atraumatic, no oropharyngeal lesions Neck: supple, symmetric, no JVD, no thyromegaly Heart: RRR, no murmur, no gallops, no rubs Respiratory: CTAB, no wheezes, no rales, no ronchi Gastrointestinal: soft, non-tender, non-distended, normal bowel sounds Extremities: no cyanosis, no clubbing, no edema Hosp A/P - Plan Chest X ray 10/30: pulmonary vascular congestion with cardiomegaly Chest X ray 10/31: cardiomegaly and pulmonary congestoin Chest X ray 11/01: no significant effusion. Hazy infiltrate right mid lung Chest Xray 11/02: pulmonary edema Chest Xray 11/03: pulm congestion Chest x ray 11/11: cardiomegaly with bilateral vascular congestion. LLL pneumonia. ECHO 10/31: EF 60-65%, mild MR, mild to moderate TR, elevated RSVP at 45, mild pulmonic regurg This is a 74 year old female with past medical history of asthma, hypertension, LISA who presented to the ER with worsening shortness of breath, admitted for respiratory failure/asthma exacerbation #Acute hypoxic/hypercapneic respiratory failure from asthma exacerbation vs heart failure vs pneumonia - s/p trach placement #LISA - patient was intubated and due to prolonged intubation eventually underwent trach placement - she received IV lasix for pulmonary edema, then diamox IV bid from 11/04 to 11/11. Trop negative times three. ECHO shows EF 60-65%, mild to moderate TR, elevated RSVP - Chest X ray 11/11 showed LLL pneumonia. SHe received zosyn 10/31 to 11/10 - s/p IV steroids from 11/05 to 11/10 - continue pulmicort and mometasone/formeterol - awaiting on rehab placement, currently declined. Needs peer to peer evaluation #Malnutrition -started tube feeds #Atrial fibrillation/Atrial flutter - continue oral digoxin and coreg. Resume cardizem drip if reoccurs - ECHO shows EF 60-65, mild to moderate TR #Hypertension - IV hydralazine prn for SBP > 180 #GERD - continue IV famotidine Dispo: could probably transfer to telemetry Code status: full code
[2019-11-17] MEDS: Montelukast Sodium 10 mg Tablet PER TUBE SCH (20:19)
[2019-11-18] MEDS: Acetaminophen 325 MG TAB PO PRN ×2 (01:49→18:06)
[2019-11-18] MEDS: Metoclopramide HCl 10 MG/2 ML VIAL IVP SCH ×3 (01:49→17:55)
[2019-11-18 03:15] LABS: Hemoglobin 11.9 g/dL (12.0-16.0); Mean Corpuscular HGB CONC 31.9 g/dL (32.0-36.0); Mean Corpuscular Hemoglobin 32.4 pg (27.0-31.0); Mean Platelet Volume 8.3 fL (7.4-10.4); Platelet Count 110 thou/uL (130-400); RBC Distribution Width 11.8 % (11.5-14.5); Red Blood Cell (RBC) Count 3.68 mill/uL (4.20-5.40); White Blood Cell (WBC) Count 16.6 thou/uL (4.8-10.8)
[2019-11-18 03:37] LABS: ALT (SGPT) 26 U/L (8-55); AST (SGOT) 10 U/L (5-34); Albumin 2.2 g/dL (3.4-4.8); Alkaline Phosphatase 66 U/L (40-110); Anion Gap 9 mmol/L (10-20); BUN (Urea Nitrogen) 8 mg/dL (9.8-20.1); Bilirubin, Total 0.8 mg/dL (0.2-1.2); Calc. Creatinine Clearance 191 mL/min (70-130); Calcium 7.9 mg/dL (7.8-10.44); Carbon Dioxide 27 mmol/L (23-31); Chloride 99 mmol/L (98-107); Estimated GFR-MDRD Greater than 90; Globulin 2.9 g/dL (2.4-3.5); Glucose 148 mg/dL (83-110); Potassium 4.1 mmol/L (3.5-5.1); Protein, Total 5.1 g/dL (6.0-8.3); Sodium 131 mmol/L (136-145)
[2019-11-18] MEDS: Budesonide 0.5 MG/2 ML NEB INH SCH ×2 (07:57→19:42)
[2019-11-18] MEDS: Potassium Chloride 20 MEQ TAB PO SCH (09:31)
[2019-11-18] MEDS: Enoxaparin Sodium 40 MG/0.4 ML SYRINGE SC SCH ×2 (09:31→21:19)
[2019-11-18] MEDS: Saccharomyces boulardii 250 MG CAP PER TUBE SCH (09:31)
[2019-11-18] MEDS: Aspirin Chewable 81 MG TAB PO SCH (09:31)
[2019-11-18] MEDS: Carvedilol 6.25 MG TAB PO SCH ×2 (09:31→17:54)
[2019-11-18] MEDS: Famotidine 20 MG TAB PER TUBE SCH ×2 (09:32→21:19)
[2019-11-18] MEDS: Digoxin 0.125 MG TAB PO SCH (09:32)
--- NOTE | 2019-11-18 11:39 | PRG ---
DATE OF SERVICE: 11/18/2019 SUBJECTIVE: She is having difficulty with her secretions. They are being suctioned, though it appears to be relatively clear. OBJECTIVE: VITAL SIGNS: Pulse is 80, respirations 18, blood pressure 130/80, and she is afebrile. CHEST: Rhonchi. CARDIAC: Normal S1 and S2. No gallops. ABDOMEN: Soft. LABORATORY DATA: Shows white count of 16,000, H and H of 11 and 37, and platelet count is low. Otherwise, lytes are normal. IMPRESSION: 1. Respiratory failure. 2. Tracheostomy. 3. Severe deconditioning. 4. Morbid obesity. PLAN: Continue aggressive treatment, neb treatments, Pulmicort, Singulair. We will follow. Job ID: [id number]
--- NOTE | 2019-11-18 14:07 | PDOC.HOSPP ---
- Subjective Encounter Date: 11/18/19 Subjective: Doing ok, but has rash covering her body. Requesting some repositioning, but difficult to understand exactly what she is wanting right now. Asked nurse to assess. - Objective Vital Signs & Weight: Vital Signs (12 hours) Temp Pulse Pulse Pulse Resp BP BP 11/18/19 11:53 99.6 F 11/18/19 11:26 84 82 104/60 11/18/19 09:32 104 H 11/18/19 09:31 113/54 L 11/18/19 08:00 11/18/19 07:57 11/18/19 07:56 104 H 23 H 11/18/19 07:37 99.2 F 11/18/19 03:58 99.0 F BP Pulse Ox Pulse Ox Pulse Ox 11/18/19 11:53 11/18/19 11:26 96/51 L 95 94 L 11/18/19 09:32 11/18/19 09:31 11/18/19 08:00 98 11/18/19 07:57 95 11/18/19 07:56 94 L 11/18/19 07:37 11/18/19 03:58 Weight Admit Weight 307 lb Weight 298 lb 2 oz Most Recent Monitor Data Heart Rate from ECG 80 NIBP 102/47 NIBP BP-Mean 65 Respiration from ECG 33 SpO2 95 I&O: 11/17/19 11/18/19 11/19/19 06:59 06:59 06:59 Intake Total 1930 2951 297 Output Total 920 850 Balance 1010 2101 297 Result Diagrams: 11/18/19 03:03 11/18/19 03:03 Hospitalist ROS - Medication Medications: Active Medications Generic Name Dose Route Start Last Admin Trade Name Freq PRN Reason Stop Dose Admin Acetaminophen 650 mg 11/17/19 23:59 11/18/19 01:49 Tylenol PO 650 mg Q6H PRN Administration Headache/Fever/MILD Pain 1-3 Albuterol/Ipratropium 3 ml 11/11/19 13:00 11/18/19 07:56 Duoneb NEB 3 ml [id number] KESLEA Administration Lipase/Protease/Amylase 1 cap 11/08/19 19:21 11/08/19 19:50 Cremigel Jiménez [id number] FS 1 cap .PER PROTOCOL PRN Administration TUBE OCCLUSION PROTOCOL Aspirin 81 mg 10/30/19 09:00 11/18/19 09:31 Aspirin Chewable PO 81 mg DAILY KELSEA Administration Budesonide 0.5 mg 10/29/19 18:30 11/18/19 07:57 Pulmicort Neb Solution INH 0.5 mg BID-RT KELSEA Administration Carvedilol 12.5 mg 11/10/19 17:00 11/18/19 09:31 Coreg PO 12.5 mg BID-WM KELSEA Administration Digoxin 0.125 mg 11/16/19 09:00 11/18/19 09:32 Lanoxin PO 0.125 mg DAILY KELSEA Administration Enoxaparin Sodium 40 mg 11/17/19 09:00 11/18/19 09:31 Lovenox SC 40 mg 0900,2100 KELSEA Administration Famotidine 20 mg 11/09/19 21:00 11/18/19 09:32 Pepcid PER TUBE 20 mg BID KELSEA Administration Hydralazine HCl 10 mg 10/29/19 16:12 11/09/19 22:22 Apresoline SLOW IVP 10 mg Q4H PRN Administration SBP Greater Than 180 Dextrose/Water 1,000 mls @ 50 mls/hr 11/12/19 14:33 11/17/19 15:48 D5w IV 1,000 mls .Q20H KELSEA Administration Labetalol HCl 20 mg 11/11/19 15:45 11/11/19 15:47 Normodyne IVPB 20 mg Q30MIN PRN Administration SBP>180 Metoclopramide HCl 10 mg 11/07/19 10:00 11/18/19 09:32 Reglan IVP 10 mg 0200,1000,1800 KELSEA Administration Miscellaneous Medication 1 pkt 10/30/19 09:01 11/15/19 05:47 Phos-Nak PO 1 pkt TIDPRN PRN Administration FOR PHOS LEVEL 1.0 - 1.8 Montelukast Sodium 10 mg 10/30/19 21:00 11/17/19 20:19 Singulair PER TUBE 10 mg QPM KELSEA Administration Potassium Chloride 40 meq 10/30/19 09:01 11/04/19 05:43 Klor-Con PER TUBE 40 meq ASDIR PRN Administration FOR SERUM K+ 2.5-3.5 Potassium Chloride 20 meq 11/04/19 08:00 11/18/19 09:31 K-Dur PO 20 meq QAM-WM KELSEA Administration Saccharomyces Beckadii 250 mg 11/05/19 09:00 11/18/19 09:31 Florastor PER TUBE 250 mg DAILY KELSEA Administration Sodium Bicarbonate 650 mg 11/08/19 19:21 11/08/19 19:50 Bicarbonate, Sodium PER TUBE 650 mg .PER PROTOCOL PRN Administration ENTERAL TUBE OCCLUSION Sodium Chloride 10 ml 11/05/19 21:00 11/18/19 09:32 Flush - Normal Saline IVF 10 ml Q12HR KELSEA Administration Sodium Chloride 10 ml 11/05/19 10:38 11/17/19 02:56 Flush - Normal Saline IVF 10 ml PRN PRN Administration Saline Flush Sterile Water 1 ml 11/09/19 16:23 11/11/19 02:45 Bacteriostatic Water FS 1 ml PRN PRN Administration RECONSTITUTION - Exam General Appearance: NAD, awake alert General - other findings: Obese. Trach, rectal tube. Heart: RRR, no murmur, no gallops, no rubs, normal peripheral pulses Respiratory: CTAB, no wheezes, no ronchi, normal chest expansion, no tachypnea, normal percussion, rales (Upper airway rales.) Gastrointestinal: soft, non-tender, non-distended, normal bowel sounds, no palpable masses, no hepatomegaly, no splenomegaly, no bruit Extremities: no cyanosis, no clubbing, no edema Skin - other findings: Scattered erythematous patches. Musculoskeletal: generalized weakness Psychiatric: normal affect Hosp A/P (1) Acute and chronic respiratory failure Code(s): J96.20 - ACUTE AND CHR RESP FAILURE, UNSP W HYPOXIA OR HYPERCAPNIA Status: Acute Qualifiers: Respiratory failure complication: hypercapnia Qualified Code(s): J96.22 - Acute and chronic respiratory failure with hypercapnia (2) Asthma exacerbation Code(s): J45.901 - UNSPECIFIED ASTHMA WITH (ACUTE) EXACERBATION Status: Acute (3) Afib Code(s): I48.91 - UNSPECIFIED ATRIAL FIBRILLATION Status: Chronic Qualifiers: Atrial fibrillation type: paroxysmal Qualified Code(s): I48.0 - Paroxysmal atrial fibrillation (4) Chronic anemia Code(s): D64.9 - ANEMIA, UNSPECIFIED Status: Chronic (5) Hypertension Code(s): I10 - ESSENTIAL (PRIMARY) HYPERTENSION Status: Chronic Qualifiers: Hypertension type: essential hypertension Qualified Code(s): I10 - Essential (primary) hypertension (6) Morbid obesity with BMI of 50.0-59.9, adult Code(s): E66.01 - MORBID (SEVERE) OBESITY DUE TO EXCESS CALORIES; Z68.43 - BODY MASS INDEX (BMI) 50.0-59.9, ADULT Status: Chronic (7) Obesity hypoventilation syndrome Code(s): E66.2 - MORBID (SEVERE) OBESITY WITH ALVEOLAR HYPOVENTILATION Status : Suspected (8) Allergic reaction caused by a drug Code(s): T78.40XA - ALLERGY, UNSPECIFIED, INITIAL ENCOUNTER Status: Acute (9) Pneumonia Code(s): J18.9 - PNEUMONIA, UNSPECIFIED ORGANISM Status: Acute (10) GERD (gastroesophageal reflux disease) Code(s): K21.9 - GASTRO-ESOPHAGEAL REFLUX DISEASE WITHOUT ESOPHAGITIS Status: Acute (11) LISA (obstructive sleep apnea) Code(s): G47.33 - OBSTRUCTIVE SLEEP APNEA (ADULT) (PEDIATRIC) Status: Acute (12) Acute metabolic encephalopathy Code(s): G93.41 - METABOLIC ENCEPHALOPATHY Status: Acute - Plan Acute on chronic resp failure. Required trach. Very debilitated now. Declined by swing bed. Off abx. Start benadryl for the drug eruption. Lower dose anticoagulation due to concerns for bleeding around trach site. Will need to increase to full dose at DC or soon if not DC'd. Afib with occasional runs with tachycardia.
[2019-11-18] MEDS: Dextrose 5% in Water 1,000 ML IV SCH (16:34)
[2019-11-18] MEDS: Montelukast Sodium 10 mg Tablet PER TUBE SCH (21:19)
[2019-11-18] MEDS: diphenhydrAMINE 25 MG CAP PO PRN (21:19)
[2019-11-19] MEDS: Metoclopramide HCl 10 MG/2 ML VIAL IVP SCH ×3 (02:32→17:54)
[2019-11-19 05:33] LABS: Phosphorus 2.6 mg/dL (2.3-4.7)
[2019-11-19] MEDS: Budesonide 0.5 MG/2 ML NEB INH SCH ×2 (06:51→18:23)
[2019-11-19] MEDS: diphenhydrAMINE 25 MG CAP PO PRN ×2 (08:09→16:26)
[2019-11-19] MEDS: Famotidine 20 MG TAB PER TUBE SCH ×2 (08:10→20:06)
[2019-11-19] MEDS: Potassium Chloride 20 MEQ TAB PO SCH (08:10)
[2019-11-19] MEDS: Carvedilol 6.25 MG TAB PO SCH ×2 (08:10→16:26)
[2019-11-19] MEDS: Digoxin 0.125 MG TAB PO SCH (08:10)
[2019-11-19] MEDS: Aspirin Chewable 81 MG TAB PO SCH (08:10)
[2019-11-19] MEDS: Saccharomyces boulardii 250 MG CAP PER TUBE SCH (08:10)
[2019-11-19] MEDS: Enoxaparin Sodium 40 MG/0.4 ML SYRINGE SC SCH ×2 (08:11→20:06)
[2019-11-19] MEDS: Dextrose 5% in Water 1,000 ML IV SCH (08:12)
[2019-11-19 09:08] LABS: #Basophils 0.1 thou/uL (0.0-0.2); #Eosinphils 0.3 thou/uL (0.0-0.7); #Monocytes 0.7 thou/uL (0.11-0.59); #Neutrophils 11.9 thou/uL (1.40-6.50); %Basophils 0.5 % (0.0-1.0); %Eosinophils 1.9 % (0.0-10.0); %Lymphocytes 7.1 % (21.0-51.0); %Monocytes 5.1 % (0.0-10.0); %Neutrophils 85.4 % (42.0-75.0); Hemoglobin 12.5 g/dL (12.0-16.0); Mean Corpuscular HGB CONC 31.2 g/dL (32.0-36.0); Mean Corpuscular Hemoglobin 32.4 pg (27.0-31.0); Mean Platelet Volume 8.6 fL (7.4-10.4); Platelet Count 130 thou/uL (130-400); RBC Distribution Width 12.2 % (11.5-14.5); Red Blood Cell (RBC) Count 3.85 mill/uL (4.20-5.40)
[2019-11-19 09:29] LABS: Anion Gap 12 mmol/L (10-20); BUN (Urea Nitrogen) 7 mg/dL (9.8-20.1); Calc. Creatinine Clearance 205 mL/min (70-130); Carbon Dioxide 27 mmol/L (23-31); Chloride 95 mmol/L (98-107); Estimated GFR-MDRD Greater than 90; Glucose 106 mg/dL (83-110); Potassium 4.8 mmol/L (3.5-5.1); Sodium 129 mmol/L (136-145)
--- NOTE | 2019-11-19 10:16 | RAD ---
EXAM: XR Chest 1 View Portable PROVIDED CLINICAL HISTORY: Fever COMPARISON: 11/11/2019 FINDINGS: Cardiac silhouette remains enlarged. Tracheostomy appliance is again seen in similar position. Promin ence of the pulmonary vasculature and pulmonary interstitium. The left lower lung zone is not well evaluated on the basis of body habitus and cardiomegaly. No definite evidence for lobar consolidation , large effusion or pneumothorax. IMPRESSION: Cardiomegaly and prominence of the pulmonary vasculature.
[2019-11-19 13:03] LABS: Bacteria/HPF 4+ HPF (None Seen); Bilirubin Negative (Negative); Blood, Urine 3+ (Negative); Clarity Extra Turbid (Clear); Glucose, Urine (Dipstick) Normal (Negative); Leukocyte 500 Leu/uL (Negative); Nitrite Negative (Negative); Protein, Urine (Dipstick) 300 mg/dL (Neg-Trace); Squamous Epithelial Greater than 50 HPF (0-3); Transitional Epithelial 0-3 HPF (None Seen); Urobilinogen Normal mg/dL (Less than 2); WBC/HPF Greater than 50 HPF (0-3); Yeast-Budding 3+ HPF (None Seen)
--- NOTE | 2019-11-19 13:59 | PRG ---
DATE OF SERVICE: 11/19/2019 SUBJECTIVE: A 74-year-old female, trach in place. OBJECTIVE: VITAL SIGNS: Temperature 98, pulse 76, respirations 20, saturations 92 on a trach collar, and blood pressure 150/56. GENERAL: Remains encephalopathic. CHEST: Anterior rhonchi. CARDIAC: Normal S1 and S2. No gallops. ABDOMEN: Massive. LABORATORY DATA: White count 14,000. Lytes are normal. X-ray ordered shows a trach in place. I do not see any obvious infiltrates. ASSESSMENT AND PLAN: Morbid obesity, trach, LISA, atrial fibrillation, severe deconditioning, and encephalopathy. At this stage, continue supportive care and neb treatments. Eventually placement. Job ID: [id number]
[2019-11-19] MEDS ORDERED: cefTRIAXone\\ROCEPHIN 1 GM in Sodium Chloride 0.9% 100 ML IVPB SCH (14:00)
[2019-11-19] MEDS ORDERED: Furosemide 20 MG/2 ML VIAL SLOW IVP SCH (14:15)
--- NOTE | 2019-11-19 14:18 | PDOC.HOSPP ---
- Subjective Encounter Date: 11/19/19 Encounter Time: 14:16 Subjective: No problems voiced. Does not verbalize much. - Objective Vital Signs & Weight: Vital Signs (12 hours) Temp Pulse Resp BP Pulse Ox 11/19/19 12:30 76 20 11/19/19 12:00 98.7 F 84 19 115/56 L 92 L 11/19/19 08:10 72 11/19/19 08:00 92 L 11/19/19 06:51 72 20 11/19/19 03:50 99.3 F 89 18 130/62 97 Weight Admit Weight 307 lb Weight 296 lb 3.2 oz Most Recent Monitor Data Heart Rate from ECG 92 NIBP 121/88 NIBP BP-Mean 99 Respiration from ECG 34 SpO2 95 I&O: 11/18/19 11/19/19 11/20/19 06:59 06:59 06:59 Intake Total 2951 2822 594 Output Total 850 600 Balance 2101 2222 594 Result Diagrams: 11/19/19 08:56 11/19/19 08:56 Hospitalist ROS - Medication Medications: Active Medications Generic Name Dose Route Start Last Admin Trade Name Freq PRN Reason Stop Dose Admin Acetaminophen 650 mg 11/17/19 23:59 11/18/19 18:06 Tylenol PO 650 mg Q6H PRN Administration Headache/Fever/MILD Pain 1-3 Albuterol/Ipratropium 3 ml 11/11/19 13:00 11/19/19 12:30 Duoneb NEB 3 ml [id number] KELSEA Administration Lipase/Protease/Amylase 1 cap 11/08/19 19:21 11/08/19 19:50 Rachele Jiménez [id number] FS 1 cap .PER PROTOCOL PRN Administration TUBE OCCLUSION PROTOCOL Aspirin 81 mg 10/30/19 09:00 11/19/19 08:10 Aspirin Chewable PO 81 mg DAILY KELSEA Administration Budesonide 0.5 mg 10/29/19 18:30 11/19/19 06:51 Pulmicort Neb Solution INH 0.5 mg BID-RT KELSEA Administration Carvedilol 12.5 mg 11/10/19 17:00 11/19/19 08:10 Coreg PO 12.5 mg BID-WM KELSEA Administration Digoxin 0.125 mg 11/16/19 09:00 11/19/19 08:10 Lanoxin PO 0.125 mg DAILY KELSEA Administration Diphenhydramine HCl 25 mg 11/18/19 14:12 11/19/19 08:09 Benadryl PO 25 mg Q6H PRN Administration Itching & Insomnia Enoxaparin Sodium 40 mg 11/17/19 09:00 11/19/19 08:11 Lovenox SC 40 mg 0900,2100 KELSEA Administration Famotidine 20 mg 11/09/19 21:00 11/19/19 08:10 Pepcid PER TUBE 20 mg BID KELSEA Administration Hydralazine HCl 10 mg 10/29/19 16:12 11/09/19 22:22 Apresoline SLOW IVP 10 mg Q4H PRN Administration SBP Greater Than 180 Dextrose/Water 1,000 mls @ 50 mls/hr 11/12/19 14:33 11/19/19 08:12 D5w IV 1,000 mls .Q20H KELSEA Administration Labetalol HCl 20 mg 11/11/19 15:45 11/11/19 15:47 Normodyne IVPB 20 mg Q30MIN PRN Administration SBP>180 Metoclopramide HCl 10 mg 11/07/19 10:00 11/19/19 09:34 Reglan IVP 10 mg 0200,1000,1800 KELSEA Administration Miscellaneous Medication 1 pkt 10/30/19 09:01 11/15/19 05:47 Phos-Nak PO 1 pkt TIDPRN PRN Administration FOR PHOS LEVEL 1.0 - 1.8 Montelukast Sodium 10 mg 10/30/19 21:00 11/18/19 21:19 Singulair PER TUBE 10 mg QPM KELSEA Administration Potassium Chloride 40 meq 10/30/19 09:01 11/04/19 05:43 Klor-Con PER TUBE 40 meq ASDIR PRN Administration FOR SERUM K+ 2.5-3.5 Potassium Chloride 20 meq 11/04/19 08:00 11/19/19 08:10 K-Dur PO 20 meq QAM-WM KELSEA Administration Saccharomyces Boulardii 250 mg 11/05/19 09:00 11/19/19 08:10 Florastor PER TUBE 250 mg DAILY KELSEA Administration Sodium Bicarbonate 650 mg 11/08/19 19:21 11/08/19 19:50 Bicarbonate, Sodium PER TUBE 650 mg .PER PROTOCOL PRN Administration ENTERAL TUBE OCCLUSION Sodium Chloride 10 ml 11/05/19 21:00 11/19/19 08:11 Flush - Normal Saline IVF Not Given Q12HR KELSEA Sodium Chloride 10 ml 11/05/19 10:38 11/17/19 02:56 Flush - Normal Saline IVF 10 ml PRN PRN Administration Saline Flush Sterile Water 1 ml 11/09/19 16:23 11/11/19 02:45 Bacteriostatic Water FS 1 ml PRN PRN Administration RECONSTITUTION - Exam General Appearance: NAD, awake alert Neck - other findings: Trach Heart: RRR, no murmur, no gallops, no rubs, normal peripheral pulses Respiratory: CTAB, no wheezes, no rales, no ronchi, normal chest expansion, no tachypnea, normal percussion Gastrointestinal: soft, non-tender, non-distended, normal bowel sounds, no palpable masses, no hepatomegaly, no splenomegaly, no bruit Gastrointestinal - other findings: PEG Extremities: no cyanosis, no clubbing, no edema Psychiatric: somnolent Hosp A/P (1) Acute and chronic respiratory failure Code(s): J96.20 - ACUTE AND CHR RESP FAILURE, UNSP W HYPOXIA OR HYPERCAPNIA Status: Acute Qualifiers: Respiratory failure complication: hypercapnia Qualified Code(s): J96.22 - Acute and chronic respiratory failure with hypercapnia (2) Asthma exacerbation Code(s): J45.901 - UNSPECIFIED ASTHMA WITH (ACUTE) EXACERBATION Status: Acute (3) Afib Code(s): I48.91 - UNSPECIFIED ATRIAL FIBRILLATION Status: Chronic Qualifiers: Atrial fibrillation type: paroxysmal Qualified Code(s): I48.0 - Paroxysmal atrial fibrillation (4) Chronic anemia Code(s): D64.9 - ANEMIA, UNSPECIFIED Status: Chronic (5) Hypertension Code(s): I10 - ESSENTIAL (PRIMARY) HYPERTENSION Status: Chronic Qualifiers: Hypertension type: essential hypertension Qualified Code(s): I10 - Essential (primary) hypertension (6) Morbid obesity with BMI of 50.0-59.9, adult Code(s): E66.01 - MORBID (SEVERE) OBESITY DUE TO EXCESS CALORIES; Z68.43 - BODY MASS INDEX (BMI) 50.0-59.9, ADULT Status: Chronic (7) Obesity hypoventilation syndrome Code(s): E66.2 - MORBID (SEVERE) OBESITY WITH ALVEOLAR HYPOVENTILATION Status : Suspected (8) Allergic reaction caused by a drug Code(s): T78.40XA - ALLERGY, UNSPECIFIED, INITIAL ENCOUNTER Status: Acute (9) Pneumonia Code(s): J18.9 - PNEUMONIA, UNSPECIFIED ORGANISM Status: Acute (10) GERD (gastroesophageal reflux disease) Code(s): K21.9 - GASTRO-ESOPHAGEAL REFLUX DISEASE WITHOUT ESOPHAGITIS Status: Acute (11) LISA (obstructive sleep apnea) Code(s): G47.33 - OBSTRUCTIVE SLEEP APNEA (ADULT) (PEDIATRIC) Status: Acute (12) Acute metabolic encephalopathy Code(s): G93.41 - METABOLIC ENCEPHALOPATHY Status: Acute (13) UTI (urinary tract infection) Status: Acute (14) Diastolic CHF, acute on chronic Code(s): I50.33 - ACUTE ON CHRONIC DIASTOLIC (CONGESTIVE) HEART FAILURE Status : Acute - Plan Acute on chronic resp failure. Required trach. Very debilitated now. Declined by swing bed. Off abx. Start benadryl for the drug eruption. Suspect Ancef as the culprit. Lower dose anticoagulation due to concerns for bleeding around trach site. Will need to increase to full dose at DC or soon if not DC'd. Afib with occasional runs with tachycardia. Febrile. CXR with some pulm edema, no infiltrated. UA consistent with UTI. Started Levaquin. Has skin breakdown on the buttocks. Loose stools from the PEG feeds. Rectal tube to protect the skin of the buttock. Small dose of Lasix for diastolic failure. Purewick.
[2019-11-19] MEDS: Montelukast Sodium 10 mg Tablet PER TUBE SCH (20:06)
[2019-11-20] MEDS: Metoclopramide HCl 10 MG/2 ML VIAL IVP SCH ×3 (01:56→17:14)
[2019-11-20] MEDS: Dextrose 5% in Water 1,000 ML IV SCH ×2 (02:46→21:04)
[2019-11-20 05:18] LABS: Anion Gap 13 mmol/L (10-20); BUN (Urea Nitrogen) 8 mg/dL (9.8-20.1); Calc. Creatinine Clearance 189 mL/min (70-130); Calcium 8.2 mg/dL (7.8-10.44); Carbon Dioxide 28 mmol/L (23-31); Chloride 92 mmol/L (98-107); Estimated GFR-MDRD Greater than 90; Glucose 95 mg/dL (83-110); Phosphorus 2.2 mg/dL (2.3-4.7); Potassium 4.6 mmol/L (3.5-5.1); Sodium 128 mmol/L (136-145)
[2019-11-20 05:20] LABS: Band 18 % (5-11); Eosinophils 3 % (0-10); Hemoglobin 11.4 g/dL (12.0-16.0); Hypochromia SLIGHT = 6-15 cells (100X) (0-5/hpf); Lymphocytes 11 % (21-51); MDiff Complete? YES; Macrocytosis SLIGHT = 6-15 cells (100X) (0-5/hpf); Mean Corpuscular HGB CONC 31.5 g/dL (32.0-36.0); Mean Corpuscular Hemoglobin 32.2 pg (27.0-31.0); Mean Platelet Volume 8.7 fL (7.4-10.4); Monocytes 5 % (0-10); Neutrophil 63 % (42-75); Platelet Count 147 thou/uL (130-400); Platelet Morphology Comment Appears Adequate; RBC Distribution Width 12.1 % (11.5-14.5); Red Blood Cell (RBC) Count 3.55 mill/uL (4.20-5.40); White Blood Cell (WBC) Count 11.3 thou/uL (4.8-10.8)
[2019-11-20] MEDS: Budesonide 0.5 MG/2 ML NEB INH SCH ×2 (06:55→18:39)
[2019-11-20] MEDS: Enoxaparin Sodium 40 MG/0.4 ML SYRINGE SC SCH (09:20)
[2019-11-20] MEDS: Saccharomyces boulardii 250 MG CAP PER TUBE SCH (09:21)
[2019-11-20] MEDS: Aspirin Chewable 81 MG TAB PO SCH (09:21)
[2019-11-20] MEDS: Digoxin 0.125 MG TAB PO SCH (09:21)
[2019-11-20] MEDS: Potassium Chloride 20 MEQ TAB PO SCH (09:21)
[2019-11-20] MEDS: Carvedilol 6.25 MG TAB PO SCH ×2 (09:21→17:14)
[2019-11-20] MEDS: Famotidine 20 MG TAB PER TUBE SCH ×2 (09:21→20:59)
--- NOTE | 2019-11-20 09:58 | PRG ---
DATE OF SERVICE: 11/20/2019 SUBJECTIVE: Ms. Ford is alert and awake. OBJECTIVE: VITAL SIGNS: Her blood pressure 116/55, pulse 80, temperature is recorded as 101.6. LUNGS: Clear. CARDIAC: Normal S1, normal S2. ABDOMEN: Obese, nontender. EXTREMITIES: There is no edema. ASSESSMENT: 1. Paroxysmal atrial fibrillation and flutter. 2. Respiratory failure, improved. 3. Fever. 4. Previously had blood tinged sputum, but that is resolved now. PLAN: 1. Increase enoxaparin. 2. If she tolerates this well, change to Eliquis tomorrow. 3. Until we see a clear indication for aspirin, we change her over to Eliquis, we will stop the aspirin. Job ID: [id number]
--- NOTE | 2019-11-20 17:07 | PDOC.HOSPP ---
- Subjective Encounter Date: 11/20/19 Subjective: Doing ok. Says her rash does not itch. Denies needs and reports she is comfortable. - Objective Vital Signs & Weight: Vital Signs (12 hours) Temp Pulse Pulse Pulse Resp BP BP 11/20/19 12:00 98.7 F 75 18 11/20/19 11:26 79 79 108/52 L 108/57 L 11/20/19 09:15 98.5 F 79 19 11/20/19 08:00 11/20/19 06:55 80 16 BP Pulse Ox 11/20/19 12:00 108/52 L 98 11/20/19 11:26 11/20/19 09:15 122/58 L 97 11/20/19 08:00 98 11/20/19 06:55 Weight Admit Weight 307 lb Weight 300 lb Most Recent Monitor Data Heart Rate from ECG 92 NIBP 121/88 NIBP BP-Mean 99 Respiration from ECG 34 SpO2 95 I&O: 11/19/19 11/20/19 11/21/19 06:59 06:59 06:59 Intake Total 2822 3744 540 Output Total 600 1500 Balance 2222 2244 540 Result Diagrams: 11/20/19 04:32 11/20/19 04:32 Hospitalist ROS - Medication Medications: Active Medications Generic Name Dose Route Start Last Admin Trade Name Freq PRN Reason Stop Dose Admin Acetaminophen 650 mg 11/17/19 23:59 11/18/19 18:06 Tylenol PO 650 mg Q6H PRN Administration Headache/Fever/MILD Pain 1-3 Albuterol/Ipratropium 3 ml 11/11/19 13:00 11/20/19 13:15 Duoneb NEB 3 ml [id number] KELSEA Administration Lipase/Protease/Amylase 1 cap 11/08/19 19:21 11/08/19 19:50 Rachele Jiménez [id number] FS 1 cap .PER PROTOCOL PRN Administration TUBE OCCLUSION PROTOCOL Aspirin 81 mg 10/30/19 09:00 11/20/19 09:21 Aspirin Chewable PO 81 mg DAILY KELSEA Administration Budesonide 0.5 mg 10/29/19 18:30 11/20/19 06:55 Pulmicort Neb Solution INH 0.5 mg BID-RT KELSEA Administration Carvedilol 12.5 mg 11/10/19 17:00 02/10/20 09:21 Coreg PO 12.5 mg BID-WM KELSEA Administration Digoxin 0.125 mg 11/16/19 09:00 11/20/19 09:21 Lanoxin PO 0.125 mg DAILY KELSEA Administration Diphenhydramine HCl 25 mg 11/18/19 14:12 11/19/19 16:26 Benadryl PO 25 mg Q6H PRN Administration Itching & Insomnia Famotidine 20 mg 11/09/19 21:00 11/20/19 09:21 Pepcid PER TUBE 20 mg BID KELSEA Administration Hydralazine HCl 10 mg 10/29/19 16:12 11/09/19 22:22 Apresoline SLOW IVP 10 mg Q4H PRN Administration SBP Greater Than 180 Dextrose/Water 1,000 mls @ 50 mls/hr 11/12/19 14:33 11/20/19 02:46 D5w IV 1,000 mls .Q20H KELSEA Administration Levofloxacin 500 mg/ Device 100 mls @ 100 mls/hr 11/19/19 15:00 11/20/19 15: 09 IVPB 100 mls 1500 KELSEA Administration Labetalol HCl 20 mg 11/11/19 15:45 11/11/19 15:47 Normodyne IVPB 20 mg Q30MIN PRN Administration SBP>180 Metoclopramide HCl 10 mg 11/07/19 10:00 11/20/19 11:56 Reglan IVP 10 mg 0200,1000,1800 KELSEA Administration Montelukast Sodium 10 mg 10/30/19 21:00 11/19/19 20:06 Singulair PER TUBE 10 mg QPM KELSEA Administration Potassium Chloride 20 meq 11/04/19 08:00 11/20/19 09:21 K-Dur PO 20 meq QAM-WM KELSEA Administration Saccharomyces Boulardii 250 mg 11/05/19 09:00 11/20/19 09:21 Florastor PER TUBE 250 mg DAILY KELSEA Administration Sodium Bicarbonate 650 mg 11/08/19 19:21 11/08/19 19:50 Bicarbonate, Sodium PER TUBE 650 mg .PER PROTOCOL PRN Administration ENTERAL TUBE OCCLUSION Sodium Chloride 10 ml 11/05/19 21:00 11/20/19 09:22 Flush - Normal Saline IVF Not Given Q12HR KELSEA Sodium Chloride 10 ml 11/05/19 10:38 02/07/20 02:56 Flush - Normal Saline IVF 10 ml PRN PRN Administration Saline Flush Sterile Water 1 ml 11/09/19 16:23 11/11/19 02:45 Bacteriostatic Water FS 1 ml PRN PRN Administration RECONSTITUTION - Exam General Appearance: NAD, awake alert General - other findings: Morbidly obese. Neck - other findings: Trach. Heart: RRR, no murmur, no gallops, no rubs, normal peripheral pulses Respiratory: CTAB, no wheezes, no rales, no ronchi, normal chest expansion, no tachypnea, normal percussion Gastrointestinal: soft, non-tender, non-distended, normal bowel sounds, no palpable masses, no hepatomegaly, no splenomegaly, no bruit Gastrointestinal - other findings: PEG Extremities: no cyanosis, no clubbing, no edema Skin: normal turgor Skin - other findings: Diffuse raised macules over entire trunk. Skin breakdown of buttocks. Musculoskeletal: normal tone Psychiatric: normal affect, normal behavior, A&O x 3 Hosp A/P (1) Acute and chronic respiratory failure Code(s): J96.20 - ACUTE AND CHR RESP FAILURE, UNSP W HYPOXIA OR HYPERCAPNIA Status: Acute Qualifiers: Respiratory failure complication: hypercapnia Qualified Code(s): J96.22 - Acute and chronic respiratory failure with hypercapnia (2) Asthma exacerbation Code(s): J45.901 - UNSPECIFIED ASTHMA WITH (ACUTE) EXACERBATION Status: Acute (3) Afib Code(s): I48.91 - UNSPECIFIED ATRIAL FIBRILLATION Status: Chronic Qualifiers: Atrial fibrillation type: paroxysmal Qualified Code(s): I48.0 - Paroxysmal atrial fibrillation (4) Chronic anemia Code(s): D64.9 - ANEMIA, UNSPECIFIED Status: Chronic (5) Hypertension Code(s): I10 - ESSENTIAL (PRIMARY) HYPERTENSION Status: Chronic Qualifiers: Hypertension type: essential hypertension Qualified Code(s): I10 - Essential (primary) hypertension (6) Morbid obesity with BMI of 50.0-59.9, adult Code(s): E66.01 - MORBID (SEVERE) OBESITY DUE TO EXCESS CALORIES; Z68.43 - BODY MASS INDEX (BMI) 50.0-59.9, ADULT Status: Chronic (7) Obesity hypoventilation syndrome Code(s): E66.2 - MORBID (SEVERE) OBESITY WITH ALVEOLAR HYPOVENTILATION Status : Suspected (8) Allergic reaction caused by a drug Code(s): T78.40XA - ALLERGY, UNSPECIFIED, INITIAL ENCOUNTER Status: Acute (9) Pneumonia Code(s): J18.9 - PNEUMONIA, UNSPECIFIED ORGANISM Status: Acute (10) GERD (gastroesophageal reflux disease) Code(s): K21.9 - GASTRO-ESOPHAGEAL REFLUX DISEASE WITHOUT ESOPHAGITIS Status: Acute (11) LISA (obstructive sleep apnea) Code(s): G47.33 - OBSTRUCTIVE SLEEP APNEA (ADULT) (PEDIATRIC) Status: Acute (12) Acute metabolic encephalopathy Code(s): G93.41 - METABOLIC ENCEPHALOPATHY Status: Acute (13) UTI (urinary tract infection) Status: Acute (14) Diastolic CHF, acute on chronic Code(s): I50.33 - ACUTE ON CHRONIC DIASTOLIC (CONGESTIVE) HEART FAILURE Status : Acute - Plan Acute on chronic resp failure. Required trach. Very debilitated now. Declined by swing bed. Off abx. Start benadryl for the drug eruption. Suspect Ancef as the culprit. Lower dose anticoagulation due to concerns for bleeding around trach site. Lovenox increased to full dose today. May switch to eliquis if tolerates. Afib with occasional runs with tachycardia. Febrile. CXR with some pulm edema, no infiltrated. UA consistent with UTI. Started Levaquin. May just be from the drug eruption. Has skin breakdown on the buttocks. Loose stools from the PEG feeds. Rectal tube to protect the skin of the buttock. Small dose of Lasix for diastolic failure. Purewick. Dias if necessary to protect buttocks. Denied by [facility] for LTACH.
--- NOTE | 2019-11-20 18:12 | CON ---
DATE OF CONSULTATION: 11/20/2019 REASON FOR CONSULTATION: Fever. HISTORY OF PRESENT ILLNESS: A 74-year-old patient admitted on October 29, with a history of hypertension, obesity hypoventilation syndrome/COPD, who presented to the emergency room with worsening dyspnea, inability to ambulate because of this symptom, some orthopnea and leg swelling. On arrival to the emergency room, her BP was 200/112, temperature 99.4, O2 saturations were 90%. She had respiratory acidosis with a pCO2 of 68, and she was placed on BiPAP and given a broad-spectrum antimicrobial coverage, initial imaging study demonstrated cardiomegaly and findings consistent with congestive heart failure. Pulmonary consultation was obtained the following day and the impression was acute on chronic respiratory failure, requiring noninvasive mechanical ventilation, obesity. The patient was continued on steroids, antimicrobials, diuresis, bronchodilator, and noninvasive ventilation. She failed the conservative approach and had to be intubated. The cultures were not remarkable and the followup chest x-rays demonstrated just evidence of congestion and cardiomegaly. The patient's BNP was 114, and creatinine 0.55. She had a tracheostomy tube placed and a percutaneous endoscopic gastrostomy tube as well. In terms of medications, she has received inhalers, Creon, aspirin, Pulmicort, Lanoxin, Coreg, Lovenox, Pepcid, Diflucan, Normodyne, Reglan, Singulair. She has developed this diffuse erythroderma throughout the body skin with some exfoliation for the past few days associated with temperature elevation. The medication list in addition to the ones referred to above included azithromycin, methylprednisolone, she received a few doses of cephalosporin with Rocephin and cefazolin, but those have been discontinued quite a while ago. Currently, Ms. Ford is awake. She understands the questions, but has a hard time in replying verbally. She has monosyllabic replies. I could not really understand her answers. She did follow commands with some difficulty. She has a rectal tube and the Dias catheter has been removed. She is incontinent now with a Wick catheter. PAST MEDICAL HISTORY: Obesity hypoventilation syndrome, hypertension, COPD, reportedly had a heart valve replacement, it is not clear which one. She has had D and C. SOCIAL HISTORY: Never smoker, no other drug use. FAMILY HISTORY: Noncontributory. ALLERGIES: LISINOPRIL, PENICILLIN WITH A RASH, TYLENOL. CURRENT MEDICATIONS: 1. DuoNeb. 2. Creon. 3. Aspirin. 4. Pulmicort. 5. Coreg. 6. Lanoxin. 7. Benadryl. 8. Lovenox. 9. Pepcid. 10. Diflucan. 11. Apresoline. 12. Normodyne. 13. Levofloxacin. 14. Reglan. 15. Singulair. 16. Florastor. PHYSICAL EXAMINATION: VITAL SIGNS: She has had intermittent temperature elevation since the . The most recent temperature elevation was 101.6 earlier today. Peripheral IV access and no Dias catheter. No lymphadenopathy patient has diffuse erythroderma with exfoliation encompassing pretty much the entire body skin. HEENT: Ocular movements are conjugate, sclerae appears normal. Conjunctivae normal. Oral cavity with no evidence of inflammatory process or ulceration. NECK: Supple. No jugular vein distention or carotid bruits. LUNGS: Symmetric. Clear breath sounds. HEART: S1 and S2, regular rate. No S3 or S4. ABDOMEN: Soft, not distended or tender. No ascites. No bladder distention. EXTREMITIES: No joint inflammatory activity. She is able to move extremities, is diffusely weak. LABORATORY DATA: White cell count is 11.3, hemoglobin 11.4, platelets 147 with 18% bands, creatinine 0.56, sodium 128. Liver profile normal from 2 days ago. Albumin 2.2. Last blood gas with pH 7.4, pCO2 of 44, PO2 of 76. ASSESSMENT: 1. Obesity hypoventilation syndrome. 2. Dyspnea, admission with respiratory failure with hypercapnic/hypoxic insufficiency. 3. Diffuse erythroderma with exfoliation, but no evidence of oral mucosal involvement at this point in time or ocular involvement. 4. Fever. 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 Other possibilities would include respiratory, intraabdominal compartment or urinary tract infection but that appears to be less likely. She has a midline catheter, so I do not think there is evidence to suggest of IV access infection. We will discontinue levofloxacin and other drugs that might be considered include any of the active medications that she is receiving at this time, Normodyne, Apresoline, Diflucan, and Pepcid can be associated with hypersensitivity reactions. The antimicrobials that were administered seem to have been discontinued quite a while ago except for levofloxacin. I do not think she needs any more antimicrobial therapy at this point in time. If there is progression of the exfoliation with development of mucosal involvement, then more severe manifestation of TEN might be developing. Corticosteroids have not been proven to be effective in ameliorating this sort of a reaction except in the case of Dress syndrome but she does not have liver function abnormalities. Job ID: [id number]
--- NOTE | 2019-11-20 20:11 | PRG ---
DATE OF SERVICE: 11/20/2019 SUBJECTIVE: Wil Ford has no complaints. Probably one day this week, we will change our tracheostomy tube to a fenestrated trach. OBJECTIVE: VITAL SIGNS: She is afebrile. Heart rates in the 70s, respiratory rate 16, oximetry is 95% to 100%, blood pressure 108/52. LUNGS: Clear. HEART: Regular rhythm. ABDOMEN: Soft. EXTREMITIES: Without asymmetry. Dr. Dunn was consulted for fever. There is no evidence that she is bacteremic so far. 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 I appreciate Dr. Dunn' input. Antibiotics have been discontinued. Job ID: [id number]
[2019-11-20] MEDS: Enoxaparin Sodium 100 MG/ML SYRINGE SC SCH (20:59)
[2019-11-20] MEDS: Montelukast Sodium 10 mg Tablet PER TUBE SCH (21:00)
[2019-11-21] MEDS: Metoclopramide HCl 10 MG/2 ML VIAL IVP SCH ×3 (00:19→17:45)
[2019-11-21 05:48] LABS: Phosphorus 3.4 mg/dL (2.3-4.7)
[2019-11-21] MEDS: Budesonide 0.5 MG/2 ML NEB INH SCH ×2 (07:37→18:36)
[2019-11-21] MEDS: Digoxin 0.125 MG TAB PO SCH (08:59)
[2019-11-21] MEDS: Carvedilol 6.25 MG TAB PO SCH ×2 (08:59→16:24)
[2019-11-21] MEDS: Potassium Chloride 20 MEQ TAB PO SCH (08:59)
[2019-11-21] MEDS: Aspirin Chewable 81 MG TAB PO SCH (08:59)
[2019-11-21] MEDS: Saccharomyces boulardii 250 MG CAP PER TUBE SCH (09:00)
[2019-11-21] MEDS: Famotidine 20 MG TAB PER TUBE SCH ×2 (09:00→20:09)
[2019-11-21] MEDS: Fluconazole 100 MG TAB PER TUBE SCH (09:00)
[2019-11-21] MEDS: Enoxaparin Sodium 100 MG/ML SYRINGE SC SCH ×2 (09:00→20:11)
--- NOTE | 2019-11-21 09:38 | PDOC.HOSPP ---
- Subjective Encounter Date: 11/21/19 Subjective: Nonverbal, but communicates. Denies problems. Indicates the dermatitis does not itch or hurt. - Objective Vital Signs & Weight: Vital Signs (12 hours) Temp Pulse Resp BP Pulse Ox 11/21/19 07:37 74 16 100 11/21/19 07:36 74 16 100 11/21/19 07:28 98.1 F 84 17 110/56 L 95 11/21/19 04:00 98.6 F 79 20 120/56 L 93 L 11/20/19 23:07 80 16 100 Weight Admit Weight 307 lb Weight 296 lb 3.2 oz Most Recent Monitor Data Heart Rate from ECG 92 NIBP 121/88 NIBP BP-Mean 99 Respiration from ECG 34 SpO2 95 I&O: 11/20/19 11/21/19 11/22/19 06:59 06:59 06:59 Intake Total 3744 3531 Output Total 1500 2200 Balance 2244 1331 Result Diagrams: 11/20/19 04:32 11/20/19 04:32 Hospitalist ROS - Medication Medications: Active Medications Generic Name Dose Route Start Last Admin Trade Name Freq PRN Reason Stop Dose Admin Acetaminophen 650 mg 11/17/19 23:59 11/18/19 18:06 Tylenol PO 650 mg Q6H PRN Administration Headache/Fever/MILD Pain 1-3 Albuterol/Ipratropium 3 ml 11/11/19 13:00 11/21/19 07:36 Duoneb NEB 3 ml [id number] KELSEA Administration Lipase/Protease/Amylase 1 cap 11/08/19 19:21 11/08/19 19:50 Rachele Jiménez [id number] FS 1 cap .PER PROTOCOL PRN Administration TUBE OCCLUSION PROTOCOL Aspirin 81 mg 10/30/19 09:00 11/21/19 08:59 Aspirin Chewable PO 81 mg DAILY KELSEA Administration Budesonide 0.5 mg 10/29/19 18:30 11/21/19 07:37 Pulmicort Neb Solution INH 0.5 mg BID-RT KELSEA Administration Carvedilol 12.5 mg 11/10/19 17:00 11/21/19 08:59 Coreg PO 12.5 mg BID-WM KELSEA Administration Digoxin 0.125 mg 11/16/19 09:00 11/21/19 08:59 Lanoxin PO 0.125 mg DAILY KELSEA Administration Diphenhydramine HCl 25 mg 11/18/19 14:12 11/19/19 16:26 Benadryl PO 25 mg Q6H PRN Administration Itching & Insomnia Enoxaparin Sodium 100 mg 11/20/19 21:00 11/21/19 09:00 Lovenox SC 100 mg 0900,2100 KELSEA Administration Famotidine 20 mg 11/09/19 21:00 11/21/19 09:00 Pepcid PER TUBE 20 mg BID KELSEA Administration Fluconazole 100 mg 11/21/19 09:00 11/21/19 09:00 Diflucan PER TUBE 100 mg DAILY KELSEA Administration Hydralazine HCl 10 mg 10/29/19 16:12 11/09/19 22:22 Apresoline SLOW IVP 10 mg Q4H PRN Administration SBP Greater Than 180 Labetalol HCl 20 mg 11/11/19 15:45 11/11/19 15:47 Normodyne IVPB 20 mg Q30MIN PRN Administration SBP>180 Metoclopramide HCl 10 mg 11/07/19 10:00 11/21/19 09:04 Reglan IVP 10 mg 0200,1000,1800 KELSEA Administration Montelukast Sodium 10 mg 10/30/19 21:00 11/20/19 21:00 Singulair PER TUBE 10 mg QPM KELSEA Administration Potassium Chloride 20 meq 11/04/19 08:00 11/21/19 08:59 K-Dur PO 20 meq QAM-WM KELSEA Administration Saccharomyces Boulardii 250 mg 11/05/19 09:00 11/21/19 09:00 Florastor PER TUBE 250 mg DAILY KELSEA Administration Sodium Bicarbonate 650 mg 11/08/19 19:21 11/08/19 19:50 Bicarbonate, Sodium PER TUBE 650 mg .PER PROTOCOL PRN Administration ENTERAL TUBE OCCLUSION Sodium Chloride 10 ml 11/05/19 21:00 11/21/19 09:01 Flush - Normal Saline IVF 10 ml Q12HR KELSEA Administration Sodium Chloride 10 ml 11/05/19 10:38 11/17/19 02:56 Flush - Normal Saline IVF 10 ml PRN PRN Administration Saline Flush Sterile Water 1 ml 11/09/19 16:23 11/11/19 02:45 Bacteriostatic Water FS 1 ml PRN PRN Administration RECONSTITUTION - Exam General Appearance: NAD, awake alert General - other findings: Morbidly obese. Neck - other findings: Trach collar. Heart: no murmur, no gallops, irregular Respiratory: CTAB, no wheezes, no rales, no ronchi, normal chest expansion, no tachypnea, normal percussion Respiratory - other findings: Upper [place]way rales. Gastrointestinal: soft, non-tender, non-distended, normal bowel sounds, no palpable masses, no hepatomegaly, no splenomegaly, no bruit Gastrointestinal - other findings: PEG site looks health. Extremities: no cyanosis, no clubbing, no edema Skin - other findings: Diffuse erythema with some areas of early scabbing. Musculoskeletal: generalized weakness Psychiatric: normal affect, normal behavior Hosp A/P (1) Acute and chronic respiratory failure Code(s): J96.20 - ACUTE AND CHR RESP FAILURE, UNSP W HYPOXIA OR HYPERCAPNIA Status: Acute Qualifiers: Respiratory failure complication: hypercapnia Qualified Code(s): J96.22 - Acute and chronic respiratory failure with hypercapnia (2) Asthma exacerbation Code(s): J45.901 - UNSPECIFIED ASTHMA WITH (ACUTE) EXACERBATION Status: Acute (3) Afib Code(s): I48.91 - UNSPECIFIED ATRIAL FIBRILLATION Status: Chronic Qualifiers: Atrial fibrillation type: paroxysmal Qualified Code(s): I48.0 - Paroxysmal atrial fibrillation (4) Chronic anemia Code(s): D64.9 - ANEMIA, UNSPECIFIED Status: Chronic (5) Hypertension Code(s): I10 - ESSENTIAL (PRIMARY) HYPERTENSION Status: Chronic Qualifiers: Hypertension type: essential hypertension Qualified Code(s): I10 - Essential (primary) hypertension (6) Morbid obesity with BMI of 50.0-59.9, adult Code(s): E66.01 - MORBID (SEVERE) OBESITY DUE TO EXCESS CALORIES; Z68.43 - BODY MASS INDEX (BMI) 50.0-59.9, ADULT Status: Chronic (7) Obesity hypoventilation syndrome Code(s): E66.2 - MORBID (SEVERE) OBESITY WITH ALVEOLAR HYPOVENTILATION Status : Suspected (8) Allergic reaction caused by a drug Code(s): T78.40XA - ALLERGY, UNSPECIFIED, INITIAL ENCOUNTER Status: Acute (9) Pneumonia Code(s): J18.9 - PNEUMONIA, UNSPECIFIED ORGANISM Status: Resolved (10) GERD (gastroesophageal reflux disease) Code(s): K21.9 - GASTRO-ESOPHAGEAL REFLUX DISEASE WITHOUT ESOPHAGITIS Status: Chronic (11) LISA (obstructive sleep apnea) Code(s): G47.33 - OBSTRUCTIVE SLEEP APNEA (ADULT) (PEDIATRIC) Status: Chronic (12) Acute metabolic encephalopathy Code(s): G93.41 - METABOLIC ENCEPHALOPATHY Status: Resolved (13) UTI (urinary tract infection) Status: Resolved (14) Diastolic CHF, acute on chronic Code(s): I50.33 - ACUTE ON CHRONIC DIASTOLIC (CONGESTIVE) HEART FAILURE Status : Acute - Plan Acute on chronic resp failure. Required trach. Very debilitated now. Trach no "mature" yet. Off abx. Start benadryl for the drug eruption. Suspect Ancef as the culprit. Lower dose anticoagulation due to concerns for bleeding around trach site. Lovenox increased to full dose today. May switch to eliquis if tolerates. Afib with occasional runs with tachycardia. Febrile. Appreciate ID consult. Suspected that the fever is from the exfoliative dermatitis. All abx DC'd as well as other meds that are non-essential. Will need to give her another day or two to see if the fever will inge. Has skin breakdown on the buttocks. Loose stools from the PEG feeds. Rectal tube to protect the skin of the buttock. Wound care team consult. Purewick. Dias if necessary to protect buttocks. Denied by [facility]. Denied by [facility] for LTACH.
[2019-11-21 11:33] LABS: Anion Gap 10 mmol/L (10-20); BUN (Urea Nitrogen) 5 mg/dL (9.8-20.1); Calc. Creatinine Clearance 201 mL/min (70-130); Calcium 8.3 mg/dL (7.8-10.44); Carbon Dioxide 34 mmol/L (23-31); Chloride 94 mmol/L (98-107); Estimated GFR-MDRD Greater than 90; Glucose 120 mg/dL (83-110); Potassium 4.5 mmol/L (3.5-5.1); Sodium 133 mmol/L (136-145)
--- NOTE | 2019-11-21 15:22 | PRG ---
DATE OF SERVICE: 11/21/2019 SUBJECTIVE: Ms. Ford is afebrile. Her skin is peeling. Her erythema is improving. OBJECTIVE: VITAL SIGNS: Heart rate is in 80s, respiratory rate is 20, oximetry is 100% on trach collar, blood pressure 100/55. LUNGS: Clear. HEART: Regular rate, rhythm. ABDOMEN: Soft. LABORATORY DATA: Sodium 133, potassium 4.5, chloride 94, bicarb 34, BUN 5, creatinine 0.52. IMPRESSION: 1. Status asthmaticus. 2. Sleep apnea. 3. Status post tracheostomy. 4. Status post PEG. 5. Severe deconditioning. 6. Obesity. 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 Her skin is starting to slough. She is in no distress. We will probably change her to a #6 fenestrated trach either Wednesday or , more likely . Job ID: [id number]
[2019-11-21] MEDS: diphenhydrAMINE 25 MG CAP PO PRN (20:09)
[2019-11-21] MEDS: Montelukast Sodium 10 mg Tablet PER TUBE SCH (20:09)
[2019-11-21] MEDS: Acetaminophen 325 MG TAB PO PRN (20:09)
[2019-11-22] MEDS: Metoclopramide HCl 10 MG/2 ML VIAL IVP SCH ×3 (01:12→17:43)
[2019-11-22 04:47] LABS: Anion Gap 14 mmol/L (10-20); BUN (Urea Nitrogen) 7 mg/dL (9.8-20.1); Calc. Creatinine Clearance 194 mL/min (70-130); Calcium 8.3 mg/dL (7.8-10.44); Carbon Dioxide 29 mmol/L (23-31); Chloride 96 mmol/L (98-107); Estimated GFR-MDRD Greater than 90; Glucose 79 mg/dL (83-110); Phosphorus 3.5 mg/dL (2.3-4.7); Potassium 4.8 mmol/L (3.5-5.1); Sodium 134 mmol/L (136-145)
[2019-11-22 04:51] LABS: Band 6 % (5-11); Hemoglobin 10.5 g/dL (12.0-16.0); Hypochromia SLIGHT = 6-15 cells (100X) (0-5/hpf); Lymphocytes 19 % (21-51); MDiff Complete? YES; Macrocytosis SLIGHT = 6-15 cells (100X) (0-5/hpf); Mean Corpuscular HGB CONC 31.9 g/dL (32.0-36.0); Mean Corpuscular Hemoglobin 32.8 pg (27.0-31.0); Mean Platelet Volume 7.9 fL (7.4-10.4); Monocytes 7 % (0-10); Neutrophil 68 % (42-75); Nucleated RBC 1 % (0); Platelet Count 227 thou/uL (130-400); Platelet Morphology Comment Appears Adequate; RBC Distribution Width 12.3 % (11.5-14.5); White Blood Cell (WBC) Count 11.5 thou/uL (4.8-10.8)
[2019-11-22] MEDS: Budesonide 0.5 MG/2 ML NEB INH SCH ×2 (07:05→19:16)
[2019-11-22] MEDS: Carvedilol 6.25 MG TAB PO SCH ×2 (09:25→17:43)
[2019-11-22] MEDS: Aspirin Chewable 81 MG TAB PO SCH (09:25)
[2019-11-22] MEDS: Potassium Chloride 20 MEQ TAB PO SCH (09:25)
[2019-11-22] MEDS: Digoxin 0.125 MG TAB PO SCH (09:25)
[2019-11-22] MEDS: Saccharomyces boulardii 250 MG CAP PER TUBE SCH (09:26)
[2019-11-22] MEDS: Fluconazole 100 MG TAB PER TUBE SCH (09:26)
[2019-11-22] MEDS: Famotidine 20 MG TAB PER TUBE SCH ×2 (09:26→21:46)
[2019-11-22] MEDS: Enoxaparin Sodium 100 MG/ML SYRINGE SC SCH ×2 (09:26→21:55)
--- NOTE | 2019-11-22 10:03 | PRG ---
DATE OF SERVICE: 11/22/2019 SUBJECTIVE: Ms. Ford is sitting up in bed, receiving some Reglan. She does not report any chest pain or pressure. She is in sinus rhythm. OBJECTIVE: VITAL SIGNS: Her blood pressure 141/75, pulse 75 and regular. LUNGS: Clear. CARDIAC: Normal S1, normal S2. ABDOMEN: Soft, nontender. ASSESSMENT: 1. Paroxysmal atrial fibrillation, in sinus rhythm. 2. Hypertension, variable, but overall relatively well controlled. PLAN: She is on full-dose enoxaparin. She could be changed to Eliquis at the time of discharge or could be changed now, we do not foresee any upcoming surgical procedures. She is on low-dose aspirin. Should be able to stop that if we do not have any definite indication for anti-platelet drugs. I do not know of any clear indication for anti-platelet drugs and that would certainly increase the risk of bleeding. I will go and stop aspirin. Job ID: [id number]
--- NOTE | 2019-11-22 11:34 | PDOC.HOSPP ---
- Subjective Encounter Date: 11/22/19 Encounter Time: 08:45 Subjective: Patient seen and examined. pt has thick tracheal discharge, No overnight events - Objective Vital Signs & Weight: Vital Signs (12 hours) Temp Pulse Resp BP Pulse Ox 11/22/19 09:25 92 L 11/22/19 07:46 98.6 F 75 18 141/75 H 92 L 11/22/19 07:05 81 20 98 11/22/19 07:04 81 20 98 11/22/19 03:49 98.3 F 76 18 108/55 L 96 11/22/19 00:47 88 18 94 L Weight Admit Weight 307 lb Weight 298 lb Most Recent Monitor Data Heart Rate from ECG 92 NIBP 121/88 NIBP BP-Mean 99 Respiration from ECG 34 SpO2 95 I&O: 11/21/19 11/22/19 11/23/19 06:59 06:59 06:59 Intake Total 3531 1718 297 Output Total 2200 1700 Balance 1331 18 297 Result Diagrams: 11/22/19 04:04 11/22/19 04:04 Hospitalist ROS - Review of Systems ROS unobtainable: due to mental status - Medication Medications: Active Medications Generic Name Dose Route Start Last Admin Trade Name Freq PRN Reason Stop Dose Admin Acetaminophen 650 mg 11/17/19 23:59 11/21/19 20:09 Tylenol PO 650 mg Q6H PRN Administration Headache/Fever/MILD Pain 1-3 Albuterol/Ipratropium 3 ml 11/11/19 13:00 11/22/19 07:04 Duoneb NEB 3 ml [id number] KELSEA Administration Lipase/Protease/Amylase 1 cap 11/08/19 19:21 11/08/19 19:50 Rachele Jiménez [id number] FS 1 cap .PER PROTOCOL PRN Administration TUBE OCCLUSION PROTOCOL Budesonide 0.5 mg 10/29/19 18:30 11/22/19 07:05 Pulmicort Neb Solution INH 0.5 mg BID-RT KELSEA Administration Carvedilol 12.5 mg 11/10/19 17:00 11/22/19 09:25 Coreg PO 12.5 mg BID-WM KELSEA Administration Digoxin 0.125 mg 11/16/19 09:00 11/22/19 09:25 Lanoxin PO 0.125 mg DAILY KELSEA Administration Diphenhydramine HCl 25 mg 11/18/19 14:12 11/21/19 20:09 Benadryl PO 25 mg Q6H PRN Administration Itching & Insomnia Enoxaparin Sodium 100 mg 11/20/19 21:00 11/22/19 09:26 Lovenox SC 100 mg 0900,2100 KELSEA Administration Famotidine 20 mg 11/09/19 21:00 11/22/19 09:26 Pepcid PER TUBE 20 mg BID KELSEA Administration Fluconazole 100 mg 11/21/19 09:00 11/22/19 09:26 Diflucan PER TUBE 100 mg DAILY KELSEA Administration Hydralazine HCl 10 mg 10/29/19 16:12 11/09/19 22:22 Apresoline SLOW IVP 10 mg Q4H PRN Administration SBP Greater Than 180 Labetalol HCl 20 mg 11/11/19 15:45 11/11/19 15:47 Normodyne IVPB 20 mg Q30MIN PRN Administration SBP>180 Metoclopramide HCl 10 mg 11/07/19 10:00 11/22/19 09:26 Reglan IVP 10 mg 0200,1000,1800 KELSEA Administration Montelukast Sodium 10 mg 10/30/19 21:00 11/21/19 20:09 Singulair PER TUBE 10 mg QPM KELSEA Administration Potassium Chloride 20 meq 11/04/19 08:00 11/22/19 09:25 K-Dur PO 20 meq QAM-WM KELSEA Administration Saccharomyces Boulardii 250 mg 11/05/19 09:00 11/22/19 09:26 Florastor PER TUBE 250 mg DAILY KELSEA Administration Sodium Bicarbonate 650 mg 11/08/19 19:21 11/08/19 19:50 Bicarbonate, Sodium PER TUBE 650 mg .PER PROTOCOL PRN Administration ENTERAL TUBE OCCLUSION Sodium Chloride 10 ml 11/05/19 21:00 11/22/19 09:26 Flush - Normal Saline IVF 10 ml Q12HR KELSEA Administration Sodium Chloride 10 ml 11/05/19 10:38 11/17/19 02:56 Flush - Normal Saline IVF 10 ml PRN PRN Administration Saline Flush Sterile Water 1 ml 11/09/19 16:23 11/11/19 02:45 Bacteriostatic Water FS 1 ml PRN PRN Administration RECONSTITUTION - Exam General Appearance: NAD, ill appearing Eye: PERRL, anicteric sclera ENT: normocephalic atraumatic Neck: supple Neck - other findings: Trach+ Heart: RRR, no murmur, no gallops Respiratory: no wheezes, no rales, no ronchi Respiratory - other findings: coarse sound bilateral Gastrointestinal: soft, non-tender, non-distended, normal bowel sounds Gastrointestinal - other findings: PEG+ rectal tube+ Extremities: no cyanosis, no clubbing Skin: normal turgor Skin - other findings: diffuse skin rash and exfoliation noted Neurological: no focal deficits Musculoskeletal: normal tone, normal strength Psychiatric: normal affect Hosp A/P (1) Allergic reaction caused by a drug Code(s): T78.40XA - ALLERGY, UNSPECIFIED, INITIAL ENCOUNTER Status: Acute (2) Diastolic CHF, acute on chronic Code(s): I50.33 - ACUTE ON CHRONIC DIASTOLIC (CONGESTIVE) HEART FAILURE Status : Acute (3) GERD (gastroesophageal reflux disease) Code(s): K21.9 - GASTRO-ESOPHAGEAL REFLUX DISEASE WITHOUT ESOPHAGITIS Status: Chronic (4) Acute metabolic encephalopathy Code(s): G93.41 - METABOLIC ENCEPHALOPATHY Status: Resolved (5) Pneumonia Code(s): J18.9 - PNEUMONIA, UNSPECIFIED ORGANISM Status: Resolved (6) UTI (urinary tract infection) Status: Acute (7) Acute and chronic respiratory failure Code(s): J96.20 - ACUTE AND CHR RESP FAILURE, UNSP W HYPOXIA OR HYPERCAPNIA Status: Acute Qualifiers: Respiratory failure complication: hypercapnia Qualified Code(s): J96.22 - Acute and chronic respiratory failure with hypercapnia (8) Asthma exacerbation Code(s): J45.901 - UNSPECIFIED ASTHMA WITH (ACUTE) EXACERBATION Status: Acute (9) Afib Code(s): I48.91 - UNSPECIFIED ATRIAL FIBRILLATION Status: Chronic Qualifiers: Atrial fibrillation type: paroxysmal Qualified Code(s): I48.0 - Paroxysmal atrial fibrillation (10) Chronic anemia Code(s): D64.9 - ANEMIA, UNSPECIFIED Status: Chronic (11) Hypertension Code(s): I10 - ESSENTIAL (PRIMARY) HYPERTENSION Status: Chronic Qualifiers: Hypertension type: essential hypertension Qualified Code(s): I10 - Essential (primary) hypertension (12) Macrocytosis Code(s): D75.89 - OTHER SPECIFIED DISEASES OF BLOOD AND BLOOD-FORMING ORGANS Status: Chronic (13) Morbid obesity with BMI of 50.0-59.9, adult Code(s): E66.01 - MORBID (SEVERE) OBESITY DUE TO EXCESS CALORIES; Z68.43 - BODY MASS INDEX (BMI) 50.0-59.9, ADULT Status: Chronic (14) LISA on CPAP Code(s): G47.33 - OBSTRUCTIVE SLEEP APNEA (ADULT) (PEDIATRIC); Z99.89 - DEPENDENCE ON OTHER ENABLING MACHINES AND DEVICES Status: Chronic - Plan old records reviewed/req, social staff worker 11/22/19 this pt needs lot of care including skin, trach, peg tomorrow may be trach would be donsized OK to transfer to medical if ok with cardiology discharge planning medication reviewed and continue supportive care and symptomatic treatment
--- NOTE | 2019-11-22 14:06 | PRG ---
DATE OF SERVICE: 11/22/2019 SUBJECTIVE: Ms. Ford continues to do well. She has no new complaints. OBJECTIVE: VITAL SIGNS: She is afebrile, heart rate is in 70s, respiratory rate 24, oximetry is 92% to 100%, blood pressure 118/60. LUNGS: Free of wheezes. HEART: Regular rhythm. ABDOMEN: Soft. LABORATORY DATA: White count 11.5, hemoglobin 10.5, and platelets 227. Sodium 134, potassium 4.8, chloride 96, bicarb 29, BUN 7, and creatinine 0.54. IMPRESSION: 1. Asthma. 2. Status post tracheostomy. 3. Status post PEG. 4. Status post asthma. 5. 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 PLAN: We will consider downsizing her trach to a #6 fenestrated here probably tomorrow or Wednesday or we switch her to #6 fenestrated cuffless trach. Job ID: [id number]
[2019-11-22] MEDS: Montelukast Sodium 10 mg Tablet PER TUBE SCH (21:46)
[2019-11-22] MEDS: Acetaminophen 325 MG TAB PO PRN (22:03)
[2019-11-22] MEDS: diphenhydrAMINE 25 MG CAP PO PRN (22:03)
[2019-11-23] MEDS: Metoclopramide HCl 10 MG/2 ML VIAL IVP SCH ×3 (01:56→17:13)
[2019-11-23 06:10] LABS: #Basophils 0.1 thou/uL (0.0-0.2); #Eosinphils 0.4 thou/uL (0.0-0.7); #Lymphocytes 2.1 thou/uL (1.20-3.40); %Basophils 0.6 % (0.0-1.0); %Eosinophils 4.8 % (0.0-10.0); %Lymphocytes 24.6 % (21.0-51.0); %Monocytes 11.6 % (0.0-10.0); %Neutrophils 58.4 % (42.0-75.0); Hemoglobin 10.7 g/dL (12.0-16.0); MDiff Complete? YES; Macrocytosis SLIGHT = 6-15 cells (100X) (0-5/hpf); Mean Corpuscular HGB CONC 30.5 g/dL (32.0-36.0); Mean Corpuscular Hemoglobin 32.8 pg (27.0-31.0); Mean Platelet Volume 7.8 fL (7.4-10.4); Platelet Count 274 thou/uL (130-400); Platelet Morphology Comment Appears Adequate; Polychromasia SLIGHT = 2-3 cells (100X) (0-2/hpf); RBC Distribution Width 13.1 % (11.5-14.5); Red Blood Cell (RBC) Count 3.28 mill/uL (4.20-5.40); White Blood Cell (WBC) Count 8.6 thou/uL (4.8-10.8)
[2019-11-23] MEDS: Budesonide 0.5 MG/2 ML NEB INH SCH ×2 (06:47→18:43)
[2019-11-23] MEDS: Carvedilol 6.25 MG TAB PO SCH (07:49)
[2019-11-23] MEDS: Digoxin 0.125 MG TAB PO SCH (07:49)
[2019-11-23] MEDS: Saccharomyces boulardii 250 MG CAP PER TUBE SCH (07:49)
[2019-11-23] MEDS: Fluconazole 100 MG TAB PER TUBE SCH (07:49)
[2019-11-23] MEDS: Potassium Chloride 20 MEQ TAB PO SCH (07:49)
[2019-11-23] MEDS: Famotidine 20 MG TAB PER TUBE SCH ×2 (07:50→20:33)
--- NOTE | 2019-11-23 08:27 | PRG ---
DATE OF SERVICE: 11/23/2019 SUBJECTIVE: Ms. Ford is resting comfortably. No complaints. She opens her eyes when spoken to. OBJECTIVE: VITAL SIGNS: Her blood pressure is 127/78, pulse is in the 80s, it is regular. LUNGS: Clear. CARDIAC: Normal S1, normal S2. ABDOMEN: Obese, nontender. ASSESSMENT: 1. Paroxysmal atrial fibrillation, maintaining regular rhythm now. 2. Respiratory failure, improved. 3. Status post tracheostomy and PEG tube. PLAN: 1. She will be placed on Eliquis 5 mg twice a day instead of the enoxaparin. 2. Continue carvedilol and digoxin. 3. Aspirin has been stopped. 4. We will sign off. Please re-consult if needed. Job ID: [id number]
[2019-11-23] MEDS ORDERED: Apixaban 5 MG TAB PO SCH (09:00)
[2019-11-23] MEDS ORDERED: Bisacodyl 10 MG SUPP PR PRN (11:48)
[2019-11-23] MEDS ORDERED: Artificial Tears 18 DROP/0.9 ML EA EYE PRN (11:48)
[2019-11-23] MEDS ORDERED: Diabetic Tussin 200 MG/10 ML UDCUP PER TUBE PRN (11:48)
[2019-11-23] MEDS ORDERED: Senokot S 8.6-50 MG TAB PER TUBE PRN (11:48)
[2019-11-23] MEDS ORDERED: Loperamide HCl 2 MG CAP PER TUBE PRN (11:48)
[2019-11-23] MEDS ORDERED: Sodium Chloride 0.65% Nasal 44 ML BOT EA NARE PRN (11:48)
[2019-11-23] MEDS ORDERED: Calcium Carbonate 500 MG ChewTAB PER TUBE PRN (11:48)
[2019-11-23] MEDS ORDERED: Digoxin 0.125 MG TAB PER TUBE SCH ×2 (11:50→12:30)
[2019-11-23] MEDS ORDERED: Carvedilol 6.25 MG TAB PER TUBE SCH ×2 (11:50→12:30)
[2019-11-23] MEDS ORDERED: Nystatin Powder 15 GM BOT TOP PRN (11:50)
[2019-11-23] MEDS ORDERED: Potassium Chloride 20 MEQ TAB PER TUBE SCH (11:50)
[2019-11-23] MEDS ORDERED: diphenhydrAMINE 25 MG CAP PER TUBE PRN (11:50)
[2019-11-23 12:16] VITALS: BMI 49.5
[2019-11-23] MEDS ORDERED: Apixaban 5 MG TAB PER TUBE SCH ×3 (12:30→23:59)
--- NOTE | 2019-11-23 13:27 | PDOC.HOSPP ---
- Subjective Encounter Date: 11/23/19 Encounter Time: 10:30 Subjective: Patient seen and examined. No overnight events - Objective Vital Signs & Weight: Vital Signs (12 hours) Temp Pulse Resp BP Pulse Ox 11/23/19 13:08 98.7 F 68 20 112/70 98 11/23/19 12:58 68 11/23/19 12:17 68 20 89 L 11/23/19 08:00 98.6 F 78 20 94/56 L 94 L 11/23/19 07:49 78 11/23/19 06:51 100 11/23/19 06:50 78 18 100 11/23/19 06:47 82 18 100 11/23/19 04:00 98.5 F 78 19 127/78 96 Weight Admit Weight 307 lb Weight 290 lb Most Recent Monitor Data Heart Rate from ECG 92 NIBP 121/88 NIBP BP-Mean 99 Respiration from ECG 34 SpO2 95 I&O: 11/22/19 11/23/19 11/24/19 06:59 06:59 06:59 Intake Total 1718 1818 Output Total 1700 650 Balance 18 1168 Result Diagrams: 11/23/19 05:15 11/22/19 04:04 Hospitalist ROS - Review of Systems ROS unobtainable: due to mental status - Medication Medications: Active Medications Generic Name Dose Route Start Last Admin Trade Name Freq PRN Reason Stop Dose Admin Albuterol/Ipratropium 3 ml 11/11/19 13:00 11/23/19 12:17 Duoneb NEB 3 ml [id number] KELSEA Administration Lipase/Protease/Amylase 1 cap 11/08/19 19:21 11/08/19 19:50 Rachele Jiménez [id number] FS 1 cap .PER PROTOCOL PRN Administration TUBE OCCLUSION PROTOCOL Apixaban 5 mg 11/23/19 12:30 11/23/19 12:55 Eliquis PER TUBE 11/23/19 14:00 5 mg NOW KELSEA Administration Budesonide 0.5 mg 10/29/19 18:30 11/23/19 06:47 Pulmicort Neb Solution INH 0.5 mg BID-RT KELSEA Administration Carvedilol 12.5 mg 11/23/19 12:30 11/23/19 12:55 Coreg PER TUBE 11/23/19 14:00 12.5 mg NOW KELSEA Administration Digoxin 0.125 mg 11/23/19 12:30 11/23/19 12:58 Lanoxin PER TUBE 11/23/19 14:00 0.125 mg NOW KELSEA Administration Famotidine 20 mg 11/09/19 21:00 11/23/19 07:50 Pepcid PER TUBE 20 mg BID KELSEA Administration Fluconazole 100 mg 11/21/19 09:00 11/23/19 07:49 Diflucan PER TUBE 100 mg DAILY KELSEA Administration Hydralazine HCl 10 mg 10/29/19 16:12 11/09/19 22:22 Apresoline SLOW IVP 10 mg Q4H PRN Administration SBP Greater Than 180 Labetalol HCl 20 mg 11/11/19 15:45 11/11/19 15:47 Normodyne IVPB 20 mg Q30MIN PRN Administration SBP>180 Metoclopramide HCl 10 mg 11/07/19 10:00 11/23/19 10:43 Reglan IVP 10 mg 0200,1000,1800 KELSEA Administration Montelukast Sodium 10 mg 10/30/19 21:00 11/22/19 21:46 Singulair PER TUBE 10 mg QPM KELSEA Administration Saccharomyces Boulardii 250 mg 11/05/19 09:00 11/23/19 07:49 Florastor PER TUBE 250 mg DAILY KELSEA Administration Sodium Bicarbonate 650 mg 11/08/19 19:21 11/08/19 19:50 Bicarbonate, Sodium PER TUBE 650 mg .PER PROTOCOL PRN Administration ENTERAL TUBE OCCLUSION Sodium Chloride 10 ml 11/05/19 21:00 11/23/19 07:51 Flush - Normal Saline IVF 10 ml Q12HR KELSEA Administration Sodium Chloride 10 ml 11/05/19 10:38 11/17/19 02:56 Flush - Normal Saline IVF 10 ml PRN PRN Administration Saline Flush Sterile Water 1 ml 11/09/19 16:23 11/11/19 02:45 Bacteriostatic Water FS 1 ml PRN PRN Administration RECONSTITUTION - Exam General Appearance: NAD, awake alert Eye: PERRL, anicteric sclera ENT: normocephalic atraumatic, no oropharyngeal lesions Neck: supple, symmetric, no JVD, no thyromegaly Neck - other findings: trach+ Heart: RRR, no murmur, no gallops, no rubs Respiratory: CTAB, no wheezes, no rales, no ronchi Gastrointestinal: soft, non-tender, non-distended, normal bowel sounds Gastrointestinal - other findings: peg+ Extremities: no cyanosis, no clubbing Neurological: no focal deficits Psychiatric: normal affect, normal behavior Hosp A/P (1) Allergic reaction caused by a drug Code(s): T78.40XA - ALLERGY, UNSPECIFIED, INITIAL ENCOUNTER Status: Acute (2) Diastolic CHF, acute on chronic Code(s): I50.33 - ACUTE ON CHRONIC DIASTOLIC (CONGESTIVE) HEART FAILURE Status : Acute (3) GERD (gastroesophageal reflux disease) Code(s): K21.9 - GASTRO-ESOPHAGEAL REFLUX DISEASE WITHOUT ESOPHAGITIS Status: Chronic (4) Acute metabolic encephalopathy Code(s): G93.41 - METABOLIC ENCEPHALOPATHY Status: Resolved (5) Pneumonia Code(s): J18.9 - PNEUMONIA, UNSPECIFIED ORGANISM Status: Resolved (6) UTI (urinary tract infection) Status: Acute (7) Acute and chronic respiratory failure Code(s): J96.20 - ACUTE AND CHR RESP FAILURE, UNSP W HYPOXIA OR HYPERCAPNIA Status: Acute Qualifiers: Respiratory failure complication: hypercapnia Qualified Code(s): J96.22 - Acute and chronic respiratory failure with hypercapnia (8) Asthma exacerbation Code(s): J45.901 - UNSPECIFIED ASTHMA WITH (ACUTE) EXACERBATION Status: Acute (9) Afib Code(s): I48.91 - UNSPECIFIED ATRIAL FIBRILLATION Status: Chronic Qualifiers: Atrial fibrillation type: paroxysmal Qualified Code(s): I48.0 - Paroxysmal atrial fibrillation (10) Chronic anemia Code(s): D64.9 - ANEMIA, UNSPECIFIED Status: Chronic (11) Hypertension Code(s): I10 - ESSENTIAL (PRIMARY) HYPERTENSION Status: Chronic Qualifiers: Hypertension type: essential hypertension Qualified Code(s): I10 - Essential (primary) hypertension (12) Macrocytosis Code(s): D75.89 - OTHER SPECIFIED DISEASES OF BLOOD AND BLOOD-FORMING ORGANS Status: Chronic (13) Morbid obesity with BMI of 50.0-59.9, adult Code(s): E66.01 - MORBID (SEVERE) OBESITY DUE TO EXCESS CALORIES; Z68.43 - BODY MASS INDEX (BMI) 50.0-59.9, ADULT Status: Chronic (14) LISA on CPAP Code(s): G47.33 - OBSTRUCTIVE SLEEP APNEA (ADULT) (PEDIATRIC); Z99.89 - DEPENDENCE ON OTHER ENABLING MACHINES AND DEVICES Status: Chronic - Plan old records reviewed/req, continue antibiotics 11/22/19 this pt needs lot of care including skin, trach, peg tomorrow may be trach would be donsized OK to transfer to medical if ok with cardiology discharge planning medication reviewed and continue supportive care and symptomatic treatment 11/23/19 tomorrow downsize tube await placement discussed with family bedside and updated plan once diarrhea controlled, will dc rectal tube today elliquis started and lovenox dced
[2019-11-23] MEDS: Carvedilol 6.25 MG TAB PER TUBE SCH (17:12)
[2019-11-23] MEDS: Montelukast Sodium 10 mg Tablet PER TUBE SCH (20:33)
[2019-11-23] MEDS: Acetaminophen 325 MG TAB PER TUBE PRN (20:36)
[2019-11-24] MEDS: Metoclopramide HCl 10 MG/2 ML VIAL IVP SCH ×3 (01:40→17:56)
[2019-11-24 05:35] LABS: #Eosinphils 0.2 thou/uL (0.0-0.7); #Lymphocytes 2.3 thou/uL (1.20-3.40); #Monocytes 0.9 thou/uL (0.11-0.59); #Neutrophils 4.9 thou/uL (1.40-6.50); %Basophils 0.4 % (0.0-1.0); %Eosinophils 2.5 % (0.0-10.0); %Lymphocytes 27.3 % (21.0-51.0); %Monocytes 11.2 % (0.0-10.0); %Neutrophils 58.6 % (42.0-75.0); Hemoglobin 10.3 g/dL (12.0-16.0); Mean Corpuscular HGB CONC 32.1 g/dL (32.0-36.0); Mean Corpuscular Hemoglobin 33.7 pg (27.0-31.0); Mean Platelet Volume 7.4 fL (7.4-10.4); Platelet Count 299 thou/uL (130-400); RBC Distribution Width 12.7 % (11.5-14.5); Red Blood Cell (RBC) Count 3.07 mill/uL (4.20-5.40); White Blood Cell (WBC) Count 8.3 thou/uL (4.8-10.8)
[2019-11-24 05:53] LABS: Anion Gap 10 mmol/L (10-20); BUN (Urea Nitrogen) 9 mg/dL (9.8-20.1); Calc. Creatinine Clearance 173 mL/min (70-130); Calcium 8.6 mg/dL (7.8-10.44); Carbon Dioxide 34 mmol/L (23-31); Chloride 99 mmol/L (98-107); Estimated GFR-MDRD Greater than 90; Glucose 91 mg/dL (83-110); Phosphorus 4.1 mg/dL (2.3-4.7); Potassium 4.7 mmol/L (3.5-5.1); Sodium 138 mmol/L (136-145)
[2019-11-24] MEDS: Budesonide 0.5 MG/2 ML NEB INH SCH ×2 (06:38→18:40)
[2019-11-24] MEDS ORDERED: Potassium Chloride 20 MEQ TAB PER TUBE SCH (08:00)
[2019-11-24] MEDS: Saccharomyces boulardii 250 MG CAP PER TUBE SCH (08:42)
[2019-11-24] MEDS: Famotidine 20 MG TAB PER TUBE SCH (08:42)
[2019-11-24] MEDS: Fluconazole 100 MG TAB PER TUBE SCH (08:42)
[2019-11-24] MEDS: Carvedilol 6.25 MG TAB PER TUBE SCH ×2 (08:43→16:39)
[2019-11-24] MEDS: Acetaminophen 325 MG TAB PER TUBE PRN (08:43)
--- NOTE | 2019-11-24 08:48 | PRG ---
DATE OF SERVICE: 11/23/2019 SUBJECTIVE: Wil Ford is smiling, cooperative. OBJECTIVE: VITAL SIGNS: She is afebrile, heart rate 78, respiratory rate 20, sats 94%, blood pressure 94/56. LUNGS: Clear. HEART: Regular rhythm. ABDOMEN: Soft. Plan on changing out her trach in the morning with her obesity, it has been in long enough that she should have a nice tract for replacement with a #6 fenestrated trach. She appears to be getting stronger. It might be reasonable to repeat a swallowing evaluation. We will continue to follow. Job ID: [id number]
[2019-11-24] MEDS ORDERED: Apixaban 5 MG TAB PER TUBE SCH (09:00)
[2019-11-24] MEDS ORDERED: Digoxin 0.125 MG TAB PER TUBE SCH (09:00)
--- NOTE | 2019-11-24 11:13 | PDOC.HOSPP ---
- Subjective Encounter Date: 11/24/19 Encounter Time: 09:40 Subjective: Patient seen and examined. No new complaints. No overnight events - Objective Vital Signs & Weight: Vital Signs (12 hours) Temp Pulse Resp BP BP Pulse Ox 11/24/19 09:00 96 11/24/19 08:43 133/82 11/24/19 08:42 72 11/24/19 08:00 98.3 F 72 20 133/82 96 11/24/19 06:38 68 14 100 11/24/19 05:34 99.1 F 73 18 114/71 99 11/24/19 00:23 66 16 90 L Weight Admit Weight 307 lb Weight 288 lb Most Recent Monitor Data Heart Rate from ECG 92 NIBP 121/88 NIBP BP-Mean 99 Respiration from ECG 34 SpO2 95 I&O: 11/23/19 11/24/19 11/25/19 06:59 06:59 06:59 Intake Total 1818 1250 300 Output Total 650 380 Balance 1168 870 300 Result Diagrams: 11/24/19 05:20 11/24/19 05:20 Hospitalist ROS - Review of Systems ENT: denies: ear pain, ear discharge, nose pain, nose discharge, nose congestion , mouth pain, mouth swelling, throat pain, throat swelling, other Respiratory: denies: cough, dry, shortness of breath, hemoptysis, SOB with excertion, pleuritic pain, sputum, wheezing, other Cardiovascular: denies: chest pain, palpitations, orthopnea, paroxysmal noc. dyspnea, edema, light headedness, other Gastrointestinal: denies: nausea, vomiting, abdominal pain, diarrhea, constipation, melena, hematochezia, other Genitourinary: denies: dysuria, frequency, incontinence, hematuria, retention, other Musculoskeletal: denies: neck pain, shoulder pain, arm pain, back pain, hand pain, leg pain, foot pain, other - Medication Medications: Active Medications Generic Name Dose Route Start Last Admin Trade Name Freq PRN Reason Stop Dose Admin Acetaminophen 650 mg 11/23/19 11:50 11/24/19 08:43 Tylenol PER TUBE 650 mg Q6H PRN Administration Headache/Fever/MILD Pain 1-3 Albuterol/Ipratropium 3 ml 11/11/19 13:00 11/24/19 06:39 Duoneb NEB 3 ml [id number] KELSEA Administration Lipase/Protease/Amylase 1 cap 11/08/19 19:21 11/08/19 19:50 Rachele Jiménez [id number] FS 1 cap .PER PROTOCOL PRN Administration TUBE OCCLUSION PROTOCOL Apixaban 5 mg 11/24/19 09:00 11/24/19 08:57 Eliquis PER TUBE 5 mg BID KELSEA Administration Budesonide 0.5 mg 10/29/19 18:30 11/24/19 06:38 Pulmicort Neb Solution INH 0.5 mg BID-RT KELSEA Administration Carvedilol 12.5 mg 11/23/19 17:00 11/24/19 08:43 Coreg PER TUBE 12.5 mg BID-WM KELSEA Administration Digoxin 0.125 mg 11/24/19 09:00 11/24/19 08:42 Lanoxin PER TUBE 0.125 mg DAILY KELSEA Administration Diphenhydramine HCl 25 mg 11/23/19 11:50 11/23/19 20:37 Benadryl PER TUBE 25 mg Q6H PRN Administration Itching & Insomnia Famotidine 20 mg 11/09/19 21:00 11/24/19 08:42 Pepcid PER TUBE 20 mg BID KELSEA Administration Fluconazole 100 mg 11/21/19 09:00 11/24/19 08:42 Diflucan PER TUBE 100 mg DAILY KELSEA Administration Hydralazine HCl 10 mg 10/29/19 16:12 11/09/19 22:22 Apresoline SLOW IVP 10 mg Q4H PRN Administration SBP Greater Than 180 Labetalol HCl 20 mg 11/11/19 15:45 11/11/19 15:47 Normodyne IVPB 20 mg Q30MIN PRN Administration SBP>180 Metoclopramide HCl 10 mg 11/07/19 10:00 11/24/19 10:31 Reglan IVP 10 mg 0200,1000,1800 KELSEA Administration Montelukast Sodium 10 mg 10/30/19 21:00 11/23/19 20:33 Singulair PER TUBE 10 mg QPM KELSEA Administration Potassium Chloride 20 meq 11/24/19 08:00 11/24/19 10:30 Klor-Con PO 20 meq QAM-WM KELSEA Administration Saccharomyces Boulardii 250 mg 11/05/19 09:00 11/24/19 08:42 Florastor PER TUBE 250 mg DAILY KELSEA Administration Sodium Bicarbonate 650 mg 11/08/19 19:21 11/08/19 19:50 Bicarbonate, Sodium PER TUBE 650 mg .PER PROTOCOL PRN Administration ENTERAL TUBE OCCLUSION Sodium Chloride 10 ml 11/05/19 21:00 11/24/19 08:44 Flush - Normal Saline IVF 10 ml Q12HR KELSEA Administration Sodium Chloride 10 ml 11/05/19 10:38 11/24/19 10:32 Flush - Normal Saline IVF 10 ml PRN PRN Administration Saline Flush Sterile Water 1 ml 11/09/19 16:23 11/11/19 02:45 Bacteriostatic Water FS 1 ml PRN PRN Administration RECONSTITUTION - Exam General Appearance: NAD, awake alert Eye: PERRL, anicteric sclera ENT: normocephalic atraumatic, no oropharyngeal lesions Neck: supple, symmetric, no JVD Neck - other findings: trach+ Heart: RRR, no murmur, no gallops, no rubs, normal peripheral pulses Respiratory: CTAB, no wheezes, no rales, no ronchi Gastrointestinal: soft, non-tender, non-distended, normal bowel sounds Gastrointestinal - other findings: peg+ Extremities: no clubbing, no edema Skin - other findings: rash noted Neurological: no focal deficits Musculoskeletal: normal tone, normal strength Psychiatric: normal affect, normal behavior Hosp A/P (1) Allergic reaction caused by a drug Code(s): T78.40XA - ALLERGY, UNSPECIFIED, INITIAL ENCOUNTER Status: Acute (2) Diastolic CHF, acute on chronic Code(s): I50.33 - ACUTE ON CHRONIC DIASTOLIC (CONGESTIVE) HEART FAILURE Status : Acute (3) GERD (gastroesophageal reflux disease) Code(s): K21.9 - GASTRO-ESOPHAGEAL REFLUX DISEASE WITHOUT ESOPHAGITIS Status: Chronic (4) Acute metabolic encephalopathy Code(s): G93.41 - METABOLIC ENCEPHALOPATHY Status: Resolved (5) Pneumonia Code(s): J18.9 - PNEUMONIA, UNSPECIFIED ORGANISM Status: Resolved (6) UTI (urinary tract infection) Status: Acute (7) Acute and chronic respiratory failure Code(s): J96.20 - ACUTE AND CHR RESP FAILURE, UNSP W HYPOXIA OR HYPERCAPNIA Status: Acute Qualifiers: Respiratory failure complication: hypercapnia Qualified Code(s): J96.22 - Acute and chronic respiratory failure with hypercapnia (8) Asthma exacerbation Code(s): J45.901 - UNSPECIFIED ASTHMA WITH (ACUTE) EXACERBATION Status: Acute (9) Afib Code(s): I48.91 - UNSPECIFIED ATRIAL FIBRILLATION Status: Chronic Qualifiers: Atrial fibrillation type: paroxysmal Qualified Code(s): I48.0 - Paroxysmal atrial fibrillation (10) Chronic anemia Code(s): D64.9 - ANEMIA, UNSPECIFIED Status: Chronic (11) Hypertension Code(s): I10 - ESSENTIAL (PRIMARY) HYPERTENSION Status: Chronic Qualifiers: Hypertension type: essential hypertension Qualified Code(s): I10 - Essential (primary) hypertension (12) Macrocytosis Code(s): D75.89 - OTHER SPECIFIED DISEASES OF BLOOD AND BLOOD-FORMING ORGANS Status: Chronic (13) Morbid obesity with BMI of 50.0-59.9, adult Code(s): E66.01 - MORBID (SEVERE) OBESITY DUE TO EXCESS CALORIES; Z68.43 - BODY MASS INDEX (BMI) 50.0-59.9, ADULT Status: Chronic (14) LISA on CPAP Code(s): G47.33 - OBSTRUCTIVE SLEEP APNEA (ADULT) (PEDIATRIC); Z99.89 - DEPENDENCE ON OTHER ENABLING MACHINES AND DEVICES Status: Chronic - Plan old records reviewed/req, plan discussed w/ family, continue antibiotics, PT/OT , social services manager 11/22/19 this pt needs lot of care including skin, trach, peg tomorrow may be trach would be donsized OK to transfer to medical if ok with cardiology discharge planning medication reviewed and continue supportive care and symptomatic treatment 11/23/19 tomorrow downsize tube await placement discussed with family bedside and updated plan once diarrhea controlled, will dc rectal tube today deeiqumarni started and lovenox dced 11/24/19 today possible down sizing her trach, per pulmonary she has approval for [facility], await bed availability paper work for dc done
[2019-11-24 17:51] VITALS: BP 128/78; TEMP 98.6
--- NOTE | 2019-11-24 21:21 | PRG ---
DATE OF SERVICE: 11/24/2019 SUBJECTIVE: Wil Ford tentatively proved to go to a long-term acute care hospital. Her sutures in the tracheostomy were removed today. A #6 cuffless fenestrated trach was easily placed after the cuffed tube was removed. She coughed up copious amounts of clear sputum after that. She was able to talk with a cap on. She will be transferred today at LTAC and she is stable for transfer from our clinic with family and answered all their questions. Job ID: [id number]
--- NOTE | 2019-11-25 07:13 | DIS ---
DATE OF ADMISSION: 10/29/2019 DATE OF DISCHARGE: 11/24/2019 PRIMARY CARE PHYSICIAN: [facility] Call Admission. DISCHARGE DISPOSITION: LTAC. PRIMARY DISCHARGE DIAGNOSES: Acute respiratory failure with hypoxia, asthma exacerbation, status post tracheostomy and percutaneous endoscopic gastrostomy tube placement, allergic reaction acute on chronic diastolic congestive heart failure, urinary tract infection, atrial fibrillation, acute metabolic encephalopathy, pneumonia. SECONDARY DISCHARGE DIAGNOSES: Obstructive sleep apnea, hypertension, macrocytosis, gastroesophageal reflux disease, chronic anemia, asthma, chronic respiratory failure. PRIMARY PROCEDURE/OPERATION: Endotracheal intubation, mechanical ventilatory support, tracheostomy, percutaneous endoscopic gastrostomy tube placement, central line, peripherally inserted central catheter line. RADIOLOGICAL INVESTIGATION: Chest x-ray, echocardiography. SIGNIFICANT LABORATORY DATA: Hemoglobin 10.3, creatinine 0.59. DISCHARGE MEDICATION: 1. Eliquis 5 mg per tube b.i.d. 2. Aspirin 81 mg daily. 3. Pulmicort nebulization b.i.d. 4. Tums 500 mg t.i.d. p.r.n. 5. Coreg 12.5 mg b.i.d. 6. Digoxin 0.125 mg daily. 7. Pepcid 20 mg b.i.d. 8. Diflucan 100 mg daily for 10 days. 9. Singulair 10 mg daily. 10. Florastor 250 mg p.o. daily. 11. Ventolin HFA 2 puffs q.6 hourly. 12. Dulera 2 puff inhalation b.i.d. 13. DuoNeb q.6 hourly. CONTRAINDICATION: None. CODE STATUS: Full code. INPATIENT OPERATIONS TECH: Pulmonary Group, Cardiology Group, ID team. TEST RESULTS PENDING ON DISCHARGE: None. ALLERGIES: CEFAZOLIN, CODEINE, LISINOPRIL, PENICILLIN. DISCHARGE PLAN: The patient is discharged to LTAC. HOSPITAL COURSE: A 74-year-old female who was admitted by Dr. Bharati Loco. Please see her H and P for further details. On admission, the patient was in respiratory distress. She was having asthma exacerbation. She had [id number] respiratory failure. She was admitted in [facility]. Subsequently, the patient condition deteriorated. Pulmonary group was following while in hospital. The patient required intubation. The patient was not able to wean from ventilator and that is why General Surgery was consulted and they did a tracheostomy and PEG tube placement. The patient also had pneumonia, which was treated with antibiotic therapy. The patient also treated for her urinary tract infection. She had candiduria and that is why we started Diflucan. The patient was transferred to the regular floor. 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 The patient was transferred to medical floor while in hospital. She also had atrial fibrillation with RVR that required Cardiology consultation and treated with this medication. She was given anticoagulation with Eliquis. She was treated with digoxin and Coreg upon discharge. The patient had prolonged hospital course. The patient was waiting for LTAC bed availability. Finally LTAC arranged and patient is discharged there for more care for PT/OT, Speech as well as tracheostomy and PEG tube care and skin care and subsequently, the patient will follow up with Pulmonology, Cardiology, Primary Care Physician. Job ID: [id number]
--- NOTE | 2019-11-26 20:25 | PQF ---
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 [id number] CLINICAL DOCUMENTATION CLARIFICATION FORM: POST DISCHARGE Addendum to original discharge summary date: ____ Late entry note date: __ DATE: 11/26/19 ATTN: Dustin Crockett Please exercise your independent, professional judgment in responding to the clarification form. Clinical indicators are provided on the bottom of this form for your review Can you please further clarify the diagnosis of the patient? Please check appropriate box(es): [ x] Sepsis due to: (Pna, UTI, gangrenous gall bladder, etc.) ___pneumonia and UTI [ ] SIRS due to non-infectious process (please specify etiology) [ x ] with organ dysfunction [ ] without organ dysfunction [ x ] Severe sepsis with acute organ dysfunction of: ___acute respiratory failure (Examples: respiratory failure, encephalopathy, acute kidney failure, other) [ ] Septic Shock [ ] Localized infection without sepsis [ ] Other diagnosis [ ] Unable to determine In addition, please specify: Present on Admission (POA): [ ] Yes [ ] No [ x ] Unable to determine For continuity of documentation, please document condition throughout progress notes and discharge summary. Thank You. CLINICAL INDICATORS - SIGNS / SYMPTOMS / LABS H and P pg.3- admitted for respiratory failure/asthma exacerbation Hospitalist H and P pg.1- on 4L nasal cannula per ER staff but was still tachypneic Laboratory- WBC 16.6H,14.0H, 11.3H, 11.5H H and P pg.1- BP 212/112 in the ER, Temp was 99.4 DS pg.1- Primary diagnosis: Pneumonia RISK FACTORS Acute asthma exacerbation- H and P pg.1 Obesity- H ad P pg.1 acute hypoxic/hypercapnic respiratory failure- H and P pg.3 Acute metabolic encephalopathy- DS pg.1 UTI- DS pg.1 acute on chronic diastolic CHF- DS pg,1 TREATMENTS: Chest X ray 10/29 BiPaP- ED Provider Pulmonary Consult 10/30 Dr. Vanegas IV Fluids- DEC IV Antibiotics- ERIC Infectious Consult- Dr. Dunn (This form is maintained as a part of the permanent medical record) 2014 [employer]. All Rights Reserved [email or web address] [email or web address]
--- NOTE | 2019-11-26 21:32 | PQF ---
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 Clinical indicators are provided on the bottom of this form for your review Can you please further clarify the diagnosis of the patient? Please check appropriate box(es): [ ] Sepsis due to: (Pna, UTI, gangrenous gall bladder, etc.) [ ] Localized infection without sepsis (please specify localized infection) ___ [ ] Other diagnosis [ ] Unable to determine In addition, please specify: Present on Admission (POA): [ ] Yes [ ] No [ ] Unable to determine For continuity of documentation, please document condition throughout progress notes and discharge summary. Thank You. CLINICAL INDICATORS - SIGNS / SYMPTOMS / LABS ED Provider pg.6- Patient presents for evaluation of sepsis ED Provider pg.8- Diagnosis: acute respiratory distress, Additional: PNA and COPD, Sepsis" H and P pg.1- ,Presents with SOB PN 2/6- likely some degree of bronchopneumonia Laboratory- WBC 6.2,7.3,7.9,10.3, 13.4H RISK FACTORS COPD exacerbation- H and P pg.2 Acute respiratory failure- H and P pg.2 CAD- H and P pg.2 HTN- H and P pg.1 CHF- H and P pg.1 Bronchitis- PM Dr. Vargas TREATMENTS: Pulmonary Consult- Dr. Bonilla 11/15 Chest X ray 11/14 IV Antibiotics- MAR IV fluids- MAR O2 Supplementation BiPAP- ED Provider (This form is maintained as a part of the permanent medical record) 2014 [employer]. All Rights Reserved [email or web address]
== END 2019-11-24 19:12 | DRG 4 ==
LOC: ERS 08:48 → IMCU/EMU 14:04 → CCU 10-30 08:18 → IMCU/EMU 11-16 18:44 → 2NO 11-18 17:10 → T4-A 11-22 17:16
PROVIDERS: ADMIT Internal Medicine; ATTEND Internal Medicine
PROC: 5A09557 Assistance with Respiratory Ventilation, Greater than 96 Consecutive Hours, Continuous Positive Airway Pressure (ICD-10-PCS; 2019-10-29)
PROC: 5A09357 Assistance with Respiratory Ventilation, Less than 24 Consecutive Hours, Continuous Positive Airway Pressure (ICD-10-PCS; 2019-10-29)
PROC: 5A1955Z Respiratory Ventilation, Greater than 96 Consecutive Hours (ICD-10-PCS; 2019-10-30)
PROC: 0BH18EZ Insertion of Endotracheal Airway into Trachea, Via Natural or Artificial Opening Endoscopic (ICD-10-PCS; 2019-10-30)
PROC: 0B110F4 Bypass Trachea to Cutaneous with Tracheostomy Device, Open Approach (ICD-10-PCS; principal; 2019-11-07)
PROC: 0DH63UZ Insertion of Feeding Device into Stomach, Percutaneous Approach (ICD-10-PCS; 2019-11-14)
PROC: BD12ZZZ Fluoroscopy of Stomach (ICD-10-PCS; 2019-11-14)
PROC: 0DH64UZ Insertion of Feeding Device into Stomach, Percutaneous Endoscopic Approach (ICD-10-PCS; 2019-11-14)
PROC: 02HV33Z Insertion of Infusion Device into Superior Vena Cava, Percutaneous Approach (ICD-10-PCS; 2019-11-14)
PROC: 0B21XFZ Change Tracheostomy Device in Trachea, External Approach (ICD-10-PCS; 2019-11-24)
DX: A41.9 Sepsis, unspecified organism (principal); J18.9 Pneumonia, unspecified organism; J96.21 Acute and chronic respiratory failure with hypoxia; G93.41 Metabolic encephalopathy; J96.22 Acute and chronic respiratory failure with hypercapnia; I50.33 Acute on chronic diastolic (congestive) heart failure; J45.901 Unspecified asthma with (acute) exacerbation; Z68.43 Body mass index [BMI] 50.0-59.9, adult; E87.0 Hyperosmolality and hypernatremia; E46 Unspecified protein-calorie malnutrition; E66.2 Morbid (severe) obesity with alveolar hypoventilation; J45.902 Unspecified asthma with status asthmaticus; N39.0 Urinary tract infection, site not specified; L51.1 Stevens-Johnson syndrome; R65.20 Severe sepsis without septic shock; I11.0 Hypertensive heart disease with heart failure; K21.9 Gastro-esophageal reflux disease without esophagitis; D64.9 Anemia, unspecified; G72.9 Myopathy, unspecified; Z95.2 Presence of prosthetic heart valve; Z79.51 Long term (current) use of inhaled steroids; Z79.899 Other long term (current) drug therapy; Z88.8 Allergy status to other drugs, medicaments and biological substances; Z88.5 Allergy status to narcotic agent; Z88.0 Allergy status to penicillin; Z99.89 Dependence on other enabling machines and devices; Z79.82 Long term (current) use of aspirin; I48.0 Paroxysmal atrial fibrillation; R13.10 Dysphagia, unspecified; T50.905A Adverse effect of unspecified drugs, medicaments and biological substances, initial encounter; Z87.891 Personal history of nicotine dependence
CPT/HCPCS: 36415; 36416; 51702; 71045; 74018; 80048; 80053; 81003; 81015; 82805; 83735; 83880; 84100; 84484; 85007; 85025; 85027; 87040; 87086; 87804; 93005; 93010; 93306; 94002; 94003; 94640; 94644; 94660; 96365; 96366; 96375; 99292; J0360; J0456; J0690; J0696; J1100; J1120; J1160; J1650; J1940; J1956; J2060; J2250; J2270; J2405; J2543; J2704; J2765; J2920; J2930; J3010; J3480; J3490; J7050; J7611; J7620; J7626; Q0163; S0020; S0028

== ENCOUNTER 2019-12-26 22:20 | Emergency (ER) | payer MEDICARE, OTHER | END 2019-12-26 22:52 | disposition home or self-care (01) | LOC: ERS 22:20 | DX: K94.23 Gastrostomy malfunction (principal); J45.909 Unspecified asthma, uncomplicated; I50.9 Heart failure, unspecified; I11.0 Hypertensive heart disease with heart failure; E66.9 Obesity, unspecified; Z79.891 Long term (current) use of opiate analgesic; Z79.899 Other long term (current) drug therapy | CPT/HCPCS: 99282 ==

== ENCOUNTER 2020-05-15 08:50 | Outpatient (CLI) | payer MEDICARE, MEDICAID ==
--- NOTE | 2020-05-15 09:28 | MMO ---
Bilateral MAMMO Bilat Screen DDI+NOY. CLINICAL HISTORY: Patient is 75 years old and is seen for screening. The patient has no family history of breast cancer. The patient has no personal history of cancer. VIEWS: The views performed were: bilateral craniocaudal with tomosynthesis and bilateral mediolateral oblique with tomosynthesis. FILMS COMPARED: The present examination has been compared to prior imaging studies performed at [facility] on 04/11/2018, 05/10/2019 and 05/26/2019. This study has been interpreted with the assistance of computer-aided detection. MAMMOGRAM FINDINGS: The breasts are almost entirely fat. There are no suspicious masses, suspicious calcifications, or new areas of architectural distortion. IMPRESSION: THERE IS NO MAMMOGRAPHIC EVIDENCE OF MALIGNANCY. A ROUTINE FOLLOW-UP MAMMOGRAM IN 1 YEAR IS RECOMMENDED. THE RESULTS OF THIS EXAM WERE SENT TO THE PATIENT. ACR BI-RADS Category 1 - Negative MAMMOGRAPHY NOTE: 1. A negative mammogram report should not delay a biopsy if a dominant of clinically suspicious mass is present. 2. Approximately 10% to 15% of breast cancers are not detected by mammography. 3. Adenosis and dense breasts may obscure an underlying neoplasm. Reported by: GERALD GONSALEZ MD Electonically Signed: [id number]
== END 2020-05-15 08:51 | disposition home or self-care (01) ==
LOC: BICMAMMO 08:50
PROVIDERS: ATTEND Family Medicine
DX: Z12.31 Encounter for screening mammogram for malignant neoplasm of breast (principal)
CPT/HCPCS: 77063; 77067

== ENCOUNTER 2020-09-07 13:13 | Emergency (ER) | payer MEDICARE, OTHER ==
[2020-09-07 14:00] LABS: #Basophils 0.1 thou/uL (0.0-0.2); #Eosinphils 0.1 thou/uL (0.0-0.7); #Lymphocytes 2.3 thou/uL (1.20-3.40); #Monocytes 0.5 thou/uL (0.11-0.59); #Neutrophils 2.2 thou/uL (1.40-6.50); %Basophils 2.2 % (0.0-1.0); %Eosinophils 1.7 % (0.0-10.0); %Lymphocytes 44.3 % (21.0-51.0); %Monocytes 9.9 % (0.0-10.0); Hemoglobin 13.6 g/dL (12.0-16.0); Mean Corpuscular HGB CONC 32.3 g/dL (32.0-36.0); Mean Corpuscular Hemoglobin 33.6 pg (27.0-31.0); Mean Platelet Volume 8.2 fL (7.4-10.4); Platelet Count 181 thou/uL (130-400); RBC Distribution Width 11.6 % (11.5-14.5); Red Blood Cell (RBC) Count 4.05 mill/uL (4.20-5.40); White Blood Cell (WBC) Count 5.2 thou/uL (4.8-10.8)
[2020-09-07 14:14] LABS: Bilirubin Negative (Negative); Blood, Urine Negative (Negative); Clarity Clear (Clear); Glucose, Urine (Dipstick) Normal (Negative); Ketone, Urine Negative (Negative); Leukocyte Negative Leu/uL (Negative); Nitrite Negative (Negative); Protein, Urine (Dipstick) Negative (Neg-Trace); Specific Gravity, Urine 1.005 (1.002-1.036); Urobilinogen Normal mg/dL (Less than 2); pH, Urine 7.5 (5.0-9.0)
[2020-09-07 14:19] LABS: ALT (SGPT) 9 U/L (8-55); AST (SGOT) 17 U/L (5-34); Albumin 3.5 g/dL (3.4-4.8); Alkaline Phosphatase 96 U/L (40-110); Anion Gap 14 mmol/L (10-20); BUN (Urea Nitrogen) 10 mg/dL (9.8-20.1); Bilirubin, Total 0.3 mg/dL (0.2-1.2); Calc. Creatinine Clearance 0 mL/min (70-130); Calcium 9.2 mg/dL (7.8-10.44); Carbon Dioxide 28 mmol/L (23-31); Chloride 104 mmol/L (98-107); Estimated GFR-MDRD Greater than 90; Globulin 3.9 g/dL (2.4-3.5); Glucose 94 mg/dL (83-110); Protein, Total 7.4 g/dL (6.0-8.3); Sodium 141 mmol/L (136-145)
[2020-09-07] MEDS ORDERED: Acetaminophen 500 MG TAB ONE (14:41)
[2020-09-07] MEDS ORDERED: Cyclobenzaprine 10 MG TAB ONE (14:41)
== END 2020-09-07 14:57 | disposition home or self-care (01) ==
LOC: ERS 13:13
DX: M54.5 Low back pain (principal); I11.0 Hypertensive heart disease with heart failure; I50.9 Heart failure, unspecified; J45.909 Unspecified asthma, uncomplicated; E66.9 Obesity, unspecified; Z79.899 Other long term (current) drug therapy
CPT/HCPCS: 36415; 80053; 81003; 85025; 87086; 99283

== ENCOUNTER 2020-09-20 10:53 | Emergency (ER) | payer MEDICARE, OTHER ==
[2020-09-20] MEDS ORDERED: Morphine 4 MG/ML VIAL ONE (15:22)
== END 2020-09-20 15:30 | disposition home or self-care (01) ==
LOC: ERS 10:53
DX: M54.5 Low back pain (principal); I10 Essential (primary) hypertension; Z79.01 Long term (current) use of anticoagulants; Z79.899 Other long term (current) drug therapy
CPT/HCPCS: 96372; 99283; J2270

== ENCOUNTER 2021-06-25 10:20 | Outpatient (CLI) | payer MEDICARE, OTHER | END 2021-06-25 10:21 | disposition home or self-care (01) | LOC: BICMAMMO 10:20 | PROVIDERS: ATTEND Family Medicine | DX: Z12.31 Encounter for screening mammogram for malignant neoplasm of breast (principal) | CPT/HCPCS: 77063; 77067 ==

== ENCOUNTER 2021-07-08 00:08 | Observation (INO) | payer MEDICARE, MEDICAID ==
[2021-07-08] MEDS ORDERED: Nitroglycerin 0.4 MG TAB 1 EACH ONE ×2 (00:18→00:38)
[2021-07-08 01:14] LABS: #Basophils 0.1 thou/uL (0.0-0.2); #Eosinphils 0.1 thou/uL (0.0-0.7); #Lymphocytes 2.6 thou/uL (1.20-3.40); #Monocytes 0.7 thou/uL (0.11-0.59); #Neutrophils 2.4 thou/uL (1.40-6.50); %Basophils 1.1 % (0.0-1.0); %Eosinophils 2.3 % (0.0-10.0); %Lymphocytes 44.3 % (21.0-51.0); %Monocytes 11.5 % (0.0-10.0); %Neutrophils 40.8 % (42.0-75.0); Hemoglobin 13.1 g/dL (12.0-16.0); Mean Corpuscular HGB CONC 32.1 g/dL (32.0-36.0); Mean Corpuscular Hemoglobin 32.4 pg (27.0-31.0); Mean Platelet Volume 8.7 fL (7.4-10.4); Platelet Count 196 thou/uL (130-400); RBC Distribution Width 11.2 % (11.5-14.5); Red Blood Cell (RBC) Count 4.05 mill/uL (4.20-5.40)
[2021-07-08 01:40] LABS: ALT (SGPT) 7 U/L (8-55); AST (SGOT) 23 U/L (5-34); Albumin 3.5 g/dL (3.4-4.8); Alkaline Phosphatase 99 U/L (40-110); Anion Gap 13 mmol/L (10-20); BUN (Urea Nitrogen) 10 mg/dL (9.8-20.1); Bilirubin, Total 0.4 mg/dL (0.2-1.2); Calc. Creatinine Clearance 0 mL/min (70-130); Calcium 9.4 mg/dL (7.8-10.44); Carbon Dioxide 29 mmol/L (23-31); Chloride 101 mmol/L (98-107); Globulin 3.9 g/dL (2.4-3.5); Glucose 99 mg/dL (83-110); Protein, Total 7.4 g/dL (5.8-8.1); Sodium 138 mmol/L (136-145)
[2021-07-08 03:50] VITALS: BMI 42.3
[2021-07-08] MEDS ORDERED: Ondansetron PF 4 MG/2 ML Vial IVP PRN (04:20)
[2021-07-08] MEDS ORDERED: Acetaminophen 325 MG TAB PO PRN (04:20)
[2021-07-08] MEDS ORDERED: Nitroglycerin 0.4 MG TAB (25 Tab Bottle) SL PRN (04:20)
[2021-07-08 05:07] LABS: Troponin I Less than 0.010 ng/mL (< 0.028)
[2021-07-08 05:21] LABS: SARS-CoV-2 NAA Rapid Test Not Detected (NotDetected)
[2021-07-08 08:08] LABS: Troponin I Less than 0.010 ng/mL (< 0.028)
[2021-07-08] MEDS ORDERED: Enoxaparin Sodium 120 MG/0.8 ML SYRINGE SC SCH (18:15)
[2021-07-08] MEDS: Amlodipine 5 MG TAB PO SCH (20:21)
[2021-07-08] MEDS: Carvedilol 6.25 MG TAB PO SCH (20:22)
[2021-07-09 05:24] LABS: #Basophils 0.1 thou/uL (0.0-0.2); #Eosinphils 0.1 thou/uL (0.0-0.7); #Lymphocytes 2.5 thou/uL (1.20-3.40); #Monocytes 0.5 thou/uL (0.11-0.59); #Neutrophils 2.2 thou/uL (1.40-6.50); %Lymphocytes 46.3 % (21.0-51.0); %Monocytes 9.8 % (0.0-10.0); %Neutrophils 40.9 % (42.0-75.0); Hemoglobin 12.4 g/dL (12.0-16.0); Mean Corpuscular HGB CONC 31.6 g/dL (32.0-36.0); Mean Corpuscular Hemoglobin 31.7 pg (27.0-31.0); Mean Platelet Volume 8.9 fL (7.4-10.4); Platelet Count 202 thou/uL (130-400); RBC Distribution Width 11.2 % (11.5-14.5); Red Blood Cell (RBC) Count 3.92 mill/uL (4.20-5.40); White Blood Cell (WBC) Count 5.4 thou/uL (4.8-10.8)
[2021-07-09 05:34] LABS: Anion Gap 10 mmol/L (10-20); BUN (Urea Nitrogen) 8 mg/dL (9.8-20.1); Calc. Creatinine Clearance 136 mL/min (70-130); Calcium 9.1 mg/dL (7.8-10.44); Carbon Dioxide 29 mmol/L (23-31); Cardiac Risk 2.2 (Less than 4.5); Chloride 105 mmol/L (98-107); Cholesterol 117 mg/dl (< 200 Desired); Glucose 97 mg/dL (83-110); HDL Cholesterol 54 mg/dL (>60 Neg Risk); LDL Cholesterol, Calculated 57 mg/dL; Potassium 3.9 mmol/L (3.5-5.1); Sodium 140 mmol/L (136-145); Triglycerides 29 mg/dL (Less than 150)
[2021-07-09] MEDS ORDERED: Enoxaparin Sodium 120 MG/0.8 ML SYRINGE SC SCH (09:00)
[2021-07-09] MEDS ORDERED: Losartan 25 MG TAB PO SCH (09:00)
[2021-07-09] MEDS ORDERED: Rosuvastatin 20 MG TAB PO SCH (09:00)
[2021-07-09] MEDS ORDERED: Regadenoson 0.4 MG/5 ML SYRINGE ONE (09:24)
[2021-07-09] MEDS: Amlodipine 5 MG TAB PO SCH (11:49)
[2021-07-09] MEDS: Carvedilol 6.25 MG TAB PO SCH (11:50)
[2021-07-09 11:54] VITALS: BP 164/78; TEMP 98
== END 2021-07-09 14:45 | disposition home or self-care (01) ==
LOC: ERS 00:08 → ERHOLD 02:34 → 2NO 15:09
PROVIDERS: ADMIT Student in an Organized Health Care Education/Training Program; ATTEND Internal Medicine
DX: R07.89 Other chest pain (principal); R06.02 Shortness of breath; I10 Essential (primary) hypertension; E66.9 Obesity, unspecified; J45.909 Unspecified asthma, uncomplicated; I48.0 Paroxysmal atrial fibrillation; E78.5 Hyperlipidemia, unspecified; Z20.822 Contact with and (suspected) exposure to COVID-19; Z86.73 Personal history of transient ischemic attack (TIA), and cerebral infarction without residual deficits; Z79.01 Long term (current) use of anticoagulants; Z79.899 Other long term (current) drug therapy; Z88.0 Allergy status to penicillin; Z88.1 Allergy status to other antibiotic agents; Z88.5 Allergy status to narcotic agent; Z88.8 Allergy status to other drugs, medicaments and biological substances
CPT/HCPCS: 71045; 78452; 80048; 80053; 80061; 83880; 84484 ×2; 85025 ×2; 85379; 93005; 93017; 93306; 94760; 96372 ×2; 99285; A9500; G0378 ×3; U0002; 36415; J1650; J2785

== ENCOUNTER 2021-11-27 10:22 | Emergency (ER) | payer MEDICAID, MEDICARE, OTHER ==
[2021-11-27 11:44] LABS: Bilirubin Negative (Negative); Blood, Urine Negative (Negative); Clarity Clear (Clear); Glucose, Urine (Dipstick) Normal (Negative); Ketone, Urine Negative (Negative); Leukocyte Negative Leu/uL (Negative); Nitrite Negative (Negative); Protein, Urine (Dipstick) Negative (Neg-Trace); Specific Gravity, Urine 1.012 (1.002-1.036); Urobilinogen Normal mg/dL (Less than 2); pH, Urine 6.5 (5.0-9.0)
[2021-11-27] MEDS ORDERED: Cyclobenzaprine 10 MG TAB ONE (13:16)
== END 2021-11-27 13:27 | disposition home or self-care (01) ==
LOC: ERS 10:22
DX: S39.012A Strain of muscle, fascia and tendon of lower back, initial encounter (principal); I10 Essential (primary) hypertension; E78.5 Hyperlipidemia, unspecified; E78.00 Pure hypercholesterolemia, unspecified; J45.909 Unspecified asthma, uncomplicated; Z86.73 Personal history of transient ischemic attack (TIA), and cerebral infarction without residual deficits; Z79.01 Long term (current) use of anticoagulants; Z79.899 Other long term (current) drug therapy
CPT/HCPCS: 72100; 81003

== ENCOUNTER 2021-12-01 06:59 | Emergency (ER) | payer MEDICARE, OTHER ==
[2021-12-01] MEDS ORDERED: Morphine 4 MG/ML VIAL ONE (07:54)
[2021-12-01] MEDS ORDERED: Ondansetron PF 4 MG/2 ML Vial ONE (07:54)
[2021-12-01 08:10] LABS: #Eosinphils 0.1 thou/uL (0.0-0.7); #Lymphocytes 1.7 thou/uL (1.20-3.40); #Monocytes 0.5 thou/uL (0.11-0.59); #Neutrophils 3.3 thou/uL (1.40-6.50); %Basophils 0.8 % (0.0-1.0); %Eosinophils 1.9 % (0.0-10.0); %Lymphocytes 30.6 % (21.0-51.0); %Monocytes 8.2 % (0.0-10.0); %Neutrophils 58.5 % (42.0-75.0); Hemoglobin 13.2 g/dL (12.0-16.0); Mean Corpuscular HGB CONC 30.9 g/dL (32.0-36.0); Mean Corpuscular Hemoglobin 31.7 pg (27.0-31.0); Mean Platelet Volume 7.7 fL (7.4-10.4); Platelet Count 200 thou/uL (130-400); Red Blood Cell (RBC) Count 4.17 mill/uL (4.20-5.40); White Blood Cell (WBC) Count 5.6 thou/uL (4.8-10.8)
[2021-12-01 08:30] LABS: ALT (SGPT) 8 U/L (8-55); AST (SGOT) 19 U/L (5-34); Albumin 3.7 g/dL (3.4-4.8); Alkaline Phosphatase 76 U/L (40-110); Anion Gap 11 mmol/L (10-20); BUN (Urea Nitrogen) 6 mg/dL (9.8-20.1); Bilirubin, Total 0.7 mg/dL (0.2-1.2); Calc. Creatinine Clearance 0 mL/min (70-130); Calcium 9.5 mg/dL (7.8-10.44); Carbon Dioxide 31 mmol/L (23-31); Chloride 103 mmol/L (98-107); Globulin 3.1 g/dL (2.4-3.5); Glucose 90 mg/dL (83-110); Lipase 8 U/L (8-78); Potassium 4.5 mmol/L (3.5-5.1); Protein, Total 6.8 g/dL (5.8-8.1); Sodium 140 mmol/L (136-145)
[2021-12-01 09:31] LABS: Bilirubin Negative (Negative); Blood, Urine Negative (Negative); Clarity Clear (Clear); Glucose, Urine (Dipstick) Normal (Negative); Ketone, Urine Negative (Negative); Leukocyte Negative Leu/uL (Negative); Nitrite Negative (Negative); Protein, Urine (Dipstick) Negative (Neg-Trace); Specific Gravity, Urine 1.009 (1.002-1.036); Urobilinogen Normal mg/dL (Less than 2); pH, Urine 7.5 (5.0-9.0)
[2021-12-01] MEDS ORDERED: Iopamidol-370 76% 500 ML 1 ML ONE (11:34)
== END 2021-12-01 11:00 | disposition home or self-care (01) ==
LOC: ERS 06:59
DX: K80.20 Calculus of gallbladder without cholecystitis without obstruction (principal); D25.9 Leiomyoma of uterus, unspecified; E27.9 Disorder of adrenal gland, unspecified; M54.6 Pain in thoracic spine; M54.50 Low back pain, unspecified; E78.00 Pure hypercholesterolemia, unspecified; E78.5 Hyperlipidemia, unspecified; I10 Essential (primary) hypertension; J45.909 Unspecified asthma, uncomplicated
CPT/HCPCS: 71045; 71275; 74174; 80053; 81003; 83690; 84484; 85025; 93005; 96374; J2270; J2405; Q9967

== ENCOUNTER 2022-06-26 10:23 | Outpatient (CLI) | payer OTHER | END 2022-06-26 10:24 | disposition home or self-care (01) | LOC: BICMAMMO 10:23 | PROVIDERS: ATTEND Family Medicine | DX: Z12.31 Encounter for screening mammogram for malignant neoplasm of breast (principal) | CPT/HCPCS: 77063; 77067 ==

== ENCOUNTER 2022-10-17 13:54 | Emergency (ER) | payer OTHER ==
[2022-10-17] MEDS ORDERED: methylPREDNISolone Sod Succ/PF 125 MG/2 ML VIAL ONE (14:26)
[2022-10-17] MEDS ORDERED: Furosemide 40 MG/4 ML VIAL ONE (14:26)
[2022-10-17 14:55] LABS: Hemoglobin 13.9 g/dL (12.0-16.0); Mean Corpuscular HGB CONC 32.5 g/dL (32.0-36.0); Mean Corpuscular Hemoglobin 33.4 pg (27.0-31.0); Mean Platelet Volume 8.2 fL (7.4-10.4); Platelet Count 161 10x3/uL (130-400); RBC Distribution Width 11.4 % (11.5-14.5); Red Blood Cell (RBC) Count 4.16 mill/uL (4.20-5.40); White Blood Cell (WBC) Count 3.4 10x3/uL (4.8-10.8)
[2022-10-17 15:14] LABS: Band 1 % (5-11); Eosinophils 7 % (0-10); Lymphocytes 41 % (21-51); MDiff Complete? YES; Macrocytosis SLIGHT = 6-15 cells (100X) (0-5/hpf); Monocytes 17 % (0-10); Neutrophil 31 % (42-75); Platelet Morphology Comment Appears Adequate; Reactive Lymphocytes 1 % (0-10)
[2022-10-17 15:20] LABS: ALT (SGPT) 12 U/L (8-55); AST (SGOT) 26 U/L (5-34); Albumin 3.9 g/dL (3.4-4.8); Alkaline Phosphatase 78 U/L (40-110); Anion Gap 11 mmol/L (10-20); BUN (Urea Nitrogen) 7 mg/dL (9.8-20.1); Bilirubin, Total 0.3 mg/dL (0.2-1.2); Calc. Creatinine Clearance 0 mL/min (70-130); Calcium 9.1 mg/dL (7.8-10.44); Carbon Dioxide 29 mmol/L (23-31); Chloride 107 mmol/L (98-107); Estimated GFR 93; Globulin 3.7 g/dL (2.4-3.5); Glucose 89 mg/dL (83-110); Potassium 4.5 mmol/L (3.5-5.1); Protein, Total 7.6 g/dL (5.8-8.1); Sodium 142 mmol/L (136-145)
[2022-10-17 15:39] LABS: SARS-CoV-2 NAA Rapid Test DETECTED (NotDetected)
== END 2022-10-17 16:05 | disposition home or self-care (01) ==
LOC: ERS 13:54
DX: U07.1 COVID-19 (principal); E78.00 Pure hypercholesterolemia, unspecified; I10 Essential (primary) hypertension; Z79.01 Long term (current) use of anticoagulants; Z79.899 Other long term (current) drug therapy
CPT/HCPCS: 0240U; 71045; 80053; 83880; 84484; 85025; 93005; 96374; 96375; J1940; J2930; J7620

== ENCOUNTER 2022-11-30 11:40 | Outpatient (CLI) | payer OTHER | END 2022-11-30 11:41 | disposition home or self-care (01) | LOC: RAD 11:40 | PROVIDERS: ATTEND Internal Medicine Critical Care Medicine | DX: R06.00 Dyspnea, unspecified (principal) | CPT/HCPCS: 71046 ==

== ENCOUNTER 2023-01-28 19:26 | Emergency (ER) | payer OTHER ==
[2023-01-28 21:10] LABS: #Eosinphils 0.1 thou/uL (0.0-0.7); #Lymphocytes 1.9 thou/uL (1.20-3.40); #Monocytes 0.5 thou/uL (0.11-0.59); #Neutrophils 2.9 thou/uL (1.40-6.50); %Basophils 0.6 % (0.0-1.0); %Eosinophils 2.1 % (0.0-10.0); %Lymphocytes 35.3 % (21.0-51.0); %Monocytes 9.2 % (0.0-10.0); %Neutrophils 52.9 % (42.0-75.0); Hemoglobin 12.2 g/dL (12.0-16.0); Mean Corpuscular HGB CONC 32.1 g/dL (32.0-36.0); Mean Corpuscular Hemoglobin 32.7 pg (27.0-31.0); Mean Platelet Volume 7.7 fL (7.4-10.4); Platelet Count 185 10x3/uL (130-400); RBC Distribution Width 11.3 % (11.5-14.5); Red Blood Cell (RBC) Count 3.73 mill/uL (4.20-5.40); White Blood Cell (WBC) Count 5.5 10x3/uL (4.8-10.8)
[2023-01-28 21:32] LABS: ALT (SGPT) 7 U/L (8-55); AST (SGOT) 14 U/L (5-34); Albumin 3.4 g/dL (3.4-4.8); Alkaline Phosphatase 88 U/L (40-110); Anion Gap 10 mmol/L (10-20); BUN (Urea Nitrogen) 11 mg/dL (9.8-20.1); Bilirubin, Total 0.2 mg/dL (0.2-1.2); Calc. Creatinine Clearance 0 mL/min (70-130); Calcium 9.1 mg/dL (7.8-10.44); Carbon Dioxide 28 mmol/L (23-31); Chloride 107 mmol/L (98-107); Estimated GFR 88; Glucose 110 mg/dL (83-110); Lipase 22 U/L (8-78); Potassium 4.3 mmol/L (3.5-5.1); Protein, Total 6.4 g/dL (5.8-8.1); Sodium 141 mmol/L (136-145)
== END 2023-01-28 22:46 | disposition home or self-care (01) ==
LOC: ERS 19:26
DX: R00.2 Palpitations (principal); E78.00 Pure hypercholesterolemia, unspecified; I10 Essential (primary) hypertension; J45.909 Unspecified asthma, uncomplicated
CPT/HCPCS: 36415; 71045; 80053; 83690; 83880; 84484; 85025; 93005

== ENCOUNTER 2023-05-09 12:13 | Emergency (ER) | payer OTHER ==
[2023-05-09] MEDS ORDERED: Morphine 4 MG/ML VIAL ONE (12:33)
[2023-05-09] MEDS ORDERED: Cyclobenzaprine 10 MG TAB ONE (12:34)
[2023-05-09] MEDS ORDERED: Ondansetron ODT 4 MG TAB ONE (13:12)
== END 2023-05-09 13:16 | disposition home or self-care (01) ==
LOC: ERS 12:13
DX: M62.838 Other muscle spasm (principal); E78.00 Pure hypercholesterolemia, unspecified; I10 Essential (primary) hypertension
CPT/HCPCS: 96372; 99283; J2270; Q0162

== ENCOUNTER 2023-09-08 11:58 | Outpatient (CLI) | payer OTHER, MEDICARE | END 2023-09-08 11:59 | disposition home or self-care (01) | LOC: RAD 11:58 | PROVIDERS: ATTEND Internal Medicine Critical Care Medicine | DX: R06.00 Dyspnea, unspecified (principal) | CPT/HCPCS: 71046 ==

== ENCOUNTER 2024-08-02 09:22 | Outpatient (CLI) | payer OTHER | END 2024-08-02 09:23 | disposition home or self-care (01) | LOC: RAD 09:22 | PROVIDERS: ATTEND Internal Medicine Critical Care Medicine | DX: R06.00 Dyspnea, unspecified (principal) | CPT/HCPCS: 71046 ==

== ENCOUNTER 2025-09-13 12:30 | Observation (INO) | payer OTHER, MEDICAID ==
[~2025-09-13 12:30] MED LIST: Iopamidol-370 76% 500 ML MDV (1 ML CHARGE) ONE
[2025-09-13 15:50] LABS: CAUTI Indications for Culture < 2yrs of age; Glucose, Urine (Dipstick) Normal (Negative); Leukocyte Negative Leu/uL (Negative); Protein, Urine (Dipstick) Negative (Neg-Trace); RBC/HPF None Seen HPF (0-3); Specific Gravity, Urine 1.005 (1.002-1.036); WBC/HPF None Seen HPF (0-3)
[2025-09-13 16:02] LABS: #Basophils 0.03 10x3/uL (0.0-0.2); #Eosinophils 0.08 10x3/uL (0.0-0.7); #Monocytes 0.42 10x3/uL (0.11-0.59); #Neutrophils 2.78 10x3/uL (1.40-6.50); %Basophils 0.6 % (0.0-1.0); %Eosinophils 1.6 % (0.0-10.0); %Lymphocytes 35.0 % (21.0-51.0); %Monocytes 8.2 % (0.0-10.0); %Neutrophils 54.4 % (42.0-75.0); Hematocrit 40.2 % (36.0-47.0); Hemoglobin 12.4 g/dL (12.0-16.0); Mean Corpuscular Hemoglobin 30.4 pg (27.0-31.0); Mean Corpuscular Volume 98.5 fL (78.0-98.0); Platelet Count 211 10x3/uL (130-400); Red Blood Cell (RBC) Count 4.08 mill/uL (4.20-5.40); White Blood Cell (WBC) Count 5.11 10x3/uL (4.8-10.8)
[2025-09-13 16:08] LABS: Bacteria/HPF Rare-Few HPF (None Seen)
[2025-09-13 16:09] LABS: Urine Culture Reflex Yes Yes
[2025-09-13 16:21] LABS: ALT (SGPT) Less than 7 U/L (Less than 34); AST (SGOT) 21 U/L (11-34); Albumin 3.3 g/dL (3.1-4.5); Alkaline Phosphatase 67 U/L (40-110); Anion Gap 13 mmol/L (10-20); BUN (Urea Nitrogen) 9 mg/dL (9.8-20.1); Bilirubin, Total 0.6 mg/dL (0.3-1.2); Calc. Creatinine Clearance 0 mL/min (70-130); Calcium 9.4 mg/dL (7.8-10.44); Carbon Dioxide 26 mmol/L (23-31); Chloride 108 mmol/L (98-107); Globulin 4.0 g/dL (2.4-3.5); Glucose 82 mg/dL (83-110); Lipase 11 U/L (8-78); Potassium 4.2 mmol/L (3.5-5.1); Sodium 143 mmol/L (136-145)
[2025-09-13] MEDS ORDERED: Ondansetron PF 4 MG/2 ML Vial ONE ×2 (17:52→18:36)
[2025-09-13] MEDS ORDERED: Dextrose 50% Abboject 50 ML SYRINGE SLOW IVP PRN (22:12)
[2025-09-13] MEDS ORDERED: Glucagon 1 MG/ML KIT IM PRN (22:12)
[2025-09-13] MEDS ORDERED: TETANUS, DIPHTHERIA TOX,ADULT (TDVAX) 0.5 ML VIAL IM ONE (22:12)
[2025-09-13] MEDS ORDERED: hydrALAZINE 20 MG/ML VIAL SLOW IVP PRN (22:12)
[2025-09-13] MEDS ORDERED: Ondansetron PF 4 MG/2 ML Vial IVP PRN (22:12)
[2025-09-13] MEDS ORDERED: cefTRIAXone (ROCEPHIN) 2 GM VIAL ONE (22:38)
[2025-09-13] MEDS ORDERED: metroNIDAZOLE 500 MG (100 mL) BAG ONE (22:38)
[2025-09-13] MEDS ORDERED: Potassium Chloride 20 MEQ in Premix 1 BAG IVPB PRN (22:45)
[2025-09-13] MEDS ORDERED: Electrolyte Replacement Protocol 1 EACH FS SCH (22:45)
[2025-09-13] MEDS ORDERED: Magnesium 2 GM/50 ML(in water) 2 GM in Premix 1 BAG IVPB PRN (22:45)
[2025-09-13] MEDS ORDERED: PHOS-NAK 1 PKT PACK PO PRN (22:45)
[2025-09-14 00:47] VITALS: BMI 40.8
[2025-09-14] MEDS: TETANUS AND DIPHTHERIA TOX/PF 0.5 ML DISP.SYRIN IM SCH (00:48)
[2025-09-14 04:23] LABS: #Basophils 0.03 10x3/uL (0.0-0.2); #Eosinophils Less than 0.03 10x3/uL (0.0-0.7); #Monocytes 0.32 10x3/uL (0.11-0.59); #Neutrophils 6.09 10x3/uL (1.40-6.50); %Basophils 0.4 % (0.0-1.0); %Eosinophils 0.0 % (0.0-10.0); %Lymphocytes 14.2 % (21.0-51.0); %Monocytes 4.2 % (0.0-10.0); %Neutrophils 80.9 % (42.0-75.0); Hematocrit 36.3 % (36.0-47.0); Hemoglobin 11.0 g/dL (12.0-16.0); Mean Corpuscular Hemoglobin 30.6 pg (27.0-31.0); Mean Corpuscular Volume 101.1 fL (78.0-98.0); Platelet Count 180 10x3/uL (130-400); Red Blood Cell (RBC) Count 3.59 mill/uL (4.20-5.40); White Blood Cell (WBC) Count 7.53 10x3/uL (4.8-10.8)
[2025-09-14 04:39] LABS: Anion Gap 11 mmol/L (10-20); BUN (Urea Nitrogen) 8 mg/dL (9.8-20.1); Calc. Creatinine Clearance 144 mL/min (70-130); Calcium 8.4 mg/dL (7.8-10.44); Carbon Dioxide 23 mmol/L (23-31); Chloride 113 mmol/L (98-107); Glucose 104 mg/dL (83-110); Potassium 4.6 mmol/L (3.5-5.1); Sodium 142 mmol/L (136-145)
[2025-09-14] MEDS: Losartan 25 MG TAB PO SCH (08:28)
[2025-09-14] MEDS: Famotidine/PF 20 mg/2ml Vial SLOW IVP SCH (08:28)
[2025-09-14] MEDS: Carvedilol 6.25 MG TAB PO SCH (08:34)
[2025-09-14] MEDS ORDERED: FLU (Fluad Triv) 25-26 (65UP)PF 45 MCG/0.5 ML Syringe IM ONE (09:00)
[2025-09-14] MEDS: Acetaminophen 325 MG TAB PO PRN (09:54)
[2025-09-14] MEDS ORDERED: Methocarbamol 500 MG TAB PO PRN (15:07)
[2025-09-14 15:13] VITALS: BP 130/60; TEMP 97.6
[2025-09-14] MEDS ORDERED: PHOS-NAK 1 PKT PACK PO PRN (16:00)
[2025-09-14] MEDS ORDERED: Potassium Chloride 20 MEQ in Premix 1 BAG IVPB PRN (16:00)
[2025-09-14] MEDS ORDERED: Magnesium Sulfate In Water 4 GM in Premix 1 BAG IVPB PRN (16:00)
[2025-09-14] MEDS: Acetaminophen 325 MG TAB PO SCH (16:35)
[2025-09-14] MEDS ORDERED: Ipratropium Bromide 0.06% Nasal Inhaler 15ml EA NARE SCH (21:00)
[2025-09-14] MEDS ORDERED: Apixaban 5 MG TAB PO SCH (21:00)
[2025-09-15] MEDS ORDERED: Torsemide 20 MG TAB PO SCH (09:00)
[2025-09-15] MEDS ORDERED: Rosuvastatin 20 MG TAB PO SCH (09:00)
== END 2025-09-14 18:00 | disposition home or self-care (01) ==
LOC: ERS 12:30 → 2NO 22:12
PROVIDERS: ADMIT Colon & Rectal Surgery; ATTEND Colon & Rectal Surgery
DX: R10.13 Epigastric pain (principal); R11.14 Bilious vomiting; R10.A2 Flank pain, left side; M25.512 Pain in left shoulder; I10 Essential (primary) hypertension; I48.0 Paroxysmal atrial fibrillation; E78.5 Hyperlipidemia, unspecified; J45.909 Unspecified asthma, uncomplicated; Z86.73 Personal history of transient ischemic attack (TIA), and cerebral infarction without residual deficits; Z88.5 Allergy status to narcotic agent; Z88.8 Allergy status to other drugs, medicaments and biological substances; Z88.0 Allergy status to penicillin; Z79.01 Long term (current) use of anticoagulants; Z79.899 Other long term (current) drug therapy
CPT/HCPCS: 71045; 74177; 76705; 80048; 80053; 81001; 83690; 84484 ×2; 85025 ×2; 87086; 87428; 93005; 96361; 96374; 96375; 96376; 99285; J0461; J0696; J1308; J2270; J2405; J7120; 36415; G0378; Q9967